=== PATIENT | female | born 1935 | race Caucasian/White ===

== ENCOUNTER 2016-08-05 16:52 | Inpatient (IN) | payer MEDICARE, BC ==
--- NOTE | 2016-08-05 16:54 | EDM.PDOC ---
ED HISTORY OF PRESENT ILLNESS - General Chief Complaint: Cardiovascular Problem Stated Complaint: HTN Time Seen by Provider: 08/05/16 16:54 Source of Information: Reports: Patient, Family (Daughter in law), Old records ( [facility] EMR. No paper hospital chart available.) History Limitations: Reports: No limitations - History of Present Illness INITIAL COMMENTS - FREE TEXT/NARRATIVE: The patient was brought to the emergency room via private automobile by her [id number] for evaluation of refractory hypertension, including a systolic blood pressure of 225 at about 14:00 hours this afternoon with a blood pressure of 211/82 taken by the aid at the [facility] immediately prior to arrival. Blood Pressures were taken with the wrist monitor. She does complain of an 8/10 bilateral headache with possible nonspecific visual changes, however no other change in her neurological status. 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 She has not had any problems with medication noncompliance or recent change in her medications, although her blood pressure has been under poor control during the last 2-3 weeks. She is currently on an antibiotic for a UTI, however denies UTI symptoms, gross hematuria, colic, etc. The patient denies any chest pain/pressure, heart flutter, dizziness, orthostasis, orthopnea , diaphoresis, paresthesias, recent decreased exercise tolerance, or any other anginal-type symptoms, although her overall activity level is low. No recent history of abdominal pain, heartburn, nausea, diarrhea, melena, gross hematochezia, or any food intolerance, including fatty foods, etc. with a normal bowel movement earlier today with stable stools secondary to her iron supplementation. The patient also denies any recent fever, cough, wheezing, dyspnea, etc.. She has not had any medications for her symptoms to this point. Her home Accu-Cheks have been stable with an Accu-Chek of 85 this morning. Timing/Duration: Reports: Week(s): (As above) Severity: moderate Location, General: Reports: head. Denies: face, neck, chest, abdomen, back, upper extremity, left, upper extremity, right, lower extremity, left, lower extremity, right Quality: Reports: Pressure, Same as previous episode, Sharp Improves with: Reports: None Worsens with: Reports: None Context, General: Reports: Other (As above) Associated Symptoms (General): Reports: headaches. 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: Other (see below) (None) - Related Data Allergies/ADRs: Allergies Allergy/AdvReac Type Severity Reaction Status Date / Time diphenhydramine Allergy Unknown Hallucinati Verified 01/12/16 10:53 ons lisinopril Allergy Unknown Cough Verified 01/12/16 10:53 Home Meds: Home Meds Allopurinol [Zyloprim] 150 mg PO BEDTIME 10/08/13 [History] Cyanocobalamin (Vitamin B-12) [Cyanocobalamin Injection] 1,000 mcg IJ Q60D 10/08 [History] Nitroglycerin [Nitrostat] 0.4 mg SL ASDIRECTED PRN 10/08/13 [History] Potassium Chloride 10 meq PO TID 10/08/13 [History] atorvaSTATin Calcium [Atorvastatin Calcium] 40 mg PO BEDTIME 10/08/13 [History] Diclofenac Sodium [Voltaren 1% Gel] 1 applic TOP TID PRN 03/10/14 [History] Acetaminophen [Tylenol Extra Strength] 1 - 2 tab PO Q4H PRN 02/14/15 [History] Insulin Detemir [Levemir Flextouch] 45 unit SQ BEDTIME 02/14/15 [History] Levothyroxine 112 mcg PO ACBREAKFAST 02/14/15 [History] Aspirin [Halfprin] 81 mg PO BRK 09/29/15 [History] Multivitamin with Minerals [Multiple Vitamin] 1 tab PO DAILY 09/29/15 [History] Citalopram [Celexa] 10 mg PO DAILY #40 tablet 01/04/16 [Rx] Metoprolol Succinate [Toprol XL] 25 mg PO DAILY 01/04/16 [History] rOPINIRole [Requip] 2 mg PO BID 01/04/16 [History] Famotidine 20 mg PO BID 01/12/16 [History] Fluticasone Propionate [Flonase Allergy Relief] 15.8 ml NS BID PRN 08/05/16 [ History] Gabapentin [Neurontin] 100 mg PO BID 08/05/16 [History] Iron Polysaccharides Complex [Ferrex 150] 150 mg PO MOWEFR 08/05/16 [History] LORazepam 0.25 mg PO DAILY 08/05/16 [History] Losartan [Cozaar] 50 mg PO BID 08/05/16 [History] hydrALAZINE [Apresoline] 10 mg PO BID 08/05/16 [History] Past Medical History HEENT History: Reports: Cataract, Hard of hearing, Impaired vision, Other (see below). Denies: Allergic rhinitis, Glaucoma, Macular degeneration, Retinal detachment Other HEENT History: Patient does wear glasses, she also has a hearing aide which she usually uses on her left side Cardiovascular History: Reports: Afib, Arrhythmia, Bypass, CAD, Heart Failure, Heart murmur, High cholesterol, Hypertension, AK, PTCA, PVD, Stents, Syncope, Other (see below). 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 Denies: Asthma, COPD, PE , Pneumothorax, TB Other Respiratory History: Sleep apnea with no current therapy including nocturnal O2, CPAP, etc. with additional history of restless leg syndrome Gastrointestinal History: Reports: Bowel obstruction, Cholelithiasis, Chronic constipation, Chronic diarrhea, Colon polyp, Diverticulosis, Gastritis, GERD, GI bleed, Hemorrhoids, PUD, Other (see below). Denies: Celiac disease, Fecal incontinence, Hepatitis, Inflammatory bowel disease, Irritable bowel syndrome, Jaundice, Pancreatitis Other Gastrointestinal History: benign adenomatous polyps, right inguinal hernia Genitourinary History: Reports: Chronic renal insuffiency, Diabetic nephropathy , Renal calculus, UTI, recurrent, Other (see below). Denies: Acute renal failure, Dialysis, Retention, urinary, STD, Urinary incontinence Other Genitourinary History: Right-sided urolithiasis requiring procedure as below, benign renal cysts MECHANICAL SPECIALIST History: Reports: Dysfunctional uterine bleeding, . Denies: Endometriosis, Fibroids, Spontaneous : 4 Para: 4 (Full term without complications during pregnancies or deliveries) LMP (Approximate): other Other OB/BYN History: Surgical menopause secondary to dysfunctional uterine bleeding Musculoskeletal History: Reports: Arthritis, Back pain, chronic, Fibromyalgia, Gout, Neck pain, chronic, Osteoarthritis, RA, Other (see below). Denies: Amputation, Fracture, SLE Other Musculoskeletal History: Lumbar surgeries as below with history of spinal stenosis, scoliosis Neurological History: Reports: CVA, Headaches, chronic, Neuropathy, diabetic, Neuropathy, peripheral, Speech problems, Other (see below). 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 Denies: Abuse, victim of, ADD, ADHD, Addiction, Dementia, Psych Hospitalization(s), PTSD, Suicide attempt , Suicidal ideation Endocrine/Metabolic History: Reports: Diabetes, type II, Hypothyroidism, IDDM Hematologic History: Reports: Anemia, Blood transfusion(s), Iron deficiency, Other (see below) Other Hematologic History: Transfusions at time of CABG Immunologic History: Reports: None. Denies: AIDS, HIV, SLE Oncologic (Cancer) History: Reports: Breast, Squamous cell carcinoma, Other ( see below). 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 Denies: Eczema, Psoriasis, Venous stasis dermatitis Other Dermatologic History: dry skin - Infectious Disease History Infectious Disease History: Reports: Measles, Mumps. Denies: C-difficile, Chicken pox, Meningitis, Mononucleosis, MRSA, Pertussis (whooping cough), Rheumatic Fever, Rubella, Scarlet fever, Shingles, TB, VRE - Past Surgical History Head Surgeries/Procedures: Reports: None HEENT Surgical History: Reports: Adenoidectomy, Cataract surgery, Eye surgery, Laser surgery, LASIK, Oral surgery, Tonsillectomy, Other (see below). Denies: Myringotomy w tube(s), Naso-sinus surgery Other HEENT Surgeries/Procedures: Tonsillectomy and adenoidectomy at age 18, bilateral cataract surgery in 2008, with right sided YAG treatments after her cataracts with patient denying LASIK despite medical records, complete upper teeth extraction with multiple lower teeth extraction Cardiovascular Surgical History: Reports: Coronary artery bypass, Coronary artery stent, Percutaneous transluminal angioplasty, Other (see below). Denies : Aneurysm, Varicose Other Cardiovascular Surgeries/Procedures: CABG x2 in April 2002 including internal mammary bypass to LAD and LEONARD to the diagonal artery, total of 7 PTCA/ stents with last PTCA/stent x1 in 2014 Respiratory Surgical History: Reports: None. Denies: Thoracentesis GI Surgical History: Reports: Appendectomy, Bariatric procedure, Cholecystectomy , Colonoscopy, EGD, Polypectomy, Other (see below). Denies: Hernia, abdominal, Hernia, inguinal, Hernia repair/other Other GI Surgeries/Procedures: Gastric bypass versus Billroth II with concomitant appendectomy and cholecystectomy in about 1979, last colonoscopy on 02/15/15 with a total of 5 previous evaluations, 3 previous EGDs last on 02/22/15 with previous evaluation on 03/14/14, previous hemorrhoidectomy x2 in the and Female Surgical History: Reports: Hysterectomy, Kidney stone extraction, Mastectomy, Salpingo-oophorectomy, Ureteral stent. Denies: D&C, Tubal ligation Other Female Surgeries/Procedures: right partial mastectomy with chemotherapy secondary to breast cancer in 2009, complete hysterectomy including bilateral salpingo-oophorectomy secondary to dysfunctional uterine bleeding, subsequent bladder suspension, excision of right sided nephrolithiasis in about 1999 Endocrine Surgical History: Reports: None. Denies: Thyroid biopsy Neurological Surgical History: Reports: Discectomy, Lumbar spine, Spinal fusion , Thoracic spine, Other (see below). Denies: C-Spine, Laminectomy, Vertebroplasty Other Neurological Surgeries/Procedures: Microdiscectomy his x2 with additional spinal fusion between L3 and L5 on 06/20/09 Musculoskeletal Surgical History: Reports: Carpal tunnel, Other (see below). Denies: Arthroscopic procedure, Ganglion cyst, Joint replacement, ORIF, Shoulder surgery Other Musculoskeletal Surgeries/Procedures:: Right-sided carpal tunnel release in about 1988 Oncologic Surgical History: Reports: Bone marrow aspiration, Other (see below) Other Oncologic Surgeries/Procedures: Breast surgery as above, bone marrow fine needle aspiration and biopsy in about 2011, excision of squamous cell carcinoma from the facial region as above Dermatological Surgical History: Reports: Other (see below) Other Dermatological Surgeries/Procedures: Excision of skin cancer as above - Past Imaging History Past Imaging History: Reports: Angiography (Heart catheterization in May 2016 and October 2001), Cardiac echo (March 2013), CAT scan (CT of the head on 05/17, 11/09/15, and 09/26/14, CTA of the chest on 09/14/14, CT of the renal system on 06/18/13), MRI (MRI of the brain on 02/12/16, thoracic spine on 11/09/15, lumbar spine on 03/16/15 and 07/08/13), Venous doppler (Right leg in October 2014) Social & Family History - Family History Cardiac: Reports: CAD, Heart failure, AK, Other (see below). Denies: Afib, Aneurysm, Arrhythmia, Blood clots/VTE/DVT, High cholesterol, Hypertension, PVD/ COD, Syncope Other Cardiac Family History: Sister with PTCA/stent x2 and an AK with fatal AK at age 83, another sister with fatal CHF at 64, another sister with fatal AK at age 75, mom with coronary artery disease, maternal aunts x2 with fatal AK one in her 80s the other at age 92 Respiratory: Reports: None. Denies: Asthma, COPD, PE, Pneumothorax, Sleep apnea GI: Reports: Inflammatory bowel disease, Other (see below). Denies: Celiac disease, Cholelithiasis, Colon polyps, GERD, GI bleed, PUD Other GI Family History: Mother with Crohn's disease : Reports: Renal calculus, Other (see below). Denies: Dialysis, Renal disease /insufficiency, UTI, recurrent Other Family History: Son and 2 daughters with urolithiasis OBGYN: Reports: None. Denies: Endometriosis, Fibroids Musculoskeletal: Reports: None. Denies: Fibromyalgia, Gout, Osteoarthritis, RA , SLE Neurological: Reports: Alzheimers disease, MS, Other (see below). Denies: Cerebral aneurysms, CVA, Dementia, Migraines, Parkinson's, Seizure, TIA Other Neurological Family History: Daughter with MS Psychiatric: Reports: None. Denies: Abuse, victim of, ADD, ADHD, Anxiety, Depression, Psych hospitalization(s), PTSD, Suicide attempt Endocrine/Metabolic: Reports: None. Denies: Diabetes, type I, Diabetes, type II , Hypothyroidism, IDDM Hematologic: Reports: None. Denies: Anemia Immunologic: Reports: None. Denies: AIDS, HIV, SLE Dermatologic: Reports: None. Denies: Eczema, Psoriasis Oncologic: Reports: Breast, Colon, Other (see below). Denies: Hodgkin's lymphoma, Leukemia, Lymphoma, Non-Hodgkin's lymphoma, Skin Other Oncologic Family History: Sister with fatal breast cancer at age 60, paternal aunt with fatal breast cancer in her 60s, maternal aunt with breast cancer, mother with possible renal cancer, sister with fatal liver cancer versus metastases in her 60s, sister with colon cancer in her 80s - Tobacco Use Smoking Status *Q: Never Smoker Years of Tobacco use: 0 Used Tobacco, but Quit: No Month Tobacco Last Used: 0 Smoking Cessation Information Provided To Patient: No Second Hand Smoke Exposure: No Second Hand Smoke Education Provided: No - Caffeine Use Caffeine Use: Reports: Coffee (One cup per day), Soda (1 soda per day). Denies : Energy drinks, Tea - Alcohol Use Alcohol Use History: No Days Per Week of Alcohol Use: 0 (No previous DWIs, problems with alcohol abuse, etc.) Number of Drinks Per Day: 0 Total Drinks Per Week: 0 Alcohol Use in Last Twelve Months: No - Recreational Drug Use Recreational Drug Use: No Drug Use in Last 12 Months: No Recreational Drug Type: Denies: Amphetamines (Speed), Cocaine, Heroin, Inhalants (Glues, Solvents, Aerosols), LSD (Acid), Marijuana/Hashish, Methamphetamine, Morphine - Living Situation & Occupation Living situation: Reports: (2015, 4 children), alone, assisted living ( [facility] assisted living facility since 06/01/16) 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 Denies: fever, chills, fatigue, night sweats, diaphoresis, decreased appetite, weight loss, weight gain HEENT: Reports: Glasses, Hearing loss (Stable chronic), Vision change ( Occasional nonspecific borderline). Denies: Contact Lenses, Dental pain, Ear discharge, Ear pain, Eye pain, Nosebleed, Sinus problem, Throat pain, Vertigo Respiratory: Reports: no symptoms. Denies: shortness of breath, wheezing, pleuritic chest pain, cough Cardiovascular: Reports: Blood pressure problem. Denies: Chest pain, Claudication, Dyspnea on exertion, Edema, Lightheadedness, Orthopnea, Palpitations, PND, Syncope Endocrine: Reports: no symptoms. Denies: fatigue, high glucose GI/Abdominal: Reports: No symptoms. Denies: Abdominal pain, Anorexia, Black stool, Bloody stool, Constipation, Diarrhea, Decreased appetite, Difficulty swallowing, Distension, Flatus, Hematemesis, Hematochezia, Melena, Nausea, Stool incontinence, Vomiting : Reports: no symptoms. Denies: discharge, dysuria, flank pain, frequency, hematuria, incontinence, pain, urgency, urinary retention Musculoskeletal: Reports: neck pain (Stable chronic), shoulder pain (Chronic left), back pain (Stable chronic). Denies: leg pain Skin: Reports: no symptoms. Denies: diaphoresis, change in hair/nails Neurological: Reports: headache, numbness (Stable), paresthesia (Stable), tingling (Stable), difficulty walking (Walker use required), weakness (Stable right hemiparesis), change in speech (Stable dysarthria). Denies: dizziness, syncope, gait disturbance Psychiatric: Reports: No symptoms. Denies: Agitation, Anxiety, Confusion, Cravings, Hallucinations Hematologic/Lymphatic: Reports: no symptoms Immunologic: Reports: no symptoms ED EXAM, GENERAL - Physical Exam Exam: See Below Exam Limited By: No limitations General Appearance: alert, WD/WN, no apparent distress, anxious (Mild to moderate) Eye Exam: bilateral eye: EOMI, normal inspection (No vertigo or nystagmus), PERRL Ears: normal external exam, normal canal, normal TMs, hearing loss (Mild bilateral) Nose: normal inspection, normal mucosa, no blood Throat/Mouth: Normal inspection, Normal lips, Normal gums, Normal oropharynx, Normal voice, No airway compromise. No: Normal teeth (Complete upper dentures, multiple missing teeth lowers), Dysphagia, Perioral cyanosis Head: atraumatic, normocephalic. No: facial swelling, facial tenderness, sinus tenderness Neck: normal inspection, supple, non-tender, full range of motion, carotid bruit (Moderate bilateral carotid bruits versus transmitted heart sounds). No: lymphadenopathy (L), lymphadenopathy (R), thyromegaly Respiratory/Chest: no respiratory distress, lungs clear, normal breath sounds, no accessory muscle use, chest non-tender. No: pleural rub, retractions Cardiovascular: normal peripheral pulses, regular rate, rhythm, no edema, no gallop, no JVD, no rub, systolic murmur (3/6 LEATHA at the aortic and mitral valves ). No: gallop/S3, gallop/S4, extra beats, friction rub Peripheral Pulses: 2+: radial (L), radial (R), dorsalis pedis (L), dorsalis pedis (R) GI/Abdominal: normal bowel sounds, soft, non tender, no organomegaly, no distention, no abnormal bruit, no mass, other (Obese). No: guarding (Female) Exam: Deferred Rectal (Female) Exam: Deferred Back Exam: normal inspection, full range of motion. No: CVA tenderness (L), CVA tenderness (R), muscle spasm Extremities: normal inspection, normal range of motion, non-tender, no pedal edema, normal capillary refill. No: Rekha's Sign Neurological: alert, oriented, normal cognition, normal reflexes (Negative Babinski's), abnormal gait (Requires walker), sensory/motor deficit (Stable by history right-sided hemiparesis mostly in the leg), other (Stable dysarthria) Psychiatric: anxious (Mild to moderate). No: depressed mood Skin Exam: Warm, Dry, Intact, Normal color, No rash. No: Diaphoretic, Ecchymosis, Petechiae, Wound/incision Lymphatic: no adenopathy EKG INTERPRETATION EKG Date: 08/05/16 Time: 16:56 Rhythm: NSR Rate (beats/min): 69 [place]: LAD-left axis deviation (Extended left cardiac axis) P-wave: present (Mild diffuse biphasic P waves with extreme poor R-wave progression in the anterior leads) QRS: other (QRS interval of 0.13 seconds representing a complete bifascicular bundle-branch block with stable T-wave inversion in lead V1, improved T-wave inversion in lead V2 and mild T wave inversion in lead 3) ST-T: other (As above) QT: normal MS/PQ Interval: MS interval is 0.21 seconds representing a stable first degree AV block Comparison: change from previous EKG (as above since 01/12/16) EKG Interpretation Comments: 1. No acute ischemic changes with questionable chronic anterior wall ischemia 2. Complete bifascicular bundle-branch block 3. First degree AV block Course - Vital Signs Last Recorded V/S: Last Vital Signs Temp 36.9 C 08/05/16 16:55 Pulse 65 08/05/16 17:22 Resp 17 08/05/16 17:22 BP 204/70 H 08/05/16 17:44 Pulse Ox 100 08/05/16 17:22 Vital Signs - 24 hr 08/05/16 08/05/16 08/05/16 16:53 16:55 17:16 Temperature [ 36.9 C 36.9 C Oral] Pulse, 71 Peripheral Pulse, 67 99 Peripheral [ Right Pulse Oximetry] Respiratory 20 20 Rate Blood Pressure 189/74 H Blood Pressure 157/88 H 204/70 H [Left Upper Arm ] O2 Sat by Pulse 97 100 Oximetry 08/05/16 08/05/16 08/05/16 17:22 17:44 17:52 Temperature [ Oral] Pulse, Peripheral Pulse, 65 66 Peripheral [ Right Pulse Oximetry] Respiratory 17 20 Rate Blood Pressure 204/70 H Blood Pressure 199/66 H 152/75 H [Left Upper Arm ] O2 Sat by Pulse 100 100 Oximetry - Orders/Labs/Meds Orders: Active Orders 24 hr Category Date Time Status Cardiac Monitoring [RC] . DIRECTED Care 08/05/16 16:55 Active EKG Documentation Completion [RC] ASDIRECTED Care 08/05/16 16:55 Active Oxygen Therapy, ED [RC] CONTINUOUS Care 08/05/16 16:55 Active Peripheral IV Care [RC] . DIRECTED Care 08/05/16 16:55 Active Pulse Oximetry [RC] CONTINUOUS Care 08/05/16 16:55 Active Up With Assistance [RC] PFP Care 08/05/16 16:55 Active Vital Signs [RC] PFP Care 08/05/16 16:55 Active Nothing per Oral Now Diet [DIET] Diet 08/05/16 Breakfast Active Chest 1V Frontal [CR] Stat Exams 08/05/16 16:55 Taken Chest PE [Ang Chest] [CT] Stat Exams 08/05/16 18:06 Taken Nitroglycerin [Nitrostat] Med 08/05/16 17:41 Stat 0.4 mg SL ONETIME STA Sodium Chloride 0.9% [Saline Flush] Med 08/05/16 16:55 Active 10 ml FLUSH ASDIRECTED PRN Obtain Past Medical Record [OM.PC] Urgent Oth 08/05/16 16:55 Active Peripheral IV Insertion Adult [OM.PC] Stat Oth 08/05/16 16:55 Ordered Resuscitation Status Stat Resus Stat 08/05/16 16:55 Ordered Medication Orders Nitroglycerin (Nitrostat) 0.4 mg SL ONETIME STA Stop: 08/06/16 17:42 Last Admin: 08/05/16 17:44 Dose: 0.4 mg Sodium Chloride (Saline Flush) 10 ml FLUSH ASDIRECTED PRN PRN Reason: Keep Vein Open Labs: Laboratory Tests 08/05/16 08/05/16 08/05/16 Range/Units 17:10 17:10 17:10 WBC 7.0 (4.0-10.2) K/uL RBC 4.61 (3.77-5.09) M/uL Hgb 12.5 (11.7-15.5) g/dL Hct 38.3 (34.0-46.0) % MCV 83.1 L (84.0-98.0) fL MCH 27.1 L (28.2-33.3) pg MCHC 32.6 (31.7-36.0) g/dL RDW 15.0 H (11.2-14.1) % Plt Count 179 (150-350) K/uL Neut % (Auto) 65.9 (45.0-80.0) % Lymph % (Auto) 15.2 (10.0-50.0) % Stewart % (Auto) 13.8 (2.0-14.0) % Eos % (Auto) 3.4 (0.0-5.0) % Baso % (Auto) 1.7 (0.0-2.0) % Neut # 4.64 (1.40-7.00) K/uL Lymph # 1.07 (0.50-3.50) K/uL Stewart # 0.97 (0.00-1.00) K/uL Eos # 0.24 (0.00-0.50) K/uL Baso # 0.12 (0.00-0.20) K/uL PT 9.9 (9.8-11.7) SEC INR 0.9 APTT 24.0 (23.5-30.0) SEC D-Dimer, Quantitative 1370 H (0-400) ng/mL Sodium (136-145) mmol/L Potassium (3.5-5.1) mmol/L Chloride (98-107) mmol/L Carbon Dioxide (21.0-32.0) mmol/L BUN (7-18) mg/dL Creatinine (0.51-1.17) mg/dL Est Cr Clr Drug Dosing mL/min Estimated GFR (MDRD) mL/min Glucose (74-106) mg/dL Lactic Acid (0.4-2.0) mmol/L Uric Acid (2.6-7.2) mg/dL Calcium (8.5-10.1) mg/dL Magnesium (1.8-2.4) mg/dL Total Bilirubin (0.2-1.0) mg/dL AST (15-37) U/L ALT (12-78) U/L Alkaline Phosphatase (46-116) IU/L Creatine Kinase (26-308) U/L Creatine Kinase Index (0.0-2.5) % CK-MB (CK-2) (0.00-3.60) ng/mL Troponin I (0.000-0.056) ng/mL [id number] Pept (0-125) pg/mL Total Protein (6.4-8.2) g/dL Albumin (3.4-5.0) g/dL TSH, Ultra Sensitive (0.358-3.740) mIU/mL H. pylori IgG Antibody (NEGATIVE) 08/05/16 08/05/16 08/05/16 Range/Units 17:10 17:10 17:10 WBC (4.0-10.2) K/uL RBC (3.77-5.09) M/uL Hgb (11.7-15.5) g/dL Hct (34.0-46.0) % MCV (84.0-98.0) fL MCH (28.2-33.3) pg MCHC (31.7-36.0) g/dL RDW (11.2-14.1) % Plt Count (150-350) K/uL Neut % (Auto) (45.0-80.0) % Lymph % (Auto) (10.0-50.0) % Stewart % (Auto) (2.0-14.0) % Eos % (Auto) (0.0-5.0) % Baso % (Auto) (0.0-2.0) % Neut # (1.40-7.00) K/uL Lymph # (0.50-3.50) K/uL Stewart # (0.00-1.00) K/uL Eos # (0.00-0.50) K/uL Baso # (0.00-0.20) K/uL PT (9.8-11.7) SEC INR APTT (23.5-30.0) SEC D-Dimer, Quantitative (0-400) ng/mL Sodium 140 (136-145) mmol/L Potassium 3.4 L (3.5-5.1) mmol/L Chloride 101 (98-107) mmol/L Carbon Dioxide 29.4 (21.0-32.0) mmol/L BUN 17 (7-18) mg/dL Creatinine 0.64 (0.51-1.17) mg/dL Est Cr Clr Drug Dosing 49.52 mL/min Estimated GFR (MDRD) > 60 mL/min Glucose 145 H (74-106) mg/dL Lactic Acid 1.4 (0.4-2.0) mmol/L Uric Acid 4.4 (2.6-7.2) mg/dL Calcium 8.9 (8.5-10.1) mg/dL Magnesium 2.1 (1.8-2.4) mg/dL Total Bilirubin 0.3 (0.2-1.0) mg/dL AST 36 (15-37) U/L ALT 44 (12-78) U/L Alkaline Phosphatase 86 (46-116) IU/L Creatine Kinase 241 (26-308) U/L Creatine Kinase Index 1.5 (0.0-2.5) % CK-MB (CK-2) 3.60 (0.00-3.60) ng/mL Troponin I 0.000 (0.000-0.056) ng/mL Azd-I-Zrxnxirdzua Pept 1704 H (0-125) pg/mL Total Protein 7.7 (6.4-8.2) g/dL Albumin 3.8 (3.4-5.0) g/dL TSH, Ultra Sensitive 3.569 (0.358-3.740) mIU/mL H. pylori IgG Antibody Negative (NEGATIVE) Meds: Medications Generic Name Dose Route Start Last Admin Trade Name Freq PRN Reason Stop Dose Admin Nitroglycerin 0.4 mg 08/05/16 17:41 08/05/16 17:44 Nitrostat SL 08/06/16 17:42 0.4 mg ONETIME STA Administration Sodium Chloride 10 ml 08/05/16 16:55 Saline Flush FLUSH ASDIRECTED PRN Keep Vein Open Discontinued Medications Generic Name Dose Route Start Last Admin Trade Name Freq PRN Reason Stop Dose Admin Famotidine 40 mg 08/05/16 16:55 08/05/16 17:16 Pepcid IVPUSH 08/05/16 16:56 40 mg ONETIME ONE Administration Iopamidol 100 ml 08/05/16 18:07 08/05/16 18:35 Isovue-370 (76%) IVPUSH 08/05/16 18:08 100 ml ONETIME ONE Administration Metoprolol Tartrate 2.5 mg 08/05/16 16:57 08/05/16 17:16 Lopressor IVPUSH 08/05/16 16:58 2.5 mg ONETIME ONE Administration - Radiology Interpretation Free Text/Narrative:: monitoring analyst shows normal sinus rhythm with heart rate in the 70s to 80s with occasional PVCs noted Chest x-ray, portable, shows evidence of moderate aortic valve calcification with mild to moderate COPD changes and probable pulmonary hypertension and/or mild centralized CHF particularly in the right perihilar region. Mild cardiomegaly noted. No pneumothorax, etc. Departure - Departure Time of Disposition: 19:00 Disposition: Admitted As Inpatient 66 Condition: fair Clinical Impression: Peptic reflux disease, IDDM (insulin dependent diabetes mellitus), Hypokalemia , PVCs (premature ventricular contractions) CVA (cerebral vascular accident) Qualifiers: CVA mechanism: occlusion Precerebral and cerebral artery: middle cerebral artery Laterality of affected vessel: right Qualified Code(s): I63.511 - Cerebral infarction due to unspecified occlusion or stenosis of right middle cerebral artery Anemia Qualifiers: Anemia type: iron deficiency Iron deficiency anemia type: other iron deficiency Qualified Code(s): D50.8 - Other iron deficiency anemias Hypertension Qualifiers: Hypertension type: essential hypertension Qualified Code(s): I10 - Essential ( primary) hypertension Coronary artery disease Qualifiers: Coronary Disease-Associated Artery/Lesion type: bypass graft, autologous artery Associated angina: without angina Qualified Code(s): I25.810 - Atherosclerosis of coronary artery bypass graft(s) without angina pectoris CHF (congestive heart failure) Qualifiers: Congestive heart failure type: unspecified congestive heart failure type Congestive heart failure chronicity: acute on chronic Qualified Code(s): I50.9 - Heart failure, unspecified Osteoarthritis Qualifiers: Osteoarthritis location: multiple joints Osteoarthritis type: primary Qualified Code(s): M15.0 - Primary generalized (osteo)arthritis Hyperlipidemia Qualifiers: Hyperlipidemia type: unspecified Qualified Code(s): E78.5 - Hyperlipidemia, unspecified Forms: ED Department Discharge Care Plan Goals: See plan - Problem List & Annotations (1) Hypertension SNOMED Code(s): 24175783 Code(s): I10 - ESSENTIAL (PRIMARY) HYPERTENSION Status: Acute Priority: High Current Visit: Yes Annotation/Comment:: Blood Pressure is under poor control recently as above. Patient given IV Lopressor and additional sublingual nitroglycerin in the emergency room as below with improved blood pressures prior to admission. Initiate Imdur for cardiac protection and also as blood pressure medication. Further medication adjustments depending on her clinical course Qualifiers: Hypertension type: essential hypertension Qualified Code(s): I10 - Essential (primary) hypertension (2) CHF (congestive heart failure) SNOMED Code(s): 98532353 Code(s): I50.9 - HEART FAILURE, UNSPECIFIED Status: Acute Priority: High Current Visit: Yes Annotation/Comment:: Initiate IV Lasix therapy on admission. Echocardiogram had already been scheduled in this facility for tomorrow secondary to her valvular disease with this to be conducted in the a.m. Cardiology consultation as needed. Patient was started on Lasix orally about one week ago with some hypokalemia today despite low dose potassium chloride supplementation Qualifiers: Congestive heart failure type: unspecified congestive heart failure type Congestive heart failure chronicity: acute on chronic Qualified Code(s): I50.9 - Heart failure, unspecified (3) CVA (cerebral vascular accident) SNOMED Code(s): 871390733 Code(s): I63.9 - CEREBRAL INFARCTION, UNSPECIFIED Status: Acute Current Visit: Yes Annotation/Comment:: Stable neurological deficits by history as above. Patient does complain of nonspecific headaches as above. Continue to observe her neurological status closely with consideration of the CT scan of the head depending on her clinical course Qualifiers: CVA mechanism: occlusion Precerebral and cerebral artery: middle cerebral artery Laterality of affected vessel: right Qualified Code(s): I63.511 - Cerebral infarction due to unspecified occlusion or stenosis of right middle cerebral artery (4) Coronary artery disease SNOMED Code(s): 48238490 Code(s): I25.10 - ATHSCL HEART DISEASE OF [place] CORONARY ARTERY W/O ANG PCTRS Status: Chronic Priority: Medium Current Visit: Yes Annotation/ Comment:: No chest pain or true anginal-type symptoms with chest pain protocol not initiated in the emergency room. Sublingual nitroglycerin tablet was given for blood pressure control. Cardiac enzymes and EKG are otherwise normal and/ or stable with moderate d-dimer and BNP elevation. EKG and cardiac enzymes to be repeated in the a.m. Qualifiers: Coronary Disease-Associated Artery/Lesion type: bypass graft, autologous artery Associated angina: without angina Qualified Code(s): I25.810 - Atherosclerosis of coronary artery bypass graft(s) without angina pectoris (5) Hyperlipidemia SNOMED Code(s): 21567084 Code(s): E78.5 - HYPERLIPIDEMIA, UNSPECIFIED Status: Chronic Priority: Medium Current Visit: Yes Annotation/Comment:: Lipid panel in the a.m. Qualifiers: Hyperlipidemia type: unspecified Qualified Code(s): E78.5 - Hyperlipidemia , unspecified (6) Hypokalemia SNOMED Code(s): 76597339 Code(s): E87.6 - HYPOKALEMIA Status: Chronic Priority: Medium Current Visit: Yes Annotation/Comment:: Increase potassium supplementation especially in light of increased Lasix, including IV Lasix during this hospitalization (7) IDDM (insulin dependent diabetes mellitus) SNOMED Code(s): 81258599 Code(s): E11.9 - TYPE 2 DIABETES MELLITUS WITHOUT COMPLICATIONS; Z79.4 - MCFP (CURRENT) USE OF INSULIN Status: Chronic Priority: Medium Current Visit: Yes Annotation/Comment:: Accu-Cheks at home are under good control by patient history. Glycosylated hemoglobin in the a.m. (8) Osteoarthritis SNOMED Code(s): 637320272 Code(s): M19.90 - UNSPECIFIED OSTEOARTHRITIS, UNSPECIFIED SITE Status: Chronic Priority: Medium Current Visit: Yes Annotation/Comment:: Stable by patient history with history of both rheumatoid arthritis and gout Qualifiers: Osteoarthritis location: multiple joints Osteoarthritis type: primary Qualified Code(s): M15.0 - Primary generalized (osteo)arthritis (9) Peptic reflux disease SNOMED Code(s): 19640697 Code(s): K21.9 - GASTRO-ESOPHAGEAL REFLUX DISEASE WITHOUT ESOPHAGITIS Status: Chronic Priority: Medium Current Visit: Yes Annotation/Comment:: Stable by patient history with high-dose IV Pepcid given as GI prophylaxis in the emergency room (10) Anemia SNOMED Code(s): 653236144 Code(s): D64.9 - ANEMIA, UNSPECIFIED Status: Chronic Priority: Medium Current Visit: Yes Annotation/Comment:: Mild microcytosis without anemia with patient already on iron supplementation Qualifiers: Anemia type: iron deficiency Iron deficiency anemia type: other iron deficiency Qualified Code(s): D50.8 - Other iron deficiency anemias (11) PVCs (premature ventricular contractions) SNOMED Code(s): 43572839 Code(s): I49.3 - VENTRICULAR PREMATURE DEPOLARIZATION Status: Acute Priority: Medium Current Visit: Yes Onset Date: 08/05/16 Annotation/ Comment:: Newly diagnosed occasional PVCs with history of other cardiac arrhythmias as above. Secondary to valvular disease and her hypertension she would benefit from low-dose beta timoteo therapy, which will be initiated on admission - Problem List Review Problem List Initiated/Reviewed/Updated: Yes - My Orders Last 24 Hours: My Active Orders 08/05/16 16:55 Cardiac Monitoring [RC] . DIRECTED EKG Documentation Completion [RC] ASDIRECTED Oxygen Therapy, ED [RC] CONTINUOUS Peripheral IV Care [RC] . DIRECTED Pulse Oximetry [RC] CONTINUOUS Up With Assistance [RC] PFP Vital Signs [RC] PFP Chest 1V Frontal [CR] Stat Sodium Chloride 0.9% [Saline Flush] 10 ml FLUSH ASDIRECTED PRN Obtain Past Medical Record [OM.PC] Urgent Peripheral IV Insertion Adult [OM.PC] Stat Resuscitation Status Stat 08/05/16 17:41 Nitroglycerin [Nitrostat] 0.4 mg SL ONETIME STA 08/05/16 18:06 Chest PE [Ang Chest] [CT] Stat 08/05/16 Breakfast Nothing per Oral Now Diet [DIET] - Assessment/Plan Admission H&P: Please use this note as an admission H&P Last 24 Hours: My Active Orders 08/05/16 16:55 Cardiac Monitoring [RC] . DIRECTED EKG Documentation Completion [RC] ASDIRECTED Oxygen Therapy, ED [RC] CONTINUOUS Peripheral IV Care [RC] . DIRECTED Pulse Oximetry [RC] CONTINUOUS Up With Assistance [RC] PFP Vital Signs [RC] PFP Chest 1V Frontal [CR] Stat Sodium Chloride 0.9% [Saline Flush] 10 ml FLUSH ASDIRECTED PRN Obtain Past Medical Record [OM.PC] Urgent Peripheral IV Insertion Adult [OM.PC] Stat Resuscitation Status Stat 08/05/16 17:41 Nitroglycerin [Nitrostat] 0.4 mg SL ONETIME STA 08/05/16 18:06 Chest PE [Ang Chest] [CT] Stat 08/05/16 Breakfast Nothing per Oral Now Diet [DIET] Assessment:: As above Plan: As above. Extensive precautions were given to the patient and her son, who are in agreement with the treatment plan. The patient will require about 3-4 days of inpatient/acute care secondary to multiple health problems as above.
[2016-08-05] MEDS ORDERED: Famotidine 20 MG/2 ML SDV IVPUSH ONE (16:55)
[2016-08-05] MEDS ORDERED: Metoprolol Tartrate 5 MG/5 ML SDV IVPUSH ONE (16:57)
[2016-08-05] MEDS ORDERED: Nitroglycerin 0.4 MG Tab.SL SL STA (17:41)
[2016-08-05 17:48] LABS: CHLORIDE,CL 101 mmol/L (98-107); SODIUM,NA 140 mmol/L (136-145)
[2016-08-05] MEDS ORDERED: Iopamidol 755 Mg/ML 100 ML Bottle IVPUSH ONE (18:07)
[2016-08-05] MEDS ORDERED: Sodium Chloride 0.9% 10 ML Syringe FLUSH PRN (19:24)
[2016-08-05] MEDS ORDERED: Isosorbide Mononitrate 30 MG Tab.ER PO SCH (19:28)
[2016-08-05] MEDS ORDERED: Fluticasone Propionate Nasal Spray 16 GM Bottle NASBOTH PRN (19:30)
[2016-08-05] MEDS: Metoprolol Succinate 25 MG Tab.ER PO SCH (20:15)
[2016-08-05] MEDS: Aspirin 81 MG Tab.EC PO SCH (20:15)
[2016-08-05] MEDS: Allopurinol 100 MG Tab PO SCH (20:16)
[2016-08-05] MEDS: Potassium Chloride 10 MEQ Tab.ER PO SCH (20:17)
[2016-08-05] MEDS: Furosemide 40 MG/4 ML VIAL IVPUSH SCH (20:18)
[2016-08-05] MEDS: Enoxaparin 40 MG/0.4 ML Syringe SUBCUT SCH (20:19)
[2016-08-05] MEDS: atorvaSTATin 40 MG Tab PO SCH (21:34)
[2016-08-05] MEDS: Temazepam 15 MG Cap PO PRN (22:28)
[2016-08-05] MEDS ORDERED: Gabapentin 100 MG Cap PO ONE (22:58)
[2016-08-05] MEDS ORDERED: rOPINIRole 1 MG Tab ONE (23:29)
[2016-08-05] MEDS: rOPINIRole 1 MG Tab PO ONE (23:31)
[2016-08-05] MEDS: Insulin Aspart 100 Units/ML 3 ML Pen SUBCUT SCH (23:36)
[2016-08-06] MEDS: Acetaminophen 325 MG Tab PO PRN (03:17)
[2016-08-06] MEDS: Insulin Aspart 100 Units/ML 3 ML Pen SUBCUT SCH ×5 (04:42→21:07)
[2016-08-06] MEDS: Furosemide 40 MG/4 ML VIAL IVPUSH SCH ×3 (04:57→20:01)
[2016-08-06 07:36] LABS: CHLORIDE,CL 101 mmol/L (98-107); SODIUM,NA 140 mmol/L (136-145)
[2016-08-06] MEDS ORDERED: Losartan 50 MG Tab PO SCH (08:00)
[2016-08-06] MEDS ORDERED: hydrALAZINE 10 MG Tab PO SCH (08:00)
[2016-08-06] MEDS: Levothyroxine 112 MCG Tab PO SCH (08:04)
[2016-08-06] MEDS: LORazepam 0.5 MG Tab PO SCH (08:05)
[2016-08-06] MEDS: Citalopram 20 MG Tab PO SCH (08:06)
[2016-08-06] MEDS: Ciprofloxacin 500 MG Tab PO SCH (08:06)
[2016-08-06] MEDS: Potassium Chloride 10 MEQ Tab.ER PO SCH ×3 (08:07→17:40)
[2016-08-06] MEDS: Aspirin 81 MG Tab.EC PO SCH (08:07)
[2016-08-06] MEDS: rOPINIRole 1 MG Tab PO SCH ×2 (08:08→17:41)
[2016-08-06] MEDS: Gabapentin 100 MG Cap PO SCH ×2 (08:08→17:40)
[2016-08-06] MEDS: Famotidine 20 MG Tab PO SCH ×2 (08:08→17:40)
[2016-08-06] MEDS: Metoprolol Succinate 25 MG Tab.ER PO SCH (08:09)
--- NOTE | 2016-08-06 08:49 | PCM.PN ---
- General Info Date of Service: 08/06/16 Admission Dx/Problem (Free Text): 1. Hypertensive crisis 2. CHF Functional Status: Reports: pain controlled, tolerating diet, ambulating, urinating, incentive spirometry, other (Patient slept extremely well with no problems with restless legs, etc.). Denies: new symptoms Pain Score: 0 - Review of Systems General: Reports: weakness (Stable right hemiparesis). Denies: fatigue, malaise , chills, night sweats, appetite (Appetite good) HEENT: Reports: glasses. Denies: dysphasia, ear pain, eye pain, headaches ( Resolved headaches from yesterday), sinus congestion, sore throat, rhinitis, visual changes Pulmonary: Reports: no symptoms. Denies: shortness of breath, pleuritic chest pain, cough, wheezing Cardiovascular: Reports: no symptoms. Denies: chest pain, palpitations, dyspnea on exertion, orthopnea, PND, edema, lightheadedness Gastrointestinal: Reports: No symptoms, Other (No bowel movement at this point) . Denies: Abdominal pain, Constipation, Decreased appetite, Diarrhea, Flatus, Hematochezia, Melena, Nausea, Vomiting Genitourinary: Reports: no symptoms. Denies: dysuria, frequency, burning, pain , urgency, incontinence, hematuria, retention, flank pain Musculoskeletal: Reports: no symptoms. Denies: neck pain, shoulder pain, arm pain, leg pain Skin: Reports: no symptoms. Denies: diaphoresis, bruising Neurological: Reports: pre-existing deficit (Stable), difficulty walking ( Stable right hemiparesis with walker use required), weakness (As above), change in speech (Stable mild dysarthria), gait disturbance (Walker use). Denies: confusion, dizziness, headache, numbness, paresthesia, seizure, syncope, tingling Psychiatric: Reports: no symptoms. Denies: confusion, depression, agitation, hallucinations - Patient Data Vitals - most recent: Last Vital Signs Temp 36.1 C 08/06/16 08:38 Pulse 59 L 08/06/16 08:38 Resp 18 08/06/16 08:38 BP 138/73 08/06/16 08:38 Pulse Ox 98 08/06/16 08:38 Weight - most recent: 70.715 kg I&O - last 24 hours: Intake & Output 08/05/16 08/06/16 08/06/16 22:59 06:59 14:59 Intake Total 240 Output Total 800 Balance -560 Imaging Impressions - last 24 hrs: display director shows normal sinus rhythm and occasional mild sinus bradycardia with heart rate in the mid 50s to 60s with no extrasystoles or arrhythmia Lab Results last 24 hrs: Laboratory Results - last 24 hr 08/05/16 08/06/16 08/06/16 Range/Units 22:14 03:08 06:45 WBC 6.3 (4.0-10.2) K/uL RBC 4.22 (3.77-5.09) M/uL Hgb 11.4 L (11.7-15.5) g/dL Hct 35.7 (34.0-46.0) % MCV 84.6 (84.0-98.0) fL MCH 27.0 L (28.2-33.3) pg MCHC 31.9 (31.7-36.0) g/dL RDW 14.9 H (11.2-14.1) % Plt Count 179 (150-350) K/uL Neut % (Auto) 62.4 (45.0-80.0) % Lymph % (Auto) 17.6 (10.0-50.0) % [place] % (Auto) 14.2 H (2.0-14.0) % Eos % (Auto) 5.0 (0.0-5.0) % Baso % (Auto) 0.8 (0.0-2.0) % Neut # 3.90 (1.40-7.00) K/uL Lymph # 1.10 (0.50-3.50) K/uL [place] # 0.89 (0.00-1.00) K/uL Eos # 0.31 (0.00-0.50) K/uL Baso # 0.05 (0.00-0.20) K/uL D-Dimer, Quantitative (0-400) ng/mL Sodium (136-145) mmol/L Potassium (3.5-5.1) mmol/L Chloride (98-107) mmol/L Carbon Dioxide (21.0-32.0) mmol/L BUN (7-18) mg/dL Creatinine (0.51-1.17) mg/dL Est Cr Clr Drug Dosing mL/min Estimated GFR (MDRD) mL/min Glucose (74-106) mg/dL POC Glucose 239 H 165 H (65-110) mg/dl Hemoglobin A1c (4.3-5.7) % Calcium (8.5-10.1) mg/dL Total Bilirubin (0.2-1.0) mg/dL AST (15-37) U/L ALT (12-78) U/L Alkaline Phosphatase (46-116) IU/L Creatine Kinase (26-308) U/L Creatine Kinase Index (0.0-2.5) % CK-MB (CK-2) (0.00-3.60) ng/mL Troponin I (0.000-0.056) ng/mL Kja-P-Vksxcevpoji Pept (0-125) pg/mL Total Protein (6.4-8.2) g/dL Albumin (3.4-5.0) g/dL Triglycerides (30-150) mg/dL Cholesterol (100-200) mg/dL LDL Cholesterol, Calc (0-100) mg/dL HDL Cholesterol (40-60) mg/dL 08/06/16 08/06/16 08/06/16 Range/Units 06:45 06:45 06:45 WBC (4.0-10.2) K/uL RBC (3.77-5.09) M/uL Hgb (11.7-15.5) g/dL Hct (34.0-46.0) % MCV (84.0-98.0) fL MCH (28.2-33.3) pg MCHC (31.7-36.0) g/dL RDW (11.2-14.1) % Plt Count (150-350) K/uL Neut % (Auto) (45.0-80.0) % Lymph % (Auto) (10.0-50.0) % [place] % (Auto) (2.0-14.0) % Eos % (Auto) (0.0-5.0) % Baso % (Auto) (0.0-2.0) % Neut # (1.40-7.00) K/uL Lymph # (0.50-3.50) K/uL [place] # (0.00-1.00) K/uL Eos # (0.00-0.50) K/uL Baso # (0.00-0.20) K/uL D-Dimer, Quantitative 925 H (0-400) ng/mL Sodium 140 (136-145) mmol/L Potassium 3.4 L (3.5-5.1) mmol/L Chloride 101 (98-107) mmol/L Carbon Dioxide 32.5 H (21.0-32.0) mmol/L BUN 20 H (7-18) mg/dL Creatinine 0.86 (0.51-1.17) mg/dL Est Cr Clr Drug Dosing 36.85 mL/min Estimated GFR (MDRD) > 60 mL/min Glucose 181 H (74-106) mg/dL POC Glucose (65-110) mg/dl Hemoglobin A1c 7.2 H (4.3-5.7) % Calcium 8.5 (8.5-10.1) mg/dL Total Bilirubin 0.4 (0.2-1.0) mg/dL AST 33 (15-37) U/L ALT 39 (12-78) U/L Alkaline Phosphatase 71 (46-116) IU/L Creatine Kinase 179 (26-308) U/L Creatine Kinase Index 1.5 (0.0-2.5) % CK-MB (CK-2) 2.60 (0.00-3.60) ng/mL Troponin I 0.000 (0.000-0.056) ng/mL Bkr-[id number]-Xeqkjsuafzp Pept 1643 H (0-125) pg/mL Total Protein 6.7 (6.4-8.2) g/dL Albumin 3.3 L (3.4-5.0) g/dL Triglycerides 140 (30-150) mg/dL Cholesterol 189 (100-200) mg/dL LDL Cholesterol, Calc 110 H (0-100) mg/dL HDL Cholesterol 51 (40-60) mg/dL Roberto Results last 24 hrs: None Med Orders - Current: Current Medications Acetaminophen (Tylenol) 650 mg PO Q4H PRN PRN Reason: Pain (Mild 1-3)/fever Last Admin: 08/06/16 03:17 Dose: 650 mg Allopurinol (Zyloprim) 150 mg PO BEDTIME THOMAS Last Admin: 08/05/16 20:16 Dose: 150 mg Aspirin (Halfprin) 81 mg PO BRK [facility] Last Admin: 08/06/16 08:07 Dose: 81 mg Atorvastatin Calcium (Lipitor) 40 mg PO BEDTIME [facility] Last Admin: 08/05/16 21:34 Dose: 40 mg Ciprofloxacin (Ciprofloxacin Hcl) 250 mg PO DAILY [facility] Last Admin: 08/06/16 08:06 Dose: 250 mg Citalopram Hydrobromide (Celexa) 10 mg PO DAILY [facility] Last Admin: 08/06/16 08:06 Dose: 10 mg Enoxaparin Sodium (Lovenox) 40 mg SUBCUT Q24H [facility] Last Admin: 08/05/16 20:19 Dose: 40 mg Famotidine (Pepcid) 20 mg PO BID [facility] Last Admin: 08/06/16 08:08 Dose: 20 mg Fluticasone Propionate (Flonase) 0 gm NASBOTH BID PRN PRN Reason: NASAL CONGESTION Furosemide (Lasix) 40 mg IVPUSH Q8H [facility] Last Admin: 08/06/16 04:57 Dose: 40 mg Gabapentin (Neurontin) 100 mg PO BID [facility] Last Admin: 08/06/16 08:08 Dose: 100 mg Hydralazine HCl (Apresoline) 10 mg PO BID [facility] Insulin Aspart (Novolog) 0 unit SUBCUT Q6H [facility] PRN Reason: Protocol Last Admin: 08/06/16 04:42 Dose: Not Given Isosorbide Mononitrate (Imdur) 30 mg PO QPM [facility] Last Admin: 08/05/16 20:18 Dose: 30 mg Levothyroxine Sodium (Levothyroxine) 112 mcg PO ACBREAKFAST [facility] Last Admin: 08/06/16 08:04 Dose: 112 mcg Lorazepam (Ativan) 0.25 mg PO DAILY [facility] Last Admin: 08/06/16 08:05 Dose: Not Given Losartan Potassium (Cozaar) 50 mg PO BID [facility] Last Admin: 08/06/16 08:07 Dose: 50 mg Metoprolol Succinate (Toprol Xl) 25 mg PO BID [facility] Last Admin: 08/06/16 08:09 Dose: 25 mg Nitroglycerin (Nitrostat) 0.4 mg SL ONETIME STA Stop: 08/06/16 17:42 Last Admin: 08/05/16 17:44 Dose: 0.4 mg Non-Formulary Medication (Iron Polysaccharides Complex [Ferrex 150]) 150 mg PO MOWEFR [facility] Potassium Chloride (Klor-Con 10) 30 meq PO TIDMEALS THOMAS Last Admin: 08/06/16 08:07 Dose: 30 meq Ropinirole HCl (Requip) 2 mg PO BID THOMAS Last Admin: 08/06/16 08:08 Dose: 2 mg Ropinirole HCl (Requip) 2 mg PO BEDTIME ONE Stop: 08/06/16 22:53 Last Admin: 08/05/16 23:31 Dose: 2 mg Sodium Chloride (Saline Flush) 10 ml FLUSH ASDIRECTED PRN PRN Reason: Keep Vein Open Sodium Chloride (Saline Flush) 10 ml FLUSH Q12H PRN PRN Reason: Keep Vein Open Last Admin: 08/06/16 04:57 Dose: 10 ml Temazepam (Restoril) 15 mg PO BEDTIME PRN PRN Reason: Insomnia Last Admin: 08/05/16 22:28 Dose: 15 mg Discontinued Medications Famotidine (Pepcid) 40 mg IVPUSH ONETIME ONE Stop: 08/05/16 16:56 Last Admin: 08/05/16 17:16 Dose: 40 mg Gabapentin (Neurontin) 100 mg PO ONETIME ONE Stop: 08/05/16 22:59 Last Admin: 08/05/16 23:32 Dose: 100 mg Iopamidol (Isovue-370 (76%)) 100 ml IVPUSH ONETIME ONE Stop: 08/05/16 18:08 Last Admin: 08/05/16 18:35 Dose: 100 ml Metoprolol Tartrate (Lopressor) 2.5 mg IVPUSH ONETIME ONE Stop: 08/05/16 16:58 Last Admin: 08/05/16 17:16 Dose: 2.5 mg Ropinirole HCl (Requip) Confirm Administered Dose 2 mg .ROUTE .STK-MED ONE Stop: 08/05/16 23:30 Last Admin: 08/05/16 23:36 Dose: Not Given - Exam Quality Assessment: supplemental oxygen, DVT prophylaxis (Lovenox). No: central line/PICC, urine catheter General: alert, oriented, cooperative, no acute distress HEENT: Pupils equal, Pupils reactive, EOMI, Mucous membr. moist/pink Neck: supple, trachea midline, no JVD, no thyromegaly, carotid bruit (Moderate bilateral carotid bruits versus transmitted heart sounds). No: lymphadenopathy Lungs: Normal respiratory effort, Rales (Significantly improved mild bilateral basilar rales). No: Rhonchi, Rub, Wheezing Cardiovascular: regular rhythm, bradycardia (Occasional borderline), murmurs ( Stable 3/6 LEATHA at the aortic and mitral valves). No: gallops, rubs Abdomen: bowel sounds present, soft, no tenderness, no distension, other (Obese) . No: guarding, CVA tenderness (Female) Exam: Deferred Back Exam: normal inspection, full range of motion. No: CVA tenderness (L), CVA tenderness (R), muscle spasm Extremities: no edema, normal pulses. No: no tenderness/swelling, no calf tenderness Peripheral Pulses: 2+: radial (L), radial (R), dorsalis pedis (L), dorsalis pedis (R) Skin: warm, dry, intact. No: ecchymosis Neurological: no new focal deficit, other (No clinical orthostasis) Psy/Mental Status: alert, normal affect, normal mood. No: anxious, depressed, agitated, hallucinations EKG INTERPRETATION EKG Date: 08/06/16 Time: 07:54 Rhythm: NSR (Mild sinus bradycardia) Rate (beats/min): 58 [place]: LAD-left axis deviation (Extended left cardiac axis) QRS: other (QRS interval of 0.14 seconds with somewhat progressive complete bifascicular bundle-branch block with progressive T-wave inversion in lead V1 through V4 with stable borderline T-wave inversion in lead 3) ST-T: other (As above) QT: normal ID/PQ Interval: 0.22 seconds representing a first degree AV block with extreme poor R-wave progression anteriorly Comparison: change from previous EKG (As above since last EKG on 08/05/16) EKG Interpretation Comments: 1. Mild progressive anterolateral cardiac ischemia 2. Complete bifascicular bundle-branch block 3. First degree AV block - Problem List & Annotations (1) Hypertension SNOMED Code(s): 82367491 Code(s): I10 - ESSENTIAL (PRIMARY) HYPERTENSION Status: Acute Priority: High Current Visit: Yes Qualifiers: Hypertension type: essential hypertension Qualified Code(s): I10 - Essential (primary) hypertension Annotation/Comment:: Mild hypertensive crisis on admission with overall significantly improved blood pressures with medication changes. Mild borderline bradycardia with no further increase of her Toprol XL. Secondary to progressive ischemia by EKG or and/or therapy will be increased this evening with no current chest pain or anginal complaints with the patient already having a cardiology consultation scheduled at [facility] for tomorrow with this to be rescheduled until after hospital discharge. Further cardiology consultation during this hospitalization depending on her clinical course. Secondary to her heart failure her hydralazine will be changed to Spironolactone with caution, although the patient is still hypokalemic this morning. No change in her neurological status with previous history of CVA as per emergency note. Further medication adjustments depending on her clinical course. Renal ultrasound had already been ordered in this facility by her regular provider secondary to her history of refractory hypertension with this to be conducted today. (2) CHF (congestive heart failure) SNOMED Code(s): 71817677 Code(s): I50.9 - HEART FAILURE, UNSPECIFIED Status: Acute Priority: High Current Visit: Yes Qualifiers: Congestive heart failure type: unspecified congestive heart failure type Congestive heart failure chronicity: acute on chronic Qualified Code(s): I50.9 - Heart failure, unspecified Annotation/Comment:: Continue IV Lasix therapy only mild improvement of her BNP. Chest x-ray to be repeated tomorrow. Echocardiogram had already been scheduled in this facility for today secondary to her valvular disease and CHF. Patient was started on Lasix orally about one week ago with this to be increased at time of discharge (3) CVA (cerebral vascular accident) SNOMED Code(s): 795506728 Code(s): I63.9 - CEREBRAL INFARCTION, UNSPECIFIED Status: Acute Priority : Medium Current Visit: Yes Qualifiers: CVA mechanism: occlusion Precerebral and cerebral artery: middle cerebral artery Laterality of affected vessel: right Qualified Code(s): I63.511 - Cerebral infarction due to unspecified occlusion or stenosis of right middle cerebral artery Annotation/Comment:: Stable neurological deficits by history as above. Previous nonspecific headaches has completely resolved as above. Continue to observe her neurological status closely with consideration of the CT scan of the head depending on her clinical course (4) Coronary artery disease SNOMED Code(s): 80587559 Code(s): I25.10 - ATHSCL HEART DISEASE OF [place] CORONARY ARTERY W/O ANG PCTRS Status: Chronic Priority: High Current Visit: Yes Qualifiers: Coronary Disease-Associated Artery/Lesion type: bypass graft, autologous artery Associated angina: without angina Qualified Code(s): I25.810 - Atherosclerosis of coronary artery bypass graft(s) without angina pectoris Annotation/Comment:: Note mild progressive anterolateral ischemia today with increase of her Imdur as above. Repeat EKG and cardiac enzymes in the a.m. Patient would likely benefit from further cardiac workup on an outpatient basis with cardiology consultation recommended about one week after discharge. No chest pain or true anginal-type symptoms. D-dimer is still elevated although somewhat improved with negative CTA of the chest yesterday and venous Doppler study scheduled for later today. (5) Hyperlipidemia SNOMED Code(s): 63081035 Code(s): E78.5 - HYPERLIPIDEMIA, UNSPECIFIED Status: Chronic Priority: Medium Current Visit: Yes Qualifiers: Hyperlipidemia type: pure hypercholesterolemia Qualified Code(s): E78.00 - Pure hypercholesterolemia, unspecified; E78.0 - Pure hypercholesterolemia Annotation/Comment:: Lipid panel this morning shows adequate control with current medical therapy with only mild persistent LDL elevation (6) Hypokalemia SNOMED Code(s): 02160362 Code(s): E87.6 - HYPOKALEMIA Status: Chronic Priority: Medium Current Visit: Yes Annotation/Comment:: Continue increased potassium supplementation for now especially in light of IV Lasix, although observe closely secondary to newly initiated spironolactone with consideration of decreasing her potassium supplementation depending on her clinical course. Close followup of her blood work, etc. by her regular after discharge (7) IDDM (insulin dependent diabetes mellitus) SNOMED Code(s): 81012598 Code(s): E11.9 - TYPE 2 DIABETES MELLITUS WITHOUT COMPLICATIONS; Z79.4 - SUPERVISOR REMELT (CURRENT) USE OF INSULIN Status: Chronic Priority: Medium Current Visit: Yes Annotation/Comment:: Accu-Cheks at home are under good control by patient history. Glycosylated hemoglobin only mildly elevated to 7.2 mg percent this morning. Resume previous insulin therapy with resumption of diet with continuation of sliding scale for now. (8) Osteoarthritis SNOMED Code(s): 133770804 Code(s): M19.90 - UNSPECIFIED OSTEOARTHRITIS, UNSPECIFIED SITE Status: Chronic Priority: Medium Current Visit: Yes Qualifiers: Osteoarthritis location: multiple joints Osteoarthritis type: primary Qualified Code(s): M15.0 - Primary generalized (osteo)arthritis Annotation/Comment:: Stable by patient history with history of both rheumatoid arthritis and gout. Uric acid level to be repeated tomorrow secondary to Lasix therapy (9) Peptic reflux disease SNOMED Code(s): 09005368 Code(s): K21.9 - GASTRO-ESOPHAGEAL REFLUX DISEASE WITHOUT ESOPHAGITIS Status: Chronic Priority: Medium Current Visit: Yes Annotation/Comment:: Stable by patient history with high-dose IV Pepcid given as GI prophylaxis in the emergency room. Continue oral Pepcid therapy for now. Her H. pylori was negative yesterday (10) Anemia SNOMED Code(s): 993152317 Code(s): D64.9 - ANEMIA, UNSPECIFIED Status: Chronic Priority: Medium Current Visit: Yes Qualifiers: Anemia type: iron deficiency Iron deficiency anemia type: other iron deficiency Qualified Code(s): D50.8 - Other iron deficiency anemias Annotation/Comment:: Mild microcytosis with new mild anemia this morning with patient already on iron supplementation. Hemoccult ordered. Continue Lovenox with caution for now secondary to persistent d-dimer elevation, although this may be discontinued shortly, if her venous Doppler studies are normal (11) PVCs (premature ventricular contractions) SNOMED Code(s): 68232282 Code(s): I49.3 - VENTRICULAR PREMATURE DEPOLARIZATION Status: Acute Priority: Medium Current Visit: Yes Onset Date: 08/05/16 Annotation/ Comment:: Newly diagnosed occasional PVCs with history of other cardiac arrhythmias as above. Secondary to valvular disease and her hypertension she would benefit from low-dose beta timoteo therapy, which will be initiated on admission (12) Hypothyroidism SNOMED Code(s): 37727011 Code(s): E03.9 - HYPOTHYROIDISM, UNSPECIFIED Status: Chronic Priority: Medium Current Visit: Yes Qualifiers: Hypothyroidism type: acquired Qualified Code(s): E03.9 - Hypothyroidism, unspecified Annotation/Comment:: TSH normal yesterday - Problem List Review Problem List Initiated/Reviewed/Updated: Yes - My Orders Last 24 Hours: My Active Orders 08/05/16 19:15 Aspirin [Halfprin] 81 mg PO BRK Iron Polysaccharides Complex [Ferrex 150] 150 mg PO MOWEFR Metoprolol Succinate [Toprol XL] 25 mg PO BID 08/05/16 19:19 Anti-Embolism Stockings AK [Antiembolic Hose] [OM.PC] Routine CHF Questionnaire [COMM] Routine 08/05/16 19:21 Communication Order [RC] ROUTINE 08/05/16 19:22 Daily Weight [Height and Weight] [RC] DAILY DVT/VTE Prophylaxis Reflex [OM.PC] Routine GM Immunization Reflex [OM.PC] Click To Edit 08/05/16 19:23 Intake and Output Strict [RC] ASDIRECTED Oxygen Therapy [RC] CONTINUOUS OCCULT BLOOD DIAGNOSTIC [OP] Stat 08/05/16 19:24 Pulse Oximetry [RC] ASDIRECTED Up With Assistance [RC] ASDIRECTED Acetaminophen [Tylenol] 650 mg PO Q4H PRN Sodium Chloride 0.9% [Saline Flush] 10 ml FLUSH Q12H PRN Temazepam [Restoril] 15 mg PO BEDTIME PRN 08/05/16 19:28 Isosorbide Mononitrate [Imdur] 30 mg PO QPM 08/05/16 19:30 Antiembolic Devices [RC] 08,20 Antiembolic Devices [RC] PER UNIT ROUTINE VTE/DVT Education [RC] PER UNIT ROUTINE Vaccines to be Administered [RC] PER UNIT ROUTINE Fluticasone Propionate [Flonase] 0 gm NASBOTH BID PRN 08/05/16 19:33 Echo Comp wo Cont [US] Routine 08/05/16 20:00 Allopurinol [Zyloprim] 150 mg PO BEDTIME Enoxaparin [Lovenox] 40 mg SUBCUT Q24H Furosemide [Lasix] 40 mg IVPUSH Q8H Potassium Chloride [Klor-Con 10] 30 meq PO TIDMEALS atorvaSTATin [Lipitor] 40 mg PO BEDTIME 08/05/16 22:00 Blood Glucose Check, Bedside [RC] 04,10,16,22 Insulin Aspart [NovoLOG] See Protocol SUBCUT Q6H 08/06/16 00:00 Vital Signs [RC] Q4H 08/06/16 03:00 Blood Glucose Check, Bedside [RC] STAT 08/06/16 05:11 EKG Documentation Completion [RC] ASDIRECTED Venous Doppler Lwr Ext Bi [US] Urgent 08/06/16 07:30 Levothyroxine 112 mcg PO ACBREAKFAST 08/06/16 08:00 Ciprofloxacin [Ciprofloxacin HCl] 250 mg PO DAILY Citalopram [Celexa] 10 mg PO DAILY Famotidine [Pepcid] 20 mg PO BID Gabapentin [Neurontin] 100 mg PO BID LORazepam [Ativan] 0.25 mg PO DAILY Losartan [Cozaar] 50 mg PO BID hydrALAZINE [Apresoline] 10 mg PO BID rOPINIRole [Requip] 2 mg PO BID 08/06/16 08:34 Renal Comp [US] Routine 08/06/16 22:52 rOPINIRole [Requip] 2 mg PO BEDTIME ONE - Assessment Assessment:: As above - Plan Plan:: As above. Extensive precautions were given to the patient, who is in agreement with the treatment plan. Almas saxena physician assumes care in the a.m. Anticipate hospital discharge from this facility within the next 2-3 days with further medication adjustments required as above
[2016-08-06] MEDS: Spironolactone 25 MG Tab PO SCH ×2 (09:43→18:05)
[2016-08-06] MEDS: Sodium Chloride 0.9% 10 ML Syringe FLUSH PRN (11:48)
[2016-08-06] MEDS: Isosorbide Mononitrate 30 MG Tab.ER PO SCH (18:05)
[2016-08-06] MEDS: atorvaSTATin 40 MG Tab PO SCH (20:01)
[2016-08-06] MEDS: Allopurinol 100 MG Tab PO SCH (20:01)
[2016-08-06] MEDS: Enoxaparin 40 MG/0.4 ML Syringe SUBCUT SCH (20:02)
[2016-08-06] MEDS: Insulin Detemir 100 Units/ML 3 ML Pen SUBCUT SCH (20:02)
[2016-08-06] MEDS: Temazepam 15 MG Cap PO PRN (21:13)
[2016-08-06] MEDS: rOPINIRole 1 MG Tab PO ONE (22:17)
[2016-08-07] MEDS ORDERED: Menthol/Methyl Salicylate 85 GM Tube TOP PRN (02:43)
[2016-08-07] MEDS: Furosemide 40 MG/4 ML VIAL IVPUSH SCH ×3 (05:35→19:21)
[2016-08-07] MEDS: Famotidine 20 MG Tab PO SCH ×2 (07:34→17:26)
[2016-08-07] MEDS: Aspirin 81 MG Tab.EC PO SCH (07:34)
[2016-08-07] MEDS: Potassium Chloride 10 MEQ Tab.ER PO SCH ×3 (07:34→17:26)
[2016-08-07] MEDS: Levothyroxine 112 MCG Tab PO SCH (07:34)
[2016-08-07] MEDS: rOPINIRole 1 MG Tab PO SCH ×2 (07:35→17:26)
[2016-08-07] MEDS: Ciprofloxacin 500 MG Tab PO SCH (07:35)
[2016-08-07] MEDS: Spironolactone 25 MG Tab PO SCH ×2 (07:35→17:26)
[2016-08-07] MEDS: Insulin Aspart 100 Units/ML 3 ML Pen SUBCUT SCH ×4 (07:35→21:00)
[2016-08-07] MEDS: Gabapentin 100 MG Cap PO SCH ×2 (07:36→17:26)
[2016-08-07] MEDS: Metoprolol Succinate 25 MG Tab.ER PO SCH (07:36)
[2016-08-07] MEDS: LORazepam 0.5 MG Tab PO SCH (07:36)
[2016-08-07] MEDS: Citalopram 20 MG Tab PO SCH (07:36)
[2016-08-07] MEDS: Losartan 50 MG Tab PO SCH (07:37)
[2016-08-07] MEDS: Acetaminophen 325 MG Tab PO PRN ×2 (07:50→19:35)
[2016-08-07] MEDS ORDERED: IRON POLYSACCHARIDES COMPLEX 150 MG PO SCH (08:00)
--- NOTE | 2016-08-07 13:58 | PCM.PN ---
- General Info Date of Service: 08/07/16 Admission Dx/Problem (Free Text): 1. Hypertensive crisis 2. CHF Subjective Update: Patient says she feels much better overall. No headache. Ambulating using walker well. No new complaints. Functional Status: Reports: pain controlled, tolerating diet, ambulating, urinating. Denies: new symptoms - Review of Systems General: Reports: no symptoms HEENT: Reports: other (No acute changes) Pulmonary: Reports: other (No acute changes) Cardiovascular: Reports: other (No acute changes). Denies: chest pain, palpitations, lightheadedness Gastrointestinal: Reports: Other (No acute changes) Genitourinary: Reports: no symptoms Musculoskeletal: Reports: other (No acute changes) Neurological: Reports: other (No acute changes) Psychiatric: Reports: no symptoms - Patient Data Vitals - most recent: Last Vital Signs Temp 36.6 C 08/07/16 12:17 Pulse 69 08/07/16 07:36 Resp 16 08/07/16 12:17 BP 133/46 L 08/07/16 12:17 Pulse Ox 95 08/07/16 12:17 Weight - most recent: 71.532 kg I&O - last 24 hours: Intake & Output 08/06/16 08/07/16 08/07/16 22:59 06:59 14:59 Intake Total 340 100 Output Total 450 200 Balance -110 -100 Lab Results last 24 hrs: Laboratory Results - last 24 hr 08/06/16 08/07/16 08/07/16 Range/Units 21:07 07:00 07:00 WBC 6.0 (4.0-10.2) K/uL RBC 4.33 (3.77-5.09) M/uL Hgb 11.6 L (11.7-15.5) g/dL Hct 36.6 (34.0-46.0) % MCV 84.5 (84.0-98.0) fL MCH 26.8 L (28.2-33.3) pg MCHC 31.7 (31.7-36.0) g/dL RDW 15.0 H (11.2-14.1) % Plt Count 190 (150-350) K/uL Neut % (Auto) 63.9 (45.0-80.0) % Lymph % (Auto) 19.1 (10.0-50.0) % Bowie % (Auto) 11.4 (2.0-14.0) % Eos % (Auto) 4.3 (0.0-5.0) % Baso % (Auto) 1.3 (0.0-2.0) % Neut # 3.85 (1.40-7.00) K/uL Lymph # 1.15 (0.50-3.50) K/uL Bowie # 0.69 (0.00-1.00) K/uL Eos # 0.26 (0.00-0.50) K/uL Baso # 0.08 (0.00-0.20) K/uL D-Dimer, Quantitative 843 H (0-400) ng/mL Sodium (136-145) mmol/L Potassium (3.5-5.1) mmol/L Chloride (98-107) mmol/L Carbon Dioxide (21.0-32.0) mmol/L BUN (7-18) mg/dL Creatinine (0.51-1.17) mg/dL Est Cr Clr Drug Dosing mL/min Estimated GFR (MDRD) mL/min Glucose (74-106) mg/dL POC Glucose 142 H (65-110) mg/dl Uric Acid (2.6-7.2) mg/dL Calcium (8.5-10.1) mg/dL Magnesium (1.8-2.4) mg/dL Creatine Kinase (26-308) U/L Creatine Kinase Index (0.0-2.5) % CK-MB (CK-2) (0.00-3.60) ng/mL Troponin I (0.000-0.056) ng/mL Ncy-D-Glkcuhbkeoo Pept (0-125) pg/mL 08/07/16 08/07/16 08/07/16 Range/Units 07:00 07:09 11:23 WBC (4.0-10.2) K/uL RBC (3.77-5.09) M/uL Hgb (11.7-15.5) g/dL Hct (34.0-46.0) % MCV (84.0-98.0) fL MCH (28.2-33.3) pg MCHC (31.7-36.0) g/dL RDW (11.2-14.1) % Plt Count (150-350) K/uL Neut % (Auto) (45.0-80.0) % Lymph % (Auto) (10.0-50.0) % Bowie % (Auto) (2.0-14.0) % Eos % (Auto) (0.0-5.0) % Baso % (Auto) (0.0-2.0) % Neut # (1.40-7.00) K/uL Lymph # (0.50-3.50) K/uL Bowie # (0.00-1.00) K/uL Eos # (0.00-0.50) K/uL Baso # (0.00-0.20) K/uL D-Dimer, Quantitative (0-400) ng/mL Sodium 139 (136-145) mmol/L Potassium 3.7 (3.5-5.1) mmol/L Chloride 102 (98-107) mmol/L Carbon Dioxide 30.6 (21.0-32.0) mmol/L BUN 30 H (7-18) mg/dL Creatinine 0.93 (0.51-1.17) mg/dL Est Cr Clr Drug Dosing 34.08 mL/min Estimated GFR (MDRD) 58 mL/min Glucose 112 H (74-106) mg/dL POC Glucose 99 129 H (65-110) mg/dl Uric Acid 5.6 (2.6-7.2) mg/dL Calcium 8.4 L (8.5-10.1) mg/dL Magnesium 2.1 (1.8-2.4) mg/dL Creatine Kinase 177 (26-308) U/L Creatine Kinase Index 1.4 (0.0-2.5) % CK-MB (CK-2) 2.50 (0.00-3.60) ng/mL Troponin I 0.000 (0.000-0.056) ng/mL Ejo-R-Wjwixwbitgq Pept 397 H (0-125) pg/mL Roberto Results last 24 hrs: Microbiology 08/06/16 10:00 Stool Occult Blood (ROBERTO) - Final Stool / Feces NEGATIVE OCCULT BLOOD Med Orders - Current: Current Medications Acetaminophen (Tylenol) 650 mg PO Q4H PRN PRN Reason: Pain (Mild 1-3)/fever Last Admin: 08/07/16 07:50 Dose: 650 mg Allopurinol (Zyloprim) 150 mg PO BEDTIME [facility] Last Admin: 08/06/16 20:01 Dose: 150 mg Aspirin (Halfprin) 81 mg PO BRK [facility] Last Admin: 08/07/16 07:34 Dose: 81 mg Atorvastatin Calcium (Lipitor) 40 mg PO BEDTIME [facility] Last Admin: 08/06/16 20:01 Dose: 40 mg Ciprofloxacin (Ciprofloxacin Hcl) 250 mg PO DAILY [facility] Last Admin: 08/07/16 07:35 Dose: 250 mg Citalopram Hydrobromide (Celexa) 10 mg PO DAILY [facility] Last Admin: 08/07/16 07:36 Dose: 10 mg Enoxaparin Sodium (Lovenox) 40 mg SUBCUT Q24H [facility] Last Admin: 08/06/16 20:02 Dose: 40 mg Famotidine (Pepcid) 20 mg PO BID [facility] Last Admin: 08/07/16 07:34 Dose: 20 mg Fluticasone Propionate (Flonase) 0 gm NASBOTH BID PRN PRN Reason: NASAL CONGESTION Furosemide (Lasix) 40 mg IVPUSH Q8H [facility] Last Admin: 08/07/16 11:30 Dose: 40 mg Gabapentin (Neurontin) 100 mg PO BID [facility] Last Admin: 08/07/16 07:36 Dose: 100 mg Insulin Aspart (Novolog) 0 unit SUBCUT QIDACANDBED [facility] PRN Reason: Protocol Last Admin: 08/07/16 11:29 Dose: Not Given Insulin Detemir (Levemir) 45 unit SUBCUT BEDTIME [facility] Last Admin: 08/06/16 20:02 Dose: 45 unit Isosorbide Mononitrate (Imdur) 30 mg PO QPM [facility] Last Admin: 08/06/16 18:05 Dose: 30 mg Levothyroxine Sodium (Levothyroxine) 112 mcg PO ACBREAKFAST [facility] Last Admin: 08/07/16 07:34 Dose: 112 mcg Lorazepam (Ativan) 0.25 mg PO DAILY [facility] Last Admin: 08/07/16 07:36 Dose: 0.25 mg Losartan Potassium (Cozaar) 50 mg PO DAILY [facility] Last Admin: 08/07/16 07:37 Dose: 50 mg Methyl Salicylate (Icy Hot Cream) 0 gm TOP ASDIRECTED PRN PRN Reason: Pain Last Admin: 08/07/16 03:05 Dose: 1 applic Metoprolol Succinate (Toprol Xl) 25 mg PO DAILY [facility] Last Admin: 08/07/16 07:36 Dose: 25 mg Nf Med 1 Each (Iron Polysaccharides Complex [Ferrex 150] 150 Mg) 150 mg PO MoWeFr@0800 [facility] Last Admin: 08/07/16 09:03 Dose: 150 mg Potassium Chloride (Klor-Con 10) 30 meq PO TIDMEALS [facility] Last Admin: 08/07/16 11:30 Dose: 30 meq Ropinirole HCl (Requip) 2 mg PO BID [facility] Last Admin: 08/07/16 07:35 Dose: 2 mg Sodium Chloride (Saline Flush) 10 ml FLUSH ASDIRECTED PRN PRN Reason: Keep Vein Open Last Admin: 08/06/16 11:48 Dose: 10 ml Sodium Chloride (Saline Flush) 10 ml FLUSH Q12H PRN PRN Reason: Keep Vein Open Last Admin: 08/06/16 04:57 Dose: 10 ml Spironolactone (Aldactone) 12.5 mg PO BID [facility] Last Admin: 08/07/16 07:35 Dose: 12.5 mg Temazepam (Restoril) 15 mg PO BEDTIME PRN PRN Reason: Insomnia Last Admin: 08/06/16 21:13 Dose: 15 mg Discontinued Medications Famotidine (Pepcid) 40 mg IVPUSH ONETIME ONE Stop: 08/05/16 16:56 Last Admin: 08/05/16 17:16 Dose: 40 mg Gabapentin (Neurontin) 100 mg PO ONETIME ONE Stop: 08/05/16 22:59 Last Admin: 08/05/16 23:32 Dose: 100 mg Hydralazine HCl (Apresoline) 10 mg PO BID [facility] Last Admin: 08/06/16 09:29 Dose: Not Given Insulin Aspart (Novolog) 0 unit SUBCUT Q6H [facility] PRN Reason: Protocol Last Admin: 08/06/16 09:43 Dose: 4 units Iopamidol (Isovue-370 (76%)) 100 ml IVPUSH ONETIME ONE Stop: 08/05/16 18:08 Last Admin: 08/05/16 18:35 Dose: 100 ml Isosorbide Mononitrate (Imdur) 30 mg PO QPM [facility] Last Admin: 08/05/16 20:18 Dose: 30 mg Isosorbide Mononitrate (Imdur) 60 mg PO QPM [facility] Losartan Potassium (Cozaar) 50 mg PO BID [facility] Last Admin: 08/06/16 08:07 Dose: 50 mg Metoprolol Succinate (Toprol Xl) 25 mg PO BID [facility] Last Admin: 08/06/16 08:09 Dose: 25 mg Metoprolol Tartrate (Lopressor) 2.5 mg IVPUSH ONETIME ONE Stop: 08/05/16 16:58 Last Admin: 08/05/16 17:16 Dose: 2.5 mg Nitroglycerin (Nitrostat) 0.4 mg SL ONETIME STA Stop: 08/06/16 17:42 Last Admin: 08/05/16 17:44 Dose: 0.4 mg Ropinirole HCl (Requip) 2 mg PO BEDTIME ONE Stop: 08/06/16 22:53 Last Admin: 08/06/16 22:17 Dose: 2 mg Ropinirole HCl (Requip) Confirm Administered Dose 2 mg .ROUTE .STK-MED ONE Stop: 08/05/16 23:30 Last Admin: 08/05/16 23:36 Dose: Not Given - Exam General: alert, oriented, cooperative, no acute distress HEENT: Pupils equal, Pupils reactive, EOMI, Mucous membr. moist/pink Neck: supple Lungs: Clear to auscultation, Normal respiratory effort Cardiovascular: regular rate, regular rhythm, murmurs (systolic murmur noted. ) Abdomen: bowel sounds present, soft, no tenderness, no distension (Female) Exam: Deferred Back Exam: No: CVA tenderness (L), CVA tenderness (R), paraspinal tenderness, vertebral tenderness Extremities: no edema, normal pulses, other (Patient says that her "skin" feels uncomfortable with pressure/palpation during exam, bilaterally, lower extremeties below knees. This is not new) Peripheral Pulses: 2+: radial (L), radial (R) Skin: warm, dry Neurological: no new focal deficit Psy/Mental Status: alert, normal affect, normal mood EKG INTERPRETATION EKG Date: 08/07/16 Time: 07:28 Rhythm: other (Sinus bradycardia) Rate (beats/min): 59 [place]: normal P-wave: present QRS: other (bifascicular block) ST-T: normal QT: normal Comparison: change from previous EKG (Improved T-wave morphology today) EKG Interpretation Comments: Sinus bradycardia, 1st Degree AV block - Problem List & Annotations (1) Allergic rhinitis SNOMED Code(s): 62953274 Code(s): J30.9 - ALLERGIC RHINITIS, UNSPECIFIED Status: Chronic Priority : Low Current Visit: No (2) CHF (congestive heart failure) SNOMED Code(s): 92991369 Code(s): I50.9 - HEART FAILURE, UNSPECIFIED Status: Acute Priority: High Current Visit: Yes Qualifiers: Congestive heart failure type: unspecified congestive heart failure type Congestive heart failure chronicity: acute on chronic Qualified Code(s): I50.9 - Heart failure, unspecified Annotation/Comment:: Continue IV Lasix therapy only mild improvement of her BNP. Chest x-ray to be repeated tomorrow. Echocardiogram had already been scheduled in this facility for today secondary to her valvular disease and CHF. Patient was started on Lasix orally about one week ago with this to be increased at time of discharge (3) CVA (cerebral vascular accident) SNOMED Code(s): 060467636 Code(s): I63.9 - CEREBRAL INFARCTION, UNSPECIFIED Status: Acute Priority : Medium Current Visit: Yes Qualifiers: CVA mechanism: occlusion Precerebral and cerebral artery: middle cerebral artery Laterality of affected vessel: right Qualified Code(s): I63.511 - Cerebral infarction due to unspecified occlusion or stenosis of right middle cerebral artery Annotation/Comment:: Stable neurological deficits by history as above. Previous nonspecific headaches has completely resolved as above. Continue to observe her neurological status closely with consideration of the CT scan of the head depending on her clinical course (4) Hypertension SNOMED Code(s): 36511642 Code(s): I10 - ESSENTIAL (PRIMARY) HYPERTENSION Status: Acute Priority: High Current Visit: Yes Qualifiers: Hypertension type: essential hypertension Qualified Code(s): I10 - Essential (primary) hypertension Annotation/Comment:: Mild hypertensive crisis on admission with overall significantly improved blood pressures with medication changes. Mild borderline bradycardia with no further increase of her Toprol XL. Secondary to progressive ischemia by EKG or and/or therapy will be increased this evening with no current chest pain or anginal complaints with the patient already having a cardiology consultation scheduled at [facility] in [place] for tomorrow with this to be rescheduled until after hospital discharge. Further cardiology consultation during this hospitalization depending on her clinical course. Secondary to her heart failure her hydralazine will be changed to Spironolactone with caution, although the patient is still hypokalemic this morning. No change in her neurological status with previous history of CVA as per emergency note. Further medication adjustments depending on her clinical course. Renal ultrasound had already been ordered in this facility by her regular provider secondary to her history of refractory hypertension with this to be conducted today. (5) PVCs (premature ventricular contractions) SNOMED Code(s): 02362985 Code(s): I49.3 - VENTRICULAR PREMATURE DEPOLARIZATION Status: Acute Priority: Medium Current Visit: Yes Onset Date: 08/05/16 Annotation/ Comment:: Newly diagnosed occasional PVCs with history of other cardiac arrhythmias as above. Secondary to valvular disease and her hypertension she would benefit from low-dose beta timoteo therapy, which will be initiated on admission (6) Anemia SNOMED Code(s): 055257328 Code(s): D64.9 - ANEMIA, UNSPECIFIED Status: Chronic Priority: Medium Current Visit: Yes Qualifiers: Anemia type: iron deficiency Iron deficiency anemia type: other iron deficiency Qualified Code(s): D50.8 - Other iron deficiency anemias Annotation/Comment:: Mild microcytosis with new mild anemia this morning with patient already on iron supplementation. Hemoccult ordered. Continue Lovenox with caution for now secondary to persistent d-dimer elevation, although this may be discontinued shortly, if her venous Doppler studies are normal (7) Coronary artery disease SNOMED Code(s): 77505344 Code(s): I25.10 - ATHSCL HEART DISEASE OF [place] CORONARY ARTERY W/O ANG PCTRS Status: Chronic Priority: High Current Visit: Yes Qualifiers: Coronary Disease-Associated Artery/Lesion type: bypass graft, autologous artery Associated angina: without angina Qualified Code(s): I25.810 - Atherosclerosis of coronary artery bypass graft(s) without angina pectoris Annotation/Comment:: Patient would likely benefit from further cardiac workup on an outpatient basis with cardiology consultation recommended about one week after discharge. No chest pain or true anginal-type symptoms. D-dimer is still elevated although somewhat improved with negative CTA of the chest and negative LE US study (8) Hyperlipidemia SNOMED Code(s): 01726876 Code(s): E78.5 - HYPERLIPIDEMIA, UNSPECIFIED Status: Chronic Priority: Medium Current Visit: Yes Qualifiers: Hyperlipidemia type: pure hypercholesterolemia Qualified Code(s): E78.00 - Pure hypercholesterolemia, unspecified; E78.0 - Pure hypercholesterolemia Annotation/Comment:: Lipid panel this morning shows adequate control with current medical therapy with only mild persistent LDL elevation (9) Hypokalemia SNOMED Code(s): 14143160 Code(s): E87.6 - HYPOKALEMIA Status: Chronic Priority: Medium Current Visit: Yes Annotation/Comment:: Continue increased potassium supplementation for now especially in light of IV Lasix, although observe closely secondary to newly initiated spironolactone with consideration of decreasing her potassium supplementation depending on her clinical course. Close followup of her blood work, etc. 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 Glycosylated hemoglobin only mildly elevated to 7.2 mg percent this morning. Resume previous insulin therapy with resumption of diet with continuation of sliding scale for now. (11) Osteoarthritis SNOMED Code(s): 662158580 Code(s): M19.90 - UNSPECIFIED OSTEOARTHRITIS, UNSPECIFIED SITE Status: Chronic Priority: Medium Current Visit: Yes Qualifiers: Osteoarthritis location: multiple joints Osteoarthritis type: primary Qualified Code(s): M15.0 - Primary generalized (osteo)arthritis Annotation/Comment:: Stable by patient history with history of both rheumatoid arthritis and gout. Uric acid level to be repeated tomorrow secondary to Lasix therapy (12) Peptic reflux disease SNOMED Code(s): 84747937 Code(s): K21.9 - GASTRO-ESOPHAGEAL REFLUX DISEASE WITHOUT ESOPHAGITIS Status: Chronic Priority: Medium Current Visit: Yes Annotation/Comment:: Stable by patient history with high-dose IV Pepcid given as GI prophylaxis in the emergency room. Continue oral Pepcid therapy for now. Her H. pylori was negative yesterday - Problem List Review Problem List Initiated/Reviewed/Updated: Yes - My Orders Last 24 Hours: My Active Orders 08/07/16 13:24 UA W/MICROSCOPIC [URIN] Routine - Assessment Assessment:: Patient is feeling better. Up and ambulating using walker. BPs have improved and in fact at times are a bit low. Patient denies any dizziness/weakness. Recommended patient that we continue to monitor readings until Friday morning as further medication adjustment may be needed if BP readings appear to consistently dip too low or if she becomes symptomatic from hypotension. She is in agreement. - Plan Plan:: Continue current plan and watch patient for changes as well as BP trend. At this point in time anticipate discharge on Friday, two days from now. Repeat UA to see if patient's UTI has cleared.
--- NOTE | 2016-08-07 14:13 | PCM.SN ---
- Free Text/Narrative Note: Venous Duplex US of lower extremities negative for DVT. Renal US: Two simple cysts noted left kidney, unchanged from prior study. Thickening of urinary bladder wall may reflect cystitis. Interval decrease in size of left kidney with renal cortical thinning of the left kidney.
[2016-08-07] MEDS ORDERED: Flu Vaccine 2016-17(36Mos+)/PF 60 MCG/0.5 ML Syringe IM ONE (14:18)
[2016-08-07] MEDS: Isosorbide Mononitrate 30 MG Tab.ER PO SCH (17:25)
[2016-08-07] MEDS ORDERED: Isosorbide Mononitrate 60 MG Tab.ER PO SCH (18:00)
[2016-08-07] MEDS: Sodium Chloride 0.9% 10 ML Syringe FLUSH PRN (19:21)
[2016-08-07] MEDS: Allopurinol 100 MG Tab PO SCH (19:22)
[2016-08-07] MEDS: Enoxaparin 40 MG/0.4 ML Syringe SUBCUT SCH (19:22)
[2016-08-07] MEDS: atorvaSTATin 40 MG Tab PO SCH (19:22)
[2016-08-07] MEDS: Insulin Detemir 100 Units/ML 3 ML Pen SUBCUT SCH (19:23)
[2016-08-07] MEDS: Temazepam 15 MG Cap PO PRN (21:37)
[2016-08-08] MEDS: Temazepam 15 MG Cap PO PRN (01:57)
[2016-08-08] MEDS: Furosemide 40 MG/4 ML VIAL IVPUSH SCH ×2 (05:43→11:18)
[2016-08-08] MEDS: Sodium Chloride 0.9% 10 ML Syringe FLUSH PRN (05:47)
[2016-08-08] MEDS: rOPINIRole 1 MG Tab PO SCH (07:20)
[2016-08-08] MEDS: Citalopram 20 MG Tab PO SCH (07:20)
[2016-08-08] MEDS: Ciprofloxacin 500 MG Tab PO SCH (07:21)
[2016-08-08] MEDS: Spironolactone 25 MG Tab PO SCH (07:22)
[2016-08-08] MEDS: Gabapentin 100 MG Cap PO SCH (07:22)
[2016-08-08] MEDS: Metoprolol Succinate 25 MG Tab.ER PO SCH (07:23)
[2016-08-08] MEDS: Levothyroxine 112 MCG Tab PO SCH (07:24)
[2016-08-08] MEDS: LORazepam 0.5 MG Tab PO SCH (07:24)
[2016-08-08] MEDS: Aspirin 81 MG Tab.EC PO SCH (07:25)
[2016-08-08] MEDS: Losartan 50 MG Tab PO SCH (07:26)
[2016-08-08] MEDS: Famotidine 20 MG Tab PO SCH (07:26)
[2016-08-08] MEDS: Potassium Chloride 10 MEQ Tab.ER PO SCH ×2 (07:26→11:17)
[2016-08-08] MEDS: Insulin Aspart 100 Units/ML 3 ML Pen SUBCUT SCH ×2 (07:28→11:17)
[2016-08-08 11:52] VITALS: BP 133/48
--- NOTE | 2016-08-08 15:58 | PCM.DCSUM1 ---
Discharge Summary - Discharge Data Discharge Date: 08/08/16 Discharge Disposition: Home, Self-Care 01 Condition: Good - Discharge Diagnosis/Problem(s) (1) Allergic rhinitis SNOMED Code(s): 04410021 ICD Code: J30.9 - ALLERGIC RHINITIS, UNSPECIFIED Status: Chronic Priority : Low Current Visit: No (2) CHF (congestive heart failure) SNOMED Code(s): 49763541 ICD Code: I50.9 - HEART FAILURE, UNSPECIFIED Status: Acute Priority: High Current Visit: Yes Qualifiers: Congestive heart failure type: unspecified congestive heart failure type Congestive heart failure chronicity: acute on chronic Qualified Code(s): I50.9 - Heart failure, unspecified (3) CVA (cerebral vascular accident) SNOMED Code(s): 622206655 ICD Code: I63.9 - CEREBRAL INFARCTION, UNSPECIFIED Status: Acute Priority : Medium Current Visit: Yes Problem Details: Stable neurological deficits by history as above. Qualifiers: CVA mechanism: occlusion Precerebral and cerebral artery: middle cerebral artery Laterality of affected vessel: right Qualified Code(s): I63.511 - Cerebral infarction due to unspecified occlusion or stenosis of right middle cerebral artery (4) Hypertension SNOMED Code(s): 51817389 ICD Code: I10 - ESSENTIAL (PRIMARY) HYPERTENSION Status: Acute Priority: High Current Visit: Yes Problem Details: Mild hypertensive crisis on admission with overall significantly improved blood pressures with medication changes. Mild borderline bradycardia with no further increase of her Toprol XL. Qualifiers: Hypertension type: essential hypertension Qualified Code(s): I10 - Essential (primary) hypertension (5) PVCs (premature ventricular contractions) SNOMED Code(s): 13255725 ICD Code: I49.3 - VENTRICULAR PREMATURE DEPOLARIZATION Status: Acute Priority: Medium Current Visit: Yes Onset Date: 08/05/16 Problem Details: Newly diagnosed occasional PVCs with history of other cardiac arrhythmias as above. Secondary to valvular disease and her hypertension she would benefit from low-dose beta timoteo therapy, which will be initiated on admission (6) Anemia SNOMED Code(s): 886122568 ICD Code: D64.9 - ANEMIA, UNSPECIFIED Status: Chronic Priority: Medium Current Visit: Yes Qualifiers: Anemia type: iron deficiency Iron deficiency anemia type: other iron deficiency Qualified Code(s): D50.8 - Other iron deficiency anemias (7) Coronary artery disease SNOMED Code(s): 97328429 ICD Code: I25.10 - ATHSCL HEART DISEASE OF [place] CORONARY ARTERY W/O ANG PCTRS Status: Chronic Priority: High Current Visit: Yes Problem Details : Patient would likely benefit from further cardiac workup on an outpatient basis with cardiology consultation recommended about one week after discharge. No chest pain or true anginal-type symptoms. D-dimer is still elevated although somewhat improved with negative CTA of the chest and negative LE US study Qualifiers: Coronary Disease-Associated Artery/Lesion type: bypass graft, autologous artery Associated angina: without angina Qualified Code(s): I25.810 - Atherosclerosis of coronary artery bypass graft(s) without angina pectoris (8) Hyperlipidemia SNOMED Code(s): 54293645 ICD Code: E78.5 - HYPERLIPIDEMIA, UNSPECIFIED Status: Chronic Priority: Medium Current Visit: Yes Qualifiers: Hyperlipidemia type: pure hypercholesterolemia Qualified Code(s): E78.00 - Pure hypercholesterolemia, unspecified; E78.0 - Pure hypercholesterolemia (9) Hypokalemia SNOMED Code(s): 35644642 ICD Code: E87.6 - HYPOKALEMIA Status: Chronic Priority: Medium Current Visit: Yes Problem Details: Close followup of her blood work, etc. by her regular after discharge (10) IDDM (insulin dependent diabetes mellitus) SNOMED Code(s): 86546373 ICD Code: E11.9 - TYPE 2 DIABETES MELLITUS WITHOUT COMPLICATIONS; Z79.4 - NURSING HOME (CURRENT) USE OF INSULIN Status: Chronic Priority: Medium Current Visit: Yes Problem Details: Accu-Cheks at home are under good control by patient history. Glycosylated hemoglobin only mildly elevated to 7.2 mg percent this morning. Resume previous insulin therapy with resumption of diet with continuation of sliding scale for now. (11) Osteoarthritis SNOMED Code(s): 001968082 ICD Code: M19.90 - UNSPECIFIED OSTEOARTHRITIS, UNSPECIFIED SITE Status: Chronic Priority: Medium Current Visit: Yes Problem Details: Stable by patient history with history of both rheumatoid arthritis and gout. Uric acid level to be repeated tomorrow secondary to Lasix therapy Qualifiers: Osteoarthritis location: multiple joints Osteoarthritis type: primary Qualified Code(s): M15.0 - Primary generalized (osteo)arthritis (12) Peptic reflux disease SNOMED Code(s): 61520697 ICD Code: K21.9 - GASTRO-ESOPHAGEAL REFLUX DISEASE WITHOUT ESOPHAGITIS Status: Chronic Priority: Medium Current Visit: Yes Problem Details: H. pylori was negative yesterday - Patient Summary/Data Operative Procedure(s) Performed: Upper GI endoscopy. Complications: none Hospital Course: Patient subjectively reported improvement throughout stay. Headaches much better. Patient freqently noted to go out on walks up and down [place] without issue. She does say that she often gets mild daily headache that she blames on her neck. The more severe headaches that she was having at time of admission have resolved. Patient's BPs were in significantly improve range for part of her stay. Systolic readings noted to then creep upwards at times. Patient remained comfortable. UA showed resolution of UTI. Patient was on Cipro for this at time of admission. Will continue Isosorbide. Scheduled to follow up with her primary on Friday. - Patient Instructions Diet: Usual Diet as Tolerated Activity: As Tolerated Other/Special Instructions: Discuss with your primary provider if Lasix dose needs increased. Also discuss if they wish to consider using Aldactone for excess fluid. Get potassium rechecked at visit. Follow up as needed if any problems are noted. - Discharge Plan Prescriptions/Med Rec: Isosorbide Mononitrate [Imdur] 30 mg PO QPM #30 tab.er Home Medications: Home Meds Allopurinol [Zyloprim] 150 mg PO BEDTIME 10/08/13 [History] Cyanocobalamin (Vitamin B-12) [Cyanocobalamin Injection] 1,000 mcg IJ Q60D 10/08 [History] Nitroglycerin [Nitrostat] 0.4 mg SL ASDIRECTED PRN 10/08/13 [History] Potassium Chloride 10 meq PO TID 10/08/13 [History] atorvaSTATin Calcium [Atorvastatin Calcium] 40 mg PO BEDTIME 10/08/13 [History] Diclofenac Sodium [Voltaren 1% Gel] 1 applic TOP TID PRN 03/10/14 [History] Acetaminophen [Tylenol Extra Strength] 1 - 2 tab PO Q4H PRN 02/14/15 [History] Insulin Detemir [Levemir Flextouch] 45 unit SQ BEDTIME 02/14/15 [History] Levothyroxine 112 mcg PO ACBREAKFAST 09/15/15 [History] Aspirin [Halfprin] 81 mg PO BRK 09/29/15 [History] Multivitamin with Minerals [Multiple Vitamin] 1 tab PO DAILY 09/29/15 [History] Citalopram [Celexa] 10 mg PO DAILY #40 tablet 01/04/16 [Rx] Metoprolol Succinate [Toprol XL] 25 mg PO DAILY 01/04/16 [History] rOPINIRole [Requip] 2 mg PO BID 01/04/16 [History] Famotidine 20 mg PO BID 01/12/16 [History] Fluticasone Propionate [Flonase Allergy Relief] 15.8 ml NS BID PRN 08/05/16 [ History] Furosemide [Lasix] 20 mg PO DAILY 08/05/16 [History] Gabapentin [Neurontin] 100 mg PO BID 08/05/16 [History] Iron Polysaccharides Complex [Ferrex 150] 150 mg PO MOWEFR 08/05/16 [History] LORazepam 0.25 mg PO DAILY 08/05/16 [History] Losartan [Cozaar] 50 mg PO BID 08/05/16 [History] hydrALAZINE [Apresoline] 10 mg PO BID 08/05/16 [History] Insulin Detemir [Levemir] 45 unit SUBCUT BEDTIME pen 08/08/16 [Rx] Isosorbide Mononitrate [Imdur] 30 mg PO QPM #30 tab.er 08/08/16 [Rx] Patient Handouts: Hypertension, [id number] Forms: ED Department Discharge Referrals: PCP,None [Primary Care Provider] - - Discharge Summary/Plan Comment DC Time >30 min.: No - Patient Data Vitals - Most Recent: Last Vital Signs Temp 37.2 C 08/08/16 11:50 Pulse 60 08/08/16 11:50 Resp 18 08/08/16 11:50 BP 133/48 L 08/08/16 11:50 Pulse Ox 99 08/08/16 11:50 Weight - Most Recent: 70.443 kg I&O - Last 24 hours: Intake & Output 08/08/16 08/08/16 08/08/16 06:59 14:59 22:59 Intake Total 300 120 Output Total 600 Balance -300 120 Lab Results - Last 24 hrs: Laboratory Results - last 24 hr 08/07/16 08/07/16 08/07/16 Range/Units 17:06 20:58 22:06 POC Glucose 232 H 222 H (65-110) mg/dl Specimen Type Urinvoid Urine Color Light yellow Urine Appearance Clear Urine pH 5.0 (5.0-9.0) Ur Specific [place] 1.010 (1.005-1.030) Urine Protein Negative (NEGATIVE) mg/dL Urine Glucose (UA) Negative (NEGATIVE) mg/dL Urine Ketones Negative (NEGATIVE) mg/dL Urine Occult Blood Trace-intact H (NEGATIVE) Urine Nitrite Negative (NEGATIVE) Urine Bilirubin Negative (NEGATIVE) Urine Urobilinogen 0.2 (0.2-1.0) E.U./dL Ur Leukocyte Esterase Negative (NEGATIVE) Urine RBC 0-5 /HPF Urine WBC 0-5 /HPF Ur Epithelial Cells Few /LPF Urine Bacteria Few (NONE TO FEW) /HPF Urine Mucus Not seen (NEGATIVE) /LPF 08/08/16 08/08/16 Range/Units 07:18 11:10 POC Glucose 83 165 H (65-110) mg/dl Specimen Type Urine Color Urine Appearance Urine pH (5.0-9.0) Ur Specific [place] (1.005-1.030) Urine Protein (NEGATIVE) mg/dL Urine Glucose (UA) (NEGATIVE) mg/dL Urine Ketones (NEGATIVE) mg/dL Urine Occult Blood (NEGATIVE) Urine Nitrite (NEGATIVE) Urine Bilirubin (NEGATIVE) Urine Urobilinogen (0.2-1.0) E.U./dL Ur Leukocyte Esterase (NEGATIVE) Urine RBC /HPF Urine WBC /HPF Ur Epithelial Cells /LPF Urine Bacteria (NONE TO FEW) /HPF Urine Mucus (NEGATIVE) /LPF Med Orders - Current: Current Medications Acetaminophen (Tylenol) 650 mg PO Q4H PRN PRN Reason: Pain (Mild 1-3)/fever Last Admin: 08/07/16 19:35 Dose: 650 mg Allopurinol (Zyloprim) 150 mg PO BEDTIME [facility] Last Admin: 08/07/16 19:22 Dose: 150 mg Aspirin (Halfprin) 81 mg PO BRK [facility] Last Admin: 08/08/16 07:25 Dose: 81 mg Atorvastatin Calcium (Lipitor) 40 mg PO BEDTIME [facility] Last Admin: 08/07/16 19:22 Dose: 40 mg Ciprofloxacin (Ciprofloxacin Hcl) 250 mg PO DAILY [facility] Last Admin: 08/08/16 07:21 Dose: 250 mg Citalopram Hydrobromide (Celexa) 10 mg PO DAILY [facility] Last Admin: 08/08/16 07:20 Dose: 10 mg Enoxaparin Sodium (Lovenox) 40 mg SUBCUT Q24H [facility] Last Admin: 08/07/16 19:22 Dose: 40 mg Famotidine (Pepcid) 20 mg PO BID [facility] Last Admin: 08/08/16 07:26 Dose: 20 mg Fluticasone Propionate (Flonase) 0 gm NASBOTH BID PRN PRN Reason: NASAL CONGESTION Furosemide (Lasix) 40 mg IVPUSH Q8H [facility] Last Admin: 08/08/16 11:18 Dose: 40 mg Gabapentin (Neurontin) 100 mg PO BID [facility] Last Admin: 08/08/16 07:22 Dose: 100 mg Insulin Aspart (Novolog) 0 unit SUBCUT QIDACANDBED [facility] PRN Reason: Protocol Last Admin: 08/08/16 11:17 Dose: 4 unit Insulin Detemir (Levemir) 45 unit SUBCUT BEDTIME [facility] Last Admin: 08/07/16 19:23 Dose: 45 unit Isosorbide Mononitrate (Imdur) 30 mg PO QPM [facility] Last Admin: 08/07/16 17:25 Dose: 30 mg Levothyroxine Sodium (Levothyroxine) 112 mcg PO ACBREAKFAST [facility] Last Admin: 08/08/16 07:24 Dose: 112 mcg Lorazepam (Ativan) 0.25 mg PO DAILY [facility] Last Admin: 08/08/16 07:24 Dose: 0.25 mg Losartan Potassium (Cozaar) 50 mg PO DAILY [facility] Last Admin: 08/08/16 07:26 Dose: 50 mg Methyl Salicylate (Icy Hot Cream) 0 gm TOP ASDIRECTED PRN PRN Reason: Pain Last Admin: 08/07/16 03:05 Dose: 1 applic Metoprolol Succinate (Toprol Xl) 25 mg PO DAILY [facility] Last Admin: 08/08/16 07:23 Dose: 25 mg Nf Med 1 Each (Iron Polysaccharides Complex [Ferrex 150] 150 Mg) 150 mg PO MoWeFr@0800 [facility] Last Admin: 08/07/16 09:03 Dose: 150 mg Potassium Chloride (Klor-Con 10) 30 meq PO TIDMEALS [facility] Last Admin: 08/08/16 11:17 Dose: 30 meq Ropinirole HCl (Requip) 2 mg PO BID [facility] Last Admin: 08/08/16 07:20 Dose: 2 mg Sodium Chloride (Saline Flush) 10 ml FLUSH ASDIRECTED PRN PRN Reason: Keep Vein Open Last Admin: 08/08/16 05:47 Dose: 10 ml Sodium Chloride (Saline Flush) 10 ml FLUSH Q12H PRN PRN Reason: Keep Vein Open Last Admin: 08/06/16 04:57 Dose: 10 ml Spironolactone (Aldactone) 12.5 mg PO BID [facility] Last Admin: 08/08/16 07:22 Dose: 12.5 mg Temazepam (Restoril) 15 mg PO BEDTIME PRN PRN Reason: Insomnia Last Admin: 08/08/16 01:57 Dose: 15 mg Discontinued Medications Famotidine (Pepcid) 40 mg IVPUSH ONETIME ONE Stop: 08/05/16 16:56 Last Admin: 08/05/16 17:16 Dose: 40 mg Gabapentin (Neurontin) 100 mg PO ONETIME ONE Stop: 08/05/16 22:59 Last Admin: 08/05/16 23:32 Dose: 100 mg Hydralazine HCl (Apresoline) 10 mg PO BID [facility] Last Admin: 08/06/16 09:29 Dose: Not Given Insulin Aspart (Novolog) 0 unit SUBCUT Q6H [facility] PRN Reason: Protocol Last Admin: 08/06/16 09:43 Dose: 4 units Iopamidol (Isovue-370 (76%)) 100 ml IVPUSH ONETIME ONE Stop: 08/05/16 18:08 Last Admin: 08/05/16 18:35 Dose: 100 ml Isosorbide Mononitrate (Imdur) 30 mg PO QPM [facility] Last Admin: 08/05/16 20:18 Dose: 30 mg Isosorbide Mononitrate (Imdur) 60 mg PO QPM [facility] Losartan Potassium (Cozaar) 50 mg PO BID [facility] Last Admin: 08/06/16 08:07 Dose: 50 mg Metoprolol Succinate (Toprol Xl) 25 mg PO BID [facility] Last Admin: 08/06/16 08:09 Dose: 25 mg Metoprolol Tartrate (Lopressor) 2.5 mg IVPUSH ONETIME ONE Stop: 08/05/16 16:58 Last Admin: 08/05/16 17:16 Dose: 2.5 mg Nitroglycerin (Nitrostat) 0.4 mg SL ONETIME STA Stop: 08/06/16 17:42 Last Admin: 08/05/16 17:44 Dose: 0.4 mg Ropinirole HCl (Requip) 2 mg PO BEDTIME ONE Stop: 08/06/16 22:53 Last Admin: 08/06/16 22:17 Dose: 2 mg Ropinirole HCl (Requip) Confirm Administered Dose 2 mg .ROUTE .STK-MED ONE Stop: 08/05/16 23:30 Last Admin: 08/05/16 23:36 Dose: Not Given *Q Meaningful Use (DIS) - VTE *Q VTE Criteria *Q: - Stroke *Q Stroke Criteria *Q: - AMI *Q AMI Criteria *Q:
== END 2016-08-08 16:42 | disposition home or self-care (01) | DRG 305 ==
LOC: LL.ED 16:52 → LL.MS 19:05
PROVIDERS: ADMIT Family Medicine; ATTEND Family Medicine
DX: I10 Essential (primary) hypertension (principal); I25.810 Atherosclerosis of coronary artery bypass graft(s) without angina pectoris; I69.351 Hemiplegia and hemiparesis following cerebral infarction affecting right dominant side; I63.511 Cerebral infarction due to unspecified occlusion or stenosis of right middle cerebral artery; I13.0 Hypertensive heart and chronic kidney disease with heart failure and stage 1 through stage 4 chronic kidney disease, or unspecified chronic kidney disease; N18.9 Chronic kidney disease, unspecified; I50.9 Heart failure, unspecified; E87.6 Hypokalemia; E78.5 Hyperlipidemia, unspecified; E78.00 Pure hypercholesterolemia, unspecified; I48.91 Unspecified atrial fibrillation; J30.9 Allergic rhinitis, unspecified; I69.322 Dysarthria following cerebral infarction; I73.9 Peripheral vascular disease, unspecified; I49.3 Ventricular premature depolarization; I44.0 Atrioventricular block, first degree; E11.40 Type 2 diabetes mellitus with diabetic neuropathy, unspecified; Z79.4 Long term (current) use of insulin; K21.9 Gastro-esophageal reflux disease without esophagitis; K59.00 Constipation, unspecified; M19.90 Unspecified osteoarthritis, unspecified site; F32.9 Major depressive disorder, single episode, unspecified; F41.9 Anxiety disorder, unspecified; D50.8 Other iron deficiency anemias; H91.92 Unspecified hearing loss, left ear; H35.30 Unspecified macular degeneration; H40.9 Unspecified glaucoma; G25.81 Restless legs syndrome; G47.30 Sleep apnea, unspecified; Z86.14 Personal history of Methicillin resistant Staphylococcus aureus infection; Z79.82 Long term (current) use of aspirin; Z79.899 Other long term (current) drug therapy; Z88.8 Allergy status to other drugs, medicaments and biological substances; E03.9 Hypothyroidism, unspecified
CPT/HCPCS: 36415; 71010; 71275; 80053; 82550; 82553; 83605; 83735; 83880; 84443; 84484; 84550; 85025; 85379; 85610; 85730; 86318; 93005; 96374; 96375; 99285; A9270; Q9967 ×2; 71020; 76770; 80048; 80061; 81001; 82272; 82962; 83036; 93306; 93970; J1650; J1815-GY; J1940; J3490; J7050; S0028

== ENCOUNTER 2016-12-15 16:19 | Emergency (ER) | payer MEDICARE, BC ==
--- NOTE | 2016-12-15 17:19 | EDM.PDOC ---
ED HPI GENERAL MEDICAL PROBLEM - General Chief Complaint: General Stated Complaint: Bug Bite - History of Present Illness Onset: Gradual Treatments BODY MAN: Reports: Cold Therapy Left Eye Pain Score (Numeric/FACES): 9 - Related Data Allergies Allergy/AdvReac Type Severity Reaction Status Date / Time diphenhydramine Allergy Unknown Hallucinati Verified 01/12/16 10:53 ons lisinopril Allergy Unknown Cough Verified 01/12/16 10:53 Home Meds: Home Meds Allopurinol [Zyloprim] 150 mg PO BEDTIME 10/08/13 [History] Cyanocobalamin (Vitamin B-12) [Cyanocobalamin Injection] 1,000 mcg IJ Q60D 10/08 [History] Nitroglycerin [Nitrostat] 0.4 mg SL ASDIRECTED PRN 10/08/13 [History] Potassium Chloride 10 meq PO TID 10/08/13 [History] atorvaSTATin Calcium [Atorvastatin Calcium] 40 mg PO BEDTIME 10/08/13 [History] Diclofenac Sodium [Voltaren 1% Gel] 1 applic TOP TID PRN 03/10/14 [History] Acetaminophen [Tylenol Extra Strength] 1 - 2 tab PO Q4H PRN 02/14/15 [History] Levothyroxine 112 mcg PO ACBREAKFAST 02/14/15 [History] Aspirin [Halfprin] 81 mg PO BRK 09/29/15 [History] Multivitamin with Minerals [Multiple Vitamin] 1 tab PO DAILY 09/29/15 [History] Citalopram [Celexa] 10 mg PO DAILY #40 tablet 01/04/16 [Rx] Metoprolol Succinate [Toprol XL] 25 mg PO DAILY 01/04/16 [History] rOPINIRole [Requip] 2 mg PO BID 01/04/16 [History] Famotidine 20 mg PO BID 01/12/16 [History] Fluticasone Propionate [Flonase Allergy Relief] 15.8 ml NS BID PRN 08/05/16 [ History] Furosemide [Lasix] 20 mg PO DAILY 08/05/16 [History] Gabapentin [Neurontin] 100 mg PO BID 08/05/16 [History] Iron Polysaccharides Complex [Ferrex 150] 150 mg PO MOWEFR 08/05/16 [History] LORazepam 0.25 mg PO DAILY 08/05/16 [History] Losartan [Cozaar] 50 mg PO BID 08/05/16 [History] hydrALAZINE [Apresoline] 10 mg PO BID 08/05/16 [History] Insulin Detemir [Levemir] 45 unit SUBCUT BEDTIME pen 08/08/16 [Rx] Isosorbide Mononitrate [Imdur] 30 mg PO QPM #30 tab.er 08/08/16 [Rx] Insulin Detemir [Levemir] 15 units SUBCUT DAILY 12/15/16 [History] Past Medical History HEENT History: Reports: Cataract, Hard of Hearing, Impaired Vision, Other (See Below) Other HEENT History: Patient does wear glasses, she also has a hearing aide which she usually uses on her left side Cardiovascular History: Reports: Afib, Arrhythmia, Bypass, CAD, Heart Failure, Heart Murmur, High Cholesterol, Hypertension, TX, PTCA, PVD, Stents, Syncope, Other (See Below) Other Cardiovascular History: PSVT, complete bifascicular bundle-branch block, PACs, first degree AV block nonspecific vasovagal syncope versus reaction to medication in about 2014, TX in March 2016 with 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 with additional history of restless leg syndrome Gastrointestinal History: Reports: Bowel Obstruction, Cholelithiasis, Chronic Constipation, Chronic Diarrhea, Colon Polyp, Diverticulosis, Gastritis, GERD, GI Bleed, Hemorrhoids, PUD, Other (See Below) Other Gastrointestinal History: benign adenomatous polyps, right inguinal hernia Genitourinary History: Reports: Chronic Renal Insuffiency, Diabetic Nephropathy , Renal Calculus, UTI, Recurrent, Other (See Below) Other Genitourinary History: Right-sided urolithiasis requiring procedure as below, benign renal cysts [employer]NAGER History: Reports: Dysfunctional Uterine Bleeding, Other OB/BYN History: Surgical menopause secondary to dysfunctional uterine bleeding Musculoskeletal History: Reports: Arthritis, Back Pain, Chronic, Fibromyalgia, Gout, Neck Pain, Chronic, Osteoarthritis, RA, Other (See Below) Other Musculoskeletal History: Lumbar surgeries as below with history of spinal stenosis, scoliosis Neurological History: Reports: CVA, Headaches, Chronic, Neuropathy, Diabetic, Neuropathy, Peripheral, Speech Problems, Other (See Below) Other Neuro History: 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 and dysarthria with patient requiring a walker for ambulation Psychiatric History: Reports: Anxiety, Depression Endocrine/Metabolic History: Reports: Diabetes, Type II, Hypothyroidism, IDDM Hematologic History: Reports: Anemia, Blood Transfusion(s), Iron Deficiency, Other (See Below) Other Hematologic History: Transfusions at time of CABG Immunologic History: Reports: None Oncologic (Cancer) History: Reports: Breast, Squamous Cell Carcinoma, Other ( See Below) Other Oncologic History: 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, right sided breast cancer with mastectomy in 2009 Dermatologic History: Reports: Other (See Below) Other Dermatologic History: dry skin - Infectious Disease History Infectious Disease History: Reports: Measles, Mumps - Past Surgical History Head Surgeries/Procedures: Reports: None HEENT Surgical History: Reports: Adenoidectomy, Cataract Surgery, Eye Surgery, Laser Surgery, LASIK, Oral Surgery, Tonsillectomy, Other (See Below) Other HEENT Surgeries/Procedures: Tonsillectomy and adenoidectomy at age 18, bilateral cataract surgery in 2008, with right sided YAG treatments after her cataracts with patient denying LASIK despite medical records, complete upper teeth extraction with multiple lower teeth extraction Cardiovascular Surgical History: Reports: Coronary Artery Bypass, Coronary Artery Stent, Percutaneous Transluminal Angioplasty, Other (See Below) Other Cardiovascular Surgeries/Procedures: CABG x2 in April 2002 including internal mammary bypass to LAD and LEONARD to the diagonal artery, total of 7 PTCA/ stents with last PTCA/stent x1 in 2014 Respiratory Surgical History: Reports: None GI Surgical History: Reports: Appendectomy, Bariatric Procedure, Cholecystectomy , Colonoscopy, EGD, Polypectomy, Other (See Below) Other GI Surgeries/Procedures: Gastric bypass versus Billroth II with concomitant appendectomy and cholecystectomy in about 1979, last colonoscopy on 02/15/15 with a total of 5 previous evaluations, 3 previous EGDs last on 02/22/15 with previous evaluation on 03/14/14, previous hemorrhoidectomy x2 in the 1980s and 1990s Female Surgical History: Reports: Hysterectomy, Kidney stone extraction, Mastectomy, Salpingo-Oophorectomy, Ureteral Stent Other Female Surgeries/Procedures: right partial mastectomy with chemotherapy secondary to breast cancer in 2009, complete hysterectomy including bilateral salpingo-oophorectomy secondary to dysfunctional uterine bleeding, subsequent bladder suspension, excision of right sided nephrolithiasis in about 1999 Endocrine Surgical History: Reports: None Neurological Surgical History: Reports: Discectomy, Lumbar Spine, Spinal Fusion , Thoracic Spine, Other (See Below) Other Neurological Surgeries/Procedures: Microdiscectomy his x2 with additional spinal fusion between L3 and L5 on 06/20/09 Musculoskeletal Surgical History: Reports: Carpal Tunnel, Other (See Below) Other Musculoskeletal Surgeries/Procedures:: Right-sided carpal tunnel release in about 1988 Oncologic Surgical History: Reports: Bone Marrow Aspiration, Other (See Below) Other Oncologic Surgeries/Procedures: Breast surgery as above, bone marrow fine needle aspiration and biopsy in about 2011, excision of squamous cell carcinoma from the facial region as above Dermatological Surgical History: Reports: Other (See Below) - Past Imaging History Past Imaging History: Reports: Angiography, Cardiac Echo, CAT Scan, MRI, Venous Doppler Social & Family History - Family History Cardiac: Reports: CAD, Heart Failure, [place], Other (See Below) Other Cardiac Family History: Sister with PTCA/stent x2 and an TX with fatal TX at age 83, another sister with fatal CHF at 64, another sister with fatal TX at age 75, mom with coronary artery disease, maternal aunts x2 with fatal TX one in her 80s the other at age 92 Respiratory: Reports: None GI: Reports: Inflammatory Bowel Disease, Other (See Below) Other GI Family History: Mother with Crohn's disease : Reports: Renal Calculus, Other (See Below) Other Family History: Son and 2 daughters with urolithiasis OBGYN: Reports: None Musculoskeletal: Reports: None Neurological: Reports: Alzheimers Disease, MS, Other (See Below) Other Neurological Family History: Daughter with MS Psychiatric: Reports: None Endocrine/Metabolic: Reports: None Hematologic: Reports: None Immunologic: Reports: None Dermatologic: Reports: None Oncologic: Reports: Breast, Colon, Other (See Below) Other Oncologic Family History: Sister with fatal breast cancer at age 60, paternal aunt with fatal breast cancer in her 60s, maternal aunt with breast cancer, mother with possible renal cancer, sister with fatal liver cancer versus metastases in her 60s, sister with colon cancer in her 80s - Tobacco Use Smoking Status *Q: Never Smoker Years of Tobacco use: 0 Used Tobacco, but Quit: No Month Tobacco Last Used: 0 Second Hand Smoke Exposure: No - Caffeine Use Caffeine Use: Reports: Coffee, Soda - Alcohol Use Days Per Week of Alcohol Use: 0 (No previous DWIs, problems with alcohol abuse, etc.) Number of Drinks Per Day: 0 Total Drinks Per Week: 0 - Recreational Drug Use Recreational Drug Use: No Drug Use in Last 12 Months: No - Living Situation & Occupation Living situation: Reports: , Alone, Assisted Living Occupation: Retired Course - Vital Signs Last Recorded V/S: Last Vital Signs Temp 98.4 F 12/15/16 16:20 Pulse 70 12/15/16 16:20 Resp 16 12/15/16 16:20 BP 180/58 H 12/15/16 16:20 Pulse Ox 98 12/15/16 16:20 Departure - Discharge Information Forms: ED Department Discharge
== END 2016-12-15 17:50 | disposition home or self-care (01) ==
LOC: LL.ED 16:19
CPT/HCPCS: 99283

== ENCOUNTER 2017-01-28 14:10 | Observation (INO) | payer MEDICARE, BC ==
[2017-01-28] MEDS ORDERED: Famotidine 20 MG/2 ML SDV IVPUSH ONE (14:13)
[2017-01-28] MEDS: Sodium Chloride 0.9% 10 ML Syringe FLUSH PRN ×2 (14:33→19:34)
--- NOTE | 2017-01-28 14:48 | EDM.PDOC ---
ED HPI GENERAL MEDICAL PROBLEM - General Chief Complaint: Chest Pain Stated Complaint: Chest Pain/Fall Time Seen by Provider: 01/28/17 14:10 Source of Information: Reports: Patient, Family (Son), Old Records ([facility] EMR. No paper hospital chart available.), Other (Limited records from France Cagle PA-C, at [facility] in [place]) History Limitations: Reports: No Limitations, Other - History of Present Illness INITIAL COMMENTS - FREE TEXT/NARRATIVE: The patient was referred to our emergency room for further evaluation by her regular provider, France Cagle PA-C, at [facility] for evaluation of nonspecific confusion, sedation, and nonspecific generalized headache which she rates as a dull ache at 7/10. . Patient was walking outside at [facility] with her walker when she tripped and fell on the left side of her head and chest region with additional sharp pleuritic type 6/10 mid parasternal left lower rib pain. She denies any loss of consciousness, other change in mental status, visual changes, neurological deficits, or other complaints or injuries. Her son did drive her to the emergency room after brief evaluation at the [facility] with no treatment provided. The patient denies any chest pain/pressure, heart flutter, dizziness, orthostasis, orthopnea, diaphoresis, paresthesias, recent decreased exercise tolerance, or any other anginal-type symptoms, although her overall activity level is low.No recent history of abdominal pain, heartburn, nausea, diarrhea, melena, gross hematochezia, or any food intolerance, including fatty foods, etc.. The patient also denies any recent fever, cough, wheezing, dyspnea, etc.. Onset: Today, Sudden Onset Date: 01/28/17 Onset Time: 11:30 Duration: Constant Location: Reports: Head, Chest, Generalized (Generalized headache). Denies: Face, Neck, Abdomen, Back, Pelvis, Upper Extremity, Left, Upper Extremity, Right , Lower Extremity, Left, Lower Extremity, Right, Radiates to Quality: Reports: Ache Severity: Moderate Improves with: Reports: Rest Worsens with: Reports: Breathing Context: Reports: Trauma (As above) Associated Symptoms: Reports: Confusion (Brief as above), Chest Pain (Pleuritic type symptoms), Headaches. Denies: Cough, Diaphoresis, Fever/Chills, Loss of Appetite, Malaise, Nausea/Vomiting, Rash, Seizure, Shortness of Breath, Syncope , Weakness Treatments INVESTIGATOR FRAUD: Reports: Other (see below) (None) Left Chest Pain Score (Numeric/FACES): 6 Headache Pain Score (Numeric/FACES): 7 - Related Data Allergies Allergy/AdvReac Type Severity Reaction Status Date / Time diphenhydramine Allergy Unknown Hallucinati Verified 01/12/16 10:53 ons lisinopril Allergy Unknown Cough Verified 01/12/16 10:53 Home Meds: Home Meds Allopurinol [Zyloprim] 150 mg PO BEDTIME 10/08/13 [History] Cyanocobalamin (Vitamin B-12) [Cyanocobalamin Injection] 1,000 mcg IJ Q60D 10/08 [History] Nitroglycerin [Nitrostat] 0.4 mg SL ASDIRECTED PRN 10/08/13 [History] Potassium Chloride 10 meq PO TID 10/08/13 [History] atorvaSTATin Calcium [Atorvastatin Calcium] 40 mg PO BEDTIME 10/08/13 [History] Diclofenac Sodium [Voltaren 1% Gel] 1 applic TOP TID PRN 03/10/14 [History] Acetaminophen [Tylenol Extra Strength] 1 - 2 tab PO Q4H PRN 02/14/15 [History] Levothyroxine 112 mcg PO ACBREAKFAST 02/14/15 [History] Aspirin [Halfprin] 81 mg PO BRK 09/29/15 [History] Multivitamin with Minerals [Multiple Vitamin] 1 tab PO DAILY 09/29/15 [History] Citalopram [Celexa] 10 mg PO DAILY #40 tablet 01/04/16 [Rx] Metoprolol Succinate [Toprol XL] 25 mg PO DAILY 01/04/16 [History] rOPINIRole [Requip] 2 mg PO BID 01/04/16 [History] Famotidine 20 mg PO BID 01/12/16 [History] Fluticasone Propionate [Flonase Allergy Relief] 15.8 ml NS BID PRN 08/05/16 [ History] Furosemide [Lasix] 20 mg PO DAILY 08/05/16 [History] Gabapentin [Neurontin] 100 mg PO BID 08/05/16 [History] Iron Polysaccharides Complex [Ferrex 150] 150 mg PO MOWEFR 08/05/16 [History] LORazepam 0.25 mg PO DAILY 08/05/16 [History] Losartan [Cozaar] 50 mg PO BID 08/05/16 [History] hydrALAZINE [Apresoline] 10 mg PO BID 08/05/16 [History] Insulin Detemir [Levemir] 45 unit SUBCUT BEDTIME pen 08/08/16 [Rx] Isosorbide Mononitrate [Imdur] 30 mg PO QPM #30 tab.er 08/08/16 [Rx] Famciclovir [Famvir] 500 mg PO Q8HR #5 tablet 12/15/16 [Rx] Insulin Detemir [Levemir] 15 units SUBCUT DAILY 12/15/16 [History] Past Medical History HEENT History: Reports: Cataract, Hard of Hearing, Impaired Vision, Other (See Below). Denies: Allergic Rhinitis, Glaucoma, Macular Degeneration, Retinal Detachment Other HEENT History: Patient does wear glasses, she also has a hearing aide which she usually uses on her left side Cardiovascular History: Reports: Afib, Arrhythmia, Bypass, CAD, Cardiomyopathy, Heart Failure, Heart Murmur, High Cholesterol, Hypertension, ME, PTCA, PVD, Stents, Syncope, Other (See Below). 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 Denies: Asthma, COPD, Intubation, Difficult, PE, Pneumothorax, SOB Other Respiratory History: Sleep apnea with no current therapy including nocturnal O2, CPAP, etc. with additional history of restless leg syndrome Gastrointestinal History: Reports: Bowel Obstruction, Cholelithiasis, Chronic Constipation, Chronic Diarrhea, Colon Polyp, Diverticulosis, Gastritis, GERD, GI Bleed, Hemorrhoids, PUD, Other (See Below). Denies: Celiac Disease, Fecal Incontinence, Hepatitis, Hiatal Hernia, Inflammatory Bowel Disease, Irritable Bowel Syndrome, Jaundice, Pancreatitis Other Gastrointestinal History: benign adenomatous polyps, right inguinal hernia Genitourinary History: Reports: Chronic Renal Insuffiency, Diabetic Nephropathy , Renal Calculus, UTI, Recurrent, Other (See Below). Denies: Acute Renal Failure, Dialysis, Retention, Urinary, STD, Urinary Incontinence Other Genitourinary History: Right-sided urolithiasis requiring procedure as below, benign renal cysts DRAFTER REFRIGERATION History: Reports: Dysfunctional Uterine Bleeding, . Denies: Endometriosis, Fibroids, Spontaneous : 4 Para: 4 (Full term without complications during pregnancies or deliveries) LMP (Approximate): Other (See Below) Other OB/BYN History: Surgical menopause secondary to dysfunctional uterine bleeding Musculoskeletal History: Reports: Arthritis, Back Pain, Chronic, Fibromyalgia, Gout, Neck Pain, Chronic, Osteoarthritis, Osteoporosis, RA, Other (See Below). Denies: Amputation, Fracture, SLE Other Musculoskeletal History: Lumbar surgeries as below with history of spinal stenosis, severe degenerative disc disease, multiple lumbar lateral canal stenosis with additional scoliosis Neurological History: Reports: CVA, Headaches, Chronic, Neuropathy, Diabetic, Neuropathy, Peripheral, Speech Problems, Other (See Below). 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 Denies: Abuse, Victim of, ADD, ADHD, Addiction, Alzheimers Disease, Dementia, Psych Hospitalization(s), Psychosis, PTSD, Suicide Attempt, Suicidal Ideation Endocrine/Metabolic History: Reports: Diabetes, Type II, Hypothyroidism, IDDM, Osteoporosis. Denies: Diabetes, Gestational, Diabetes, Type I Hematologic History: Reports: Anemia, Blood Transfusion(s), Iron Deficiency, Other (See Below) Other Hematologic History: Transfusions at time of CABG Immunologic History: Reports: None. Denies: AIDS, HIV, SLE Oncologic (Cancer) History: Reports: Breast, Squamous Cell Carcinoma, Other ( See Below). 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 Denies: Eczema, Psoriasis Other Dermatologic History: dry skin - Infectious Disease History Infectious Disease History: Reports: Measles, Mumps. Denies: C-Difficile, Chicken Pox, Meningitis, Mononucleosis, MRSA, Pertussis (Whooping Cough), Rheumatic Fever, Rubella, Scarlet Fever, Shingles, TB, VRE - Past Surgical History Head Surgeries/Procedures: Reports: None HEENT Surgical History: Reports: Adenoidectomy, Cataract Surgery, Eye Surgery, Laser Surgery, LASIK, Oral Surgery, Tonsillectomy, Other (See Below). Denies: Myringotomy w Tube(s), Naso-Sinus Surgery Other HEENT Surgeries/Procedures: Tonsillectomy and adenoidectomy at age 18, bilateral cataract surgery in 2008, with right sided YAG treatments after her cataracts with patient denying LASIK despite medical records, complete upper teeth extraction with multiple lower teeth extraction Cardiovascular Surgical History: Reports: Coronary Artery Bypass, Coronary Artery Stent, Percutaneous Transluminal Angioplasty, Other (See Below). Denies : Aneurysm, Cardiac Ablation, Carotid Endarterectomy, Carotid Stents, Varicose Other Cardiovascular Surgeries/Procedures: CABG x2 in April 2002 including internal mammary bypass to LAD and LEONARD to the diagonal artery, total of 7 PTCA/ stents with last PTCA/stent x1 in 2014 Respiratory Surgical History: Reports: None. Denies: Thoracentesis GI Surgical History: Reports: Appendectomy, Bariatric Procedure, Cholecystectomy , Colonoscopy, EGD, Polypectomy, Other (See Below). Denies: Hernia, Abdominal, Hernia, Inguinal, Hernia Repair/Other Other GI Surgeries/Procedures: Gastric bypass versus Billroth II with concomitant appendectomy and cholecystectomy in about 1979, last colonoscopy on 02/15/15 with a total of 5 previous evaluations, 3 previous EGDs last on 02/22/15 with previous evaluation on 03/14/14, previous hemorrhoidectomy x2 in the and Female Surgical History: Reports: Hysterectomy, Kidney stone extraction, Mastectomy, Salpingo-Oophorectomy, Ureteral Stent. Denies: Tubal Ligation Other Female Surgeries/Procedures: right partial mastectomy with chemotherapy secondary to breast cancer in 2009, complete hysterectomy including bilateral salpingo-oophorectomy secondary to dysfunctional uterine bleeding, subsequent bladder suspension, excision of right sided nephrolithiasis in about 1999 Endocrine Surgical History: Reports: None. Denies: Thyroid Biopsy Neurological Surgical History: Reports: Discectomy, Lumbar Spine, Spinal Fusion , Thoracic Spine, Other (See Below). Denies: C-Spine, Laminectomy, Scoliosis, Vertebroplasty Other Neurological Surgeries/Procedures: Microdiscectomy his x2 with additional spinal fusion between L3 and L5 on 06/20/09 Musculoskeletal Surgical History: Reports: Carpal Tunnel, Other (See Below). Denies: Arthroscopic Knee, Arthroscopic Procedure, Ganglion Cyst, Joint Replacement, ORIF, Shoulder Surgery Other Musculoskeletal Surgeries/Procedures:: Right-sided carpal tunnel release in about 1988 Oncologic Surgical History: Reports: Bone Marrow Aspiration, Other (See Below) Other Oncologic Surgeries/Procedures: Breast surgery as above, bone marrow fine needle aspiration and biopsy in about 2011, excision of squamous cell carcinoma from the facial region as above Dermatological Surgical History: Reports: Other (See Below) Other Dermatological Surgeries/Procedures: As above - Past Imaging History Past Imaging History: Reports: Angiography (Heart catheterization in May 2016 and October 2001), Cardiac Echo (Last cardiac echocardiogram on 08/05/16 with results as above previous evaluation in March 2013), CAT Scan (CTA of the chest with PE protocol on 08/05/16 with previous CTA of the chest on 09/14/14, CT of the maxillofacial region on 12/18/[address] of the head on 01/12/16, 11/09/15 , and 09/26/14, CTA of the renal system on 06/18/13), MRI (MRI of the brain on 05/17, MRI of the lumbar spine on 12/30/16 and the thoracic spine on 11/09/15, lumbar spine on 03/16/15 and 07/08/13), Swallow Study (10/17/16), Venous Doppler ( Lower extremities bilaterally on 08/06/16 with previous evaluation of the right leg in October 2014) Social & Family History - Family History HEENT: Reports: None. Denies: Glaucoma, Macular Degeneration, Retinal Detachment Cardiac: Reports: CAD, Heart Failure, ME, Other (See Below). Denies: Afib, Aneurysm, Arrhythmia, Blood Clots/VTE/DVT, High Cholesterol, Hypertension, PVD/ COD, Syncope Other Cardiac Family History: Sister with PTCA/stent x2 and an ME with fatal ME at age 83, another sister with fatal CHF at 64, another sister with fatal ME at age 75, mom with coronary artery disease, maternal aunts x2 with fatal ME one in her 80s the other at age 92 Respiratory: Reports: None. Denies: Asthma, COPD, PE, Pneumothorax, Sleep Apnea GI: Reports: Inflammatory Bowel Disease, Other (See Below). Denies: Celiac Disease, Cholelithiasis, Colon Polyps, GERD, Irritable Bowel Syndrome, PUD Other GI Family History: Mother with Crohn's disease : Reports: Renal Calculus, Other (See Below). Denies: Dialysis, Renal Disease /Insufficiency Other Family History: Son and 2 daughters with urolithiasis OBGYN: Reports: None. Denies: Endometriosis, Recurrent Spontaneous Musculoskeletal: Reports: None. Denies: Gout, RA, SLE Neurological: Reports: MS, Other (See Below). Denies: Alzheimers Disease, CVA, Dementia, Migraines, Parkinson's, Seizure, TIA Other Neurological Family History: Daughter with MS Psychiatric: Reports: None. Denies: Abuse, Victim of, ADD, ADHD, Anxiety, Depression, Hallucinations, Psych Hospitalization(s), PTSD, Suicide Attempt Endocrine/Metabolic: Reports: None. Denies: Diabetes, Type I, Diabetes, type II , Hypothyroidism, IDDM Hematologic: Reports: None. Denies: Anemia Immunologic: Reports: None. Denies: AIDS, HIV, SLE Dermatologic: Reports: None. Denies: Eczema, Psoriasis Oncologic: Reports: Breast, Colon, Metastatic, Renal, Other (See Below). Denies : Hodgkin's Lymphoma, Leukemia, Lymphoma Other Oncologic Family History: Sister with fatal breast cancer at age 60, paternal aunt with fatal breast cancer in her 60s, maternal aunt with breast cancer, mother with possible renal cancer, sister with fatal liver cancer versus metastases in her 60s, sister with colon cancer in her 80s - Tobacco Use Smoking Status *Q: Never Smoker Years of Tobacco use: 0 Used Tobacco, but Quit: No Month Tobacco Last Used: 0 Second Hand Smoke Exposure: No Second Hand Smoke Education Provided: No - Caffeine Use Caffeine Use: Reports: Coffee (One cup per day), Soda (1 soda per day). Denies : Energy Drinks, Tea - Alcohol Use Alcohol Use History: No Days Per Week of Alcohol Use: 0 (No previous DWIs, problems with alcohol abuse, etc.) Number of Drinks Per Day: 0 Total Drinks Per Week: 0 - Recreational Drug Use Recreational Drug Use: No Drug Use in Last 12 Months: No Recreational Drug Type: Denies: Amphetamines (Speed), Cocaine, Heroin, Inhalants (Glues, Solvents, Aerosols), LSD (Acid), Marijuana/Hashish, Methamphetamine, Morphine - Living Situation & Occupation Living situation: Reports: (2015, 4 children), Alone, Assisted Living ( [facility] assisted living facility) 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 Denies: Fever, Chills, Fatigue, Night Sweats, Diaphoresis, Decreased Appetite, Weight Loss, Weight Gain HEENT: Reports: Glasses, Hearing Loss (Stable chronic). Denies: Contact Lenses , Dental Pain, Ear Discharge, Ear Pain, Eye Discharge, Nose Pain, Rhinitis, Sinus Problem, Throat Pain, Throat Swelling, Vertigo, Vision Change Respiratory: Reports: No Symptoms, Pleuritic Chest Pain. Denies: Shortness of Breath, Wheezing, Cough, Sputum, Hemoptysis Cardiovascular: Reports: Chest Pain (Pleurisy as above), Blood Pressure Problem (Somewhat elevated in the emergency room), Edema (Stable dependent). Denies: Dyspnea on Exertion, Lightheadedness, Orthopnea, Palpitations, PND, Syncope Endocrine: Reports: No Symptoms. Denies: Fatigue GI/Abdominal: Denies: Abdominal Pain, Anorexia, Black Stool, Bloody Stool, Constipation, Diarrhea, Decreased Appetite, Difficulty Swallowing, Distension, Flatus, Hematemesis, Hematochezia, Melena, Nausea, Stool Incontinence, Vomiting : Reports: No Symptoms. Denies: Discharge, Dysuria, Flank Pain, Frequency, Hematuria, Pain, Urgency, Urinary Retention Musculoskeletal: Reports: No Symptoms. Denies: Neck Pain, Shoulder Pain, Arm Pain, Back Pain, Leg Pain Skin: Reports: No Symptoms. Denies: Diaphoresis, Bruising, Wound Neurological: Reports: Confusion, Headache, Pre-Existing Deficit (As above), Difficulty Walking (Stable with walker use), Weakness (As above). Denies: Dizziness, Numbness, Paresthesia, Seizure, Syncope, Tingling, Change in Speech, Gait Disturbance Hematologic/Lymphatic: Reports: No Symptoms Immunologic: Reports: No Symptoms ED EXAM, NEURO - Physical Exam Exam: See Below Exam Limited By: No Limitations General Appearance: Alert, WD/WN, No Apparent Distress Eye Exam: Bilateral Eye: EOMI, Normal Fundi, Normal Inspection (No nystagmus), PERRL Ears: Normal External Exam, Normal Canal, Normal TMs, Hearing Loss (Mild bilateral presbycusis) Nose: Normal Inspection, Normal Mucosa, No Blood, Other (Mild nasal septum deviation). No: Nasal Tenderness, Nasal Deformity, Nasal Swelling Throat/Mouth: Normal Inspection, Normal Lips, Normal Gums, Normal Oropharynx, Normal Voice, No Airway Compromise. No: Normal Teeth (Multiple missing teeth), Dysphagia, Perioral Cyanosis Head Exam: Atraumatic, Normocephalic. No: Facial Swelling, Facial Tenderness, Sinus Tenderness Neck: Supple, Non-Tender, Full Range of Motion, Carotid Bruit (Moderate bilateral carotid bruits versus transmitted heart sounds). No: Lymphadenopathy (L), Lymphadenopathy (R), Thyromegaly Respiratory/Chest: No Respiratory Distress, No Accessory Muscle Use, Rales ( Bilateral basilar rales). No: Chest Non-Tender (Mild left inferior parasternal palpation pain with no crepitation, deformity, ecchymosis, etc.), Pleural Rub, Retractions Cardiovascular: Normal Peripheral Pulses, Regular Rate, Rhythm, No Edema, No Gallop, No JVD, No Rub, Systolic Murmur (3/6 LEATHA at the aortic and mitral valves ). No: Gallop/S3, Gallop/S4 GI/Abdominal: Normal Bowel Sounds, Soft, Non-Tender, No Organomegaly, No Distention, No Abnormal Bruit, No Mass, Pelvis Stable, Other (Obese). No: Guarding (Female) Exam: Deferred Rectal (Female) Exam: Deferred Neurological: Alert, Normal Mood/Affect, Normal Dorsiflexion, CN II-XII Intact, Normal Plantar Flexion, Normal Gait, Normal Reflexes, Oriented x 3, Difficulty Walking (Walker required), Other (Moderate but stable by history right foot drop with Right leg hemiparesis). No: Babinski (Negative Babinski's, finger to nose, and pronator rotation tests. No evidence of facial paresis, tongue deviation, orthostasis, etc.. Excellent reverse thought processes.) Back Exam: Normal Inspection, Full Range of Motion. No: CVA Tenderness (L), CVA Tenderness (R), Muscle Spasm Extremities: Normal Inspection, Normal Range of Motion (With exception of foot drop as above), Non-Tender, Normal Capillary Refill, Pedal Edema (Trace bilateral pedal/pretibial edema with mild venostasis dermatitis over the anterior tibial regions bilaterally) Psychiatric: Normal Affect, Normal Mood Skin Exam: Other (Venostasis dermatitis as above). No: Diaphoretic, Wound/ Incision EKG INTERPRETATION EKG Date: 01/28/17 Time: 14:44 Rhythm: NSR (Mild sinus bradycardia) Rate (Beats/Min): 56 [place]: LAD-Left [place] Deviation (Extended left cardiac axis) P-Wave: Enlarged (Moderate diffuse biphasic P waves with poor R-wave progression in the anterior leads) QRS: RBBB (QRS interval of 0.13 seconds representing a complete right bundle branch block with T-wave inversion in leads V1 through V3 with improved bifascicular block since last EKG) ST-T: Other (As above) QT: Normal [place]/PQ Interval: [place] interval of 0.22 seconds representing a first degree AV block Comparison: Change From Previous EKG (As above since last EKG on 08/07/16) EKG Interpretation Comments: 1. Possible anterior wall cardiac ischemia with no acute ischemic changes 2. Complete right bundle branch block with history of bifascicular bundle- branch block 3. First-degree AV block Course - Vital Signs Last Recorded V/S: Last Vital Signs Temp 36.7 C 01/28/17 17:23 Pulse 58 L 01/28/17 17:23 Resp 20 01/28/17 17:23 BP 176/55 H 01/28/17 17:23 Pulse Ox 95 01/28/17 17:23 Vital Signs - 24 hr 01/28/17 01/28/17 01/28/17 14:13 14:37 15:17 Temperature [ Oral] Pulse, 58 L 54 L Peripheral [ Right Pulse Oximetry] Respiratory 20 20 Rate Blood Pressure 162/54 H 168/67 H [Right Upper Arm] O2 Sat by Pulse 98 97 Oximetry O2 Sat by Pulse 98 Oximetry [Room Air] 01/28/17 01/28/17 01/28/17 15:23 16:23 16:38 Temperature [ Oral] Pulse, 55 L 59 L 63 Peripheral [ Right Pulse Oximetry] Respiratory 20 20 22 H Rate Blood Pressure 174/141 H 178/63 H 185/54 H [Right Upper Arm] O2 Sat by Pulse 95 92 L 93 L Oximetry O2 Sat by Pulse Oximetry [Room Air] 01/28/17 01/28/17 17:09 17:23 Temperature [ 36.7 C Oral] Pulse, 55 L 58 L Peripheral [ Right Pulse Oximetry] Respiratory 20 20 Rate Blood Pressure 182/56 H 176/55 H [Right Upper Arm] O2 Sat by Pulse 95 95 Oximetry O2 Sat by Pulse Oximetry [Room Air] - Orders/Labs/Meds Orders: Active Orders 24 hr Category Date Time Status Blood Glucose Check, Bedside [RC] STAT Care 01/28/17 14:13 Active Cardiac Monitoring [RC] STAT Care 01/28/17 14:13 Active EKG Documentation Completion [RC] ASDIRECTED Care 01/28/17 14:13 Active NIH Stroke Scale [RC] ASDIRECTED Care 01/28/17 14:13 Active Oxygen Therapy, ED [RC] CONTINUOUS Care 01/28/17 14:13 Active Peripheral IV Care [RC] . DIRECTED Care 01/28/17 14:13 Active Pulse Oximetry [RC] CONTINUOUS Care 01/28/17 14:13 Active Up With Assistance [RC] ASDIRECTED Care 01/28/17 14:13 Active Vital Signs [RC] PFP Care 01/28/17 14:13 Active Nothing per Oral Now Diet [DIET] Diet 01/28/17 Breakfast Active Chest PE [Ang Chest] [CT] Stat Exams 01/28/17 15:22 Taken Head wo Cont [CT] Stat Exams 01/28/17 14:13 Taken Ribs 2V w Chest Lt [CR] Stat Exams 01/28/17 14:16 Taken PROLACTIN [REF] Stat Lab 01/28/17 14:20 Received Sodium Chloride 0.9% [Saline Flush] Med 01/28/17 14:13 Active 10 ml FLUSH ASDIRECTED PRN Obtain Past Medical Record [OM.PC] Stat Oth 01/28/17 14:13 Active Peripheral IV Insertion Adult [OM.PC] Stat Oth 01/28/17 14:13 Ordered Resuscitation Status Stat Resus Stat 01/28/17 14:13 Ordered Medication Orders Sodium Chloride (Saline Flush) 10 ml FLUSH ASDIRECTED PRN PRN Reason: Keep Vein Open Last Admin: 01/28/17 14:33 Dose: 10 ml Labs: Laboratory Tests 01/28/17 01/28/17 01/28/17 Range/Units 14:20 14:20 14:20 WBC 6.9 (4.0-10.2) K/uL RBC 3.82 (3.77-5.09) M/uL Hgb 9.8 L (11.7-15.5) g/dL Hct 31.2 L (34.0-46.0) % MCV 81.7 L (84.0-98.0) fL MCH 25.7 L (28.2-33.3) pg MCHC 31.4 L (31.7-36.0) g/dL RDW 16.8 H (11.2-14.1) % Plt Count 169 (150-350) K/uL Neut % (Auto) 70.1 (45.0-80.0) % Lymph % (Auto) 12.6 (10.0-50.0) % [place] % (Auto) 13.5 (2.0-14.0) % Eos % (Auto) 3.2 (0.0-5.0) % Baso % (Auto) 0.6 (0.0-2.0) % Neut # (Auto) 4.85 (1.40-7.00) K/uL Lymph # (Auto) 0.87 (0.50-3.50) K/uL [place] # (Auto) 0.93 (0.00-1.00) K/uL Eos # (Auto) 0.22 (0.00-0.50) K/uL Baso # (Auto) 0.04 (0.00-0.20) K/uL PT 10.3 (9.8-11.7) SEC INR 1.0 APTT 25.0 (23.5-30.0) SEC D-Dimer, Quantitative 1440 H (0-400) ng/mL Sodium (136-145) mmol/L Potassium (3.5-5.1) mmol/L Chloride (98-107) mmol/L Carbon Dioxide (21.0-32.0) mmol/L BUN (7-18) mg/dL Creatinine (0.51-1.17) mg/dL Est Cr Clr Drug Dosing Estimated GFR (MDRD) mL/min Glucose (74-106) mg/dL Lactic Acid (0.4-2.0) mmol/L Uric Acid (2.6-7.2) mg/dL Calcium (8.5-10.1) mg/dL Magnesium (1.8-2.4) mg/dL Total Bilirubin (0.2-1.0) mg/dL AST (15-37) U/L ALT (12-78) U/L Alkaline Phosphatase (46-116) IU/L Creatine Kinase (26-308) U/L Creatine Kinase Index (0.0-2.5) % CK-MB (CK-2) (0.00-3.60) ng/mL Troponin I (0.000-0.056) ng/mL NT-Pro-B Natriuret Pep (0-125) pg/mL Total Protein (6.4-8.2) g/dL Albumin (3.4-5.0) g/dL TSH, Ultra Sensitive (0.358-3.740) mIU/mL 01/28/17 01/28/17 Range/Units 14:20 14:20 WBC (4.0-10.2) K/uL RBC (3.77-5.09) M/uL Hgb (11.7-15.5) g/dL Hct (34.0-46.0) % MCV (84.0-98.0) fL MCH (28.2-33.3) pg MCHC (31.7-36.0) g/dL RDW (11.2-14.1) % Plt Count (150-350) K/uL Neut % (Auto) (45.0-80.0) % Lymph % (Auto) (10.0-50.0) % [place] % (Auto) (2.0-14.0) % Eos % (Auto) (0.0-5.0) % Baso % (Auto) (0.0-2.0) % Neut # (Auto) (1.40-7.00) K/uL Lymph # (Auto) (0.50-3.50) K/uL [place] # (Auto) (0.00-1.00) K/uL Eos # (Auto) (0.00-0.50) K/uL Baso # (Auto) (0.00-0.20) K/uL PT (9.8-11.7) SEC INR APTT (23.5-30.0) SEC D-Dimer, Quantitative (0-400) ng/mL Sodium 141 (136-145) mmol/L Potassium 4.0 (3.5-5.1) mmol/L Chloride 104 (98-107) mmol/L Carbon Dioxide 28.0 (21.0-32.0) mmol/L BUN 19 H (7-18) mg/dL Creatinine 0.89 (0.51-1.17) mg/dL Est Cr Clr Drug Dosing TNP Estimated GFR (MDRD) > 60 mL/min Glucose 126 H (74-106) mg/dL Lactic Acid 0.6 (0.4-2.0) mmol/L Uric Acid 4.8 (2.6-7.2) mg/dL Calcium 9.0 (8.5-10.1) mg/dL Magnesium 2.1 (1.8-2.4) mg/dL Total Bilirubin 0.4 (0.2-1.0) mg/dL AST 30 (15-37) U/L ALT 28 (12-78) U/L Alkaline Phosphatase 62 (46-116) IU/L Creatine Kinase 210 (26-308) U/L Creatine Kinase Index 1.2 (0.0-2.5) % CK-MB (CK-2) 2.60 (0.00-3.60) ng/mL Troponin I 0.000 (0.000-0.056) ng/mL NT-Pro-B Natriuret Pep 542 H (0-125) pg/mL Total Protein 7.2 (6.4-8.2) g/dL Albumin 3.6 (3.4-5.0) g/dL TSH, Ultra Sensitive 0.486 (0.358-3.740) mIU/mL Meds: Medications Generic Name Dose Route Start Last Admin Trade Name Freq PRN Reason Stop Dose Admin Sodium Chloride 10 ml 01/28/17 14:13 01/28/17 14:33 Saline Flush FLUSH 10 ml ASDIRECTED PRN Administration Keep Vein Open Discontinued Medications Generic Name Dose Route Start Last Admin Trade Name Freq PRN Reason Stop Dose Admin Famotidine 40 mg 01/28/17 14:13 01/28/17 14:33 Pepcid IVPUSH 01/28/17 14:14 40 mg ONETIME ONE Administration Iopamidol 100 ml 01/28/17 15:30 01/28/17 16:02 Isovue-370 (76%) IVPUSH 01/28/17 15:31 100 ml ONETIME ONE Administration - Radiology Interpretation Free Text/Narrative:: classroom monitor shows normal sinus rhythm with heart rate in the mid 50s but no significant ectopy or arrhythmia Chest x-ray, portable, shows status post medial sternotomy and right meniscectomy with severe cardiomegaly and mild centralized CHF. Mild to moderate COPD changes with no significant pulmonary infiltrates. Moderately elevated right hemidiaphragm. Moderate aortic valve calcification. No evidence of rib fracture, sternal fracture or pneumothorax. Left lateral rib films 2 shows no evidence of acute fracture with status post lumbar fusion noted with additional moderate osteoarthritic and osteoporotic changes present Telephone consultation with the radiology department at [facility] in [place] with negative verbal report for acute changes, hemorrhages, fractures, CVA , etc. of noncontrast CT scan of the head. Previous CVA changes were noted. Telephone consultation at 17:[address] Sierra, radiologist at [facility], with verbal report of CTA of the chest using PE protocol showing no evidence of PE with possibility of borderline CHF and/or pneumonia Departure - Departure Time of Disposition: 17:35 Disposition: Refer to Observation Condition: Good Clinical Impression: IDDM (insulin dependent diabetes mellitus), Peptic reflux disease, D-dimer, elevated, Pleurisy Hypertension Qualifiers: Hypertension type: essential hypertension Qualified Code(s): I10 - Essential ( primary) hypertension Hyperlipidemia Qualifiers: Hyperlipidemia type: pure hypercholesterolemia Qualified Code(s): E78.00 - Pure hypercholesterolemia, unspecified Hypothyroidism Qualifiers: Hypothyroidism type: acquired Qualified Code(s): E03.9 - Hypothyroidism, unspecified Osteoarthritis Qualifiers: Osteoarthritis location: multiple joints Osteoarthritis type: primary Qualified Code(s): M15.0 - Primary generalized (osteo)arthritis Coronary artery disease Qualifiers: Coronary Disease-Associated Artery/Lesion type: bypass graft, autologous artery Associated angina: without angina Qualified Code(s): I25.810 - Atherosclerosis of coronary artery bypass graft(s) without angina pectoris Head concussion Qualifiers: Encounter type: initial encounter Loss of consciousness presence/duration: without LOC Qualified Code(s): S06.0X0A - Concussion without loss of consciousness, initial encounter Anemia Qualifiers: Anemia type: iron deficiency Iron deficiency anemia type: other iron deficiency Qualified Code(s): D50.8 - Other iron deficiency anemias CHF (congestive heart failure) Qualifiers: Congestive heart failure type: unspecified congestive heart failure type Congestive heart failure chronicity: acute on chronic Qualified Code(s): I50.9 - Heart failure, unspecified CVA (cerebral vascular accident) Qualifiers: CVA mechanism: occlusion Precerebral and cerebral artery: middle cerebral artery Laterality of affected vessel: right Qualified Code(s): I63.511 - Cerebral infarction due to unspecified occlusion or stenosis of right middle cerebral artery - Discharge Information - Problem List & Annotations (1) CHF (congestive heart failure) SNOMED Code(s): 39640175 Code(s): I50.9 - HEART FAILURE, UNSPECIFIED Status: Acute Priority: High Current Visit: Yes Annotation/Comment:: Chest pain or anginal type symptoms with only mild chest wall versus pleurisy/rib pain from minor contusion as above. Chest pain protocol not initiated in the emergency room secondary to absence of anginal-type symptoms. Note recent echocardiogram on 08/05 Qualifiers: Congestive heart failure type: unspecified congestive heart failure type Congestive heart failure chronicity: acute on chronic Qualified Code(s): I50.9 - Heart failure, unspecified (2) CVA (cerebral vascular accident) SNOMED Code(s): 745362817 Code(s): I63.9 - CEREBRAL INFARCTION, UNSPECIFIED Status: Acute Priority : Medium Current Visit: Yes Annotation/Comment:: Stable neurological deficits by clinical exam with brief confusion secondary to concussion as above. Note stable CT scan results as above. Qualifiers: CVA mechanism: occlusion Precerebral and cerebral artery: middle cerebral artery Laterality of affected vessel: right Qualified Code(s): I63.511 - Cerebral infarction due to unspecified occlusion or stenosis of right middle cerebral artery (3) D-dimer, elevated SNOMED Code(s): 085009978 Code(s): R79.89 - OTHER SPECIFIED ABNORMAL FINDINGS OF BLOOD CHEMISTRY Status: Chronic Priority: High Current Visit: Yes Annotation/Comment:: Chronic D-dimer elevation with previous negative venous Doppler studies of the lower extremities and CTAs of the chest as below. Ultrasound not available today. CTA of the chest repeated today as a precaution with no clinical evidence of PE or DVT at this time negative CT report as above (4) Head concussion SNOMED Code(s): 237875255 Code(s): S06.0X9A - CONCUSSION W LOSS OF CONSCIOUSNESS OF UNSP DURATION, INIT Status: Acute Priority: High Current Visit: Yes Onset Date: Annotation/Comment:: Head concussion as above with no significant loss of consciousness, however note some confusion noticed by primary care provider. Patient will be admitted to observation status with neurological checks with vitals. Qualifiers: Encounter type: initial encounter Loss of consciousness presence/duration: without LOC Qualified Code(s): S06.0X0A - Concussion without loss of consciousness, initial encounter (5) Hypertension SNOMED Code(s): 82798782 Code(s): I10 - ESSENTIAL (PRIMARY) HYPERTENSION Status: Chronic Priority : High Current Visit: Yes Annotation/Comment:: Somewhat elevated in the emergency room with previous history of somewhat uncontrolled blood pressure including mild hypertensive crisis on 08/05/16. Continue to observe closely for now with medication adjustment depending on her clinical course Qualifiers: Hypertension type: essential hypertension Qualified Code(s): I10 - Essential (primary) hypertension (6) PVCs (premature ventricular contractions) SNOMED Code(s): 98833150 Code(s): I49.3 - VENTRICULAR PREMATURE DEPOLARIZATION Status: Acute Priority: Medium Current Visit: No Onset Date: 08/05/16 Annotation/Comment :: Previously known occasional PVCs first-degree AV block, and bifascicular bundle-branch block with history of other cardiac arrhythmias as above. Additional significant valvular disease with recent echocardiogram as above. Continue cardiac monitoring during this hospitalization (7) Pleurisy SNOMED Code(s): 477451271 Code(s): R09.1 - PLEURISY Status: Acute Priority: High Current Visit: Yes Onset Date: 01/28/17 Annotation/Comment:: Likely mild rib/sternal pain secondary to chest wall contusion as above. Observe for now (8) Coronary artery disease SNOMED Code(s): 96338462 Code(s): I25.10 - ATHSCL HEART DISEASE OF [place] CORONARY ARTERY W/O ANG PCTRS Status: Chronic Priority: High Current Visit: Yes Annotation/ Comment:: As above Qualifiers: Coronary Disease-Associated Artery/Lesion type: bypass graft, autologous artery Associated angina: without angina Qualified Code(s): I25.810 - Atherosclerosis of coronary artery bypass graft(s) without angina pectoris (9) Hyperlipidemia SNOMED Code(s): 27109530 Code(s): E78.5 - HYPERLIPIDEMIA, UNSPECIFIED Status: Chronic Priority: Medium Current Visit: Yes Annotation/Comment:: Currently under therapy Qualifiers: Hyperlipidemia type: pure hypercholesterolemia Qualified Code(s): E78.00 - Pure hypercholesterolemia, unspecified; E78.0 - Pure hypercholesterolemia (10) Hypothyroidism SNOMED Code(s): 95230023 Code(s): E03.9 - HYPOTHYROIDISM, UNSPECIFIED Status: Chronic Priority: Medium Current Visit: Yes Annotation/Comment:: TSH normal today Qualifiers: Hypothyroidism type: acquired Qualified Code(s): E03.9 - Hypothyroidism, unspecified (11) IDDM (insulin dependent diabetes mellitus) SNOMED Code(s): 87827802 Code(s): E11.9 - TYPE 2 DIABETES MELLITUS WITHOUT COMPLICATIONS; Z79.4 - DETENTION (CURRENT) USE OF INSULIN Status: Chronic Priority: Medium Current Visit: Yes Annotation/Comment:: Accu-Cheks at home are under good control by patient history. Glycosylated hemoglobin in the a.m. (12) Osteoarthritis SNOMED Code(s): 736688560 Code(s): M19.90 - UNSPECIFIED OSTEOARTHRITIS, UNSPECIFIED SITE Status: Chronic Priority: Medium Current Visit: Yes Annotation/Comment:: Stable by patient history with history of both rheumatoid arthritis and gout. Uric acid level in the a.m. Qualifiers: Osteoarthritis location: multiple joints Osteoarthritis type: primary Qualified Code(s): M15.0 - Primary generalized (osteo)arthritis (13) Peptic reflux disease SNOMED Code(s): 42455297 Code(s): K21.9 - GASTRO-ESOPHAGEAL REFLUX DISEASE WITHOUT ESOPHAGITIS Status: Chronic Priority: Medium Current Visit: Yes Annotation/Comment:: H. pylori was negative during recent hospitalization in July 2016. High-dose IV Pepcid given as GI prophylaxis in the emergency room. Note some chronic anemia (14) Anemia SNOMED Code(s): 358269423 Code(s): D64.9 - ANEMIA, UNSPECIFIED Status: Chronic Priority: Medium Current Visit: Yes Annotation/Comment:: Stable chronic anemia. Hemoccult- positive stools during hospitalization Qualifiers: Anemia type: iron deficiency Iron deficiency anemia type: other iron deficiency Qualified Code(s): D50.8 - Other iron deficiency anemias - Problem List Review Problem List Initiated/Reviewed/Updated: Yes - My Orders Last 24 Hours: My Active Orders 01/28/17 14:13 Blood Glucose Check, Bedside [RC] STAT Cardiac Monitoring [RC] STAT EKG Documentation Completion [RC] ASDIRECTED NIH Stroke Scale [RC] ASDIRECTED Oxygen Therapy, ED [RC] CONTINUOUS Peripheral IV Care [RC] . DIRECTED Pulse Oximetry [RC] CONTINUOUS Up With Assistance [RC] ASDIRECTED Vital Signs [RC] PFP Head wo Cont [CT] Stat Sodium Chloride 0.9% [Saline Flush] 10 ml FLUSH ASDIRECTED PRN Obtain Past Medical Record [OM.PC] Stat Peripheral IV Insertion Adult [OM.PC] Stat Resuscitation Status Stat 01/28/17 14:16 Ribs 2V w Chest Lt [CR] Stat 01/28/17 14:20 PROLACTIN [REF] Stat 01/28/17 15:22 Chest PE [Ang Chest] [CT] Stat 01/28/17 Breakfast Nothing per Oral Now Diet [DIET] - Assessment/Plan Admission H&P: Please use this note as an admission H&P Last 24 Hours: My Active Orders 01/28/17 14:13 Blood Glucose Check, Bedside [RC] STAT Cardiac Monitoring [RC] STAT EKG Documentation Completion [RC] ASDIRECTED NIH Stroke Scale [RC] ASDIRECTED Oxygen Therapy, ED [RC] CONTINUOUS Peripheral IV Care [RC] . DIRECTED Pulse Oximetry [RC] CONTINUOUS Up With Assistance [RC] ASDIRECTED Vital Signs [RC] PFP Head wo Cont [CT] Stat Sodium Chloride 0.9% [Saline Flush] 10 ml FLUSH ASDIRECTED PRN Obtain Past Medical Record [OM.PC] Stat Peripheral IV Insertion Adult [OM.PC] Stat Resuscitation Status Stat 01/28/17 14:16 Ribs 2V w Chest Lt [CR] Stat 01/28/17 14:20 PROLACTIN [REF] Stat 01/28/17 15:22 Chest PE [Ang Chest] [CT] Stat 01/28/17 Breakfast Nothing per Oral Now Diet [DIET] Assessment:: As above Plan: As above. Extensive precautions were given to the patient and her son, who are in agreement with the treatment plan. The patient's condition is stable enough for observation status and general supervision. [employer] physician assumes care in the a.m.
[2017-01-28 14:55] LABS: CHLORIDE,CL 104 mmol/L (98-107); SODIUM,NA 141 mmol/L (136-145)
[2017-01-28] MEDS ORDERED: Iopamidol 755 Mg/ML 100 ML Bottle IVPUSH ONE (15:30)
[2017-01-28] MEDS ORDERED: Fluticasone Propionate Nasal Spray 16 GM Bottle NASBOTH PRN (17:52)
[2017-01-28] MEDS ORDERED: Acetaminophen 325 MG Tab PO PRN (17:57)
[2017-01-28] MEDS ORDERED: Sodium Chloride 0.9% 10 ML Syringe FLUSH PRN (17:57)
[2017-01-28] MEDS ORDERED: Isosorbide Mononitrate 30 MG Tab.ER PO SCH (18:00)
[2017-01-28] MEDS: Potassium Chloride 20 MEQ Tab.ER PO SCH (19:27)
[2017-01-28] MEDS: Losartan 50 MG Tab PO SCH (19:28)
[2017-01-28] MEDS: rOPINIRole 1 MG Tab PO SCH (19:28)
[2017-01-28] MEDS: hydrALAZINE 50 MG Tab PO SCH (19:29)
[2017-01-28] MEDS: Gabapentin 100 MG Cap PO SCH (19:30)
[2017-01-28] MEDS: Famotidine 20 MG Tab PO SCH (19:31)
[2017-01-28] MEDS: Furosemide 40 MG/4 ML VIAL IVPUSH SCH (19:33)
[2017-01-28] MEDS ORDERED: Allopurinol 100 MG Tab PO SCH (20:00)
[2017-01-28] MEDS ORDERED: atorvaSTATin 40 MG Tab PO SCH (20:00)
[2017-01-28] MEDS ORDERED: Insulin Detemir 100 Units/ML 3 ML Pen SUBCUT SCH (20:00)
[2017-01-28] MEDS ORDERED: Temazepam 15 MG Cap PO PRN (20:49)
[2017-01-28] MEDS: Insulin Aspart 100 Units/ML 3 ML Pen SUBCUT SCH (21:38)
[2017-01-28] MEDS ORDERED: Menthol/Methyl Salicylate 85 GM Tube TOP PRN (21:40)
[2017-01-29] MEDS: Furosemide 40 MG/4 ML VIAL IVPUSH SCH ×2 (01:44→10:02)
[2017-01-29] MEDS: hydrALAZINE 50 MG Tab PO SCH ×2 (03:52→10:03)
[2017-01-29] MEDS ORDERED: Levothyroxine 112 MCG Tab PO SCH (07:30)
[2017-01-29] MEDS: Losartan 50 MG Tab PO SCH (07:31)
[2017-01-29] MEDS: Famotidine 20 MG Tab PO SCH (07:31)
[2017-01-29] MEDS: Potassium Chloride 20 MEQ Tab.ER PO SCH ×2 (07:32→12:08)
[2017-01-29] MEDS: Gabapentin 100 MG Cap PO SCH (07:32)
[2017-01-29] MEDS: rOPINIRole 1 MG Tab PO SCH (07:32)
[2017-01-29] MEDS: Insulin Aspart 100 Units/ML 3 ML Pen SUBCUT SCH ×2 (07:35→12:02)
[2017-01-29] MEDS ORDERED: Aspirin 81 MG Tab.EC PO SCH (08:00)
[2017-01-29] MEDS ORDERED: Insulin Detemir 100 Units/ML 3 ML Pen SUBCUT SCH (08:00)
[2017-01-29] MEDS ORDERED: Metoprolol Succinate 25 MG Tab.ER PO SCH (08:00)
[2017-01-29] MEDS ORDERED: Citalopram 20 MG Tab PO SCH ×2 (08:00)
[2017-01-29] MEDS: Sodium Chloride 0.9% 10 ML Syringe FLUSH PRN (10:03)
[2017-01-29 12:31] VITALS: BP 112/51
--- NOTE | 2017-01-29 13:27 | PCM.DCSUM1 ---
Discharge Summary - Hospital Course Free Text/Narrative:: Admitted for observation on 01/28/2017 after a fall with CHF exacerbation, concussion, and pleurisy. Noted to have some confusion in ER. CT with PE protocol in ER negative. CT of the head in ER negative. Noted to have significantly elevated and poorly controlled blood pressure in ER. Hydrochlorothiazide regimen changed from 10 mg PO BID to 25 mg PO TID with improved blood pressure. Serial cardiac enzymes negative and patient continues to have pleuritic pain of sternum and ribs with movement mostly and no pain or SOB at rest. BNP stable and D-dimer dropped and still no symptoms concerning for PE or DVT. Patient notes she is sore in general today of her muscles of her back, chest, and abdomen. Denies headache and confusion cleared. Eating and drinking well. Patient states she is ready for and desires discharge back to her Assisted[facility]Living Facility. - Discharge Data Discharge Date: 01/29/17 Discharge Disposition: Home, Self-Care 01 Condition: Good - Discharge Diagnosis/Problem(s) (1) CHF (congestive heart failure) SNOMED Code(s): 81316323 ICD Code: I50.9 - HEART FAILURE, UNSPECIFIED Status: Acute Priority: High Current Visit: Yes Problem Details: No chest pain or anginal type symptoms with only mild chest wall versus pleurisy/rib pain from minor contusion as above. BNP stable. Serial cardiac enzymes negative. Note recent echocardiogram on 08/06/15 Qualifiers: Congestive heart failure type: unspecified congestive heart failure type Congestive heart failure chronicity: acute on chronic Qualified Code(s): I50.9 - Heart failure, unspecified (2) Head concussion SNOMED Code(s): 892918471 ICD Code: S06.0X9A - CONCUSSION W LOSS OF CONSCIOUSNESS OF UNSP DURATION, INIT Status: Acute Priority: High Current Visit: Yes Onset Date: Problem Details: Head concussion as above with no significant loss of consciousness. Confusion noted by admitting provider. Patient was admitted to observation status with neurological checks with vitals, mentation has improved and no further confusion and no neurological deficits at the time of discharge. Qualifiers: Encounter type: initial encounter Loss of consciousness presence/duration: without LOC Qualified Code(s): S06.0X0A - Concussion without loss of consciousness, initial encounter (3) Pleurisy SNOMED Code(s): 275669894 ICD Code: R09.1 - PLEURISY Status: Acute Priority: High Current Visit: Yes Onset Date: 01/28/17 Problem Details: Agree with admitting provider that mild rib/sternal pain secondary to chest wall contusion and pain only with movement and deep inspiration. (4) Anemia SNOMED Code(s): 959700418 ICD Code: D64.9 - ANEMIA, UNSPECIFIED Status: Chronic Priority: Medium Current Visit: Yes Problem Details: Stable chronic anemia. Hemoccult-positive stools during hospitalization. Qualifiers: Anemia type: iron deficiency Iron deficiency anemia type: other iron deficiency Qualified Code(s): D50.8 - Other iron deficiency anemias (5) Coronary artery disease SNOMED Code(s): 11014494 ICD Code: I25.10 - ATHSCL HEART DISEASE OF [place] CORONARY ARTERY W/O ANG PCTRS Status: Chronic Priority: High Current Visit: Yes Problem Details : As above Qualifiers: Coronary Disease-Associated Artery/Lesion type: bypass graft, autologous artery Associated angina: without angina Qualified Code(s): I25.810 - Atherosclerosis of coronary artery bypass graft(s) without angina pectoris (6) D-dimer, elevated SNOMED Code(s): 983807053 ICD Code: R79.89 - OTHER SPECIFIED ABNORMAL FINDINGS OF BLOOD CHEMISTRY Status: Chronic Priority: High Current Visit: Yes Problem Details: Chronic D-dimer elevation with previous negative venous Doppler studies of the lower extremities and CTAs of the chest as below. CTA of the chest repeated today as a precaution with no clinical evidence of PE or DVT at this time negative CT report as above. D-dimer dropped significantly today from maximum yesterday and patient with no signs/symptoms concerning for PE or DVT. (7) Hyperlipidemia SNOMED Code(s): 38511899 ICD Code: E78.5 - HYPERLIPIDEMIA, UNSPECIFIED Status: Chronic Priority: Low Current Visit: Yes Problem Details: Currently under therapy Qualifiers: Hyperlipidemia type: pure hypercholesterolemia Qualified Code(s): E78.00 - Pure hypercholesterolemia, unspecified; E78.0 - Pure hypercholesterolemia (8) Hypertension SNOMED Code(s): 47779867 ICD Code: I10 - ESSENTIAL (PRIMARY) HYPERTENSION Status: Chronic Priority : High Current Visit: Yes Problem Details: Elevated on arrival in ER yesterday. Hydrochlorothiazide dose changed from 10 mg PO BID to 25 mg PO TID with improved blood pressure control. Will discharge on same regimen. Qualifiers: Hypertension type: essential hypertension Qualified Code(s): I10 - Essential (primary) hypertension (9) Hypothyroidism SNOMED Code(s): 61843126 ICD Code: E03.9 - HYPOTHYROIDISM, UNSPECIFIED Status: Chronic Priority: Medium Current Visit: Yes Problem Details: TSH normal 01/28/17. Qualifiers: Hypothyroidism type: acquired Qualified Code(s): E03.9 - Hypothyroidism, unspecified (10) IDDM (insulin dependent diabetes mellitus) SNOMED Code(s): 33448123 ICD Code: E11.9 - TYPE 2 DIABETES MELLITUS WITHOUT COMPLICATIONS; Z79.4 - MCFP (CURRENT) USE OF INSULIN Status: Chronic Priority: Medium Current Visit: Yes Problem Details: Accu-Cheks at home are under good control by patient history. Glycosylated hemoglobin mildly elevated at 7.8. (11) Osteoarthritis SNOMED Code(s): 830079546 ICD Code: M19.90 - UNSPECIFIED OSTEOARTHRITIS, UNSPECIFIED SITE Status: Chronic Priority: Low Current Visit: Yes Problem Details: Stable by patient history with history of both rheumatoid arthritis and gout. Uric acid level in the a.m. Qualifiers: Osteoarthritis location: multiple joints Osteoarthritis type: primary Qualified Code(s): M15.0 - Primary generalized (osteo)arthritis (12) Peptic reflux disease SNOMED Code(s): 34197485 ICD Code: K21.9 - GASTRO-ESOPHAGEAL REFLUX DISEASE WITHOUT ESOPHAGITIS Status: Chronic Priority: Medium Current Visit: Yes Problem Details: H. pylori was negative during recent hospitalization in July 2016. High-dose IV Pepcid given as GI prophylaxis in the emergency room. Note some chronic anemia (13) CVA (cerebral vascular accident) SNOMED Code(s): 953616812 ICD Code: I63.9 - CEREBRAL INFARCTION, UNSPECIFIED Status: Acute Priority : Low Current Visit: Yes Problem Details: Stable neurological deficits by clinical exam with brief confusion secondary to concussion as above. Note stable CT scan results as above. Qualifiers: CVA mechanism: occlusion Precerebral and cerebral artery: middle cerebral artery Laterality of affected vessel: right Qualified Code(s): I63.511 - Cerebral infarction due to unspecified occlusion or stenosis of right middle cerebral artery - Patient Instructions Diet: Heart Healthy Diet, Diabetic Diet Activity: As Tolerated Driving: Do Not Drive - Discharge Plan Prescriptions/Med Rec: Hydrochlorothiazide 25 mg PO TID #90 tablet Home Medications: Home Meds Allopurinol [Zyloprim] 150 mg PO BEDTIME 10/08/13 [History] Cyanocobalamin (Vitamin B-12) [Cyanocobalamin Injection] 1,000 mcg IJ Q60D 10/08 [History] Nitroglycerin [Nitrostat] 0.4 mg SL ASDIRECTED PRN 10/08/13 [History] Potassium Chloride 20 meq PO TID 10/08/13 [History] atorvaSTATin Calcium [Atorvastatin Calcium] 40 mg PO BEDTIME 10/08/13 [History] Diclofenac Sodium [Voltaren 1% Gel] 1 applic TOP TID PRN 03/10/14 [History] Acetaminophen [Tylenol Extra Strength] 1 - 2 tab PO Q4H PRN 02/14/15 [History] Levothyroxine 112 mcg PO ACBREAKFAST 02/14/15 [History] Aspirin [Halfprin] 81 mg PO BRK 09/29/15 [History] Multivitamin with Minerals [Multiple Vitamin] 1 tab PO DAILY 09/29/15 [History] Metoprolol Succinate [Toprol XL] 25 mg PO DAILY 01/04/16 [History] rOPINIRole [Requip] 2 mg PO BID 01/04/16 [History] Famotidine 20 mg PO BID 01/12/16 [History] Fluticasone Propionate [Flonase Allergy Relief] 15.8 ml NS BID 08/05/16 [History ] Furosemide [Lasix] 20 mg PO DAILY 08/05/16 [History] Gabapentin [Neurontin] 1 - 2 cap PO TID 08/05/16 [History] Iron Polysaccharides Complex [Ferrex 150] 150 mg PO MOWEFR 08/05/16 [History] LORazepam 0.5 mg PO BID 08/05/16 [History] Losartan [Cozaar] 50 mg PO BID 08/05/16 [History] Insulin Detemir [Levemir] 45 unit SUBCUT BEDTIME pen 08/08/16 [Rx] Isosorbide Mononitrate [Imdur] 30 mg PO QPM #30 tab.er 08/08/16 [Rx] Insulin Detemir [Levemir] 15 units SUBCUT DAILY 12/15/16 [History] Citalopram [Celexa] 20 mg PO DAILY 01/28/17 [History] Hydrocodone/Acetaminophen [Hydrocodon-Acetaminophen 5-325] 1 - 2 tab PO Q6HR PRN 01/28/17 [History] Ketoprofen, Micronized [Frotek] 1 applic TOP TID PRN 01/28/17 [History] Hydrochlorothiazide 25 mg PO TID #90 tablet 01/29/17 [Rx] Patient Handouts: Heart Failure, [id number] Forms: ED Department Discharge Referrals: France Slaughter PA-C [Primary Care Provider] - - Discharge Summary/Plan Comment DC Time >30 min.: No - General Info Date of Service: 01/29/17 Admission Dx/Problem (Free Text: CHF Fall Concussion Pleurisy Functional Status: Reports: Pain Controlled - Review of Systems General: Reports: No Symptoms HEENT: Reports: No Symptoms Pulmonary: Reports: No Symptoms Cardiovascular: Reports: No Symptoms, Chest Pain (Mild pleuritic/ musculoskeletal pain of sternum and ribs.) Gastrointestinal: Reports: No Symptoms Genitourinary: Reports: No Symptoms Musculoskeletal: Reports: No Symptoms Skin: Reports: No Symptoms Neurological: Reports: No Symptoms Psychiatric: Reports: No Symptoms - Patient Data Vitals - Most Recent: Last Vital Signs Temp 36.6 C 01/29/17 12:00 Pulse 58 L 01/29/17 12:00 Resp 20 01/29/17 10:05 BP 112/51 L 01/29/17 12:00 Pulse Ox 99 01/29/17 12:00 Weight - Most Recent: 72.121 kg I&O - Last 24 hours: Intake & Output 01/28/17 01/29/17 01/29/17 22:59 06:59 14:59 Intake Total 640 400 720 Output Total 1250 1000 Balance -610 -600 720 Lab Results - Last 24 hrs: Laboratory Results - last 24 hr 01/28/17 01/29/17 01/29/17 Range/Units 21:21 01:43 07:00 WBC 6.2 (4.0-10.2) K/uL RBC 3.91 (3.77-5.09) M/uL Hgb 10.0 L (11.7-15.5) g/dL Hct 31.7 L (34.0-46.0) % MCV 81.1 L (84.0-98.0) fL MCH 25.6 L (28.2-33.3) pg MCHC 31.5 L (31.7-36.0) g/dL RDW 16.6 H (11.2-14.1) % Plt Count 168 (150-350) K/uL Neut % (Auto) 67.7 (45.0-80.0) % Lymph % (Auto) 13.8 (10.0-50.0) % [place] % (Auto) 13.5 (2.0-14.0) % Eos % (Auto) 4.2 (0.0-5.0) % Baso % (Auto) 0.8 (0.0-2.0) % Neut # (Auto) 4.21 (1.40-7.00) K/uL Lymph # (Auto) 0.86 (0.50-3.50) K/uL [place] # (Auto) 0.84 (0.00-1.00) K/uL Eos # (Auto) 0.26 (0.00-0.50) K/uL Baso # (Auto) 0.05 (0.00-0.20) K/uL D-Dimer, Quantitative (0-400) ng/mL Sodium (136-145) mmol/L Potassium (3.5-5.1) mmol/L Chloride (98-107) mmol/L Carbon Dioxide (21.0-32.0) mmol/L BUN (7-18) mg/dL Creatinine (0.51-1.17) mg/dL Est Cr Clr Drug Dosing mL/min Estimated GFR (MDRD) mL/min Glucose (74-106) mg/dL POC Glucose 180 H 105 (65-110) mg/dl Hemoglobin A1c (4.3-5.7) % Calcium (8.5-10.1) mg/dL Total Bilirubin (0.2-1.0) mg/dL AST (15-37) U/L ALT (12-78) U/L Alkaline Phosphatase (46-116) IU/L Creatine Kinase (26-308) U/L Creatine Kinase Index (0.0-2.5) % CK-MB (CK-2) (0.00-3.60) ng/mL Troponin I (0.000-0.056) ng/mL NT-Pro-B Natriuret Pep (0-125) pg/mL Total Protein (6.4-8.2) g/dL Albumin (3.4-5.0) g/dL Triglycerides (30-150) mg/dL Cholesterol (100-200) mg/dL LDL Cholesterol, Calc (0-100) mg/dL HDL Cholesterol (40-60) mg/dL 01/29/17 01/29/17 01/29/17 Range/Units 07:00 07:00 07:00 WBC (4.0-10.2) K/uL RBC (3.77-5.09) M/uL Hgb (11.7-15.5) g/dL Hct (34.0-46.0) % MCV (84.0-98.0) fL MCH (28.2-33.3) pg MCHC (31.7-36.0) g/dL RDW (11.2-14.1) % Plt Count (150-350) K/uL Neut % (Auto) (45.0-80.0) % Lymph % (Auto) (10.0-50.0) % [place] % (Auto) (2.0-14.0) % Eos % (Auto) (0.0-5.0) % Baso % (Auto) (0.0-2.0) % Neut # (Auto) (1.40-7.00) K/uL Lymph # (Auto) (0.50-3.50) K/uL [place] # (Auto) (0.00-1.00) K/uL Eos # (Auto) (0.00-0.50) K/uL Baso # (Auto) (0.00-0.20) K/uL D-Dimer, Quantitative 814 H (0-400) ng/mL Sodium 138 (136-145) mmol/L Potassium 3.6 (3.5-5.1) mmol/L Chloride 101 (98-107) mmol/L Carbon Dioxide 31.2 (21.0-32.0) mmol/L BUN 23 H (7-18) mg/dL Creatinine 0.95 (0.51-1.17) mg/dL Est Cr Clr Drug Dosing 33.36 mL/min Estimated GFR (MDRD) 56 mL/min Glucose 145 H (74-106) mg/dL POC Glucose (65-110) mg/dl Hemoglobin A1c 7.8 H (4.3-5.7) % Calcium 8.8 (8.5-10.1) mg/dL Total Bilirubin 0.3 (0.2-1.0) mg/dL AST 29 (15-37) U/L ALT 28 (12-78) U/L Alkaline Phosphatase 57 (46-116) IU/L Creatine Kinase 182 (26-308) U/L Creatine Kinase Index 1.2 (0.0-2.5) % CK-MB (CK-2) 2.20 (0.00-3.60) ng/mL Troponin I 0.000 (0.000-0.056) ng/mL NT-Pro-B Natriuret Pep 563 H (0-125) pg/mL Total Protein 6.8 (6.4-8.2) g/dL Albumin 3.3 L (3.4-5.0) g/dL Triglycerides 106 (30-150) mg/dL Cholesterol 106 (100-200) mg/dL LDL Cholesterol, Calc 41 (0-100) mg/dL HDL Cholesterol 44 (40-60) mg/dL 01/29/17 Range/Units 07:15 WBC (4.0-10.2) K/uL RBC (3.77-5.09) M/uL Hgb (11.7-15.5) g/dL Hct (34.0-46.0) % MCV (84.0-98.0) fL MCH (28.2-33.3) pg MCHC (31.7-36.0) g/dL RDW (11.2-14.1) % Plt Count (150-350) K/uL Neut % (Auto) (45.0-80.0) % Lymph % (Auto) (10.0-50.0) % [place] % (Auto) (2.0-14.0) % Eos % (Auto) (0.0-5.0) % Baso % (Auto) (0.0-2.0) % Neut # (Auto) (1.40-7.00) K/uL Lymph # (Auto) (0.50-3.50) K/uL [place] # (Auto) (0.00-1.00) K/uL Eos # (Auto) (0.00-0.50) K/uL Baso # (Auto) (0.00-0.20) K/uL D-Dimer, Quantitative (0-400) ng/mL Sodium (136-145) mmol/L Potassium (3.5-5.1) mmol/L Chloride (98-107) mmol/L Carbon Dioxide (21.0-32.0) mmol/L BUN (7-18) mg/dL Creatinine (0.51-1.17) mg/dL Est Cr Clr Drug Dosing mL/min Estimated GFR (MDRD) mL/min Glucose (74-106) mg/dL POC Glucose 137 H (65-110) mg/dl Hemoglobin A1c (4.3-5.7) % Calcium (8.5-10.1) mg/dL Total Bilirubin (0.2-1.0) mg/dL AST (15-37) U/L ALT (12-78) U/L Alkaline Phosphatase (46-116) IU/L Creatine Kinase (26-308) U/L Creatine Kinase Index (0.0-2.5) % CK-MB (CK-2) (0.00-3.60) ng/mL Troponin I (0.000-0.056) ng/mL NT-Pro-B Natriuret Pep (0-125) pg/mL Total Protein (6.4-8.2) g/dL Albumin (3.4-5.0) g/dL Triglycerides (30-150) mg/dL Cholesterol (100-200) mg/dL LDL Cholesterol, Calc (0-100) mg/dL HDL Cholesterol (40-60) mg/dL Med Orders - Current: Current Medications Acetaminophen (Tylenol) 650 mg PO Q4H PRN PRN Reason: Pain Last Admin: 01/28/17 21:42 Dose: 650 mg Allopurinol (Zyloprim) 150 mg PO BEDTIME [facility]OMAS Last Admin: 01/28/17 19:30 Dose: 150 mg Aspirin (Halfprin) 81 mg PO BRK [facility]AS Last Admin: 01/29/17 07:32 Dose: 81 mg Atorvastatin Calcium (Lipitor) 40 mg PO BEDTIME [facility] Last Admin: 01/28/17 19:28 Dose: 40 mg Citalopram Hydrobromide (Celexa) 20 mg PO DAILY [facility] Last Admin: 01/29/17 07:32 Dose: 20 mg Famotidine (Pepcid) 20 mg PO BID [facility] Last Admin: 01/29/17 07:31 Dose: 20 mg Fluticasone Propionate (Flonase) 0 gm NASBOTH BID PRN PRN Reason: as needed Furosemide (Lasix) 40 mg IVPUSH Q8H [facility] Last Admin: 01/29/17 10:02 Dose: 40 mg Gabapentin (Neurontin) 100 mg PO BID [facility] Last Admin: 01/29/17 07:32 Dose: 100 mg Hydralazine HCl (Apresoline) 25 mg PO Q8H [facility] Last Admin: 01/29/17 10:03 Dose: Not Given Insulin Aspart (Novolog) 0 unit SUBCUT ACBED [facility] PRN Reason: Protocol Last Admin: 01/29/17 12:02 Dose: Not Given Insulin Detemir (Levemir) 15 unit SUBCUT DAILY [facility] Last Admin: 01/29/17 07:30 Dose: 15 unit Insulin Detemir (Levemir) 45 unit SUBCUT BEDTIME [facility] Last Admin: 01/28/17 19:39 Dose: 45 units Isosorbide Mononitrate (Imdur) 30 mg PO QPM [facility] Last Admin: 01/28/17 19:31 Dose: 30 mg Levothyroxine Sodium (Levothyroxine) 112 mcg PO ACBREAKFAST [facility] Last Admin: 01/29/17 07:31 Dose: 112 mcg Losartan Potassium (Cozaar) 50 mg PO BID [facility] Last Admin: 01/29/17 07:31 Dose: 50 mg Methyl Salicylate (Icy Hot Cream) 0 gm TOP ASDIRECTED PRN PRN Reason: Pain Metoprolol Succinate (Toprol Xl) 25 mg PO DAILY [facility] Last Admin: 01/29/17 07:31 Dose: 25 mg Potassium Chloride (Klor-Con M20) 20 meq PO TID [facility] Last Admin: 01/29/17 12:08 Dose: 20 meq Ropinirole HCl (Requip) 2 mg PO BID [facility] Last Admin: 01/29/17 07:32 Dose: 2 mg Sodium Chloride (Saline Flush) 10 ml FLUSH ASDIRECTED PRN PRN Reason: Keep Vein Open Last Admin: 01/29/17 10:03 Dose: 10 ml Sodium Chloride (Saline Flush) 10 ml FLUSH Q12HR PRN PRN Reason: Keep Vein Open Temazepam (Restoril) 15 mg PO BEDTIME PRN PRN Reason: Insomnia Last Admin: 01/28/17 21:42 Dose: 15 mg Discontinued Medications Citalopram Hydrobromide (Celexa) 10 mg PO DAILY [facility] Famotidine (Pepcid) 40 mg IVPUSH ONETIME ONE Stop: 01/28/17 14:14 Last Admin: 01/28/17 14:33 Dose: 40 mg Iopamidol (Isovue-370 (76%)) 100 ml IVPUSH ONETIME ONE Stop: 01/28/17 15:31 Last Admin: 01/28/17 16:02 Dose: 100 ml - Exam General: Reports: Alert, Oriented HEENT: Reports: Pupils Equal, Pupils Reactive, EOMI, Mucous Membr. Moist/[place] Neck: Reports: Supple. Denies: Lymphadenopathy Lungs: Reports: Clear to Auscultation, Normal Respiratory Effort. Denies: Crackles, Rales, Rhonchi, Wheezing Cardiovascular: Reports: Regular Rate, Regular Rhythm, Murmurs (Stable Grade 3/ 6 LEATHA heard best at LL sternal border and RU sternal border.) GI/Abdominal Exam: Normal Bowel Sounds, Soft, Non-Tender, No Organomegaly, No Distention (Female) Exam: Deferred Rectal (Female) Exam: Deferred Back Exam: Reports: Normal Inspection, Full Range of Motion. Denies: CVA Tenderness (L), CVA Tenderness (R), Paraspinal Tenderness, Vertebral Tenderness Extremities: Normal Inspection, Normal Range of Motion, Non-Tender, No Pedal Edema, Normal Capillary Refill. No: Rekha's Sign, Leg Pain, Increased Warmth, Redness Skin: Reports: Warm, Dry, Intact Neurological: Reports: No New Focal Deficit *Q Meaningful Use (DIS) - VTE *Q VTE Criteria *Q: - Stroke *Q Stroke Criteria *Q: - AMI *Q AMI Criteria *Q:
== END 2017-01-29 14:00 | disposition home or self-care (01) ==
LOC: LL.ED 14:10 → LL.MS 17:35
PROVIDERS: ADMIT Family Medicine; ATTEND Family Medicine
DX: I50.9 Heart failure, unspecified (principal); S06.0X0A Concussion without loss of consciousness, initial encounter; R09.1 Pleurisy; D50.8 Other iron deficiency anemias; I25.810 Atherosclerosis of coronary artery bypass graft(s) without angina pectoris; R79.89 Other specified abnormal findings of blood chemistry; E78.00 Pure hypercholesterolemia, unspecified; I10 Essential (primary) hypertension; E03.9 Hypothyroidism, unspecified; E11.9 Type 2 diabetes mellitus without complications; M15.0 Primary generalized (osteo)arthritis; K21.9 Gastro-esophageal reflux disease without esophagitis; I63.511 Cerebral infarction due to unspecified occlusion or stenosis of right middle cerebral artery; G47.30 Sleep apnea, unspecified; Z79.82 Long term (current) use of aspirin; Z79.899 Other long term (current) drug therapy; Z79.4 Long term (current) use of insulin; Z88.8 Allergy status to other drugs, medicaments and biological substances; Z95.5 Presence of coronary angioplasty implant and graft; Z90.49 Acquired absence of other specified parts of digestive tract; Z90.710 Acquired absence of both cervix and uterus; Z98.84 Bariatric surgery status
CPT/HCPCS: 36415; 70450; 71101; 71275; 80053; 80061; 82550; 82553; 82962; 83036; 83605; 83735; 83880; 84146; 84443; 84484; 84550; 85025; 85379; 85610; 85730; 93005; 96374; 96375; 96376; 99217; 99220; 99285; A9270; G0378; J1815; J1940; J7050; Q9967; S0028

== ENCOUNTER 2017-03-12 11:59 | Inpatient (IN) | payer MEDICARE, BC ==
[2017-03-12] MEDS ORDERED: Sodium Chloride 0.9% 10 ML Syringe FLUSH PRN (12:23)
--- NOTE | 2017-03-12 12:57 | EDM.PDOC ---
ED HPI GENERAL MEDICAL PROBLEM - General Chief Complaint: Cardiovascular Problem Stated Complaint: hypotension from clinic Time Seen by Provider: 03/12/17 12:23 Source of Information: Reports: Patient, Other (clinic) History Limitations: Reports: No Limitations - History of Present Illness INITIAL COMMENTS - FREE TEXT/NARRATIVE: Patient presented to clinic with complaint of feeling light-headed intermittently since waking this morning. She took her blood sugar and it was 120. She did note that her pulse was 48. She says that her pulse is usually in the 60s. Denies any medication changes. No other recent health changes. No other complaints. Describes feeling as being light-headed. Not vertigo. Does have history of fluctuating blood pressure in past, along with CAD/mitral and aortic valve disease. This feels like it has in the past when her BP starts to run low. Clinic reported that BP varied a bit during her visit there, systolic pressure below 80 with all readings. EKG at clinic did not show any acute ST changes. She was referred here as provider felt that patient would benefit from IV fluids and inpatient monitoring. They felt she had significant fall risk given her baseline mobility issues in addition to the current complaint. Patient feels much better when laying down. - Related Data Allergies Allergy/AdvReac Type Severity Reaction Status Date / Time diphenhydramine Allergy Unknown Hallucinati Verified 03/12/17 12:26 ons lisinopril Allergy Unknown Cough Verified 03/12/17 12:26 Home Meds: Home Meds Allopurinol [Zyloprim] 150 mg PO BEDTIME 10/08/13 [History] Cyanocobalamin (Vitamin B-12) [Cyanocobalamin Injection] 1,000 mcg IJ Q60D 10/08 [History] Nitroglycerin [Nitrostat] 0.4 mg SL ASDIRECTED PRN 10/08/13 [History] Potassium Chloride 10 meq PO TID 10/08/13 [History] atorvaSTATin Calcium [Atorvastatin Calcium] 40 mg PO BEDTIME 10/08/13 [History] Acetaminophen [Tylenol Extra Strength] 1 - 2 tab PO Q4H PRN 02/14/15 [History] Levothyroxine 112 mcg PO ACBREAKFAST 02/14/15 [History] Aspirin [Halfprin] 81 mg PO BRK 09/29/15 [History] Multivitamin with Minerals [Multiple Vitamin] 1 tab PO DAILY 09/29/15 [History] Metoprolol Succinate [Toprol XL] 25 mg PO DAILY 01/04/16 [History] rOPINIRole [Requip] 3 mg PO 12,20 01/04/16 [History] Famotidine 20 mg PO BID 01/12/16 [History] Fluticasone Propionate [Flonase Allergy Relief] 1 spray NS BID PRN 08/05/16 [ History] Furosemide [Lasix] 20 mg PO DAILY 08/05/16 [History] Gabapentin [Neurontin] 1 cap PO TID 08/05/16 [History] Iron Polysaccharides Complex [Ferrex 150] 150 mg PO MOWEFR 08/05/16 [History] LORazepam 0.5 mg PO BID 08/05/16 [History] Losartan [Cozaar] 50 mg PO BID 08/05/16 [History] Insulin Detemir [Levemir] 45 unit SUBCUT BEDTIME pen 08/08/16 [Rx] Isosorbide Mononitrate [Imdur] 30 mg PO QPM #30 tab.er 08/08/16 [Rx] Insulin Detemir [Levemir] 15 units SUBCUT DAILY 12/15/16 [History] Citalopram [Celexa] 10 mg PO DAILY 01/28/17 [History] Hydrochlorothiazide 25 mg PO TID #90 tablet 01/29/17 [Rx] hydrALAZINE [Apresoline] 10 mg PO Q12HR 03/12/17 [History] Past Medical History HEENT History: Reports: Cataract, Hard of Hearing, Impaired Vision, Other (See Below) Other HEENT History: Patient does wear glasses, she also has a hearing aide which she usually uses on her left side Cardiovascular History: Reports: Afib, Arrhythmia, Bypass, CAD, Cardiomyopathy, Heart Failure, Heart Murmur, High Cholesterol, Hypertension, TN, PTCA, PVD, Stents, Syncope, Other (See Below) Other Cardiovascular History: Moderate aortic valve insufficiency and calcification with additional mild aortic valve stenosis, severe mitral valve insufficiency, and grade 1 diastolic dysfunction with additional severe left atrial enlargement by echocardiogram on 08/05/16 with ejection fraction of within 70%, PSVT, complete bifascicular bundle-branch block, PACs, first degree AV block nonspecific vasovagal syncope versus reaction to medication in about 2014 , TN in March 2016 with 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 with additional history of restless leg syndrome Gastrointestinal History: Reports: Bowel Obstruction, Cholelithiasis, Chronic Constipation, Chronic Diarrhea, Colon Polyp, Diverticulosis, Gastritis, GERD, GI Bleed, Hemorrhoids, PUD, Other (See Below) Other Gastrointestinal History: benign adenomatous polyps, right inguinal hernia Genitourinary History: Reports: Chronic Renal Insuffiency, Diabetic Nephropathy , Renal Calculus, UTI, Recurrent, Other (See Below) Other Genitourinary History: Right-sided urolithiasis requiring procedure as below, benign renal cysts [employer] History: Reports: Dysfunctional Uterine Bleeding, Other OB/BYN History: Surgical menopause secondary to dysfunctional uterine bleeding Musculoskeletal History: Reports: Arthritis, Back Pain, Chronic, Fibromyalgia, Gout, Neck Pain, Chronic, Osteoarthritis, Osteoporosis, RA, Other (See Below) Other Musculoskeletal History: Lumbar surgeries as below with history of spinal stenosis, severe degenerative disc disease, multiple lumbar lateral canal stenosis with additional scoliosis Neurological History: Reports: CVA, Headaches, Chronic, Neuropathy, Diabetic, Neuropathy, Peripheral, Speech Problems, Other (See Below) Other Neuro History: 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 and dysarthria with patient requiring a walker for ambulation Psychiatric History: Reports: Anxiety, Depression Endocrine/Metabolic History: Reports: Diabetes, Type II, Hypothyroidism, IDDM, Osteoporosis Hematologic History: Reports: Anemia, Blood Transfusion(s), Iron Deficiency, Other (See Below) Other Hematologic History: Transfusions at time of CABG Immunologic History: Reports: None Oncologic (Cancer) History: Reports: Breast, Squamous Cell Carcinoma, Other ( See Below) Other Oncologic History: 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, right sided breast cancer with mastectomy in 2009 Dermatologic History: Reports: Venous Stasis Dermatitis, Other (See Below) Other Dermatologic History: dry skin - Infectious Disease History Infectious Disease History: Reports: Measles, Mumps - Past Surgical History Head Surgeries/Procedures: Reports: None HEENT Surgical History: Reports: Adenoidectomy, Cataract Surgery, Eye Surgery, Laser Surgery, LASIK, Oral Surgery, Tonsillectomy, Other (See Below) Other HEENT Surgeries/Procedures: Tonsillectomy and adenoidectomy at age 18, bilateral cataract surgery in 2008, with right sided YAG treatments after her cataracts with patient denying LASIK despite medical records, complete upper teeth extraction with multiple lower teeth extraction Cardiovascular Surgical History: Reports: Coronary Artery Bypass, Coronary Artery Stent, Percutaneous Transluminal Angioplasty, Other (See Below) Other Cardiovascular Surgeries/Procedures: CABG x2 in April 2002 including internal mammary bypass to LAD and LEONARD to the diagonal artery, total of 7 PTCA/ stents with last PTCA/stent x1 in 2014 Respiratory Surgical History: Reports: None GI Surgical History: Reports: Appendectomy, Bariatric Procedure, Cholecystectomy , Colonoscopy, EGD, Polypectomy, Other (See Below) Other GI Surgeries/Procedures: Gastric bypass versus Billroth II with concomitant appendectomy and cholecystectomy in about 1979, last colonoscopy on 02/15/15 with a total of 5 previous evaluations, 3 previous EGDs last on 02/22/15 with previous evaluation on 03/14/14, previous hemorrhoidectomy x2 in the and Female Surgical History: Reports: Hysterectomy, Kidney stone extraction, Mastectomy, Salpingo-Oophorectomy, Ureteral Stent Other Female Surgeries/Procedures: right partial mastectomy with chemotherapy secondary to breast cancer in 2009, complete hysterectomy including bilateral salpingo-oophorectomy secondary to dysfunctional uterine bleeding, subsequent bladder suspension, excision of right sided nephrolithiasis in about 1999 Endocrine Surgical History: Reports: None Neurological Surgical History: Reports: Discectomy, Lumbar Spine, Spinal Fusion , Thoracic Spine, Other (See Below) Other Neurological Surgeries/Procedures: Microdiscectomy his x2 with additional spinal fusion between L3 and L5 on 06/20/09 Musculoskeletal Surgical History: Reports: Carpal Tunnel, Other (See Below) Other Musculoskeletal Surgeries/Procedures:: Right-sided carpal tunnel release in about 1988 Oncologic Surgical History: Reports: Bone Marrow Aspiration, Other (See Below) Other Oncologic Surgeries/Procedures: Breast surgery as above, bone marrow fine needle aspiration and biopsy in about 2011, excision of squamous cell carcinoma from the facial region as above Dermatological Surgical History: Reports: Other (See Below) - Past Imaging History Past Imaging History: Reports: Angiography (Heart catheterization in May 2016 and October 2001), Cardiac Echo (Last cardiac echocardiogram on 08/05/16 with results as above previous evaluation in March 2013), CAT Scan (CTA of the chest with PE protocol on 08/05/16 with previous CTA of the chest on 09/14/14, CT of the maxillofacial region on 12/18/[address] of the head on 01/12/16, 11/09/15 , and 09/26/14, CTA of the renal system on 06/18/13), MRI (MRI of the brain on 05/17, MRI of the lumbar spine on 12/30/16 and the thoracic spine on 11/09/15, lumbar spine on 03/16/15 and 07/08/13), Swallow Study (10/17/16), Venous Doppler ( Lower extremities bilaterally on 08/06/16 with previous evaluation of the right leg in October 2014) Social & Family History - Family History HEENT: Reports: None Cardiac: Reports: CAD, Heart Failure, TN, Other (See Below) Other Cardiac Family History: Sister with PTCA/stent x2 and an TN with fatal TN at age 83, another sister with fatal CHF at 64, another sister with fatal TN at age 75, mom with coronary artery disease, maternal aunts x2 with fatal TN one in her 80s the other at age 92 Respiratory: Reports: None GI: Reports: Inflammatory Bowel Disease, Other (See Below) Other GI Family History: Mother with Crohn's disease : Reports: Renal Calculus, Other (See Below) Other Family History: Son and 2 daughters with urolithiasis OBGYN: Reports: None Musculoskeletal: Reports: None Neurological: Reports: MS, Other (See Below) Other Neurological Family History: Daughter with MS Psychiatric: Reports: None Endocrine/Metabolic: Reports: None Hematologic: Reports: None Immunologic: Reports: None Dermatologic: Reports: None Oncologic: Reports: Breast, Colon, Metastatic, Renal, Other (See Below) Other Oncologic Family History: Sister with fatal breast cancer at age 60, paternal aunt with fatal breast cancer in her 60s, maternal aunt with breast cancer, mother with possible renal cancer, sister with fatal liver cancer versus metastases in her 60s, sister with colon cancer in her 80s - Tobacco Use Smoking Status *Q: Never Smoker Years of Tobacco use: 0 Used Tobacco, but Quit: No Month Tobacco Last Used: 0 Second Hand Smoke Exposure: No - Caffeine Use Caffeine Use: Reports: Coffee (One cup per day), Soda (1 soda per day). 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 Denies: Dental Pain, Ear Pain, Eye Discharge, Eye Pain , Rhinitis, Sinus Problem, Throat Pain, Vertigo, Vision Change Respiratory: Reports: No Symptoms, Other (Has chronic baseline SOB with activity /not new. Has intermittent daytime cough/not new) Cardiovascular: Reports: Blood Pressure Problem, Dyspnea on Exertion (chronic/ unchanging), Lightheadedness. Denies: Chest Pain, Edema, Palpitations, PND, Syncope Endocrine: Reports: No Symptoms GI/Abdominal: Reports: No Symptoms. Denies: Abdominal Pain, Black Stool, Constipation, Diarrhea, Decreased Appetite, Nausea, Vomiting : Reports: No Symptoms Musculoskeletal: Reports: No Symptoms (No acute changes in baseline) Skin: Reports: No Symptoms Neurological: Reports: Dizziness, Pre-Existing Deficit (right sided weakness s/ p prior strokes, uses walker). Denies: Confusion, Headache, Numbness, Paresthesia, Change in Speech Psychiatric: Reports: No Symptoms Hematologic/Lymphatic: Reports: No Symptoms ED EXAM, GENERAL - Physical Exam Exam: See Below Exam Limited By: No Limitations General Appearance: Alert, WD/WN, No Apparent Distress Eye Exam: Bilateral Eye: EOMI, PERRL Ears: Normal External Exam, Normal Canal, Hearing Grossly Normal, Normal TMs Nose: Normal Inspection Throat/Mouth: Normal Inspection, Normal Lips, Normal Oropharynx, Normal Voice, No Airway Compromise, Other (has dentures) Head: Atraumatic, Normocephalic Neck: Normal Inspection, Supple, Non-Tender, Full Range of Motion Respiratory/Chest: No Respiratory Distress, Lungs Clear, Normal Breath Sounds, No Accessory Muscle Use Cardiovascular: Normal Peripheral Pulses, Regular Rate, Rhythm, Bradycardia, Systolic Murmur GI/Abdominal: Normal Bowel Sounds, Soft, Non-Tender, No Distention (Female) Exam: Deferred Rectal (Female) Exam: Deferred Back Exam: No: CVA Tenderness (L), CVA Tenderness (R), Paraspinal Tenderness, Vertebral Tenderness Extremities: Normal Inspection, Non-Tender, Normal Capillary Refill Neurological: Alert, Oriented, Normal Cognition, Other (mild right sided weakness noted when examined, again this is normal for patient. ) Psychiatric: Normal Affect, Normal Mood Skin Exam: Warm, Dry, Intact, Normal Color Course - Vital Signs Last Recorded V/S: Last Vital Signs Temp 36.8 C 03/12/17 12:11 Pulse 52 L 03/12/17 12:45 Resp 15 03/12/17 12:45 BP 140/48 L 03/12/17 12:45 Pulse Ox 96 03/12/17 12:45 Orthostatic Blood Pressure [ 92/48 Standing] Orthostatic Blood Pressure [ 100/58 Sitting] Orthostatic Blood Pressure [ 122/60 Supine] - Orders/Labs/Meds Orders: Active Orders 24 hr Category Date Time Status Orthostatic Vital Signs [RC] ASDIRECTED Care 03/12/17 12:23 Active Chest 2V [CR] Routine Exams 03/12/17 12:58 Taken Sodium Chloride 0.9% [Saline Flush] Med 03/12/17 12:23 Active 10 ml FLUSH ASDIRECTED PRN Zinc Gluconate [Zinc] Med 03/13/17 13:02 Once 50 mg PO DAILY ONE Saline Lock Insert [OM.PC] Stat Oth 03/12/17 12:24 Ordered Medication Orders Sodium Chloride (Saline Flush) 10 ml FLUSH ASDIRECTED PRN PRN Reason: Keep Vein Open Zinc Gluconate (Zinc) 50 mg PO DAILY ONE Stop: 03/13/17 13:03 Labs: Laboratory Tests 03/12/17 03/12/17 03/12/17 Range/Units 12:30 12:30 12:30 WBC 8.0 (4.0-10.2) K/uL RBC 3.65 L (3.77-5.09) M/uL Hgb 9.5 L (11.7-15.5) g/dL Hct 30.0 L (34.0-46.0) % MCV 82.2 L (84.0-98.0) fL MCH 26.0 L (28.2-33.3) pg MCHC 31.7 (31.7-36.0) g/dL RDW 17.3 H (11.2-14.1) % Plt Count 155 (150-350) K/uL Neut % (Auto) 76.9 (45.0-80.0) % Lymph % (Auto) 8.9 L (10.0-50.0) % [place] % (Auto) 12.8 (2.0-14.0) % Eos % (Auto) 0.9 (0.0-5.0) % Baso % (Auto) 0.5 (0.0-2.0) % Neut # (Auto) 6.15 (1.40-7.00) K/uL Lymph # (Auto) 0.71 (0.50-3.50) K/uL [place] # (Auto) 1.02 H (0.00-1.00) K/uL Eos # (Auto) 0.07 (0.00-0.50) K/uL Baso # (Auto) 0.04 (0.00-0.20) K/uL Sodium 141 (136-145) mmol/L Potassium 4.0 (3.5-5.1) mmol/L Chloride 105 (98-107) mmol/L Carbon Dioxide 27.7 (21.0-32.0) mmol/L BUN 37 H (7-18) mg/dL Creatinine 1.15 (0.51-1.17) mg/dL Est Cr Clr Drug Dosing 27.56 mL/min Estimated GFR (MDRD) 45 mL/min Glucose 111 H (74-106) mg/dL Calcium 8.9 (8.5-10.1) mg/dL Magnesium 2.2 (1.8-2.4) mg/dL Total Bilirubin 0.3 (0.2-1.0) mg/dL AST 26 (15-37) U/L ALT 25 (12-78) U/L Alkaline Phosphatase 63 (46-116) IU/L NT-Pro-B Natriuret Pep 280 H (0-125) pg/mL Total Protein 6.8 (6.4-8.2) g/dL Albumin 3.3 L (3.4-5.0) g/dL TSH, Ultra Sensitive 0.364 (0.358-3.740) mIU/mL Meds: Medications Generic Name Dose Route Start Last Admin Trade Name Freq PRN Reason Stop Dose Admin Sodium Chloride 10 ml 03/12/17 12:23 Saline Flush FLUSH ASDIRECTED PRN Keep Vein Open Zinc Gluconate 50 mg 03/13/17 13:02 Zinc PO 03/13/17 13:03 DAILY ONE Discontinued Medications Generic Name Dose Route Start Last Admin Trade Name Freq PRN Reason Stop Dose Admin Magnesium Oxide 400 mg 03/12/17 12:59 Magnesium Oxide PO 03/12/17 13:00 ONETIME ONE - Radiology Interpretation Free Text/Narrative:: Chest film showed no acute changes when compared to recent film from several months ago. No acute infiltrates/pulmonary edema noted. - Re-Assessments/Exams Free Text/Narrative Re-Assessment/Exam: EKG from clinic showed first degree AV block, bradycardia, bifascicular block. WBC normal. BNP mildly increased at 280 HGB 9.5 (patient has history of anemia) with elevated RDW. She told staff that she is supposed to be receiving B12 shots every 2 months but has not been given one since May. Patient noted to have positive orthostatic readings. Admitted to floor for fluids and continued monitoring. Was able to provide a UA specimen just prior to admission and this was found to be positive for UTI. Culture ordered. Suspect today's complaint of lightheadedness/not feeling well is related to the discovered UTI. Will treat with Rocephin pending culture results and continue to monitor for additional changes. Departure - Departure Time of Disposition: 13:30 Disposition: Admitted As Inpatient 66 Condition: Good Clinical Impression: Dizziness Urinary tract infection Qualifiers: Urinary tract infection type: site unspecified Hematuria presence: without hematuria Qualified Code(s): N39.0 - Urinary tract infection, site not specified - Problem List & Annotations (1) Dizziness SNOMED Code(s): 196230076 Code(s): R42 - DIZZINESS AND GIDDINESS Status: Acute Priority: Medium Current Visit: Yes (2) Urinary tract infection SNOMED Code(s): 72774224 Code(s): N39.0 - URINARY TRACT INFECTION, SITE NOT SPECIFIED Status: Acute Priority: High Current Visit: Yes Qualifiers: Urinary tract infection type: site unspecified Hematuria presence: without hematuria Qualified Code(s): N39.0 - Urinary tract infection, site not specified - Problem List Review Problem List Initiated/Reviewed/Updated: Yes - My Orders Last 24 Hours: My Active Orders 03/12/17 12:23 Orthostatic Vital Signs [RC] ASDIRECTED Sodium Chloride 0.9% [Saline Flush] 10 ml FLUSH ASDIRECTED PRN 03/12/17 12:24 Saline Lock Insert [OM.PC] Stat 03/12/17 12:58 Chest 2V [CR] Routine 03/13/17 13:02 Zinc Gluconate [Zinc] 50 mg PO DAILY ONE - Assessment/Plan Admission H&P: Please use this note as an admission H&P Last 24 Hours: My Active Orders 03/12/17 12:23 Orthostatic Vital Signs [RC] ASDIRECTED Sodium Chloride 0.9% [Saline Flush] 10 ml FLUSH ASDIRECTED PRN 03/12/17 12:24 Saline Lock Insert [OM.PC] Stat 03/12/17 12:58 Chest 2V [CR] Routine 03/13/17 13:02 Zinc Gluconate [Zinc] 50 mg PO DAILY ONE Assessment:: as above Plan: as above
[2017-03-12] MEDS ORDERED: Magnesium Oxide 400 MG Tab PO ONE (12:59)
[2017-03-12] MEDS ORDERED: Acetaminophen 500 MG Tab PO PRN ×2 (14:43→15:25)
[2017-03-12] MEDS ORDERED: Nitroglycerin 0.4 MG Tab.SL SL PRN (14:43)
[2017-03-12] MEDS ORDERED: IRON POLYSACCHARIDES COMPLEX 150 MG PO SCH (14:45)
[2017-03-12] MEDS ORDERED: Sodium Chloride 0.9% 1,000 ML IV ONE (15:06)
[2017-03-12] MEDS ORDERED: Fluticasone Propionate Nasal Spray 16 GM Bottle NAS PRN (15:15)
[2017-03-12] MEDS: Oxybutynin 5 MG Tab.ER PO SCH ×2 (15:36→19:49)
[2017-03-12] MEDS ORDERED: Magnesium Oxide 400 MG Tab ONE (15:43)
[2017-03-12] MEDS: rOPINIRole 1 MG Tab PO SCH ×2 (15:51→20:14)
[2017-03-12] MEDS: cefTRIAXone 1 GM in Sodium Chloride 0.9% 100 ML IV SCH (15:52)
[2017-03-12] MEDS ORDERED: Isosorbide Mononitrate 30 MG Tab.ER PO SCH (18:00)
[2017-03-12] MEDS ORDERED: Enoxaparin 40 MG/0.4 ML Syringe SUBCUT SCH (18:00)
[2017-03-12] MEDS: Hydrochlorothiazide 25 MG Tab PO SCH (18:14)
[2017-03-12] MEDS: Gabapentin 100 MG Cap PO SCH (18:14)
[2017-03-12] MEDS: LORazepam 0.5 MG Tab PO SCH (18:14)
[2017-03-12] MEDS: Famotidine 20 MG Tab PO SCH (18:14)
[2017-03-12] MEDS: Losartan 50 MG Tab PO SCH (18:14)
[2017-03-12] MEDS: Potassium Chloride 10 MEQ Tab.ER PO SCH (18:14)
[2017-03-12] MEDS: Enoxaparin 30 MG/0.3 ML Syringe SUBCUT SCH (19:47)
[2017-03-12] MEDS ORDERED: Allopurinol 100 MG Tab PO SCH (20:00)
[2017-03-12] MEDS ORDERED: rOPINIRole 1 MG Tab PO SCH (20:00)
[2017-03-12] MEDS ORDERED: Insulin Detemir 100 Units/ML 3 ML Pen SUBCUT SCH (20:00)
[2017-03-12] MEDS ORDERED: atorvaSTATin 40 MG Tab PO SCH (20:00)
[2017-03-13] MEDS: Enoxaparin 30 MG/0.3 ML Syringe SUBCUT SCH (05:44)
[2017-03-13] MEDS ORDERED: Levothyroxine 112 MCG Tab PO SCH (07:30)
[2017-03-13] MEDS: Famotidine 20 MG Tab PO SCH (07:35)
[2017-03-13] MEDS: Hydrochlorothiazide 25 MG Tab PO SCH ×2 (07:36→11:36)
[2017-03-13] MEDS: LORazepam 0.5 MG Tab PO SCH (07:36)
[2017-03-13] MEDS: Gabapentin 100 MG Cap PO SCH ×2 (07:36→11:36)
[2017-03-13] MEDS: Potassium Chloride 10 MEQ Tab.ER PO SCH ×2 (07:38→11:36)
[2017-03-13] MEDS: Losartan 50 MG Tab PO SCH (07:38)
[2017-03-13] MEDS ORDERED: Furosemide 20 MG Tab PO SCH (08:00)
[2017-03-13] MEDS ORDERED: Citalopram 20 MG Tab PO SCH (08:00)
[2017-03-13] MEDS ORDERED: Aspirin 81 MG Tab.EC PO SCH (08:00)
[2017-03-13] MEDS ORDERED: Magnesium Oxide 400 MG Tab PO SCH ×2 (08:00→12:00)
[2017-03-13] MEDS ORDERED: Multivitamin Tab PO SCH (08:00)
[2017-03-13] MEDS ORDERED: Metoprolol Succinate 25 MG Tab.ER PO SCH (08:00)
[2017-03-13] MEDS ORDERED: Insulin Detemir 100 Units/ML 3 ML Pen SUBCUT SCH (08:00)
[2017-03-13 12:00] VITALS: BP 179/68
[2017-03-13] MEDS ORDERED: Cyanocobalamin (Vitamin B12) 1,000 MCG/ML SDV IM SCH (12:00)
[2017-03-13] MEDS: Non-Formulary Medication 1 Each (Hydralazine [Apresoline] 10 MG) PO SCH ×2 (12:18→12:22)
[2017-03-13] MEDS: rOPINIRole 1 MG Tab PO SCH (12:28)
--- NOTE | 2017-03-13 12:57 | PCM.DCSUM1 ---
Discharge Summary - Hospital Course Brief History: Patient admitted for complaint of light-headedness, + orthostatic changes, not feeling well. Found to have UTI. - Discharge Data Discharge Date: 03/13/17 Discharge Disposition: Home, Self-Care 01 Condition: Good - Discharge Diagnosis/Problem(s) (1) Dizziness SNOMED Code(s): 829842071 ICD Code: R42 - DIZZINESS AND GIDDINESS Status: Acute Priority: Medium Current Visit: Yes Problem Details: Resolved. (2) Urinary tract infection SNOMED Code(s): 32995760 ICD Code: N39.0 - URINARY TRACT INFECTION, SITE NOT SPECIFIED Status: Acute Priority: High Current Visit: Yes Problem Details: UC pending. Has received IV Rocephin during stay. Qualifiers: Urinary tract infection type: site unspecified Hematuria presence: without hematuria Qualified Code(s): N39.0 - Urinary tract infection, site not specified - Patient Summary/Data Complications: None Hospital Course: Quick improvement of symptoms within 24 hours. Patient feeling much better. Ambulating using walker very well. No new complaints. Vital signs stable. Treated with single liter of IV fluids in addition to Rocephin. - Patient Instructions Diet: Usual Diet as Tolerated Activity: As Tolerated Other/Special Instructions: Follow up as needed if you have any problems or worsening symptoms. Start Macrobid tomorrow morning. Decrease Famotidine to ONE a day, not two. See if bedtime dose of Oxybutynin helps with your frequent urination at night. It can iteract with potassium. Make sure you have two hours between your potassium dose at Supper and when you take the Oxybutynin. - Discharge Plan Prescriptions/Med Rec: Famotidine [Pepcid] 20 mg PO DAILY #30 tablet Nitrofurantoin [place]/Macrocryst [Macrobid] 100 mg PO BID #10 cap Oxybutynin [Oxybutynin ER] 5 mg PO BEDTIME #30 tab.er Home Medications: Home Meds Allopurinol [Zyloprim] 150 mg PO BEDTIME 10/08/13 [History] Cyanocobalamin (Vitamin B-12) [Cyanocobalamin Injection] 1,000 mcg IJ Q60D 10/08 [History] Nitroglycerin [Nitrostat] 0.4 mg SL ASDIRECTED PRN 10/08/13 [History] Potassium Chloride 10 meq PO TID 10/08/13 [History] atorvaSTATin Calcium [Atorvastatin Calcium] 40 mg PO BEDTIME 10/08/13 [History] Acetaminophen [Tylenol Extra Strength] 1 - 2 tab PO Q4H PRN 02/14/15 [History] Levothyroxine 112 mcg PO ACBREAKFAST 02/14/15 [History] Aspirin [Halfprin] 81 mg PO BRK 09/29/15 [History] Multivitamin with Minerals [Multiple Vitamin] 1 tab PO DAILY 09/29/15 [History] Metoprolol Succinate [Toprol XL] 25 mg PO DAILY 01/04/16 [History] rOPINIRole [Requip] 3 mg PO 12,20 01/04/16 [History] Fluticasone Propionate [Flonase Allergy Relief] 1 spray NS BID PRN 08/05/16 [ History] Furosemide [Lasix] 20 mg PO DAILY 08/05/16 [History] Gabapentin [Neurontin] 1 cap PO TID 08/05/16 [History] Iron Polysaccharides Complex [Ferrex 150] 150 mg PO MOWEFR 08/05/16 [History] LORazepam 0.5 mg PO BID 08/05/16 [History] Losartan [Cozaar] 50 mg PO BID 08/05/16 [History] Insulin Detemir [Levemir] 45 unit SUBCUT BEDTIME pen 08/08/16 [Rx] Isosorbide Mononitrate [Imdur] 30 mg PO QPM #30 tab.er 08/08/16 [Rx] Insulin Detemir [Levemir] 15 units SUBCUT DAILY 12/15/16 [History] Citalopram [Celexa] 10 mg PO DAILY 01/28/17 [History] Hydrochlorothiazide 25 mg PO TID #90 tablet 01/29/17 [Rx] hydrALAZINE [Apresoline] 10 mg PO Q12HR 03/12/17 [History] Famotidine [Pepcid] 20 mg PO DAILY #30 tablet 03/13/17 [Rx] Nitrofurantoin [place]/Macrocryst [Macrobid] 100 mg PO BID #10 cap 03/13/17 [Rx] Oxybutynin [Oxybutynin ER] 5 mg PO BEDTIME #30 tab.er 03/13/17 [Rx] Forms: ED Department Discharge Referrals: France Slaughter PA-C [Primary Care Provider] - - Discharge Summary/Plan Comment DC Time >30 min.: Yes (needs next dose of Rocephin scheduled at 1500 prior to discharge. ) - General Info Functional Status: Reports: Pain Controlled, Tolerating Diet, Ambulating, Urinating. Denies: New Symptoms - Review of Systems General: Reports: No Symptoms HEENT: Reports: Glasses Pulmonary: Reports: No Symptoms Cardiovascular: Reports: No Symptoms Gastrointestinal: Reports: No Symptoms Genitourinary: Reports: No Symptoms Musculoskeletal: Reports: No Symptoms Skin: Reports: No Symptoms Neurological: Reports: No Symptoms Psychiatric: Reports: No Symptoms - Patient Data Vitals - Most Recent: Last Vital Signs Temp 36.4 C 03/13/17 11:59 Pulse 54 L 03/13/17 11:59 Resp 16 03/13/17 08:00 BP 179/68 H 03/13/17 11:59 Pulse Ox 98 03/13/17 11:59 Weight - Most Recent: 73.527 kg I&O - Last 24 hours: Intake & Output 03/12/17 03/13/17 03/13/17 22:59 06:59 14:59 Intake Total 500 500 Output Total 200 500 Balance -200 0 500 Lab Results - Last 24 hrs: Laboratory Results - last 24 hr 03/12/17 03/12/17 03/12/17 Range/Units 13:22 15:17 19:52 INR 1.0 POC Glucose 126 H (65-110) mg/dl Specimen Type Urinblad Urine Color Yellow Urine Appearance Slightly cloudy Urine pH 5.0 (5.0-9.0) Ur Specific [place] 1.010 (1.005-1.030) Urine Protein Negative (NEGATIVE) mg/dL Urine Glucose (UA) Negative (NEGATIVE) mg/dL Urine Ketones Negative (NEGATIVE) mg/dL Urine Occult Blood Trace-lysed H (NEGATIVE) Urine Nitrite Positive H (NEGATIVE) Urine Bilirubin Negative (NEGATIVE) Urine Urobilinogen 0.2 (0.2-1.0) E.U./dL Ur Leukocyte Esterase Moderate H (NEGATIVE) Urine RBC 0-5 /HPF Urine WBC 50-75 H /HPF Ur Epithelial Cells Moderate H /LPF Urine Bacteria Moderate H (NONE TO FEW) /HPF 03/13/17 03/13/17 03/13/17 Range/Units 03:36 04:18 07:35 INR POC Glucose 86 162 H 107 (65-110) mg/dl Specimen Type Urine Color Urine Appearance Urine pH (5.0-9.0) Ur Specific [place] (1.005-1.030) Urine Protein (NEGATIVE) mg/dL Urine Glucose (UA) (NEGATIVE) mg/dL Urine Ketones (NEGATIVE) mg/dL Urine Occult Blood (NEGATIVE) Urine Nitrite (NEGATIVE) Urine Bilirubin (NEGATIVE) Urine Urobilinogen (0.2-1.0) E.U./dL Ur Leukocyte Esterase (NEGATIVE) Urine RBC /HPF Urine WBC /HPF Ur Epithelial Cells /LPF Urine Bacteria (NONE TO FEW) /HPF 03/13/17 Range/Units 11:15 INR POC Glucose 92 (65-110) mg/dl Specimen Type Urine Color Urine Appearance Urine pH (5.0-9.0) Ur Specific [place] (1.005-1.030) Urine Protein (NEGATIVE) mg/dL Urine Glucose (UA) (NEGATIVE) mg/dL Urine Ketones (NEGATIVE) mg/dL Urine Occult Blood (NEGATIVE) Urine Nitrite (NEGATIVE) Urine Bilirubin (NEGATIVE) Urine Urobilinogen (0.2-1.0) E.U./dL Ur Leukocyte Esterase (NEGATIVE) Urine RBC /HPF Urine WBC /HPF Ur Epithelial Cells /LPF Urine Bacteria (NONE TO FEW) /HPF Med Orders - Current: Current Medications Acetaminophen (Tylenol Extra Strength) 1,000 mg PO Q4H PRN PRN Reason: Pain Last Admin: 03/12/17 15:51 Dose: 1,000 mg Allopurinol (Zyloprim) 150 mg PO BEDTIME [facility] Last Admin: 03/12/17 19:48 Dose: 150 mg Aspirin (Halfprin) 81 mg PO BRK [facility] Last Admin: 03/13/17 07:35 Dose: 81 mg Atorvastatin Calcium (Lipitor) 40 mg PO BEDTIME [facility] Last Admin: 03/12/17 19:50 Dose: 40 mg Citalopram Hydrobromide (Celexa) 10 mg PO DAILY [facility] Last Admin: 03/13/17 07:37 Dose: 10 mg Cyanocobalamin (Vitamin B12) 1,000 mcg IM Q60D [facility] Last Admin: 03/13/17 12:28 Dose: 1,000 mcg Enoxaparin Sodium (Lovenox) 30 mg SUBCUT Q12H [facility] Last Admin: 03/13/17 05:44 Dose: 30 mg Famotidine (Pepcid) 20 mg PO DAILY [facility] Fluticasone Propionate (Flonase) 0 gm MARNI BID PRN PRN Reason: CONGESTION Furosemide (Lasix) 20 mg PO DAILY [facility] Last Admin: 03/13/17 07:36 Dose: 20 mg Gabapentin (Neurontin) 100 mg PO TID [facility] Last Admin: 03/13/17 11:36 Dose: 100 mg Hydrochlorothiazide (Hydrochlorothiazide) 25 mg PO TID [facility] Last Admin: 03/13/17 11:36 Dose: 25 mg Ceftriaxone Sodium 1 gm/ (Sodium Chloride) 100 mls @ 200 mls/hr IV Q24H [facility] Last Admin: 03/12/17 15:52 Dose: 200 mls/hr Insulin Detemir (Levemir) 15 unit SUBCUT DAILY [facility] Last Admin: 03/13/17 08:12 Dose: 15 units Insulin Detemir (Levemir) 45 unit SUBCUT BEDTIME [facility] Last Admin: 03/12/17 19:53 Dose: 45 units Isosorbide Mononitrate (Imdur) 30 mg PO QPM [facility] Last Admin: 03/12/17 18:14 Dose: 30 mg Levothyroxine Sodium (Levothyroxine) 112 mcg PO ACBREAKFAST [facility] Last Admin: 03/13/17 07:37 Dose: 112 mcg Lorazepam (Ativan) 0.5 mg PO BID [facility] Last Admin: 03/13/17 07:36 Dose: 0.5 mg Losartan Potassium (Cozaar) 50 mg PO BID [facility] Last Admin: 03/13/17 07:38 Dose: 50 mg Magnesium Oxide (Magnesium Oxide) 400 mg PO DAILY [facility] Last Admin: 03/13/17 11:37 Dose: 400 mg Metoprolol Succinate (Toprol Xl) 25 mg PO DAILY [facility] Last Admin: 03/13/17 07:36 Dose: 25 mg Multivitamins/Minerals/Vitamin C (Tab-A-Taina) 1 tab PO DAILY [facility] Last Admin: 03/13/17 07:37 Dose: 1 tab Nitroglycerin (Nitrostat) 0.4 mg SL ASDIRECTED PRN PRN Reason: Chest Pain Non-Formulary Medication (Hydralazine [Apresoline]) 10 mg PO Q12HR [facility] Last Admin: 03/13/17 12:22 Dose: Not Given Non-Formulary Medication (Iron Polysaccharides Complex [Ferrex 150]) 150 mg PO MOWEFR [facility] Last Admin: 03/13/17 12:17 Dose: Not Given Oxybutynin Chloride (Oxybutynin Er) 5 mg PO BEDTIME [facility] Last Admin: 03/12/17 19:49 Dose: 5 mg Potassium Chloride (Klor-Con 10) 10 meq PO TID [facility] Last Admin: 03/13/17 11:36 Dose: 10 meq Ropinirole HCl (Requip) 3 mg PO 12,20 [facility] Last Admin: 03/13/17 12:28 Dose: 3 mg Sodium Chloride (Saline Flush) 10 ml FLUSH ASDIRECTED PRN PRN Reason: Keep Vein Open Zinc Gluconate (Zinc) 50 mg PO DAILY ONE Stop: 03/13/17 13:03 Last Admin: 03/13/17 12:28 Dose: 50 mg Discontinued Medications Acetaminophen (Tylenol Extra Strength) 500 - 1,000 mg PO Q4H PRN PRN Reason: Pain Enoxaparin Sodium (Lovenox) 40 mg SUBCUT Q12HR [facility] Famotidine (Pepcid) 20 mg PO BID [facility] Last Admin: 03/13/17 07:35 Dose: 20 mg Sodium Chloride (Normal Saline) 1,000 mls @ 200 mls/hr IV .BOLUS ONE Stop: 03/12/17 20:05 Last Admin: 03/12/17 15:52 Dose: 200 mls/hr Magnesium Oxide (Magnesium Oxide) 400 mg PO ONETIME ONE Stop: 03/12/17 13:00 Last Admin: 03/12/17 15:50 Dose: 400 mg Magnesium Oxide (Magnesium Oxide) Confirm Administered Dose 400 mg .ROUTE .STK- MED ONE Stop: 03/12/17 15:44 Last Admin: 03/12/17 15:51 Dose: Not Given Magnesium Oxide (Magnesium Oxide) 400 mg PO DAILY [facility] Ropinirole HCl (Requip) 3 mg PO 12,20 [facility] - Exam General: Reports: Alert, Oriented, Cooperative, No Acute Distress HEENT: Reports: Pupils Equal, Pupils Reactive, EOMI, Mucous Membr. Moist/Musella Neck: Reports: Supple Lungs: Reports: Clear to Auscultation, Normal Respiratory Effort Cardiovascular: Reports: Regular Rate, Regular Rhythm, Murmurs (systolic) GI/Abdominal Exam: Normal Bowel Sounds, Soft, Non-Tender, No Distention (Female) Exam: Deferred Rectal (Female) Exam: Deferred Back Exam: Denies: CVA Tenderness (L), CVA Tenderness (R) Extremities: Non-Tender, Normal Capillary Refill Skin: Reports: Warm, Dry, Intact Neurological: Reports: No New Focal Deficit Psy/Mental Status: Reports: Alert, Normal Affect, Normal Mood *Q Meaningful Use (DIS) - VTE *Q VTE Criteria *Q: - Stroke *Q Stroke Criteria *Q: - AMI *Q AMI Criteria *Q:
[2017-03-13] MEDS ORDERED: Zinc (Zinc Gluconate) 50 MG Tab PO ONE (13:02)
[2017-03-13] MEDS: cefTRIAXone 1 GM in Sodium Chloride 0.9% 100 ML IV SCH (14:18)
[2017-03-14] MEDS ORDERED: Famotidine 20 MG Tab PO SCH (08:00)
== END 2017-03-13 13:15 | disposition home or self-care (01) | DRG 149 ==
LOC: LL.ED 11:59 → LL.MS 13:11 → UNDOADMIN 13:11 → LL.MS 14:43 → UNDODISIN 03-13 13:15
PROVIDERS: ADMIT Emergency Medicine; ATTEND Emergency Medicine
DX: R42 Dizziness and giddiness (principal); N39.0 Urinary tract infection, site not specified; I25.810 Atherosclerosis of coronary artery bypass graft(s) without angina pectoris; I13.0 Hypertensive heart and chronic kidney disease with heart failure and stage 1 through stage 4 chronic kidney disease, or unspecified chronic kidney disease; I50.30 Unspecified diastolic (congestive) heart failure; I69.351 Hemiplegia and hemiparesis following cerebral infarction affecting right dominant side; I48.91 Unspecified atrial fibrillation; N18.9 Chronic kidney disease, unspecified; E78.00 Pure hypercholesterolemia, unspecified; I25.2 Old myocardial infarction; G47.30 Sleep apnea, unspecified; G25.81 Restless legs syndrome; I69.322 Dysarthria following cerebral infarction; E11.21 Type 2 diabetes mellitus with diabetic nephropathy; E11.40 Type 2 diabetes mellitus with diabetic neuropathy, unspecified; F32.9 Major depressive disorder, single episode, unspecified; F41.9 Anxiety disorder, unspecified; E03.9 Hypothyroidism, unspecified; D64.9 Anemia, unspecified; Z79.82 Long term (current) use of aspirin; Z79.4 Long term (current) use of insulin; Z79.899 Other long term (current) drug therapy; Z88.8 Allergy status to other drugs, medicaments and biological substances
CPT/HCPCS: 36000; 36415; 71020; 80053; 81001; 82962; 83735; 83880; 84443; 85025; 85610; 87086; 87088; 87186; 99285; A9270-GY; J0696; J1650; J1815-GY; J3420; J7030; J7050

== ENCOUNTER 2017-07-06 18:17 | Emergency (ER) | payer MEDICARE, BC ==
[2017-07-06] MEDS ORDERED: Albuterol/Ipratropium 3.0-0.5 MG/3 ML Neb Soln NEB ONE (18:47)
[2017-07-06 19:13] LABS: CHLORIDE,CL 95 mmol/L (98-107); SODIUM,NA 135 mmol/L (136-145)
--- NOTE | 2017-07-06 19:18 | EDM.PDOC ---
ED HPI GENERAL MEDICAL PROBLEM - General Chief Complaint: Respiratory Problem Stated Complaint: SOB Time Seen by Provider: 07/06/17 18:40 Source of Information: Reports: Patient History Limitations: Reports: No Limitations - History of Present Illness INITIAL COMMENTS - FREE TEXT/NARRATIVE: Patient is a 82-year-old who was brought in secondary to shortness of breath with low saturations paramedics called placed on oxygen patient did better now being worked up. Duration: Day(s): (Cough for 3 days), Getting Worse Location: Reports: Chest Quality: Reports: Ache Severity: Moderate Improves with: Reports: None Worsens with: Reports: None Context: Reports: Activity Associated Symptoms: Reports: Cough, Weakness - Related Data Allergies Allergy/AdvReac Type Severity Reaction Status Date / Time diphenhydramine Allergy Unknown Hallucinati Verified 03/12/17 12:26 ons lisinopril Allergy Unknown Cough Verified 03/12/17 12:26 Home Meds: Home Meds Allopurinol [Zyloprim] 150 mg PO BEDTIME 10/08/13 [History] Cyanocobalamin (Vitamin B-12) [Cyanocobalamin Injection] 1,000 mcg IJ Q60D 10/08 [History] Nitroglycerin [Nitrostat] 0.4 mg SL ASDIRECTED PRN 10/08/13 [History] Potassium Chloride 10 meq PO TID 10/08/13 [History] atorvaSTATin Calcium [Atorvastatin Calcium] 40 mg PO BEDTIME 10/08/13 [History] Acetaminophen [Tylenol Extra Strength] 1 - 2 tab PO Q4H PRN 02/14/15 [History] Levothyroxine 112 mcg PO ACBREAKFAST 02/14/15 [History] Aspirin [Halfprin] 81 mg PO BRK 09/29/15 [History] Multivitamin with Minerals [Multiple Vitamin] 1 tab PO DAILY 09/29/15 [History] Metoprolol Succinate [Toprol XL] 25 mg PO DAILY 01/04/16 [History] rOPINIRole [Requip] 3 mg PO 12,20 01/04/16 [History] Fluticasone Propionate [Flonase Allergy Relief] 1 spray NS BID PRN 08/05/16 [ History] Furosemide [Lasix] 20 mg PO DAILY 08/05/16 [History] Gabapentin [Neurontin] 100 mg PO BEDTIME 08/05/16 [History] Iron Polysaccharides Complex [Ferrex 150] 150 mg PO DAILY 08/05/16 [History] LORazepam 0.5 mg PO BID PRN 08/05/16 [History] Losartan [Cozaar] 25 mg PO BID 08/05/16 [History] Insulin Detemir [Levemir] 45 unit SUBCUT BEDTIME pen 08/08/16 [Rx] Isosorbide Mononitrate [Imdur] 30 mg PO QPM #30 tab.er 08/08/16 [Rx] Insulin Detemir [Levemir] 15 units SUBCUT DAILY 12/15/16 [History] Citalopram [Celexa] 10 mg PO DAILY 01/28/17 [History] Famotidine [Pepcid] 20 mg PO DAILY #30 tablet 03/13/17 [Rx] Oxybutynin [Oxybutynin ER] 5 mg PO BEDTIME #30 tab.er 03/13/17 [Rx] Albuterol [IJD: Albuterol HFA] 1 puff INH Q4HR PRN 07/06/17 [History] Bacillus Coagulans [Probiotic] 1 each PO DAILY 07/06/17 [History] Benzonatate [Tessalon Perle] 100 mg PO BID 15 Days #30 capsule 07/06/17 [Rx] Furosemide [Lasix] 40 mg PO DAILY 30 Days #30 tablet 07/06/17 [Rx] Hydrochlorothiazide 12.5 mg PO TID 07/06/17 [History] Levofloxacin 500 mg PO DAILY 07/06/17 [History] Montelukast [Singulair] 10 mg PO DAILY 07/06/17 [History] predniSONE [Prednisone] 4 mg PO DAILY 07/06/17 [History] Past Medical History HEENT History: Reports: Cataract, Hard of Hearing, Impaired Vision, Other (See Below) Other HEENT History: Patient does wear glasses, she also has a hearing aide which she usually uses on her left side Cardiovascular History: Reports: Afib, Arrhythmia, Bypass, CAD, Cardiomyopathy, Heart Failure, Heart Murmur, High Cholesterol, Hypertension, IN, PTCA, PVD, Stents, Syncope, Other (See Below) Other Cardiovascular History: Moderate aortic valve insufficiency and calcification with additional mild aortic valve stenosis, severe mitral valve insufficiency, and grade 1 diastolic dysfunction with additional severe left atrial enlargement by echocardiogram on 08/05/16 with ejection fraction of within 70%, PSVT, complete bifascicular bundle-branch block, PACs, first degree AV block nonspecific vasovagal syncope versus reaction to medication in about 2014 , IN in March 2016 with 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 with additional history of restless leg syndrome Gastrointestinal History: Reports: Bowel Obstruction, Cholelithiasis, Chronic Constipation, Chronic Diarrhea, Colon Polyp, Diverticulosis, Gastritis, GERD, GI Bleed, Hemorrhoids, PUD, Other (See Below) Other Gastrointestinal History: benign adenomatous polyps, right inguinal hernia Genitourinary History: Reports: Chronic Renal Insuffiency, Diabetic Nephropathy , Renal Calculus, UTI, Recurrent, Other (See Below) Other Genitourinary History: Right-sided urolithiasis requiring procedure as below, benign renal cysts LOGGING SPECIALIST History: Reports: Dysfunctional Uterine Bleeding, Other OB/BYN History: Surgical menopause secondary to dysfunctional uterine bleeding Musculoskeletal History: Reports: Arthritis, Back Pain, Chronic, Fibromyalgia, Gout, Neck Pain, Chronic, Osteoarthritis, Osteoporosis, RA, Other (See Below) Other Musculoskeletal History: Lumbar surgeries as below with history of spinal stenosis, severe degenerative disc disease, multiple lumbar lateral canal stenosis with additional scoliosis Neurological History: Reports: CVA, Headaches, Chronic, Neuropathy, Diabetic, Neuropathy, Peripheral, Speech Problems, Other (See Below) Other Neuro History: 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 and dysarthria with patient requiring a walker for ambulation Psychiatric History: Reports: Anxiety, Depression Endocrine/Metabolic History: Reports: Diabetes, Type II, Hypothyroidism, IDDM, Osteoporosis Hematologic History: Reports: Anemia, Blood Transfusion(s), Iron Deficiency, Other (See Below) Other Hematologic History: Transfusions at time of CABG Immunologic History: Reports: None Oncologic (Cancer) History: Reports: Breast, Squamous Cell Carcinoma, Other ( See Below) Other Oncologic History: 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, right sided breast cancer with mastectomy in 2009 Dermatologic History: Reports: Venous Stasis Dermatitis, Other (See Below) Other Dermatologic History: dry skin - Infectious Disease History Infectious Disease History: Reports: Measles, Mumps - Past Surgical History Head Surgeries/Procedures: Reports: None HEENT Surgical History: Reports: Adenoidectomy, Cataract Surgery, Eye Surgery, Laser Surgery, LASIK, Oral Surgery, Tonsillectomy, Other (See Below) Other HEENT Surgeries/Procedures: Tonsillectomy and adenoidectomy at age 18, bilateral cataract surgery in 2008, with right sided YAG treatments after her cataracts with patient denying LASIK despite medical records, complete upper teeth extraction with multiple lower teeth extraction Cardiovascular Surgical History: Reports: Coronary Artery Bypass, Coronary Artery Stent, Percutaneous Transluminal Angioplasty, Other (See Below) Other Cardiovascular Surgeries/Procedures: CABG x2 in April 2002 including internal mammary bypass to LAD and LEONARD to the diagonal artery, total of 7 PTCA/ stents with last PTCA/stent x1 in 2014 Respiratory Surgical History: Reports: None GI Surgical History: Reports: Appendectomy, Bariatric Procedure, Cholecystectomy , Colonoscopy, EGD, Polypectomy, Other (See Below) Other GI Surgeries/Procedures: Gastric bypass versus Billroth II with concomitant appendectomy and cholecystectomy in about 1979, last colonoscopy on 02/15/15 with a total of 5 previous evaluations, 3 previous EGDs last on 02/22/15 with previous evaluation on 03/14/14, previous hemorrhoidectomy x2 in the and Female Surgical History: Reports: Hysterectomy, Kidney stone extraction, Mastectomy, Salpingo-Oophorectomy, Ureteral Stent Other Female Surgeries/Procedures: right partial mastectomy with chemotherapy secondary to breast cancer in 2009, complete hysterectomy including bilateral salpingo-oophorectomy secondary to dysfunctional uterine bleeding, subsequent bladder suspension, excision of right sided nephrolithiasis in about 1999 Endocrine Surgical History: Reports: None Neurological Surgical History: Reports: Discectomy, Lumbar Spine, Spinal Fusion , Thoracic Spine, Other (See Below) Other Neurological Surgeries/Procedures: Microdiscectomy his x2 with additional spinal fusion between L3 and L5 on 06/20/09 Musculoskeletal Surgical History: Reports: Carpal Tunnel, Other (See Below) Other Musculoskeletal Surgeries/Procedures:: Right-sided carpal tunnel release in about 1988 Oncologic Surgical History: Reports: Bone Marrow Aspiration, Other (See Below) Other Oncologic Surgeries/Procedures: Breast surgery as above, bone marrow fine needle aspiration and biopsy in about 2011, excision of squamous cell carcinoma from the facial region as above Dermatological Surgical History: Reports: Other (See Below) - Past Imaging History Past Imaging History: Reports: Angiography (Heart catheterization in May 2016 and October 2001), Cardiac Echo (Last cardiac echocardiogram on 08/05/16 with results as above previous evaluation in March 2013), CAT Scan (CTA of the chest with PE protocol on 08/05/16 with previous CTA of the chest on 09/14/14, CT of the maxillofacial region on 12/18/[address] of the head on 01/12/16, 11/09/15 , and 09/26/14, CTA of the renal system on 06/18/13), MRI (MRI of the brain on 05/17, MRI of the lumbar spine on 12/30/16 and the thoracic spine on 11/09/15, lumbar spine on 03/16/15 and 07/08/13), Swallow Study (10/17/16), Venous Doppler ( Lower extremities bilaterally on 08/06/16 with previous evaluation of the right leg in October 2014) Social & Family History - Family History HEENT: Reports: None Cardiac: Reports: CAD, Heart Failure, IN, Other (See Below) Other Cardiac Family History: Sister with PTCA/stent x2 and an IN with fatal IN at age 83, another sister with fatal CHF at 64, another sister with fatal IN at age 75, mom with coronary artery disease, maternal aunts x2 with fatal IN one in her 80s the other at age 92 Respiratory: Reports: None GI: Reports: Inflammatory Bowel Disease, Other (See Below) Other GI Family History: Mother with Crohn's disease : Reports: Renal Calculus, Other (See Below) Other Family History: Son and 2 daughters with urolithiasis OBGYN: Reports: None Musculoskeletal: Reports: None Neurological: Reports: MS, Other (See Below) Other Neurological Family History: Daughter with MS Psychiatric: Reports: None Endocrine/Metabolic: Reports: None Hematologic: Reports: None Immunologic: Reports: None Dermatologic: Reports: None Oncologic: Reports: Breast, Colon, Metastatic, Renal, Other (See Below) Other Oncologic Family History: Sister with fatal breast cancer at age 60, paternal aunt with fatal breast cancer in her 60s, maternal aunt with breast cancer, mother with possible renal cancer, sister with fatal liver cancer versus metastases in her 60s, sister with colon cancer in her 80s - Tobacco Use Smoking Status *Q: Never Smoker Years of Tobacco use: 0 Used Tobacco, but Quit: No Month Tobacco Last Used: 0 Second Hand Smoke Exposure: No - Caffeine Use Caffeine Use: Reports: Coffee, Soda - Alcohol Use Days Per Week of Alcohol Use: 0 (No previous DWIs, problems with alcohol abuse, etc.) Number of Drinks Per Day: 0 Total Drinks Per Week: 0 - Recreational Drug Use Recreational Drug Use: No Drug Use in Last 12 Months: No - Living Situation & Occupation Living situation: Reports: (2014, 4 children), Alone, Assisted Living ( [facility] assisted living facility) 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[employer] , 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[place] [employer] [facility] [place]) ED ROS GENERAL - Review of Systems Review Of Systems: See Below Constitutional: Reports: Weakness HEENT: Reports: No Symptoms Respiratory: Reports: Shortness of Breath, Cough Endocrine: Reports: High Glucose GI/Abdominal: Reports: No Symptoms : Reports: No Symptoms Musculoskeletal: Reports: No Symptoms Skin: Reports: No Symptoms Neurological: Reports: No Symptoms Psychiatric: Reports: No Symptoms ED EXAM, GENERAL - Physical Exam Exam: See Below Exam Limited By: No Limitations General Appearance: Alert, WD/WN, No Apparent Distress Eye Exam: Bilateral Eye: EOMI, PERRL Ears: Normal External Exam, Normal Canal, Hearing Grossly Normal, Normal TMs Ear Exam: Bilateral Ear: Auricle Normal, Canal Normal, TM normal Nose: Normal Inspection, Normal Mucosa, No Blood Throat/Mouth: Normal Inspection, Normal Lips, Normal Teeth, Normal Gums, Normal Oropharynx, Normal Voice, No Airway Compromise Head: Atraumatic, Normocephalic Neck: Normal Inspection, Supple, Non-Tender, Full Range of Motion Respiratory/Chest: Normal Breath Sounds, Decreased Breath Sounds, Rales (In the base) Cardiovascular: Normal Peripheral Pulses, Regular Rate, Rhythm, No Edema, No Gallop, No JVD, No Murmur, No Rub GI/Abdominal: Normal Bowel Sounds, Soft, Non-Tender, No Organomegaly, No Distention, No Abnormal Bruit, No Mass (Female) Exam: Deferred Rectal (Female) Exam: Deferred Back Exam: Decreased Range of Motion Extremities: Normal Inspection, Other (Right-sided weakness secondary to previous stroke) Neurological: Alert, Oriented, CN II-XII Intact, Normal Cognition Psychiatric: Normal Affect, Normal Mood Skin Exam: Warm, Dry, Intact, Normal Color, No Rash Lymphatic: No Adenopathy Course - Vital Signs Last Recorded V/S: Last Vital Signs Temp 97.9 F 07/06/17 20:35 Pulse 89 07/06/17 21:15 Resp 20 07/06/17 21:15 BP 124/63 07/06/17 21:15 Pulse Ox 98 07/06/17 21:15 - Orders/Labs/Meds Orders: Active Orders 24 hr Category Date Time Status Accu Check [Blood Glucose Check, Bedside] [RC] ONETIME Care 07/06/17 21:30 Active RT Aerosol Therapy [RC] ASDIRECTED Care 07/06/17 18:48 Active CXR [Chest 2V] [CR] Stat Exams 07/06/17 18:27 Taken Labs: Laboratory Tests 07/06/17 07/06/17 07/06/17 Range/Units 18:37 18:37 18:37 WBC 8.7 (4.0-10.2) K/uL RBC 3.82 (3.77-5.09) M/uL Hgb 10.0 L (11.7-15.5) g/dL Hct 30.9 L (34.0-46.0) % MCV 80.9 L (84.0-98.0) fL MCH 26.2 L (28.2-33.3) pg MCHC 32.4 (31.7-36.0) g/dL RDW 17.5 H (11.2-14.1) % Plt Count 195 (150-350) K/uL Neut % (Auto) 86.3 H (45.0-80.0) % Lymph % (Auto) 6.8 L (10.0-50.0) % [place] % (Auto) 6.1 (2.0-14.0) % Eos % (Auto) 0.3 (0.0-5.0) % Baso % (Auto) 0.5 (0.0-2.0) % Neut # (Auto) 7.53 H (1.40-7.00) K/uL Lymph # (Auto) 0.59 (0.50-3.50) K/uL [place] # (Auto) 0.53 (0.00-1.00) K/uL Eos # (Auto) 0.03 (0.00-0.50) K/uL Baso # (Auto) 0.04 (0.00-0.20) K/uL Sodium 135 L (136-145) mmol/L Potassium 3.7 (3.5-5.1) mmol/L Chloride 95 L (98-107) mmol/L Carbon Dioxide 26.0 (21.0-32.0) mmol/L BUN 33 H (7-18) mg/dL Creatinine 1.00 (0.51-1.17) mg/dL Est Cr Clr Drug Dosing TNP Estimated GFR (MDRD) 53 mL/min Glucose 372 H* (74-106) mg/dL POC Glucose (65-110) mg/dl Lactic Acid (0.4-2.0) mmol/L Calcium 9.0 (8.5-10.1) mg/dL NT-Pro-B Natriuret Pep 679 H (0-125) pg/mL 07/06/17 07/06/17 Range/Units 18:37 21:31 WBC (4.0-10.2) K/uL RBC (3.77-5.09) M/uL Hgb (11.7-15.5) g/dL Hct (34.0-46.0) % MCV (84.0-98.0) fL MCH (28.2-33.3) pg MCHC (31.7-36.0) g/dL RDW (11.2-14.1) % Plt Count (150-350) K/uL Neut % (Auto) (45.0-80.0) % Lymph % (Auto) (10.0-50.0) % [place] % (Auto) (2.0-14.0) % Eos % (Auto) (0.0-5.0) % Baso % (Auto) (0.0-2.0) % Neut # (Auto) (1.40-7.00) K/uL Lymph # (Auto) (0.50-3.50) K/uL [place] # (Auto) (0.00-1.00) K/uL Eos # (Auto) (0.00-0.50) K/uL Baso # (Auto) (0.00-0.20) K/uL Sodium (136-145) mmol/L Potassium (3.5-5.1) mmol/L Chloride (98-107) mmol/L Carbon Dioxide (21.0-32.0) mmol/L BUN (7-18) mg/dL Creatinine (0.51-1.17) mg/dL Est Cr Clr Drug Dosing Estimated GFR (MDRD) mL/min Glucose (74-106) mg/dL POC Glucose 194 H (65-110) mg/dl Lactic Acid 4.5 H (0.4-2.0) mmol/L Calcium (8.5-10.1) mg/dL NT-Pro-B Natriuret Pep (0-125) pg/mL Meds: Medications Discontinued Medications Generic Name Dose Route Start Last Admin Trade Name Freq PRN Reason Stop Dose Admin Albuterol/Ipratropium 3 ml 07/06/17 18:47 07/06/17 19:11 Duoneb 3.0-0.5 Mg/3 Ml NEB 07/06/17 18:48 3 ml ONETIME ONE Administration Benzonatate 100 mg 07/06/17 20:05 07/06/17 20:29 Tessalon Perles PO 07/06/17 20:06 100 mg ONETIME ONE Administration Furosemide 40 mg 07/06/17 19:25 07/06/17 19:37 Lasix IVPUSH 07/06/17 19:26 40 mg NOW ONE Administration Insulin Aspart 10 unit 07/06/17 19:32 07/06/17 19:48 Novolog SUBCUT 07/06/17 19:33 10 units ONETIME ONE Administration Departure - Departure Time of Disposition: 20:41 Disposition: Home, Self-Care 01 Condition: Fair Clinical Impression: Pneumonia, CHF (congestive heart failure) - Discharge Information Prescriptions: Benzonatate [Tessalon Perle] 100 mg PO BID 15 Days #30 capsule Furosemide [Lasix] 40 mg PO DAILY 30 Days #30 tablet Referrals: PCP,Unknown [Ordering Only Provider] - Forms: ED Department Discharge Care Plan Goals: At this time we will go ahead and double her Lasix surgery to take 2 pills in the morning to reduce her cardiac condition and continue her on her Levaquin as ordered by her primary she may go home and return to primary as needed or to the ER will also order some Tessalon for her to have at home or cough - My Orders Last 24 Hours: My Active Orders 07/06/17 18:27 CXR [Chest 2V] [CR] Stat 07/06/17 18:48 RT Aerosol Therapy [RC] ASDIRECTED 07/06/17 21:30 Accu Check [Blood Glucose Check, Bedside] [RC] ONETIME - Assessment/Plan Last 24 Hours: My Active Orders 07/06/17 18:27 CXR [Chest 2V] [CR] Stat 07/06/17 18:48 RT Aerosol Therapy [RC] ASDIRECTED 07/06/17 21:30 Accu Check [Blood Glucose Check, Bedside] [RC] ONETIME
[2017-07-06] MEDS ORDERED: Furosemide 40 MG/4 ML VIAL IVPUSH ONE (19:25)
[2017-07-06] MEDS ORDERED: Insulin Aspart 100 Units/ML 3 ML Pen SUBCUT ONE (19:32)
[2017-07-06] MEDS ORDERED: Benzonatate 100 MG Cap PO ONE (20:05)
[2017-07-06 22:42] VITALS: BP 124/63
== END 2017-07-06 21:35 | disposition home or self-care (01) ==
LOC: LL.ED 18:17
DX: I13.0 Hypertensive heart and chronic kidney disease with heart failure and stage 1 through stage 4 chronic kidney disease, or unspecified chronic kidney disease (principal); I50.9 Heart failure, unspecified; E11.22 Type 2 diabetes mellitus with diabetic chronic kidney disease; N18.9 Chronic kidney disease, unspecified; J18.9 Pneumonia, unspecified organism; Z88.8 Allergy status to other drugs, medicaments and biological substances; Z79.899 Other long term (current) drug therapy; Z79.4 Long term (current) use of insulin; Z79.82 Long term (current) use of aspirin
CPT/HCPCS: 36415; 71046; 80048; 82962; 83605; 83880; 85025; 87804; 96372; 96374; 99284; 99285; A9270; J1815; J1940; 94640

== ENCOUNTER 2017-08-12 10:49 | Emergency (ER) | payer MEDICARE, BC ==
[2017-08-12] MEDS ORDERED: Potassium Chloride 20 MEQ Tab.ER PO ONE (11:59)
[2017-08-12] MEDS ORDERED: Sodium Chloride 0.9% 10 ML Syringe FLUSH PRN (11:59)
[2017-08-12] MEDS ORDERED: Potassium Chloride 10 MEQ in Premix Bag 1 BAG IV ONE ×2 (12:00→13:02)
--- NOTE | 2017-08-12 12:42 | EDM.PDOC ---
ED HPI GENERAL MEDICAL PROBLEM - General Chief Complaint: Cardiovascular Problem Stated Complaint: HTN Time Seen by Provider: 08/12/17 11:32 Source of Information: Reports: Patient, Other ([facility] staff) History Limitations: Reports: No Limitations - History of Present Illness INITIAL COMMENTS - FREE TEXT/NARRATIVE: Patient sent here for evaluation due to complaint of not feeling well and observed BP of 180s/106 this morning. Patient has long history of poorly controlled HTN, with frequent swings in trends and several hospitalizations due to hypertension. Has had Cozaar dropped recently due to hypotension issues. Today felt light-headed and the above elevated BP was noted. Patient referred to ER. No other acute change/complaints per patient during history review. Headache Pain Score (Numeric/FACES): 7 - Related Data Allergies Allergy/AdvReac Type Severity Reaction Status Date / Time diphenhydramine Allergy Unknown Hallucinati Verified 08/12/17 10:53 ons lisinopril Allergy Unknown Cough Verified 08/12/17 10:53 Home Meds: Home Meds Allopurinol [Zyloprim] 150 mg PO BEDTIME 10/08/13 [History] Cyanocobalamin (Vitamin B-12) [Cyanocobalamin Injection] 1,000 mcg IJ Q60D 10/08 [History] Nitroglycerin [Nitrostat] 0.4 mg SL ASDIRECTED PRN 10/08/13 [History] Potassium Chloride 10 meq PO TID 10/08/13 [History] atorvaSTATin Calcium [Atorvastatin Calcium] 40 mg PO BEDTIME 10/08/13 [History] Acetaminophen [Tylenol Extra Strength] 1 - 2 tab PO Q4H PRN 02/14/15 [History] Levothyroxine 112 mcg PO ACBREAKFAST 02/14/15 [History] Aspirin [Halfprin] 81 mg PO BRK 09/29/15 [History] Multivitamin with Minerals [Multiple Vitamin] 1 tab PO DAILY 09/29/15 [History] Metoprolol Succinate [Toprol XL] 25 mg PO DAILY 01/04/16 [History] rOPINIRole [Requip] 2 mg PO TID 01/04/16 [History] Fluticasone Propionate [Flonase Allergy Relief] 1 spray NS BID PRN 08/05/16 [ History] Gabapentin [Neurontin] 200 mg PO BID 08/05/16 [History] LORazepam 0.5 mg PO BID PRN 08/05/16 [History] Insulin Detemir [Levemir] 45 unit SUBCUT BEDTIME pen 08/08/16 [Rx] Isosorbide Mononitrate [Imdur] 30 mg PO QPM #30 tab.er 08/08/16 [Rx] Insulin Detemir [Levemir] 15 units SUBCUT DAILY 12/15/16 [History] Citalopram [Celexa] 10 mg PO DAILY 01/28/17 [History] Famotidine [Pepcid] 20 mg PO DAILY #30 tablet 03/13/17 [Rx] Albuterol [IJD: Albuterol HFA] 1 puff INH Q4HR PRN 07/06/17 [History] Furosemide [Lasix] 40 mg PO DAILY 30 Days #30 tablet 07/06/17 [Rx] Hydrochlorothiazide 12.5 mg PO TID 07/06/17 [History] Iron Polysaccharides Complex [Ferrex 150] 150 mg PO DAILY 08/12/17 [History] Oxybutynin 5 mg PO BEDTIME 08/12/17 [History] Past Medical History HEENT History: Reports: Cataract, Hard of Hearing, Impaired Vision, Other (See Below) Other HEENT History: Patient does wear glasses, she also has a hearing aide which she usually uses on her left side Cardiovascular History: Reports: Afib, Arrhythmia, Bypass, CAD, Cardiomyopathy, Heart Failure, Heart Murmur, High Cholesterol, Hypertension, AL, PTCA, PVD, Stents, Syncope, Other (See Below) Other Cardiovascular History: Moderate aortic valve insufficiency and calcification with additional mild aortic valve stenosis, severe mitral valve insufficiency, and grade 1 diastolic dysfunction with additional severe left atrial enlargement by echocardiogram on 08/05/16 with ejection fraction of within 70%, PSVT, complete bifascicular bundle-branch block, PACs, first degree AV block nonspecific vasovagal syncope versus reaction to medication in about 2014 , AL in March 2016 with 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 FRAMES History: Reports: Dysfunctional Uterine Bleeding, Other OB/BYN History: Surgical menopause secondary to dysfunctional uterine bleeding Musculoskeletal History: Reports: Arthritis, Back Pain, Chronic, Fibromyalgia, Gout, Neck Pain, Chronic, Osteoarthritis, Osteoporosis, RA, Other (See Below) Other Musculoskeletal History: Lumbar surgeries as below with history of spinal stenosis, severe degenerative disc disease, multiple lumbar lateral canal stenosis with additional scoliosis Neurological History: Reports: CVA, Headaches, Chronic, Neuropathy, Diabetic, Neuropathy, Peripheral, Speech Problems, Other (See Below) Other Neuro History: 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 and dysarthria with patient requiring a walker for ambulation Psychiatric History: Reports: Anxiety, Depression Endocrine/Metabolic History: Reports: Diabetes, Type II, Hypothyroidism, IDDM, Osteoporosis Hematologic History: Reports: Anemia, Blood Transfusion(s), Iron Deficiency, Other (See Below) Other Hematologic History: Transfusions at time of CABG Immunologic History: Reports: None Oncologic (Cancer) History: Reports: Breast, Squamous Cell Carcinoma, Other ( See Below) Other Oncologic History: 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, right sided breast cancer with mastectomy in 2009 Dermatologic History: Reports: Venous Stasis Dermatitis, Other (See Below) Other Dermatologic History: dry skin - Infectious Disease History Infectious Disease History: Reports: Measles, Mumps - Past Surgical History Head Surgeries/Procedures: Reports: None HEENT Surgical History: Reports: Adenoidectomy, Cataract Surgery, Eye Surgery, Laser Surgery, LASIK, Oral Surgery, Tonsillectomy, Other (See Below) Other HEENT Surgeries/Procedures: Tonsillectomy and adenoidectomy at age 18, bilateral cataract surgery in 2008, with right sided YAG treatments after her cataracts with patient denying LASIK despite medical records, complete upper teeth extraction with multiple lower teeth extraction Cardiovascular Surgical History: Reports: Coronary Artery Bypass, Coronary Artery Stent, Percutaneous Transluminal Angioplasty, Other (See Below) Other Cardiovascular Surgeries/Procedures: CABG x2 in April 2002 including internal mammary bypass to LAD and LEONARD to the diagonal artery, total of 7 PTCA/ stents with last PTCA/stent x1 in 2014 Respiratory Surgical History: Reports: None GI Surgical History: Reports: Appendectomy, Bariatric Procedure, Cholecystectomy , Colonoscopy, EGD, Polypectomy, Other (See Below) Other GI Surgeries/Procedures: Gastric bypass versus Billroth II with concomitant appendectomy and cholecystectomy in about 1979, last colonoscopy on 02/15/15 with a total of 5 previous evaluations, 3 previous EGDs last on 02/22/15 with previous evaluation on 03/14/14, previous hemorrhoidectomy x2 in the and Female Surgical History: Reports: Hysterectomy, Kidney stone extraction, Mastectomy, Salpingo-Oophorectomy, Ureteral Stent Other Female Surgeries/Procedures: right partial mastectomy with chemotherapy secondary to breast cancer in 2009, complete hysterectomy including bilateral salpingo-oophorectomy secondary to dysfunctional uterine bleeding, subsequent bladder suspension, excision of right sided nephrolithiasis in about 1999 Endocrine Surgical History: Reports: None Neurological Surgical History: Reports: Discectomy, Lumbar Spine, Spinal Fusion , Thoracic Spine, Other (See Below) Other Neurological Surgeries/Procedures: Microdiscectomy his x2 with additional spinal fusion between L3 and L5 on 06/20/09 Musculoskeletal Surgical History: Reports: Carpal Tunnel, Other (See Below) Other Musculoskeletal Surgeries/Procedures:: Right-sided carpal tunnel release in about 1988 Oncologic Surgical History: Reports: Bone Marrow Aspiration, Other (See Below) Other Oncologic Surgeries/Procedures: Breast surgery as above, bone marrow fine needle aspiration and biopsy in about 2011, excision of squamous cell carcinoma from the facial region as above Dermatological Surgical History: Reports: Other (See Below) - Past Imaging History Past Imaging History: Reports: Angiography (Heart catheterization in May 2016 and October 2001), Cardiac Echo (Last cardiac echocardiogram on 08/05/16 with results as above previous evaluation in March 2013), CAT Scan (CTA of the chest with PE protocol on 08/05/16 with previous CTA of the chest on 09/14/14, CT of the maxillofacial region on 12/18/[address] of the head on 01/12/16, 11/09/15 , and 09/26/14, CTA of the renal system on 06/18/13), MRI (MRI of the brain on 05/17, MRI of the lumbar spine on 12/30/16 and the thoracic spine on 11/09/15, lumbar spine on 03/16/15 and 07/08/13), Swallow Study (10/17/16), Venous Doppler ( Lower extremities bilaterally on 08/06/16 with previous evaluation of the right leg in October 2014) Social & Family History - Family History HEENT: Reports: None Cardiac: Reports: CAD, Heart Failure, AL, Other (See Below) Other Cardiac Family History: Sister with PTCA/stent x2 and an AL with fatal AL at age 83, another sister with fatal CHF at 64, another sister with fatal AL at age 75, mom with coronary artery disease, maternal aunts x2 with fatal AL one in her 80s the other at age 92 Respiratory: Reports: None GI: Reports: Inflammatory Bowel Disease, Other (See Below) Other GI Family History: Mother with Crohn's disease : Reports: Renal Calculus, Other (See Below) Other Family History: Son and 2 daughters with urolithiasis OBGYN: Reports: None Musculoskeletal: Reports: None Neurological: Reports: MS, Other (See Below) Other Neurological Family History: Daughter with MS Psychiatric: Reports: None Endocrine/Metabolic: Reports: None Hematologic: Reports: None Immunologic: Reports: None Dermatologic: Reports: None Oncologic: Reports: Breast, Colon, Metastatic, Renal, Other (See Below) Other Oncologic Family History: Sister with fatal breast cancer at age 60, paternal aunt with fatal breast cancer in her 60s, maternal aunt with breast cancer, mother with possible renal cancer, sister with fatal liver cancer versus metastases in her 60s, sister with colon cancer in her 80s - Tobacco Use Smoking Status *Q: Never Smoker Years of Tobacco use: 0 Used Tobacco, but Quit: No Month/Year Tobacco Last Used: 0 Second Hand Smoke Exposure: No - Caffeine Use Caffeine Use: Reports: Coffee, Soda - Alcohol Use Days Per Week of Alcohol Use: 0 (No previous DWIs, problems with alcohol abuse, etc.) Number of Drinks Per Day: 0 Total Drinks Per Week: 0 - Recreational Drug Use Recreational Drug Use: No Drug Use in Last 12 Months: No - Living Situation & Occupation Living situation: Reports: (2014, 4 children), Alone, Assisted Living ( [facility]) 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 Denies: Chest Pain, Dyspnea on Exertion, Palpitations, Syncope GI/Abdominal: Reports: Other (thinks her food is sitting in her stomach longer these days before it starts to digest). Denies: Abdominal Pain, Constipation, Diarrhea, Hematochezia : Reports: No Symptoms Musculoskeletal: Reports: No Symptoms (no acute changes) Skin: Reports: No Symptoms Neurological: Reports: Dizziness (no vertigo, but feels lightheaded), Headache ( mild). Denies: Confusion, Numbness, Syncope, Difficulty Walking, Weakness, Change in Speech ED EXAM, GENERAL - Physical Exam Exam: See Below Exam Limited By: No Limitations General Appearance: Alert, WD/WN, No Apparent Distress, Other (observed to ambulate using walker, does well. Transfers/sits on ER cot without issue. ) Eye Exam: Bilateral Eye: EOMI, PERRL Ears: Normal External Exam Nose: No: Nasal Deformity, Nasal Drainage Throat/Mouth: Normal Inspection, Normal Lips, Normal Voice, No Airway Compromise Head: Atraumatic, Normocephalic Neck: Normal Inspection, Supple, Non-Tender, Full Range of Motion Respiratory/Chest: No Respiratory Distress, Lungs Clear, Normal Breath Sounds, No Accessory Muscle Use Cardiovascular: Normal Peripheral Pulses, Regular Rate, Rhythm, No JVD Peripheral Pulses: 2+: Radial (L), Radial (R) GI/Abdominal: Normal Bowel Sounds, Soft, Non-Tender (Female) Exam: Deferred Rectal (Female) Exam: Deferred Back Exam: No: CVA Tenderness (L), CVA Tenderness (R) Extremities: Normal Range of Motion (for patient), Non-Tender, Normal Capillary Refill Neurological: Alert, Oriented, Normal Gait (for patient), No Motor/Sensory Deficits Psychiatric: Normal Affect, Normal Mood Skin Exam: Warm, Dry, Intact, Normal Color EKG INTERPRETATION EKG Date: 08/12/17 Time: 12:02 Rhythm: Other (Sinus Rhythm) Rate (Beats/Min): 90 [place]: Normal P-Wave: Present QRS: Other (Bifascicular Block) ST-T: Other (No acute ST elevation/depression noted) QT: Normal Comparison: No Change Course - Vital Signs Last Recorded V/S: Last Vital Signs Temp 37.1 C 08/12/17 10:50 Pulse 73 08/12/17 13:06 Resp 20 08/12/17 12:59 BP 163/84 H 08/12/17 13:06 Pulse Ox 100 08/12/17 12:59 - Orders/Labs/Meds Labs: Laboratory Tests 08/12/17 08/12/17 08/12/17 Range/Units 11:40 11:40 11:50 WBC 9.8 (4.0-10.2) K/uL RBC 3.96 (3.77-5.09) M/uL Hgb 10.3 L (11.7-15.5) g/dL Hct 31.7 L (34.0-46.0) % MCV 80.1 L (84.0-98.0) fL MCH 26.0 L (28.2-33.3) pg MCHC 32.5 (31.7-36.0) g/dL RDW 16.3 H (11.2-14.1) % Plt Count 206 (150-350) K/uL Neut % (Auto) 75.7 (45.0-80.0) % Lymph % (Auto) 7.8 L (10.0-50.0) % [place] % (Auto) 14.9 H (2.0-14.0) % Eos % (Auto) 0.9 (0.0-5.0) % Baso % (Auto) 0.7 (0.0-2.0) % Neut # (Auto) 7.44 H (1.40-7.00) K/uL Lymph # (Auto) 0.77 (0.50-3.50) K/uL [place] # (Auto) 1.46 H (0.00-1.00) K/uL Eos # (Auto) 0.09 (0.00-0.50) K/uL Baso # (Auto) 0.07 (0.00-0.20) K/uL Sodium 136 (136-145) mmol/L Potassium 2.0 L* D (3.5-5.1) mmol/L Chloride 91 L (98-107) mmol/L Carbon Dioxide 36.5 H D (21.0-32.0) mmol/L BUN 28 H (7-18) mg/dL Creatinine 0.91 (0.51-1.17) mg/dL Est Cr Clr Drug Dosing 34.24 mL/min Estimated GFR (MDRD) 59 mL/min Glucose 170 H (74-106) mg/dL Calcium 9.2 (8.5-10.1) mg/dL Total Bilirubin 0.6 (0.2-1.0) mg/dL AST 34 (15-37) U/L ALT 28 (12-78) U/L Alkaline Phosphatase 75 (46-116) IU/L Total Protein 7.7 (6.4-8.2) g/dL Albumin 3.6 (3.4-5.0) g/dL Specimen Type Urinblad Urine Color Light yellow Urine Appearance Clear Urine pH 6.5 (5.0-9.0) Ur Specific [place] 1.015 (1.005-1.030) Urine Protein Negative (NEGATIVE) mg/dL Urine Glucose (UA) Negative (NEGATIVE) mg/dL Urine Ketones Negative (NEGATIVE) mg/dL Urine Occult Blood Negative (NEGATIVE) Urine Nitrite Negative (NEGATIVE) Urine Bilirubin Negative (NEGATIVE) Urine Urobilinogen 0.2 (0.2-1.0) E.U./dL Ur Leukocyte Esterase Negative (NEGATIVE) Urine RBC 0-5 /HPF Urine WBC 0-5 /HPF Ur Epithelial Cells Few /LPF Urine Bacteria Rare (NONE TO FEW) /HPF Meds: Medications Discontinued Medications Generic Name Dose Route Start Last Admin Trade Name Freq PRN Reason Stop Dose Admin Potassium Chloride 10 meq/ 50 mls @ 50 mls/hr 08/12/17 12:00 08/12/17 12:21 Premix IV 08/12/17 12:59 50 mls/hr ONETIME ONE Administration Potassium Chloride 10 meq/ 50 mls @ 50 mls/hr 08/12/17 13:02 08/12/17 13:31 Premix IV 08/12/17 14:01 50 mls/hr ONETIME ONE Administration Metoprolol Tartrate 25 mg 08/12/17 13:02 08/12/17 13:06 Lopressor PO 08/12/17 13:03 25 mg ONETIME ONE Administration Potassium Chloride 20 meq 08/12/17 11:59 08/12/17 12:21 Klor-Con M20 PO 08/12/17 12:00 20 meq ONETIME ONE Administration Sodium Chloride 10 ml 08/12/17 11:59 Saline Flush FLUSH ASDIRECTED PRN Keep Vein Open - Re-Assessments/Exams Free Text/Narrative Re-Assessment/Exam: 08/12/17 12:53 K noted to be 2 Hgb 10.3 (has chronic anemia) BS 170 IV access obtained. EKG performed. PO potassium as well as IV potassium ordered. Given the significantly low K level as well as history of volatile BP variation , patient discussed with (Hospitalist) from [facility]. Arrangements made for patient transfer for further evaluation and care at their facility. Departure - Departure Time of Disposition: 13:45 Disposition: DC/Tfer to Acute Hospital 02 Reason for Transfer *Q: Other (Severe hypokalemia) Condition: Good Clinical Impression: Hypokalemia Hypertension Qualifiers: Hypertension type: essential hypertension Qualified Code(s): I10 - Essential ( primary) hypertension Anemia Qualifiers: Anemia type: iron deficiency Iron deficiency anemia type: other iron deficiency Qualified Code(s): D50.8 - Other iron deficiency anemias Referrals: PCP,None [Primary Care Provider] - Forms: ED Department Discharge
[2017-08-12 13:00] VITALS: BP 163/84
[2017-08-12] MEDS ORDERED: Metoprolol Tartrate 25 MG Tab PO ONE (13:02)
== END 2017-08-12 13:41 ==
LOC: LL.ED 10:49
DX: I13.0 Hypertensive heart and chronic kidney disease with heart failure and stage 1 through stage 4 chronic kidney disease, or unspecified chronic kidney disease (principal); I50.9 Heart failure, unspecified; E87.6 Hypokalemia; D50.8 Other iron deficiency anemias; N18.9 Chronic kidney disease, unspecified; E11.22 Type 2 diabetes mellitus with diabetic chronic kidney disease; E11.21 Type 2 diabetes mellitus with diabetic nephropathy; E03.9 Hypothyroidism, unspecified; E11.40 Type 2 diabetes mellitus with diabetic neuropathy, unspecified; E78.00 Pure hypercholesterolemia, unspecified; I25.2 Old myocardial infarction; Z88.8 Allergy status to other drugs, medicaments and biological substances; Z79.4 Long term (current) use of insulin; Z79.899 Other long term (current) drug therapy
CPT/HCPCS: 36415; 80053; 81001; 85025; 93005; 96365; 99285; A9270 ×2; J3480 ×2; 93010

== ENCOUNTER 2017-10-23 13:39 | Inpatient (IN) | payer MEDICARE, BC ==
[2017-10-23] MEDS ORDERED: Ticagrelor 90 MG Tab PO ONE (13:42)
[2017-10-23] MEDS ORDERED: Famotidine 20 MG/2 ML SDV IVPUSH ONE (13:42)
[2017-10-23] MEDS ORDERED: Aspirin 81 MG Tab.Chew CHEW ONE (13:42)
--- NOTE | 2017-10-23 13:42 | EDM.PDOC ---
ED HPI GENERAL MEDICAL PROBLEM - General Chief Complaint: General Stated Complaint: Shortness of Breath Time Seen by Provider: 10/23/17 13:42 Source of Information: Reports: Patient, Old Records ([facility] chart/EMR) History Limitations: Reports: No Limitations - History of Present Illness INITIAL COMMENTS - FREE TEXT/NARRATIVE: The patient was brought to the emergency room via private automobile by the nurse at [facility] in [place] for evaluation for possible admission for exacerbation of her CHF. Patient was initially evaluated by France Slaughter PA-C, at [facility], with no apparent treatment or significant evaluation conducted in that facility. The patient has been experiencing progressive dependent edema, dyspnea, decreased exercise tolerance , and orthopnea for the last week, including a 5 pound weight gain during that period. She denies any recent medication changes, medication noncompliance, etc.. The patient denies any chest pain/pressure, heart flutter, dizziness, orthostasis, paresthesias, or any other anginal-type symptoms. No recent history of abdominal pain, heartburn, nausea, diarrhea, melena, gross hematochezia, or any food intolerance, including fatty foods, etc., although her stools are normally somewhat dark secondary to her iron supplement with apparent normal bowel movement yesterday. She denies any gross hematuria, UTI symptoms, etc.. The patient also denies any recent fever, cough, wheezing, dyspnea, etc.. No history of recent headaches, visual changes, diplopia, change in mental status, or other change in neurological status. Onset: Gradual Onset Date: 10/16/17 Duration: Getting Worse Location: Reports: Other (No pain). Denies: Head, Face, Neck, Chest, Abdomen, Back, Pelvis, Upper Extremity, Left, Upper Extremity, Right, Lower Extremity, Left, Radiates to Quality: Reports: Same as Previous Episode Severity: Moderate (Progressive dyspnea) Improves with: Reports: Rest Worsens with: Reports: Movement (Ambulation) Context: Reports: Other (As above) Associated Symptoms: Reports: Shortness of Breath. 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: Reports: Other (see below) (None) - Related Data Allergies Allergy/AdvReac Type Severity Reaction Status Date / Time diphenhydramine Allergy Unknown Hallucinati Verified 10/23/17 15:18 ons lisinopril Allergy Unknown Cough Verified 10/23/17 15:18 Home Meds: Home Meds Allopurinol [Zyloprim] 150 mg PO BEDTIME 10/08/13 [History] Cyanocobalamin (Vitamin B-12) [Cyanocobalamin Injection] 1,000 mcg IJ Q60D 10/08 [History] Nitroglycerin [Nitrostat] 0.4 mg SL ASDIRECTED PRN 10/08/13 [History] atorvaSTATin Calcium [Atorvastatin Calcium] 40 mg PO BEDTIME 10/08/13 [History] Acetaminophen [Tylenol Extra Strength] 1 - 2 tab PO Q4H PRN 02/14/15 [History] Levothyroxine 112 mcg PO ACBREAKFAST 02/14/15 [History] Aspirin [Halfprin] 81 mg PO BRK 09/29/15 [History] Multivitamin with Minerals [Multiple Vitamin] 1 tab PO DAILY 09/29/15 [History] rOPINIRole [Requip] 2 mg PO TID 01/04/16 [History] Gabapentin [Neurontin] 200 mg PO BID 08/05/16 [History] LORazepam 0.5 mg PO BID PRN 08/05/16 [History] Isosorbide Mononitrate [Imdur] 30 mg PO QPM #30 tab.er 08/08/16 [Rx] Insulin Detemir [Levemir] 45 units SUBCUT DAILY 12/15/16 [History] Citalopram [Celexa] 10 mg PO DAILY 01/28/17 [History] Famotidine [Pepcid] 20 mg PO DAILY #30 tablet 03/13/17 [Rx] Iron Polysaccharides Complex [Ferrex 150] 150 mg PO BID 08/12/17 [History] Oxybutynin 5 mg PO BEDTIME 08/12/17 [History] Carvedilol [Coreg] 12.5 mg PO BID 08/22/17 [History] Spironolactone [Aldactone] 25 mg PO DAILY 08/22/17 [History] Albuterol [Ventolin HFA] 1 puff INH Q6HR PRN 10/23/17 [History] L.acidoph,Paracasei, B.lactis [Probiotic] 1 cap PO DAILY 10/23/17 [History] amLODIPine Besylate [Norvasc] 10 mg PO DAILY 10/23/17 [History] Past Medical History HEENT History: Reports: Allergic Rhinitis, Cataract, Hard of Hearing, Impaired Vision, Other (See Below). Denies: Glaucoma, Macular Degeneration, Retinal Detachment Other HEENT History: Patient does wear glasses, she also has a hearing aide which she usually uses on her left side Cardiovascular History: Reports: Afib, Arrhythmia, Bypass, CAD, Cardiomyopathy, Heart Failure, Heart Murmur, High Cholesterol, Hypertension, [place], PTCA, PVD, Stents, Syncope, Other (See Below). Denies: Aneurysm, Blood Clots/VTE/DVT, Pacemaker Other Cardiovascular History: Moderate aortic valve insufficiency and calcification with additional mild aortic valve stenosis, severe mitral valve insufficiency, and grade 1 diastolic dysfunction with additional severe left atrial enlargement by echocardiogram on 08/05/16 with ejection fraction of 70%, PSVT, complete bifascicular bundle-branch block, PACs, PVCs, first degree AV block. 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 Chronic d-dimer elevation with negative workup as below. Dyslipidemia. Respiratory History: Reports: Bronchitis, Recurrent, COPD, Intubation, Previous , Pneumonia, Recurrent, Sleep Apnea, Other (See Below). Denies: Asthma, Intubation, Difficult, Pneumothorax, TB Other Respiratory History: Sleep apnea with no current therapy including nocturnal O2, CPAP, etc. with additional history of restless leg syndrome Gastrointestinal History: Reports: Bowel Obstruction, Cholelithiasis, Chronic Constipation, Chronic Diarrhea, Colon Polyp, Diverticulosis, Gastritis, GERD, GI Bleed, Hemorrhoids, PUD, Other (See Below). Denies: Celiac Disease, Fecal Incontinence, Hepatitis, Hiatal Hernia, Inflammatory Bowel Disease, Irritable Bowel Syndrome, Jaundice, Pancreatitis Other Gastrointestinal History: benign adenomatous polyps, right inguinal hernia. Previous history of questionable dysphagia with negative swallowing studies as below Genitourinary History: Reports: Chronic Renal Insuffiency, Diabetic Nephropathy , Renal Calculus, Urinary Incontinence, UTI, Recurrent, Other (See Below). 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 Denies: Endometriosis, Fibroids, Spontaneous , Therapeutic : 4 Para: 4 LMP (Approximate): Other (See Below) Other OB/BYN History: Surgical menopause secondary to dysfunctional uterine bleeding. Full term without complications during pregnancies or deliveries Musculoskeletal History: Reports: Arthritis, Back Pain, Chronic, Fibromyalgia, Gout, Neck Pain, Chronic, Osteoarthritis, Osteoporosis, RA, Other (See Below). Denies: Amputation, Fracture, SLE Other Musculoskeletal History: Lumbar surgeries as below with history of spinal stenosis, severe degenerative disc disease, multiple lumbar lateral canal stenosis with additional scoliosis. Right John's cyst. Neurological History: Reports: Concussion, CVA, Headaches, Chronic, Head Trauma , Neuropathy, Diabetic, Neuropathy, Peripheral, Speech Problems, Other (See Below). Denies: Cerebral Aneurysms, Migraines, MS, Parkinson's, Seizure, TIA Other Neuro History: Head concussion on 01/28/17. 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 Cerebral atrophy by CT scan. Restless leg syndrome. Psychiatric History: Reports: Anxiety, Depression. Denies: Abuse, Victim of, ADD, Addiction, Alzheimers Disease, Dementia, Psych Hospitalization(s), PTSD, Suicide Attempt, Suicidal Ideation Endocrine/Metabolic History: Reports: Diabetes, Type II, Hypothyroidism, IDDM, Osteoporosis, Other (See Below). Denies: Diabetes, Gestational, Diabetes, Type I, Diabetes Mellitus, Type 3c Other Endocrine/Metabolic History: Hypokalemia Hematologic History: Reports: Anemia, B12 Deficiency, Blood Transfusion(s), Iron Deficiency, Other (See Below) Other Hematologic History: Transfusions at time of CABG Immunologic History: Reports: None. Denies: AIDS, HIV, SLE Oncologic (Cancer) History: Reports: Breast, Squamous Cell Carcinoma, Other ( See Below). 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 Denies: Eczema, Psoriasis Other Dermatologic History: dry skin - Infectious Disease History Infectious Disease History: Reports: Measles, Mumps. Denies: C-Difficile, Chicken Pox, Meningitis, Mononucleosis, MRSA, Pertussis (Whooping Cough), Rheumatic Fever, Rubella, Scarlet Fever, Shingles, TB, VRE - Past Surgical History Head Surgeries/Procedures: Reports: None HEENT Surgical History: Reports: Adenoidectomy, Cataract Surgery, Eye Surgery, Laser Surgery, LASIK, Oral Surgery, Tonsillectomy, Other (See Below). Denies: Myringotomy w Tube(s), Naso-Sinus Surgery Other HEENT Surgeries/Procedures: Tonsillectomy and adenoidectomy at age 18, bilateral cataract surgery in 2008, with right sided YAG treatments after her cataracts with patient denying LASIK in 2008 despite medical records, complete upper teeth extraction with multiple lower teeth extraction Cardiovascular Surgical History: Reports: Coronary Artery Bypass, Coronary Artery Stent, Percutaneous Transluminal Angioplasty, Other (See Below). Denies : Aneurysm, Cardiac Ablation, Carotid Endarterectomy, Carotid Stents, Varicose Other Cardiovascular Surgeries/Procedures: CABG x2 in April 2002 including internal mammary bypass to LAD and LEONARD to the diagonal artery, total of 7 PTCA/ stents with last PTCA/stent x1 in 2014 Respiratory Surgical History: Reports: None. Denies: Thoracentesis GI Surgical History: Reports: Appendectomy, Bariatric Procedure, Cholecystectomy , Colonoscopy, EGD, Polypectomy, Other (See Below). Denies: Hernia, Abdominal, Hernia, Inguinal, Hernia Repair/Other Other GI Surgeries/Procedures: Gastric bypass versus Billroth II with concomitant appendectomy and cholecystectomy in about 1980, last colonoscopy on 02/15/15 with a total of 5 previous evaluations, 3 previous EGDs last on 02/22/15 with previous evaluation on 03/14/14, previous hemorrhoidectomy x2 in the and Female Surgical History: Reports: Breast Biopsy, Hysterectomy, Kidney stone extraction, Mastectomy, Salpingo-Oophorectomy, Ureteral Stent. Denies: D&C, Tubal Ligation Other Female Surgeries/Procedures: right partial mastectomy with chemotherapy secondary to breast cancer in 2009, complete hysterectomy including bilateral salpingo-oophorectomy secondary to dysfunctional uterine bleeding, subsequent bladder suspension, excision of right sided nephrolithiasis in about 1999 Endocrine Surgical History: Reports: None Neurological Surgical History: Reports: Discectomy, Lumbar Spine, Spinal Fusion , Thoracic Spine, Other (See Below). Denies: C-Spine, Laminectomy, Sacral Spine , Scoliosis, Vertebroplasty Other Neurological Surgeries/Procedures: Microdiscectomy his x2 with additional spinal fusion between L3 and L5 on 06/20/09 Musculoskeletal Surgical History: Reports: Carpal Tunnel, Other (See Below). Denies: Arthroscopic Procedure, Ganglion Cyst, Joint Replacement, ORIF, Shoulder Surgery Other Musculoskeletal Surgeries/Procedures:: Right-sided carpal tunnel release in about 1988 Oncologic Surgical History: Reports: Bone Marrow Aspiration, Other (See Below) Other Oncologic Surgeries/Procedures: Breast surgery as above, bone marrow fine needle aspiration and biopsy in about 2011, excision of squamous cell carcinoma from the facial region as above Dermatological Surgical History: Reports: Other (See Below) Other Dermatological Surgeries/Procedures: Excision of squamous cell carcinoma above. - Past Imaging History Past Imaging History: Reports: Angiography (Heart catheterization in May 2016 and October 2001), Cardiac Echo (Last cardiac echocardiogram on 08/05/16 with results as above previous evaluation in March 2013), CAT Scan (CT of the head on 01/28/17. CTA of the chest with PE protocol last on 01/28/17 with previous evaluations on 08/05/16 and on 09/14/14, CT of the maxillofacial region on 12/18/[address] of the head on 01/12/16, 11/09/15, and 09/26/14, CTA of the renal system on 06/18/13), MRI (MRI of the brain on 02/12/16, MRI of the lumbar spine on and the thoracic spine on 11/09/15, lumbar spine on 03/16/15 and 07/08/13), Swallow Study (09/25/17 with previous evaluation on 10/17/16), Venous Doppler ( Right-sided venous Doppler study of the right leg on 07/30/17 with previous evaluation of the lower extremities bilaterally on 08/06/16 with previous evaluation of the right leg in October 2014) Social & Family History - Family History HEENT: Reports: None. Denies: Glaucoma, Macular Degeneration, Retinal Detachment Cardiac: Reports: CAD, Heart Failure, [place], Stent, Other (See Below). Denies: Aneurysm, Arrhythmia, Blood Clots/VTE/DVT, Bypass, High Cholesterol, Hypertension, PVD/COD, Syncope Other Cardiac Family History: Sister with PTCA/stent x2 and an KY with fatal KY at age 83, another sister with fatal CHF at 64, another sister with fatal KY at age 75, mom with coronary artery disease, maternal aunts x2 with fatal KY one in her 80s the other at age 92 Respiratory: Reports: None. Denies: Asthma, COPD, PE, Pneumothorax, Sleep Apnea GI: Reports: Inflammatory Bowel Disease, Other (See Below). Denies: Celiac Disease, Cholelithiasis, Colon Polyps, GERD, GI bleed, Irritable Bowel Syndrome , PUD Other GI Family History: Mother with Crohn's disease : Reports: Renal Calculus, Other (See Below). Denies: Dialysis, Renal Disease /Insufficiency Other Family History: Son and 2 daughters with urolithiasis OBGYN: Reports: None. Denies: Endometriosis, Recurrent Spontaneous Musculoskeletal: Reports: None. Denies: Arthritis, Gout, Osteoarthritis, RA, SLE Neurological: Reports: MS, Other (See Below). Denies: Alzheimers Disease, CVA, Dementia, Migraines, Neuropathy, Peripheral, Parkinson's, Seizure, TIA Other Neurological Family History: Daughter with MS Psychiatric: Reports: None. Denies: Abuse, Victim of, ADD, ADHD, Anxiety, Depression, Psych Hospitalization(s), Psychosis, PTSD, Suicide Attempt Endocrine/Metabolic: Reports: None. Denies: Diabetes, Type I, Diabetes, type II , Diabetes Mellitus, Type 3c, Hypothyroidism, IDDM Hematologic: Reports: None. Denies: Anemia, SLE Immunologic: Reports: None. Denies: AIDS, HIV, SLE Dermatologic: Reports: None. Denies: Eczema, Psoriasis Oncologic: Reports: Breast, Colon, Metastatic, Renal, Other (See Below). Denies : Cervix, Hodgkin's Lymphoma, Leukemia, Lymphoma, Non-Hodgkin's Lymphoma, Ovarian, Skin, Uterine Other Oncologic Family History: Sister with fatal breast cancer at age 60, paternal aunt with fatal breast cancer in her 60s, maternal aunt with breast cancer, mother with possible renal cancer, sister with fatal liver cancer versus metastases in her 60s, sister with colon cancer in her 80s - Tobacco Use Smoking Status *Q: Never Smoker Tobacco Use Within Last Twelve Months: No Used Tobacco, but Quit: No Smoking Cessation Information Provided To Patient: No Second Hand Smoke Exposure: No Second Hand Smoke Education Provided: No - Caffeine Use Caffeine Use: Reports: Coffee (1 Cup per day), Soda (1 soda per day). Denies: Energy Drinks, Tea - Alcohol Use Alcohol Use History: No Days Per Week of Alcohol Use: 0 (No previous DWIs, problems with alcohol abuse, etc.) Number of Drinks Per Day: 0 Total Drinks Per Week: 0 Alcohol Use in Last Twelve Months: No - Recreational Drug Use Recreational Drug Use: No Drug Use in Last 12 Months: No Recreational Drug Type: Denies: Cocaine, Heroin, Inhalants (Glues, Solvents, Aerosols), LSD (Acid), Marijuana/Hashish, Methamphetamine, Morphine, Oxycodone - Living Situation & Occupation Living situation: Reports: (2014, 4 children), Alone, Assisted Living ( 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 ED EXAM, GENERAL - Physical Exam Exam: See Below Exam Limited By: No Limitations General Appearance: Alert, WD/WN, No Apparent Distress, Anxious (Mild) Eye Exam: Bilateral Eye: EOMI, Normal Inspection (Glasses, no nystagmus), PERRL Ears: Normal External Exam, Normal Canal, Hearing Loss (Mild bilateral presbycusis with the patient not having her hearing aides) Nose: Normal Inspection, Normal Mucosa, No Blood Throat/Mouth: Normal Lips, Normal Gums, Normal Oropharynx, Normal Voice, No Airway Compromise. No: Normal Teeth (Complete upper dentures with multiple missing tooth lowers and no previous partials), Dysphagia, Perioral Cyanosis Head: Atraumatic, Normocephalic. No: Facial Swelling, Facial Tenderness, Sinus Tenderness Neck: Supple, Non-Tender, Full Range of Motion, Carotid Bruit (Mild bilateral carotid bruits versus transmitted heart sounds). No: Lymphadenopathy (L), Lymphadenopathy (R), Thyromegaly Respiratory/Chest: No Respiratory Distress, No Accessory Muscle Use, Chest Non- Tender, Rales (Mild to moderate diffuse bilateral rales particularly in the bases bilaterally). No: Rhonchi, Wheezing, Pleural Rub, Retractions Cardiovascular: Normal Peripheral Pulses, Regular Rate, Rhythm, No Gallop, No JVD, No Murmur, No Rub, Systolic Murmur (Moderate 3/6 LEATHA of the mitral and aortic valves). No: No Edema (Dependent edema as below), Diastolic Murmur, Gallop/S3, Gallop/S4, Friction Rub Peripheral Pulses: 2+: Radial (L), Radial (R) GI/Abdominal: Normal Bowel Sounds, Soft, Non-Tender, No Organomegaly, No Distention, No Abnormal Bruit, No Mass, Other (Obese). No: Pelvis Stable, Guarding (Female) Exam: Deferred Rectal (Female) Exam: Deferred Back Exam: Normal Inspection, Full Range of Motion, Other (Mild scoliosis). No : CVA Tenderness (L), CVA Tenderness (R), Muscle Spasm Extremities: Normal Range of Motion, Non-Tender, Normal Capillary Refill, Pedal Edema (+2 bilateral pedal/pretibial edema). No: Rekha's Sign Neurological: Alert, Oriented, CN II-XII Intact, Normal Cognition, Normal Gait, Normal Reflexes (Negative Babinski's), No Motor/Sensory Deficits Psychiatric: Anxious (Mild). No: Depressed Mood Skin Exam: Warm, Dry, Intact, Pallor (Mild). No: Diaphoretic, Ecchymosis, Lymphangitis, Petechiae, Wound/Incision Lymphatic: No Adenopathy EKG INTERPRETATION EKG Date: 10/23/17 Time: 13:55 Rhythm: NSR Rate (Beats/Min): 67 [place]: LAD-Left [place] Deviation (Distended left cardiac axis) P-Wave: Present (Mild diffuse biphasic P waves) QRS: RBBB (QRS interval 0.12 seconds representing a right bundle branch block/ bifascicular bundle-branch block with extreme poor R-wave progression in the anterior leads and stable T-wave inversions in leads 3, V1V3) ST-T: Other (As above) QT: Normal WI/PQ Interval: 0.23 seconds representing a stable first-degree AV block Comparison: No Change (No change since 08/12/17) EKG Interpretation Comments: 1. Stable probable anterior wall cardiac ischemia 2. Complete right bundle branch block/bifascicular bundle-branch block 3. First-degree AV block Course - Vital Signs Last Recorded V/S: Last Vital Signs Temp 36.8 C 10/23/17 13:40 Pulse 70 10/23/17 15:19 Resp 22 H 10/23/17 15:19 BP 177/56 H 10/23/17 15:19 Pulse Ox 98 10/23/17 15:19 Vital Signs - 24 hr 10/23/17 10/23/17 10/23/17 13:40 13:55 14:15 Temperature [ 36.8 C Temporal] Pulse, 62 65 Peripheral [ Pulse Oximetry] Respiratory 22 H 22 H 26 H Rate Blood Pressure 153/52 H 165/51 H 152/84 H [Left Upper Arm ] O2 Sat by Pulse 92 L 96 98 Oximetry 10/23/17 10/23/17 10/23/17 14:35 15:00 15:19 Temperature [ Temporal] Pulse, 70 69 70 Peripheral [ Pulse Oximetry] Respiratory 26 H 28 H 22 H Rate Blood Pressure 175/61 H 180/55 H 177/56 H [Left Upper Arm ] O2 Sat by Pulse 99 99 98 Oximetry - Orders/Labs/Meds Orders: Active Orders 24 hr Category Date Time Status Cardiac Monitoring [RC] . DIRECTED Care 10/23/17 13:42 Active EKG Documentation Completion [RC] ASDIRECTED Care 10/23/17 13:42 Active Oxygen Therapy, ED [RC] CONTINUOUS Care 10/23/17 13:42 Active Peripheral IV Care [RC] . DIRECTED Care 10/23/17 13:42 Active Pulse Oximetry [RC] CONTINUOUS Care 10/23/17 13:42 Active Up With Assistance [RC] PFP Care 10/23/17 13:42 Active Vital Signs [RC] PFP Care 10/23/17 13:42 Active Nothing per Oral Now Diet [DIET] Diet 10/23/17 Breakfast Active Chest 1V Frontal [CR] Stat Exams 10/23/17 13:42 Taken UA W/MICROSCOPIC [URIN] Stat Lab 10/23/17 14:45 Ordered Sodium Chloride 0.9% [Saline Flush] Med 10/23/17 13:42 Active 10 ml FLUSH ASDIRECTED PRN Obtain Past Medical Record [OM.PC] Urgent Oth 10/23/17 13:42 Active Peripheral IV Insertion Adult [OM.PC] Stat Oth 10/23/17 13:42 Ordered Resuscitation Status Stat Resus Stat 10/23/17 13:42 Ordered EKG 12 Lead [EK] Stat Ther 10/23/17 13:42 Ordered Medication Orders Sodium Chloride (Saline Flush) 10 ml FLUSH ASDIRECTED PRN PRN Reason: Keep Vein Open Last Admin: 10/23/17 14:58 Dose: 10 ml Admin: 10/23/17 14:05 Dose: 10 ml Labs: Laboratory Tests 10/23/17 10/23/17 10/23/17 Range/Units 13:50 13:50 13:50 WBC 8.8 (4.0-10.2) K/uL RBC 4.00 (3.77-5.09) M/uL Hgb 9.1 L (11.7-15.5) g/dL Hct 30.1 L (34.0-46.0) % MCV 75.3 L D (84.0-98.0) fL MCH 22.8 L (28.2-33.3) pg MCHC 30.2 L (31.7-36.0) g/dL RDW 17.5 H (11.2-14.1) % Plt Count 235 (150-350) K/uL Neut % (Auto) 78.0 (45.0-80.0) % Lymph % (Auto) 7.7 L (10.0-50.0) % [place] % (Auto) 10.7 (2.0-14.0) % Eos % (Auto) 2.9 (0.0-5.0) % Baso % (Auto) 0.7 (0.0-2.0) % Neut # (Auto) 6.83 (1.40-7.00) K/uL Lymph # (Auto) 0.67 (0.50-3.50) K/uL [place] # (Auto) 0.94 (0.00-1.00) K/uL Eos # (Auto) 0.25 (0.00-0.50) K/uL Baso # (Auto) 0.06 (0.00-0.20) K/uL PT 10.8 (9.8-11.7) SEC INR 1.0 APTT 24.7 (22.1-29.8) SEC D-Dimer, Quantitative 1250 H (0-400) ng/mL Sodium (136-145) mmol/L Potassium (3.5-5.1) mmol/L Chloride (98-107) mmol/L Carbon Dioxide (21.0-32.0) mmol/L BUN (7-18) mg/dL Creatinine (0.51-1.17) mg/dL Est Cr Clr Drug Dosing mL/min Estimated GFR (MDRD) mL/min Glucose (74-106) mg/dL Lactic Acid (0.4-2.0) mmol/L Uric Acid (2.6-7.2) mg/dL Calcium (8.5-10.1) mg/dL Magnesium (1.8-2.4) mg/dL Total Bilirubin (0.2-1.0) mg/dL AST (15-37) U/L ALT (12-78) U/L Alkaline Phosphatase (46-116) IU/L Creatine Kinase (26-308) U/L Creatine Kinase Index (0.0-2.5) % CK-MB (CK-2) (0.00-3.60) ng/mL Troponin I (0.000-0.056) ng/mL NT-Pro-B Natriuret Pep (0-125) pg/mL Total Protein (6.4-8.2) g/dL Albumin (3.4-5.0) g/dL TSH, Ultra Sensitive (0.358-3.740) mIU/mL Specimen Type Urine Color Urine Appearance Urine pH (5.0-9.0) Ur Specific [place] (1.005-1.030) Urine Protein (NEGATIVE) mg/dL Urine Glucose (UA) (NEGATIVE) mg/dL Urine Ketones (NEGATIVE) mg/dL Urine Occult Blood (NEGATIVE) Urine Nitrite (NEGATIVE) Urine Bilirubin (NEGATIVE) Urine Urobilinogen (0.2-1.0) E.U./dL Ur Leukocyte Esterase (NEGATIVE) Urine RBC /HPF Urine WBC /HPF Ur Epithelial Cells /LPF Urine Bacteria (NONE TO FEW) /HPF 10/23/17 10/23/17 10/23/17 Range/Units 13:50 13:50 14:45 WBC (4.0-10.2) K/uL RBC (3.77-5.09) M/uL Hgb (11.7-15.5) g/dL Hct (34.0-46.0) % MCV (84.0-98.0) fL MCH (28.2-33.3) pg MCHC (31.7-36.0) g/dL RDW (11.2-14.1) % Plt Count (150-350) K/uL Neut % (Auto) (45.0-80.0) % Lymph % (Auto) (10.0-50.0) % [place] % (Auto) (2.0-14.0) % Eos % (Auto) (0.0-5.0) % Baso % (Auto) (0.0-2.0) % Neut # (Auto) (1.40-7.00) K/uL Lymph # (Auto) (0.50-3.50) K/uL [place] # (Auto) (0.00-1.00) K/uL Eos # (Auto) (0.00-0.50) K/uL Baso # (Auto) (0.00-0.20) K/uL PT (9.8-11.7) SEC INR APTT (22.1-29.8) SEC D-Dimer, Quantitative (0-400) ng/mL Sodium 142 (136-145) mmol/L Potassium 3.5 D (3.5-5.1) mmol/L Chloride 106 D (98-107) mmol/L Carbon Dioxide 30.9 (21.0-32.0) mmol/L BUN 12 (7-18) mg/dL Creatinine 0.70 (0.51-1.17) mg/dL Est Cr Clr Drug Dosing 44.51 mL/min Estimated GFR (MDRD) > 60 mL/min Glucose 99 (74-106) mg/dL Lactic Acid 0.9 (0.4-2.0) mmol/L Uric Acid 3.3 (2.6-7.2) mg/dL Calcium 8.5 (8.5-10.1) mg/dL Magnesium 2.1 (1.8-2.4) mg/dL Total Bilirubin 0.6 (0.2-1.0) mg/dL AST 40 H (15-37) U/L ALT 35 (12-78) U/L Alkaline Phosphatase 75 (46-116) IU/L Creatine Kinase 216 (26-308) U/L Creatine Kinase Index 2.0 (0.0-2.5) % CK-MB (CK-2) 4.30 H (0.00-3.60) ng/mL Troponin I 0.000 (0.000-0.056) ng/mL NT-Pro-B Natriuret Pep 3330 H (0-125) pg/mL Total Protein 7.7 (6.4-8.2) g/dL Albumin 3.5 (3.4-5.0) g/dL TSH, Ultra Sensitive 2.661 (0.358-3.740) mIU/mL Specimen Type Urinvoid Urine Color Yellow Urine Appearance Clear Urine pH 7.5 (5.0-9.0) Ur Specific [place] 1.015 (1.005-1.030) Urine Protein 30 H (NEGATIVE) mg/dL Urine Glucose (UA) Negative (NEGATIVE) mg/dL Urine Ketones Negative (NEGATIVE) mg/dL Urine Occult Blood Negative (NEGATIVE) Urine Nitrite Negative (NEGATIVE) Urine Bilirubin Negative (NEGATIVE) Urine Urobilinogen 0.2 (0.2-1.0) E.U./dL Ur Leukocyte Esterase Negative (NEGATIVE) Urine RBC 0-5 /HPF Urine WBC 0-5 /HPF Ur Epithelial Cells Few /LPF Urine Bacteria Rare (NONE TO FEW) /HPF Urine specimen set up for culture and sensitivity Meds: Medications Generic Name Dose Route Start Last Admin Trade Name Latasha PRN Reason Stop Dose Admin Sodium Chloride 10 ml 10/23/17 13:42 10/23/17 14:58 Saline Flush FLUSH 10 ml ASDIRECTED PRN Administration Keep Vein Open Discontinued Medications Generic Name Dose Route Start Last Admin Trade Name Latasha PRN Reason Stop Dose Admin Aspirin 324 mg 10/23/17 13:42 10/23/17 13:56 Aspirin CHEW 10/23/17 13:43 324 mg ONETIME ONE Administration Famotidine 40 mg 10/23/17 13:42 10/23/17 13:56 Pepcid IVPUSH 10/23/17 13:43 40 mg ONETIME ONE Administration Furosemide 60 mg 10/23/17 14:48 10/23/17 14:56 Lasix IVPUSH 10/23/17 14:49 60 mg NOW ONE Administration Ticagrelor 180 mg 10/23/17 13:42 10/23/17 13:56 Brilinta PO 10/23/17 13:43 180 mg ONETIME ONE Administration - Radiology Interpretation Free Text/Narrative:: 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 Note status post medial sternotomy. Additional moderate COPD changes with no pneumothorax, pulmonary infiltrates, etc. Departure - Departure Time of Disposition: 15:40 Disposition: Admitted As Inpatient 66 Condition: Fair Clinical Impression: D-dimer, elevated, IDDM (insulin dependent diabetes mellitus), Peptic reflux disease CHF (congestive heart failure) Qualifiers: Heart failure type: combined systolic and diastolic Heart failure chronicity: acute on chronic Qualified Code(s): I50.43 - Acute on chronic combined systolic (congestive) and diastolic (congestive) heart failure Anemia Qualifiers: Anemia type: iron deficiency Iron deficiency anemia type: other iron deficiency Qualified Code(s): D50.8 - Other iron deficiency anemias Coronary artery disease Qualifiers: Coronary Disease-Associated Artery/Lesion type: bypass graft, autologous artery Associated angina: without angina Qualified Code(s): I25.810 - Atherosclerosis of coronary artery bypass graft(s) without angina pectoris Hypertension Qualifiers: Hypertension type: essential hypertension Qualified Code(s): I10 - Essential ( primary) hypertension Osteoarthritis Qualifiers: Osteoarthritis location: multiple joints Osteoarthritis type: primary Qualified Code(s): M15.0 - Primary generalized (osteo)arthritis Hyperlipidemia Qualifiers: Hyperlipidemia type: pure hypercholesterolemia Qualified Code(s): E78.00 - Pure hypercholesterolemia, unspecified - Discharge Information - Problem List & Annotations (1) CHF (congestive heart failure) SNOMED Code(s): 11958367 Code(s): I50.9 - HEART FAILURE, UNSPECIFIED Status: Acute Priority: High Current Visit: No Annotation/Comment:: No chest pain or anginal type symptoms as below. Note elevated CK-MB with normal cardiac index. Significant BNP and d-dimer elevation with long history of chronic d-dimer elevation in the past with negative workup as above. Secondary to no code status echocardiogram will not be repeated at this time. High-dose IV Lasix therapy was initiated in the emergency room. Qualifiers: Qualified Code(s): I50.9 - Heart failure, unspecified (2) Coronary artery disease SNOMED Code(s): 11737718 Code(s): I25.10 - ATHSCL HEART DISEASE OF [place] CORONARY ARTERY W/O ANG PCTRS Status: Chronic Priority: High Current Visit: Yes Annotation/ Comment:: No true chest pain or anginal type symptoms, although chest pain protocol was initiated in the emergency room secondary to patient's significant cardiac history as above and exacerbation of her chronic CHF. She is requesting a no code for now, although she does agree to possible transfer to [facility] for further cardiac evaluation, surgery, etc.. Initiate standard rule out [place] orders. Qualifiers: Coronary Disease-Associated Artery/Lesion type: bypass graft, autologous artery Associated angina: without angina Qualified Code(s): I25.810 - Atherosclerosis of coronary artery bypass graft(s) without angina pectoris (3) Hypertension SNOMED Code(s): 88566555 Code(s): I10 - ESSENTIAL (PRIMARY) HYPERTENSION Status: Chronic Priority : High Current Visit: Yes Annotation/Comment:: Blood pressures are stable in the emergency room. Continue to observe closely secondary to IV Lasix therapy. Despite history of previous distant CVA no neurological deficits, etc. Qualifiers: Hypertension type: essential hypertension Qualified Code(s): I10 - Essential (primary) hypertension (4) Peptic reflux disease SNOMED Code(s): 578078888 Code(s): K21.9 - GASTRO-ESOPHAGEAL REFLUX DISEASE WITHOUT ESOPHAGITIS Status: Chronic Priority: Medium Current Visit: Yes Annotation/Comment:: Stable by history. Note progressive microcytic anemia as above, however. H. pylori was negative during hospitalization in July 2016. High-dose IV Pepcid given as GI prophylaxis in the emergency room with no evidence of acute GI bleed. H. pylori during this hospitalization Note chronic anemia with history of iron and B-12 deficiency. Iron studies to be conducted in the a.m. Patient denies medication noncompliance. (5) Osteoarthritis SNOMED Code(s): 674107724 Code(s): M19.90 - UNSPECIFIED OSTEOARTHRITIS, UNSPECIFIED SITE Status: Chronic Priority: Low Current Visit: Yes Annotation/Comment:: Stable by patient history with history of both rheumatoid arthritis and gout. Uric acid normal today. 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 Glycosylated hemoglobin in the a.m. (7) Hyperlipidemia SNOMED Code(s): 65912593 Code(s): E78.5 - HYPERLIPIDEMIA, UNSPECIFIED Status: Chronic Priority: Low Current Visit: Yes Annotation/Comment:: Currently under therapy. Lipid panel in the a.m. Qualifiers: Hyperlipidemia type: pure hypercholesterolemia Qualified Code(s): E78.00 - Pure hypercholesterolemia, unspecified; E78.0 - Pure hypercholesterolemia (8) Hypothyroidism SNOMED Code(s): 88262345 Code(s): E03.9 - HYPOTHYROIDISM, UNSPECIFIED Status: Chronic Priority: Medium Current Visit: No Annotation/Comment:: TSH normal today. Qualifiers: Hypothyroidism type: acquired Qualified Code(s): E03.9 - Hypothyroidism, unspecified (9) D-dimer, elevated SNOMED Code(s): 593860880 Code(s): R79.89 - OTHER SPECIFIED ABNORMAL FINDINGS OF BLOOD CHEMISTRY Status: Chronic Priority: High Current Visit: Yes Annotation/Comment:: Chronic D-dimer elevation with previous negative extensive workup as below. Consider repeat venous Doppler studies of the lower extremities and CTAs of the chest depending on her clinical course as below. No clinical evidence of DVT or PE with low-dose subcutaneous Lovenox to be started secondary to her progressive anemia as above. (10) Anemia SNOMED Code(s): 465686762 Code(s): D64.9 - ANEMIA, UNSPECIFIED Status: Chronic Priority: Medium Current Visit: Yes Annotation/Comment:: As above Qualifiers: Anemia type: iron deficiency Iron deficiency anemia type: other iron deficiency Qualified Code(s): D50.8 - Other iron deficiency anemias - Problem List Review Problem List Initiated/Reviewed/Updated: Yes - My Orders Last 24 Hours: My Active Orders 10/23/17 13:42 Cardiac Monitoring [RC] . DIRECTED EKG Documentation Completion [RC] ASDIRECTED Oxygen Therapy, ED [RC] CONTINUOUS Peripheral IV Care [RC] . DIRECTED Pulse Oximetry [RC] CONTINUOUS Up With Assistance [RC] PFP Vital Signs [RC] PFP Chest 1V Frontal [CR] Stat Sodium Chloride 0.9% [Saline Flush] 10 ml FLUSH ASDIRECTED PRN Obtain Past Medical Record [OM.PC] Urgent Peripheral IV Insertion Adult [OM.PC] Stat Resuscitation Status Stat EKG 12 Lead [EK] Stat 10/23/17 14:45 UA W/MICROSCOPIC [URIN] Stat 10/23/17 Breakfast Nothing per Oral Now Diet [DIET] - Assessment/Plan Last 24 Hours: My Active Orders 10/23/17 13:42 Cardiac Monitoring [RC] . DIRECTED EKG Documentation Completion [RC] ASDIRECTED Oxygen Therapy, ED [RC] CONTINUOUS Peripheral IV Care [RC] . DIRECTED Pulse Oximetry [RC] CONTINUOUS Up With Assistance [RC] PFP Vital Signs [RC] PFP Chest 1V Frontal [CR] Stat Sodium Chloride 0.9% [Saline Flush] 10 ml FLUSH ASDIRECTED PRN Obtain Past Medical Record [OM.PC] Urgent Peripheral IV Insertion Adult [OM.PC] Stat Resuscitation Status Stat EKG 12 Lead [EK] Stat 10/23/17 14:45 UA W/MICROSCOPIC [URIN] Stat 10/23/17 Breakfast Nothing per Oral Now Diet [DIET] Assessment:: As above Plan: As above. Extensive precautions were given to the patient, who is in agreement with the treatment plan. The patient will require about 3-4 days of inpatient/ acute care secondary to multiple health problems as above. [facility] saxena physician assumes care in the a.m..
[2017-10-23] MEDS: Sodium Chloride 0.9% 10 ML Syringe FLUSH PRN ×2 (14:05→14:58)
[2017-10-23 14:40] LABS: CHLORIDE,CL 106 mmol/L (98-107); SODIUM,NA 142 mmol/L (136-145)
[2017-10-23] MEDS ORDERED: Furosemide 40 MG/4 ML VIAL IVPUSH ONE (14:48)
[2017-10-23] MEDS ORDERED: Albuterol/Ipratropium 3.0-0.5 MG/3 ML Neb Soln NEB PRN (16:50)
[2017-10-23] MEDS ORDERED: Albuterol 0.083% 2.5 MG/3 ML Neb Soln INH PRN (16:50)
[2017-10-23] MEDS ORDERED: Acetaminophen 325 MG Tab PO PRN (16:51)
[2017-10-23] MEDS ORDERED: Temazepam 15 MG Cap PO PRN (16:51)
[2017-10-23] MEDS ORDERED: Sodium Chloride 0.9% 10 ML Syringe FLUSH PRN (16:51)
[2017-10-23] MEDS: Potassium Chloride 20 MEQ Tab.ER PO SCH (17:40)
[2017-10-23] MEDS: rOPINIRole 1 MG Tab PO SCH (17:41)
[2017-10-23] MEDS: Gabapentin 100 MG Cap PO SCH (17:41)
[2017-10-23] MEDS: Isosorbide Mononitrate 30 MG Tab.ER PO SCH (17:42)
[2017-10-23] MEDS: Carvedilol 12.5 MG Tab PO SCH (17:42)
[2017-10-23] MEDS ORDERED: Enoxaparin 40 MG/0.4 ML Syringe SUBCUT SCH ×2 (18:00→20:00)
[2017-10-23] MEDS ORDERED: Oxybutynin 5 MG Tab PO SCH (20:00)
[2017-10-23] MEDS: Allopurinol 100 MG Tab PO SCH (20:15)
[2017-10-23] MEDS: atorvaSTATin 40 MG Tab PO SCH (20:15)
[2017-10-23] MEDS: Oxybutynin 5 MG Tab.ER PO SCH (20:26)
[2017-10-23] MEDS: Furosemide 40 MG/4 ML VIAL IVPUSH SCH (21:57)
[2017-10-24] MEDS: Sodium Chloride 0.9% 10 ML Syringe FLUSH PRN (05:50)
[2017-10-24] MEDS: Furosemide 40 MG/4 ML VIAL IVPUSH SCH ×2 (05:50→14:31)
[2017-10-24] MEDS: Levothyroxine 112 MCG Tab PO SCH (07:36)
[2017-10-24] MEDS: Potassium Chloride 20 MEQ Tab.ER PO SCH ×3 (07:42→17:02)
[2017-10-24] MEDS: Carvedilol 12.5 MG Tab PO SCH ×2 (07:43→17:02)
[2017-10-24] MEDS: Gabapentin 100 MG Cap PO SCH ×2 (07:43→17:02)
[2017-10-24] MEDS: Lactobacillus Rhamnosus GG (Probiotic) Cap PO SCH (07:43)
[2017-10-24] MEDS: Citalopram 20 MG Tab PO SCH (07:43)
[2017-10-24] MEDS: amLODIPine 5 MG Tab PO SCH (07:43)
[2017-10-24] MEDS: Famotidine 20 MG Tab PO SCH (07:43)
[2017-10-24] MEDS: rOPINIRole 1 MG Tab PO SCH ×3 (07:43→17:02)
[2017-10-24] MEDS: Spironolactone 25 MG Tab PO SCH (07:45)
[2017-10-24] MEDS ORDERED: Aspirin 81 MG Tab.EC PO SCH (08:00)
[2017-10-24] MEDS ORDERED: Insulin Detemir 100 Units/ML 3 ML Pen SUBCUT SCH ×2 (08:00→20:00)
[2017-10-24 08:04] LABS: CHLORIDE,CL 102 mmol/L (98-107); SODIUM,NA 140 mmol/L (136-145)
[2017-10-24] MEDS ORDERED: Potassium Chloride 20 MEQ Tab.ER PO ONE ×2 (08:31→16:18)
[2017-10-24] MEDS: Iron Polysaccharides Complex 150 MG Cap PO SCH ×2 (12:17→17:02)
--- NOTE | 2017-10-24 15:28 | PCM.PN ---
- General Info Date of Service: 10/24/17 Admission Dx/Problem (Free Text): Patient presented to ER with increasing SOB. Admitted for CHF exacerbation. Subjective Update: Patient feels well, "back to normal". No acute complaints. Functional Status: Reports: Pain Controlled, Tolerating Diet, Ambulating, Urinating. Denies: New Symptoms - Review of Systems General: Reports: No Symptoms. Denies: Fever, Weakness, Fatigue, Malaise, Night Sweats, Appetite HEENT: Reports: No Symptoms Pulmonary: Reports: No Symptoms. Denies: Shortness of Breath, Pleuritic Chest Pain, Cough, Sputum, Hemoptysis, Wheezing Cardiovascular: Reports: No Symptoms. Denies: Chest Pain, Palpitations, Lightheadedness Gastrointestinal: Reports: No Symptoms Genitourinary: Reports: No Symptoms Musculoskeletal: Reports: No Symptoms (no acute changes from baseline) Skin: Reports: No Symptoms Neurological: Reports: No Symptoms Psychiatric: Reports: No Symptoms - Patient Data Vitals - Most Recent: Last Vital Signs Temp 36.7 C 10/24/17 12:00 Pulse 59 L 10/24/17 12:00 Resp 20 10/24/17 12:00 BP 115/54 L 10/24/17 12:00 Pulse Ox 97 10/24/17 12:00 Weight - Most Recent: 69.967 kg I&O - Last 24 Hours: Intake & Output 10/24/17 10/24/17 10/24/17 06:59 14:59 22:59 Intake Total 100 Output Total 1300 650 Balance -1200 -650 Lab Results Last 24 Hours: Laboratory Results - last 24 hr 10/23/17 10/23/17 10/23/17 Range/Units 13:50 17:03 20:50 WBC (4.0-10.2) K/uL RBC (3.77-5.09) M/uL Hgb (11.7-15.5) g/dL Hct (34.0-46.0) % MCV (84.0-98.0) fL MCH (28.2-33.3) pg MCHC (31.7-36.0) g/dL RDW (11.2-14.1) % Plt Count (150-350) K/uL Neut % (Auto) (45.0-80.0) % Lymph % (Auto) (10.0-50.0) % [place] % (Auto) (2.0-14.0) % Eos % (Auto) (0.0-5.0) % Baso % (Auto) (0.0-2.0) % Neut # (Auto) (1.40-7.00) K/uL Lymph # (Auto) (0.50-3.50) K/uL [place] # (Auto) (0.00-1.00) K/uL Eos # (Auto) (0.00-0.50) K/uL Baso # (Auto) (0.00-0.20) K/uL D-Dimer, Quantitative (0-400) ng/mL Sodium (136-145) mmol/L Potassium (3.5-5.1) mmol/L Chloride (98-107) mmol/L Carbon Dioxide (21.0-32.0) mmol/L BUN (7-18) mg/dL Creatinine (0.51-1.17) mg/dL Est Cr Clr Drug Dosing mL/min Estimated GFR (MDRD) mL/min Glucose (74-106) mg/dL POC Glucose 86 (65-110) mg/dl Hemoglobin A1c (4.3-5.7) % Calcium (8.5-10.1) mg/dL Iron 38 L (50-175) ug/dL TIBC 474 H (250-450) ug/dL % Saturation [id number] Ferritin 20 (8-388) ng/mL Total Bilirubin (0.2-1.0) mg/dL AST (15-37) U/L ALT (12-78) U/L Alkaline Phosphatase (46-116) IU/L Creatine Kinase 184 (26-308) U/L Creatine Kinase Index 1.8 (0.0-2.5) % CK-MB (CK-2) 3.30 (0.00-3.60) ng/mL Troponin I 0.000 (0.000-0.056) ng/mL NT-Pro-B Natriuret Pep (0-125) pg/mL Total Protein (6.4-8.2) g/dL Albumin (3.4-5.0) g/dL Triglycerides (30-150) mg/dL Cholesterol (100-200) mg/dL LDL Cholesterol, Calc (0-100) mg/dL HDL Cholesterol (40-60) mg/dL 10/24/17 10/24/17 10/24/17 Range/Units 06:50 06:50 06:50 WBC 7.3 (4.0-10.2) K/uL RBC 3.84 (3.77-5.09) M/uL Hgb 8.9 L (11.7-15.5) g/dL Hct 28.9 L (34.0-46.0) % MCV 75.3 L (84.0-98.0) fL MCH 23.2 L (28.2-33.3) pg MCHC 30.8 L (31.7-36.0) g/dL RDW 17.3 H (11.2-14.1) % Plt Count 220 (150-350) K/uL Neut % (Auto) 74.1 (45.0-80.0) % Lymph % (Auto) 8.5 L (10.0-50.0) % [place] % (Auto) 12.4 (2.0-14.0) % Eos % (Auto) 4.2 (0.0-5.0) % Baso % (Auto) 0.8 (0.0-2.0) % Neut # (Auto) 5.41 (1.40-7.00) K/uL Lymph # (Auto) 0.62 (0.50-3.50) K/uL [place] # (Auto) 0.91 (0.00-1.00) K/uL Eos # (Auto) 0.31 (0.00-0.50) K/uL Baso # (Auto) 0.06 (0.00-0.20) K/uL D-Dimer, Quantitative 1320 H (0-400) ng/mL Sodium 140 (136-145) mmol/L Potassium 3.0 L (3.5-5.1) mmol/L Chloride 102 (98-107) mmol/L Carbon Dioxide 31.2 (21.0-32.0) mmol/L BUN 11 (7-18) mg/dL Creatinine 0.73 (0.51-1.17) mg/dL Est Cr Clr Drug Dosing 42.68 mL/min Estimated GFR (MDRD) > 60 mL/min Glucose 190 H (74-106) mg/dL POC Glucose (65-110) mg/dl Hemoglobin A1c (4.3-5.7) % Calcium 8.7 (8.5-10.1) mg/dL Iron (50-175) ug/dL TIBC (250-450) ug/dL % Saturation Ferritin (8-388) ng/mL Total Bilirubin 0.8 (0.2-1.0) mg/dL AST 34 (15-37) U/L ALT 32 (12-78) U/L Alkaline Phosphatase 70 (46-116) IU/L Creatine Kinase 137 (26-308) U/L Creatine Kinase Index 1.7 (0.0-2.5) % CK-MB (CK-2) 2.30 (0.00-3.60) ng/mL Troponin I 0.000 (0.000-0.056) ng/mL NT-Pro-B Natriuret Pep 2292 H (0-125) pg/mL Total Protein 7.1 (6.4-8.2) g/dL Albumin 3.3 L (3.4-5.0) g/dL Triglycerides 89 (30-150) mg/dL Cholesterol 93 L (100-200) mg/dL LDL Cholesterol, Calc 30 (0-100) mg/dL HDL Cholesterol 45 (40-60) mg/dL 05/25/18 Range/Units 06:50 WBC (4.0-10.2) K/uL RBC (3.77-5.09) M/uL Hgb (11.7-15.5) g/dL Hct (34.0-46.0) % MCV (84.0-98.0) fL MCH (28.2-33.3) pg MCHC (31.7-36.0) g/dL RDW (11.2-14.1) % Plt Count (150-350) K/uL Neut % (Auto) (45.0-80.0) % Lymph % (Auto) (10.0-50.0) % [place] % (Auto) (2.0-14.0) % Eos % (Auto) (0.0-5.0) % Baso % (Auto) (0.0-2.0) % Neut # (Auto) (1.40-7.00) K/uL Lymph # (Auto) (0.50-3.50) K/uL [place] # (Auto) (0.00-1.00) K/uL Eos # (Auto) (0.00-0.50) K/uL Baso # (Auto) (0.00-0.20) K/uL D-Dimer, Quantitative (0-400) ng/mL Sodium (136-145) mmol/L Potassium (3.5-5.1) mmol/L Chloride (98-107) mmol/L Carbon Dioxide (21.0-32.0) mmol/L BUN (7-18) mg/dL Creatinine (0.51-1.17) mg/dL Est Cr Clr Drug Dosing mL/min Estimated GFR (MDRD) mL/min Glucose (74-106) mg/dL POC Glucose (65-110) mg/dl Hemoglobin A1c 6.7 H (4.3-5.7) % Calcium (8.5-10.1) mg/dL Iron (50-175) ug/dL TIBC (250-450) ug/dL % Saturation Ferritin (8-388) ng/mL Total Bilirubin (0.2-1.0) mg/dL AST (15-37) U/L ALT (12-78) U/L Alkaline Phosphatase (46-116) IU/L Creatine Kinase (26-308) U/L Creatine Kinase Index (0.0-2.5) % CK-MB (CK-2) (0.00-3.60) ng/mL Troponin I (0.000-0.056) ng/mL NT-Pro-B Natriuret Pep (0-125) pg/mL Total Protein (6.4-8.2) g/dL Albumin (3.4-5.0) g/dL Triglycerides (30-150) mg/dL Cholesterol (100-200) mg/dL LDL Cholesterol, Calc (0-100) mg/dL HDL Cholesterol (40-60) mg/dL [place] Results Last 24 Hours: Microbiology 10/24/17 08:32 Stool Occult Blood (ROBERTO) - Final Stool / Feces 10/23/17 13:50 Stool Occult Blood (ROBERTO) - Final Stool / Feces Med Orders - Current: Current Medications Acetaminophen (Tylenol) 650 mg PO Q4H PRN PRN Reason: Pain Albuterol (Proventil Neb Soln) 2.5 mg INH Q2H PRN PRN Reason: SHORTNESS OF BREATH Albuterol/Ipratropium (Duoneb 3.0-0.5 Mg/3 Ml) 3 ml NEB Q4HRRT PRN PRN Reason: Dyspnea Allopurinol (Zyloprim) 150 mg PO BEDTIME [facility] Last Admin: 10/23/17 20:15 Dose: 150 mg Amlodipine Besylate (Norvasc) 10 mg PO DAILY [facility] Last Admin: 10/24/17 07:43 Dose: 10 mg Aspirin (Halfprin) 81 mg PO BRK [facility] Last Admin: 10/24/17 07:45 Dose: 81 mg Atorvastatin Calcium (Lipitor) 40 mg PO BEDTIME [facility] Last Admin: 10/23/17 20:15 Dose: 40 mg Carvedilol (Coreg) 12.5 mg PO BID [facility] Last Admin: 10/24/17 07:43 Dose: 12.5 mg Citalopram Hydrobromide (Celexa) 10 mg PO DAILY [facility] Last Admin: 10/24/17 07:43 Dose: 10 mg Enoxaparin Sodium (Lovenox) 40 mg SUBCUT Q24H [facility] Last Admin: 10/23/17 20:27 Dose: 40 mg Famotidine (Pepcid) 20 mg PO DAILY [facility] Last Admin: 10/24/17 07:43 Dose: 20 mg Furosemide (Lasix) 40 mg IVPUSH Q8H [facility] Last Admin: 10/24/17 14:31 Dose: Not Given Gabapentin (Neurontin) 200 mg PO BID [facility] Last Admin: 10/24/17 07:43 Dose: 200 mg Insulin Detemir (Levemir) 45 unit SUBCUT DAILY [facility] Last Admin: 10/24/17 08:38 Dose: Not Given Isosorbide Mononitrate (Imdur) 30 mg PO QPM [facility] Last Admin: 10/23/17 17:42 Dose: 30 mg Lactobacillus Rhamnosus (Culturelle) 1 cap PO DAILY [facility] Last Admin: 10/24/17 07:43 Dose: 1 cap Levothyroxine Sodium (Levothyroxine) 112 mcg PO ACBREAKFAST [facility] Last Admin: 10/24/17 07:36 Dose: 112 mcg Oxybutynin Chloride (Oxybutynin Er) 5 mg PO BEDTIME [facility] Last Admin: 10/23/17 20:26 Dose: 5 mg Polysaccharide Iron Complex (Ferrex 150) 150 mg PO BID [facility] Last Admin: 10/24/17 12:17 Dose: 150 mg Potassium Chloride (Klor-Con M20) 20 meq PO TID [facility] Last Admin: 10/24/17 11:38 Dose: 20 meq Ropinirole HCl (Requip) 2 mg PO TID [facility] Last Admin: 10/24/17 11:38 Dose: 2 mg Sodium Chloride (Saline Flush) 10 ml FLUSH ASDIRECTED PRN PRN Reason: Keep Vein Open Last Admin: 10/24/17 05:50 Dose: 10 ml Sodium Chloride (Saline Flush) 10 ml FLUSH Q12HR PRN PRN Reason: Keep Vein Open Last Admin: 10/23/17 21:58 Dose: 10 ml Spironolactone (Aldactone) 25 mg PO DAILY [facility] Last Admin: 10/24/17 07:45 Dose: 25 mg Temazepam (Restoril) 15 mg PO BEDTIME PRN PRN Reason: Insomnia Last Admin: 10/24/17 01:31 Dose: 15 mg Discontinued Medications Aspirin (Aspirin) 324 mg CHEW ONETIME ONE Stop: 10/23/17 13:43 Last Admin: 10/23/17 13:56 Dose: 324 mg Enoxaparin Sodium (Lovenox) 40 mg SUBCUT Q24H [facility] Last Admin: 10/23/17 20:27 Dose: Not Given Famotidine (Pepcid) 40 mg IVPUSH ONETIME ONE Stop: 10/23/17 13:43 Last Admin: 10/23/17 13:56 Dose: 40 mg Furosemide (Lasix) 60 mg IVPUSH NOW ONE Stop: 10/23/17 14:49 Last Admin: 10/23/17 14:56 Dose: 60 mg Oxybutynin Chloride (Oxybutynin) 5 mg PO BEDTIME [facility] Potassium Chloride (Klor-Con M20) 20 meq PO ONETIME ONE Stop: 10/24/17 08:32 Last Admin: 10/24/17 08:43 Dose: 20 meq Ticagrelor (Brilinta) 180 mg PO ONETIME ONE Stop: 10/23/17 13:43 Last Admin: 10/23/17 13:56 Dose: 180 mg - Exam Quality Assessment: Supplemental Oxygen General: Alert, Oriented, Cooperative, No Acute Distress HEENT: Pupils Equal, Pupils Reactive, EOMI, Mucous Membr. Moist/[place] Neck: Supple Lungs: Clear to Auscultation, Decreased Breath Sounds (throughout) Cardiovascular: Regular Rate, Regular Rhythm GI/Abdominal Exam: Normal Bowel Sounds, Soft, Non-Tender, No Distention (Female) Exam: Deferred Back Exam: No: CVA Tenderness (L), CVA Tenderness (R) Extremities: Non-Tender, Normal Capillary Refill, Pedal Edema (mild, bilateral) Peripheral Pulses: 2+: Radial (L), Radial (R) Skin: Warm, Dry Neurological: No New Focal Deficit Psy/Mental Status: Alert, Normal Affect, Normal Mood EKG INTERPRETATION EKG Date: 10/24/17 Time: 07:16 Rhythm: Other (1st degree AV block) Rate (Beats/Min): 67 [place]: LAD-Left [place] Deviation P-Wave: Present QRS: Wide (duration 136ms, nonspecific intraventricular block) ST-T: Normal QT: Normal Comparison: Change From Previous EKG (overall minimal change from yesterday. QRS duration 136ms today vs 120ms yesterday) - Problem List & Annotations (1) CHF (congestive heart failure) SNOMED Code(s): 82477020 Code(s): I50.9 - HEART FAILURE, UNSPECIFIED Status: Acute Priority: High Current Visit: Yes Annotation/Comment:: No chest pain or anginal type symptoms as below. Troponin as well as CKMB normal today. No acute changes on EKG suggesting acute ischemia. Significant BNP and d-dimer elevation with long history of chronic d-dimer elevation in the past with negative workups. Secondary to no code status echocardiogram will not be repeated at this time. (2) Hypokalemia SNOMED Code(s): 89862875 Code(s): E87.6 - HYPOKALEMIA Status: Acute Priority: High Current Visit : No Annotation/Comment:: Suspect acute drop noted today due to diuresis with Lasix. Will hold rest of IV lasix doses today (patient is feeling much better, diuresed approximately 8 pounds since admission) and recheck K in morning. Oral K given. (3) Positive occult stool blood test SNOMED Code(s): 56021823, 181938794 Code(s): R19.5 - OTHER FECAL ABNORMALITIES Status: Acute Priority: Medium Current Visit: Yes Annotation/Comment:: Noted to have two + screens for occult blood. No observed frankly bloody stools. Does have dark stools chronically which is attributed to supplemental Iron. Has had history of peptic ulcer in past. No GI complaints at this time. (4) Hypertension SNOMED Code(s): 69019505 Code(s): I10 - ESSENTIAL (PRIMARY) HYPERTENSION Status: Chronic Priority : High Current Visit: Yes Qualifiers: Hypertension type: essential hypertension Qualified Code(s): I10 - Essential (primary) hypertension Annotation/Comment:: Blood pressures have been stable. (5) Coronary artery disease SNOMED Code(s): 47717098 Code(s): I25.10 - ATHSCL HEART DISEASE OF [place] CORONARY ARTERY W/O ANG PCTRS Status: Chronic Priority: High Current Visit: Yes Qualifiers: Coronary Disease-Associated Artery/Lesion type: bypass graft, autologous artery Associated angina: without angina Qualified Code(s): I25.810 - Atherosclerosis of coronary artery bypass graft(s) without angina pectoris Annotation/Comment:: No true chest pain or anginal type symptoms, although chest pain protocol was initiated in the emergency room secondary to patient's significant cardiac history as above and exacerbation of her chronic CHF. She is requesting a no code for now, although she does agree to possible transfer to [place] for further cardiac evaluation, surgery, etc.. Initiate standard rule out [place] orders. (6) Peptic reflux disease SNOMED Code(s): 301298409 Code(s): K21.9 - GASTRO-ESOPHAGEAL REFLUX DISEASE WITHOUT ESOPHAGITIS Status: Chronic Priority: Medium Current Visit: Yes Annotation/Comment:: Stable by history. Noted to have two + occult blood stool screens since admission. Note progressive microcytic anemia as above, however. H. pylori was negative during hospitalization in July 2016. High-dose IV Pepcid given as GI prophylaxis in the emergency room with no evidence of acute GI bleed. H. pylori during this hospitalization Note chronic anemia with history of iron and B-12 deficiency. Iron studies show iron of 38, TIBC of 474. Patient denies medication noncompliance. (7) Osteoarthritis SNOMED Code(s): 213661119 Code(s): M19.90 - UNSPECIFIED OSTEOARTHRITIS, UNSPECIFIED SITE Status: Chronic Priority: Low Current Visit: Yes Qualifiers: Osteoarthritis location: multiple joints Osteoarthritis type: primary Qualified Code(s): M15.0 - Primary generalized (osteo)arthritis Annotation/Comment:: Stable by patient history with history of both rheumatoid arthritis and gout. Uric acid normal today. (8) IDDM (insulin dependent diabetes mellitus) SNOMED Code(s): 96922780 Code(s): E11.9 - TYPE 2 DIABETES MELLITUS WITHOUT COMPLICATIONS; Z79.4 - MUSIC [employer]NSHIP (CURRENT) USE OF INSULIN Status: Chronic Priority: Medium Current Visit: Yes Annotation/Comment:: Accu-Cheks at home are under good control by patient history. Glycosylated hemoglobin 6.7 (9) Hyperlipidemia SNOMED Code(s): 29452444 Code(s): E78.5 - HYPERLIPIDEMIA, UNSPECIFIED Status: Chronic Priority: Low Current Visit: Yes Qualifiers: Hyperlipidemia type: pure hypercholesterolemia Qualified Code(s): E78.00 - Pure hypercholesterolemia, unspecified; E78.0 - Pure hypercholesterolemia Annotation/Comment:: Currently under therapy. (10) Hypothyroidism SNOMED Code(s): 99505942 Code(s): E03.9 - HYPOTHYROIDISM, UNSPECIFIED Status: Chronic Priority: Medium Current Visit: No Qualifiers: Hypothyroidism type: acquired Qualified Code(s): E03.9 - Hypothyroidism, unspecified Annotation/Comment:: TSH normal (11) D-dimer, elevated SNOMED Code(s): 096083649 Code(s): R79.89 - OTHER SPECIFIED ABNORMAL FINDINGS OF BLOOD CHEMISTRY Status: Chronic Priority: High Current Visit: Yes Annotation/Comment:: Chronic D-dimer elevation with previous negative extensive workup as below. Consider repeat venous Doppler studies of the lower extremities and CTAs of the chest depending on her clinical course. No clinical evidence of DVT or PE. Patient currently feels well. SOB has resolved. Lovenox started yesterday was discontinued today secondary to + screenings for occult blood. (12) Anemia SNOMED Code(s): 619725419 Code(s): D64.9 - ANEMIA, UNSPECIFIED Status: Chronic Priority: Medium Current Visit: Yes Qualifiers: Anemia type: iron deficiency Iron deficiency anemia type: other iron deficiency Qualified Code(s): D50.8 - Other iron deficiency anemias Annotation/Comment:: As above - Problem List Review Problem List Initiated/Reviewed/Updated: Yes - My Orders Last 24 Hours: My Active Orders 10/24/17 08:32 Hemoccult [OCCULT BLOOD DIAGNOSTIC] [OP] Routine 10/25/17 05:11 Chest 2V [CR] AM - Assessment Assessment:: Patient feels much improved. DDimer still elevated however patient denies SOB/chest pain/leg pain and has long history of chronically elevated DDimers with history of unremarkable workups for such in the past. Can consider PE scan/leg US if clinical course warrants further investigation. Hypokalemia, likely secondary to diuresis to treat patients acute SOB complaint. Will hold further doses of IV lasix today and recheck K in morning. CHF exacerbation improving. + occult blood stool screens x2 Patient has avoiding some testing procedures in past, saying that her "heart couldn't take the anesthesia". Unknown at this time if she would be willing to undergo colonoscopy. Will d/c Lovenox and add Protonix to treatment regimen. HPylorie testing pending. Patient's Hgb was 9.1 yesterday, and is 8.9 today. Will continue to monitor. Anticipate possible discharge on Friday, two days from now, if potassium stabilizes and patient's respiratory complaints remain improved. Tentative followup appointment at [facility] scheduled for 1340pm on Friday next week. Patient would like to go home and is in agreement with the above plan. - Plan Plan:: as above
[2017-10-24] MEDS ORDERED: Pantoprazole 40 MG in Sodium Chloride 0.9% 100 ML IV SCH (16:30)
[2017-10-24] MEDS: Isosorbide Mononitrate 30 MG Tab.ER PO SCH (17:01)
[2017-10-24] MEDS: Allopurinol 100 MG Tab PO SCH (20:44)
[2017-10-24] MEDS: atorvaSTATin 40 MG Tab PO SCH (20:44)
[2017-10-24] MEDS: Oxybutynin 5 MG Tab.ER PO SCH (20:45)
[2017-10-24] MEDS: Pantoprazole 40 MG Vial IVPUSH SCH (20:47)
[2017-10-25] MEDS: Citalopram 20 MG Tab PO SCH (07:38)
[2017-10-25] MEDS: Lactobacillus Rhamnosus GG (Probiotic) Cap PO SCH (07:39)
[2017-10-25] MEDS: Levothyroxine 112 MCG Tab PO SCH (07:40)
[2017-10-25] MEDS: Famotidine 20 MG Tab PO SCH (07:41)
[2017-10-25] MEDS: Gabapentin 100 MG Cap PO SCH (07:41)
[2017-10-25] MEDS: Iron Polysaccharides Complex 150 MG Cap PO SCH (07:41)
[2017-10-25] MEDS: Spironolactone 25 MG Tab PO SCH (07:42)
[2017-10-25] MEDS: Potassium Chloride 20 MEQ Tab.ER PO SCH ×2 (07:42→11:02)
[2017-10-25] MEDS: rOPINIRole 1 MG Tab PO SCH ×2 (07:42→11:02)
[2017-10-25] MEDS: Furosemide 20 MG/2 ML VIAL IVPUSH SCH ×2 (07:43→09:42)
[2017-10-25] MEDS: Pantoprazole 40 MG Vial IVPUSH SCH ×2 (07:43→09:42)
[2017-10-25] MEDS: Sodium Chloride 0.9% 10 ML Syringe FLUSH PRN ×2 (07:45→07:48)
[2017-10-25 08:28] LABS: CHLORIDE,CL 103 mmol/L (98-107); SODIUM,NA 139 mmol/L (136-145)
[2017-10-25] MEDS: Carvedilol 12.5 MG Tab PO SCH (08:50)
[2017-10-25] MEDS: amLODIPine 5 MG Tab PO SCH (08:50)
[2017-10-25] MEDS ORDERED: Furosemide 20 MG Tab PO SCH ×2 (09:45→10:00)
[2017-10-25] MEDS ORDERED: Pantoprazole 40 MG Tab.CR PO SCH (09:47)
[2017-10-25 16:31] VITALS: BP 164/67
--- NOTE | 2017-10-25 16:35 | PCM.DCSUM1 ---
Discharge Summary - Hospital Course Brief History: Patient admitted for CHF exacerbation/SOB. Noted to have stools + for occult blood as well as slowly dropping HGB. - Discharge Data Discharge Date: 10/25/17 Discharge Disposition: DC/Tfer to Acute Hospital 02 Condition: Good - Discharge Diagnosis/Problem(s) (1) CHF (congestive heart failure) SNOMED Code(s): 35192008 ICD Code: I50.9 - HEART FAILURE, UNSPECIFIED Status: Acute Priority: High Current Visit: Yes Problem Details: No chest pain or anginal type symptoms as below. No acute changes on EKG suggesting acute ischemia. Significant BNP and d-dimer elevation with long history of chronic d-dimer elevation in the past with negative workups. Secondary to no code status echocardiogram will not be repeated at this time. (2) Hypokalemia SNOMED Code(s): 07256784 ICD Code: E87.6 - HYPOKALEMIA Status: Acute Priority: High Current Visit: No Problem Details: Improved today (3) Positive occult stool blood test SNOMED Code(s): 18112330, 539063609 ICD Code: R19.5 - OTHER FECAL ABNORMALITIES Status: Acute Priority: Medium Current Visit: Yes Problem Details: Noted to have three + screens for occult blood. No observed frankly bloody stools. Does have dark stools chronically which is attributed to supplemental Iron. Has had history of peptic ulcer in past. No GI complaints at this time. (4) Hypertension SNOMED Code(s): 68781645 ICD Code: I10 - ESSENTIAL (PRIMARY) HYPERTENSION Status: Chronic Priority : High Current Visit: Yes Problem Details: Blood pressures have been stable. Qualifiers: Hypertension type: essential hypertension Qualified Code(s): I10 - Essential (primary) hypertension (5) Coronary artery disease SNOMED Code(s): 93635767 ICD Code: I25.10 - ATHSCL HEART DISEASE OF [place] CORONARY ARTERY W/O ANG PCTRS Status: Chronic Priority: High Current Visit: Yes Problem Details : No true chest pain or anginal type symptoms, although chest pain protocol was initiated in the emergency room secondary to patient's significant cardiac history as above and exacerbation of her chronic CHF. She is requesting a no code for now, although she does agree to possible transfer to [place] for further cardiac evaluation, surgery, etc.. Initiate standard rule out SD orders. Qualifiers: Coronary Disease-Associated Artery/Lesion type: bypass graft, autologous artery Associated angina: without angina Qualified Code(s): I25.810 - Atherosclerosis of coronary artery bypass graft(s) without angina pectoris (6) Peptic reflux disease SNOMED Code(s): 747890107 ICD Code: K21.9 - GASTRO-ESOPHAGEAL REFLUX DISEASE WITHOUT ESOPHAGITIS Status: Chronic Priority: Medium Current Visit: Yes Problem Details: Stable by history. Noted to have three + occult blood stool screens since admission. Note progressive microcytic anemia as above, however. H. pylori was negative during hospitalization in July 2016. High-dose IV Pepcid given as GI prophylaxis in the emergency room with no evidence of acute GI bleed. H. pylori during this hospitalization Note chronic anemia with history of iron and B-12 deficiency. Iron studies show iron of 38, TIBC of 474. Patient denies medication noncompliance. (7) Osteoarthritis SNOMED Code(s): 930544707 ICD Code: M19.90 - UNSPECIFIED OSTEOARTHRITIS, UNSPECIFIED SITE Status: Chronic Priority: Low Current Visit: Yes Problem Details: Stable by patient history with history of both rheumatoid arthritis and gout. Uric acid normal today. Qualifiers: Osteoarthritis location: multiple joints Osteoarthritis type: primary Qualified Code(s): M15.0 - Primary generalized (osteo)arthritis (8) IDDM (insulin dependent diabetes mellitus) SNOMED Code(s): 73699283 ICD Code: E11.9 - TYPE 2 DIABETES MELLITUS WITHOUT COMPLICATIONS; Z79.4 - JAIL (CURRENT) USE OF INSULIN Status: Chronic Priority: Medium Current Visit: Yes Problem Details: Accu-Cheks at home are under good control by patient history. Glycosylated hemoglobin 6.7 (9) Hyperlipidemia SNOMED Code(s): 95256377 ICD Code: E78.5 - HYPERLIPIDEMIA, UNSPECIFIED Status: Chronic Priority: Low Current Visit: Yes Problem Details: Currently under therapy. Qualifiers: Hyperlipidemia type: pure hypercholesterolemia Qualified Code(s): E78.00 - Pure hypercholesterolemia, unspecified; E78.0 - Pure hypercholesterolemia (10) Hypothyroidism SNOMED Code(s): 59487792 ICD Code: E03.9 - HYPOTHYROIDISM, UNSPECIFIED Status: Chronic Priority: Medium Current Visit: No Problem Details: TSH normal Qualifiers: Hypothyroidism type: acquired Qualified Code(s): E03.9 - Hypothyroidism, unspecified (11) D-dimer, elevated SNOMED Code(s): 997959897 ICD Code: R79.89 - OTHER SPECIFIED ABNORMAL FINDINGS OF BLOOD CHEMISTRY Status: Chronic Priority: High Current Visit: Yes Problem Details: Chronic D-dimer elevation with previous negative extensive workup as below. Consider repeat venous Doppler studies of the lower extremities and CTAs of the chest depending on her clinical course. No clinical evidence of DVT or PE. Patient currently feels well. SOB has resolved. Lovenox started yesterday was discontinued today secondary to + screenings for occult blood. (12) Anemia SNOMED Code(s): 903109746 ICD Code: D64.9 - ANEMIA, UNSPECIFIED Status: Chronic Priority: Medium Current Visit: Yes Problem Details: Continues to experience decreasing Hgb levels. Today 8.2 IV site lost. Unable to obtain new IV site. Given that she may need possible blood transfusion if levels continue to drop, and that GI consult may be needed , plans for patient transfer to [place] arranged for continued care. Qualifiers: Anemia type: iron deficiency Iron deficiency anemia type: other iron deficiency Qualified Code(s): D50.8 - Other iron deficiency anemias - Discharge Plan Home Medications: Home Meds Allopurinol [Zyloprim] 150 mg PO BEDTIME 10/08/13 [History] Cyanocobalamin (Vitamin B-12) [Cyanocobalamin Injection] 1,000 mcg IJ Q60D 10/08 [History] Nitroglycerin [Nitrostat] 0.4 mg SL ASDIRECTED PRN 10/08/13 [History] atorvaSTATin Calcium [Atorvastatin Calcium] 40 mg PO BEDTIME 10/08/13 [History] Acetaminophen [Tylenol Extra Strength] 1 - 2 tab PO Q4H PRN 02/14/15 [History] Levothyroxine 112 mcg PO ACBREAKFAST 02/14/15 [History] Aspirin [Halfprin] 81 mg PO BRK 09/29/15 [History] Multivitamin with Minerals [Multiple Vitamin] 1 tab PO DAILY 09/29/15 [History] rOPINIRole [Requip] 2 mg PO TID 01/04/16 [History] Gabapentin [Neurontin] 200 mg PO BID 08/05/16 [History] LORazepam 0.5 mg PO BID PRN 08/05/16 [History] Isosorbide Mononitrate [Imdur] 30 mg PO QPM #30 tab.er 08/08/16 [Rx] Insulin Detemir [Levemir] 45 units SUBCUT DAILY 12/15/16 [History] Citalopram [Celexa] 10 mg PO DAILY 01/28/17 [History] Famotidine [Pepcid] 20 mg PO DAILY #30 tablet 03/13/17 [Rx] Iron Polysaccharides Complex [Ferrex 150] 150 mg PO BID 08/12/17 [History] Carvedilol [Coreg] 12.5 mg PO BID 08/22/17 [History] Spironolactone [Aldactone] 25 mg PO DAILY 08/22/17 [History] Albuterol [Ventolin HFA] 1 puff INH Q6HR PRN 10/23/17 [History] L.acidoph,Paracasei, B.lactis [Probiotic] 1 cap PO DAILY 10/23/17 [History] Oxybutynin [Oxybutynin ER] 5 mg PO BEDTIME 10/23/17 [History] amLODIPine Besylate [Norvasc] 10 mg PO DAILY 10/23/17 [History] Forms: ED Department Discharge Referrals: Kendra So MD [Primary Care Provider] - - Discharge Summary/Plan Comment DC Time >30 min.: No Discharge Summary/Plan Comment: Transfer to [facility] for further evaluation and care. Unable to re-establish IV access after failure of previous IV. Patient continues to have dropping Hgb. May require transfusion. May benefit from more extensive evaluation by GI for GI bleed. - General Info Date of Service: 10/25/17 Admission Dx/Problem (Free Text: Patient presented to ER with increasing SOB. Admitted for CHF exacerbation. Subjective Update: Patient feels well, "back to normal" except for feeling more fatigued than usual when ambulating. No acute complaints. Functional Status: Reports: Pain Controlled, Tolerating Diet, Ambulating, Urinating. Denies: New Symptoms - Review of Systems General: Reports: Weakness, Fatigue. Denies: Fever, Malaise, Chills, Night Sweats HEENT: Reports: Glasses Pulmonary: Reports: No Symptoms, Other (previous cough resolved after diuresis with Lasix after admission) Cardiovascular: Reports: No Symptoms. Denies: Chest Pain Gastrointestinal: Reports: Other (has chronically dark stools since taking iron supplements). Denies: Abdominal Pain, Diarrhea, Nausea Genitourinary: Reports: No Symptoms Musculoskeletal: Reports: No Symptoms (no acute changes) Skin: Reports: Bruising (from IV/IV attempts) Neurological: Reports: No Symptoms Psychiatric: Reports: No Symptoms - Patient Data Vitals - Most Recent: Last Vital Signs Temp 36.4 C 10/25/17 07:08 Pulse 60 10/25/17 08:50 Resp 18 10/25/17 07:08 BP 136/48 L 10/25/17 08:50 Pulse Ox 97 10/25/17 07:08 Weight - Most Recent: 69.445 kg I&O - Last 24 hours: Intake & Output 10/25/17 10/25/17 10/25/17 06:59 14:59 22:59 Intake Total 450 360 Output Total 350 1600 Balance 100 -1240 Lab Results - Last 24 hrs: Laboratory Results - last 24 hr 10/23/17 10/24/17 10/24/17 Range/Units 20:13 17:00 20:42 WBC (4.0-10.2) K/uL RBC (3.77-5.09) M/uL Hgb (11.7-15.5) g/dL Hct (34.0-46.0) % MCV (84.0-98.0) fL MCH (28.2-33.3) pg MCHC (31.7-36.0) g/dL RDW (11.2-14.1) % Plt Count (150-350) K/uL Neut % (Auto) (45.0-80.0) % Lymph % (Auto) (10.0-50.0) % [place] % (Auto) (2.0-14.0) % Eos % (Auto) (0.0-5.0) % Baso % (Auto) (0.0-2.0) % Neut # (Auto) (1.40-7.00) K/uL Lymph # (Auto) (0.50-3.50) K/uL [place] # (Auto) (0.00-1.00) K/uL Eos # (Auto) (0.00-0.50) K/uL Baso # (Auto) (0.00-0.20) K/uL Sodium (136-145) mmol/L Potassium (3.5-5.1) mmol/L Chloride (98-107) mmol/L Carbon Dioxide (21.0-32.0) mmol/L BUN (7-18) mg/dL Creatinine (0.51-1.17) mg/dL Est Cr Clr Drug Dosing mL/min Estimated GFR (MDRD) mL/min Glucose (74-106) mg/dL POC Glucose 116 H 118 H 165 H (65-110) mg/dl Calcium (8.5-10.1) mg/dL 10/25/17 10/25/17 10/25/17 Range/Units 07:07 07:25 07:25 WBC 7.3 (4.0-10.2) K/uL RBC 3.59 L (3.77-5.09) M/uL Hgb 8.2 L (11.7-15.5) g/dL Hct 27.1 L (34.0-46.0) % MCV 75.5 L (84.0-98.0) fL MCH 22.8 L (28.2-33.3) pg MCHC 30.3 L (31.7-36.0) g/dL RDW 17.1 H (11.2-14.1) % Plt Count 207 (150-350) K/uL Neut % (Auto) 69.8 (45.0-80.0) % Lymph % (Auto) 12.3 (10.0-50.0) % [place] % (Auto) 13.1 (2.0-14.0) % Eos % (Auto) 3.7 (0.0-5.0) % Baso % (Auto) 1.1 (0.0-2.0) % Neut # (Auto) 5.10 (1.40-7.00) K/uL Lymph # (Auto) 0.90 (0.50-3.50) K/uL [place] # (Auto) 0.96 (0.00-1.00) K/uL Eos # (Auto) 0.27 (0.00-0.50) K/uL Baso # (Auto) 0.08 (0.00-0.20) K/uL Sodium 139 (136-145) mmol/L Potassium 3.7 (3.5-5.1) mmol/L Chloride 103 (98-107) mmol/L Carbon Dioxide 30.7 (21.0-32.0) mmol/L BUN 10 (7-18) mg/dL Creatinine 0.70 (0.51-1.17) mg/dL Est Cr Clr Drug Dosing 44.51 mL/min Estimated GFR (MDRD) > 60 mL/min Glucose 101 (74-106) mg/dL POC Glucose 51 L (65-110) mg/dl Calcium 8.5 (8.5-10.1) mg/dL 10/25/17 Range/Units 11:05 WBC (4.0-10.2) K/uL RBC (3.77-5.09) M/uL Hgb (11.7-15.5) g/dL Hct (34.0-46.0) % MCV (84.0-98.0) fL MCH (28.2-33.3) pg MCHC (31.7-36.0) g/dL RDW (11.2-14.1) % Plt Count (150-350) K/uL Neut % (Auto) (45.0-80.0) % Lymph % (Auto) (10.0-50.0) % [place] % (Auto) (2.0-14.0) % Eos % (Auto) (0.0-5.0) % Baso % (Auto) (0.0-2.0) % Neut # (Auto) (1.40-7.00) K/uL Lymph # (Auto) (0.50-3.50) K/uL [place] # (Auto) (0.00-1.00) K/uL Eos # (Auto) (0.00-0.50) K/uL Baso # (Auto) (0.00-0.20) K/uL Sodium (136-145) mmol/L Potassium (3.5-5.1) mmol/L Chloride (98-107) mmol/L Carbon Dioxide (21.0-32.0) mmol/L BUN (7-18) mg/dL Creatinine (0.51-1.17) mg/dL Est Cr Clr Drug Dosing mL/min Estimated GFR (MDRD) mL/min Glucose (74-106) mg/dL POC Glucose 96 (65-110) mg/dl Calcium (8.5-10.1) mg/dL BRIANNA Results - Last 24 hrs: Microbiology 10/25/17 07:40 Stool Occult Blood (BRIANNA) - Final Stool / Feces Med Orders - Current: Current Medications Acetaminophen (Tylenol) 650 mg PO Q4H PRN PRN Reason: Pain Last Admin: 10/25/17 02:22 Dose: 650 mg Albuterol (Proventil Neb Soln) 2.5 mg INH Q2H PRN PRN Reason: SHORTNESS OF BREATH Albuterol/Ipratropium (Duoneb 3.0-0.5 Mg/3 Ml) 3 ml NEB Q4HRRT PRN PRN Reason: Dyspnea Allopurinol (Zyloprim) 150 mg PO BEDTIME [facility] Last Admin: 10/24/17 20:44 Dose: 150 mg Amlodipine Besylate (Norvasc) 10 mg PO DAILY [facility] Last Admin: 10/25/17 08:50 Dose: Not Given Atorvastatin Calcium (Lipitor) 40 mg PO BEDTIME [facility] Last Admin: 10/24/17 20:44 Dose: 40 mg Carvedilol (Coreg) 12.5 mg PO BID [facility] Last Admin: 10/25/17 08:50 Dose: Not Given Citalopram Hydrobromide (Celexa) 10 mg PO DAILY [facility] Last Admin: 10/25/17 07:38 Dose: 10 mg Famotidine (Pepcid) 20 mg PO DAILY [facility] Last Admin: 10/25/17 07:41 Dose: 20 mg Furosemide (Lasix) 20 mg PO DAILY [facility] Last Admin: 10/25/17 11:02 Dose: 20 mg Gabapentin (Neurontin) 200 mg PO BID [facility] Last Admin: 10/25/17 07:41 Dose: 200 mg Insulin Detemir (Levemir) 45 unit SUBCUT BEDTIME [facility] Last Admin: 10/24/17 20:45 Dose: 45 units Isosorbide Mononitrate (Imdur) 30 mg PO QPM [facility] Last Admin: 10/24/17 17:01 Dose: 30 mg Lactobacillus Rhamnosus (Culturelle) 1 cap PO DAILY [facility] Last Admin: 10/25/17 07:39 Dose: 1 cap Levothyroxine Sodium (Levothyroxine) 112 mcg PO ACBREAKFAST [facility] Last Admin: 10/25/17 07:40 Dose: 112 mcg Oxybutynin Chloride (Oxybutynin Er) 5 mg PO BEDTIME [facility] Last Admin: 10/24/17 20:45 Dose: 5 mg Pantoprazole Sodium (Protonix) 40 mg PO ACBREAKFAST [facility] Last Admin: 10/25/17 11:02 Dose: 40 mg Polysaccharide Iron Complex (Ferrex 150) 150 mg PO BID [facility] Last Admin: 10/25/17 07:41 Dose: 150 mg Potassium Chloride (Klor-Con M20) 20 meq PO TID [facility] Last Admin: 10/25/17 11:02 Dose: 20 meq Ropinirole HCl (Requip) 2 mg PO TID [facility] Last Admin: 10/25/17 11:02 Dose: 2 mg Sodium Chloride (Saline Flush) 10 ml FLUSH ASDIRECTED PRN PRN Reason: Keep Vein Open Last Admin: 10/25/17 07:48 Dose: 10 ml Sodium Chloride (Saline Flush) 10 ml FLUSH Q12HR PRN PRN Reason: Keep Vein Open Last Admin: 10/23/17 21:58 Dose: 10 ml Spironolactone (Aldactone) 25 mg PO DAILY [facility] Last Admin: 10/25/17 07:42 Dose: 25 mg Temazepam (Restoril) 15 mg PO BEDTIME PRN PRN Reason: Insomnia Last Admin: 10/24/17 01:31 Dose: 15 mg Discontinued Medications Aspirin (Aspirin) 324 mg CHEW ONETIME ONE Stop: 10/23/17 13:43 Last Admin: 10/23/17 13:56 Dose: 324 mg Aspirin (Halfprin) 81 mg PO BRK [facility] Last Admin: 10/24/17 07:45 Dose: 81 mg Enoxaparin Sodium (Lovenox) 40 mg SUBCUT Q24H [facility] Last Admin: 10/23/17 20:27 Dose: Not Given Enoxaparin Sodium (Lovenox) 40 mg SUBCUT Q24H [facility] Last Admin: 10/23/17 20:27 Dose: 40 mg Famotidine (Pepcid) 40 mg IVPUSH ONETIME ONE Stop: 10/23/17 13:43 Last Admin: 10/23/17 13:56 Dose: 40 mg Furosemide (Lasix) 60 mg IVPUSH NOW ONE Stop: 10/23/17 14:49 Last Admin: 10/23/17 14:56 Dose: 60 mg Furosemide (Lasix) 40 mg IVPUSH Q8H [facility] Last Admin: 10/24/17 14:31 Dose: Not Given Furosemide (Lasix) 20 mg IVPUSH DAILY [facility] Last Admin: 10/25/17 09:42 Dose: Not Given Furosemide (Lasix) 20 mg PO DAILY [facility] Insulin Detemir (Levemir) 45 unit SUBCUT DAILY [facility] Last Admin: 10/24/17 08:38 Dose: Not Given Oxybutynin Chloride (Oxybutynin) 5 mg PO BEDTIME [facility] Pantoprazole Sodium (Protonix Iv) 40 mg IVPUSH Q12HR [facility] Last Admin: 10/25/17 09:42 Dose: Not Given Potassium Chloride (Klor-Con M20) 20 meq PO ONETIME ONE Stop: 10/24/17 08:32 Last Admin: 10/24/17 08:43 Dose: 20 meq Potassium Chloride (Klor-Con M20) 40 meq PO ONETIME ONE Stop: 10/24/17 16:19 Last Admin: 10/24/17 16:35 Dose: Not Given Ticagrelor (Brilinta) 180 mg PO ONETIME ONE Stop: 10/23/17 13:43 Last Admin: 10/23/17 13:56 Dose: 180 mg - Exam Quality Assessment: Denies: Supplemental Oxygen General: Reports: Alert, Oriented, Cooperative, No Acute Distress HEENT: Reports: Pupils Equal, Pupils Reactive, EOMI, Mucous Membr. Moist/[place] Neck: Reports: Supple Lungs: Reports: Clear to Auscultation, Normal Respiratory Effort Cardiovascular: Reports: Regular Rate, Regular Rhythm, Murmurs (systolic ejection murmur) GI/Abdominal Exam: Normal Bowel Sounds, Soft, Non-Tender, No Distention (Female) Exam: Deferred Rectal (Female) Exam: Deferred Back Exam: Denies: CVA Tenderness (L), CVA Tenderness (R) Extremities: Non-Tender Skin: Reports: Warm, Dry, Intact Neurological: Reports: No New Focal Deficit Psy/Mental Status: Reports: Alert, Normal Affect, Normal Mood
== END 2017-10-25 16:50 | DRG 291 ==
LOC: LL.ED 13:39 → LL.MS 15:24 → UNDOADMIN 15:24 → LL.MS 15:30 → UNDODISIN 10-25 16:50
PROVIDERS: ADMIT Family Medicine; ATTEND Emergency Medicine
DX: I13.0 Hypertensive heart and chronic kidney disease with heart failure and stage 1 through stage 4 chronic kidney disease, or unspecified chronic kidney disease (principal); I50.43 Acute on chronic combined systolic (congestive) and diastolic (congestive) heart failure; I45.2 Bifascicular block; I69.351 Hemiplegia and hemiparesis following cerebral infarction affecting right dominant side; K92.1 Melena; R79.1 Abnormal coagulation profile; I25.10 Atherosclerotic heart disease of native coronary artery without angina pectoris; I42.9 Cardiomyopathy, unspecified; E78.00 Pure hypercholesterolemia, unspecified; I73.9 Peripheral vascular disease, unspecified; I08.0 Rheumatic disorders of both mitral and aortic valves; I44.0 Atrioventricular block, first degree; E78.5 Hyperlipidemia, unspecified; I48.91 Unspecified atrial fibrillation; J44.9 Chronic obstructive pulmonary disease, unspecified; G47.30 Sleep apnea, unspecified; E11.22 Type 2 diabetes mellitus with diabetic chronic kidney disease; N18.9 Chronic kidney disease, unspecified; E11.21 Type 2 diabetes mellitus with diabetic nephropathy; M06.9 Rheumatoid arthritis, unspecified; E11.42 Type 2 diabetes mellitus with diabetic polyneuropathy; I69.322 Dysarthria following cerebral infarction; K40.90 Unilateral inguinal hernia, without obstruction or gangrene, not specified as recurrent; R32 Unspecified urinary incontinence; G89.29 Other chronic pain; M54.9 Dorsalgia, unspecified; G25.81 Restless legs syndrome; K59.09 Other constipation; K52.9 Noninfective gastroenteritis and colitis, unspecified; K57.90 Diverticulosis of intestine, part unspecified, without perforation or abscess without bleeding; E87.6 Hypokalemia; T50.2X5A Adverse effect of carbonic-anhydrase inhibitors, benzothiadiazides and other diuretics, initial encounter; K29.70 Gastritis, unspecified, without bleeding; K21.9 Gastro-esophageal reflux disease without esophagitis; D50.8 Other iron deficiency anemias; M79.7 Fibromyalgia; M10.9 Gout, unspecified; M54.2 Cervicalgia; M81.0 Age-related osteoporosis without current pathological fracture; F41.9 Anxiety disorder, unspecified; F32.9 Major depressive disorder, single episode, unspecified; R51 Headache; L30.9 Dermatitis, unspecified; I87.8 Other specified disorders of veins; J30.9 Allergic rhinitis, unspecified; E03.9 Hypothyroidism, unspecified; D51.3 Other dietary vitamin B12 deficiency anemia; H54.7 Unspecified visual loss; H91.90 Unspecified hearing loss, unspecified ear; M15.9 Polyosteoarthritis, unspecified; Z87.01 Personal history of pneumonia (recurrent); I25.2 Old myocardial infarction; Z95.5 Presence of coronary angioplasty implant and graft; Z95.1 Presence of aortocoronary bypass graft; Z98.84 Bariatric surgery status; Z90.49 Acquired absence of other specified parts of digestive tract; Z90.710 Acquired absence of both cervix and uterus; Z66 Do not resuscitate; Z51.5 Encounter for palliative care; Z88.8 Allergy status to other drugs, medicaments and biological substances; Z85.3 Personal history of malignant neoplasm of breast; Z85.828 Personal history of other malignant neoplasm of skin; Z90.13 Acquired absence of bilateral breasts and nipples; Z87.11 Personal history of peptic ulcer disease; Z86.010 Personal history of colon polyps; Z87.442 Personal history of urinary calculi; Z87.440 Personal history of urinary (tract) infections; Z79.82 Long term (current) use of aspirin; Z79.4 Long term (current) use of insulin; R60.9 Edema, unspecified; R06.02 Shortness of breath; R06.00 Dyspnea, unspecified; R06.01 Orthopnea; Z79.899 Other long term (current) drug therapy; Z92.21 Personal history of antineoplastic chemotherapy; Z98.1 Arthrodesis status
CPT/HCPCS: 36415; 71045; 80053; 81001; 82272; 82550; 82553; 82728; 83540; 83605; 83735; 83880; 84443; 84466; 84484; 84550; 85025; 85379; 85610; 85730; 87086; 99285; A9270 ×2; J1940; J7050 ×2; 71046; 80048; 80061; 82962; 83036; 83550; 87338; 93005; 96374; 96375; C9113; J1650; J1815-GY; S0028

== ENCOUNTER 2020-07-09 08:32 | Inpatient (IN) | payer MEDICARE, BC ==
[2020-07-09] MEDS ORDERED: Albuterol/Ipratropium 3.0-0.5 MG/3 ML Neb Soln NEB ONE (08:35)
[2020-07-09] MEDS ORDERED: cefTRIAXone 1 GM in Sodium Chloride 0.9% 100 ML IV ONE (09:19)
[2020-07-09] MEDS ORDERED: Azithromycin 250 MG Tab PO ONE (09:20)
--- NOTE | 2020-07-09 09:50 | EDM.PDOC ---
ED HPI GENERAL MEDICAL PROBLEM - General Chief Complaint: Respiratory Problem Stated Complaint: Shortness of Breath Time Seen by Provider: 07/09/20 08:45 Source of Information: Reports: Patient History Limitations: Reports: No Limitations - History of Present Illness INITIAL COMMENTS - FREE TEXT/NARRATIVE: Pt with increased SOB this AM Woke up at about 0200 with SOB No fever Was tested 2 days ago for Covid and was negative Has had both Covid vaccine shots and had Covid previously Did note some increased swelling in feet States she was treated for pneumonia about a month ago No cough Was given a HHN at the [facility] with some improvement RA sats 85% Sats on 2 L oxygen 87% Jason on 4 l oxygen 95% Onset: Today, Gradual Duration: Getting Worse Location: Reports: Chest - Related Data Allergies Allergy/AdvReac Type Severity Reaction Status Date / Time diphenhydramine Allergy Unknown Hallucinati Verified 07/09/20 09:32 ons lisinopril Allergy Unknown Cough Verified 07/09/20 09:32 Home Meds: Home Meds Nitroglycerin [Nitrostat] 0.4 mg SL ASDIRECTED PRN 10/08/13 [History] allopurinoL [Zyloprim] 150 mg PO BEDTIME 10/08/13 [History] Acetaminophen [Tylenol Extra Strength] 1 - 2 tab PO Q4H PRN 02/14/15 [History] Aspirin [Halfprin] 81 mg PO DAILY 09/29/15 [History] Multivitamin with Minerals [Multiple Vitamin] 1 tab PO DAILY@1200 09/29/15 [History] rOPINIRole [Requip] 2 mg PO BID@0800,1200 01/04/16 [History] Gabapentin [Neurontin] 200 mg PO QAM 08/05/16 [History] LORazepam 1 mg PO BEDTIME 08/05/16 [History] Insulin Detemir [Levemir] 36 units SUBCUT BID 12/15/16 [History] Iron Polysaccharides Complex [Ferrex 150] 150 mg PO BID@1200,1800 08/12/17 [History] carvediloL [Coreg] 12.5 mg PO BIDMEALS 08/22/17 [History] Albuterol [Ventolin HFA] 2 puff INH Q6H PRN 10/23/17 [History] L.acidoph,Paracasei, B.lactis [Probiotic] 1 cap PO DAILY@1200 10/23/17 [History] Oxybutynin [Oxybutynin ER] 5 mg PO BEDTIME 10/23/17 [History] amLODIPine Besylate [Norvasc] 5 mg PO BID 10/23/17 [History] Dextran 70/Hypromellose [Artificial Tears] 1 drop EYEBOTH BID 11/21/17 [History] Fluticasone Propionate [Flonase] 1 inhalation NASBOTH BID PRN 11/21/17 [History] Furosemide [Lasix] 40 mg PO BID@0800,1200 11/21/17 [History] Omeprazole 20 mg PO BIDAC 11/21/17 [History] Gabapentin [Neurontin] 300 mg PO BEDTIME 09/09/18 [History] Isosorbide Mononitrate [Imdur] 30 mg PO BEDTIME 09/09/18 [History] Levothyroxine [Synthroid] 100 mcg PO BEDTIME 09/09/18 [History] Spironolactone [Aldactone] 25 mg PO BID 09/09/18 [History] rOPINIRole [Requip] 3 mg PO BEDTIME 09/09/18 [History] Albuterol/Ipratropium [DuoNeb 3.0-0.5 MG/3 ML] 1 ampule INH Q6HR PRN 07/09/20 [History] Cholecalciferol (Vitamin D3) [Vitamin D3] 3,000 unit PO DAILY@1200 07/09/20 [History] Cyanocobalamin (Vitamin B12) [Vitamin B12] 1,000 mcg PO MO@1200 07/09/20 [His tory] DULoxetine HCl [Cymbalta] 30 mg PO DAILY 07/09/20 [History] Diclofenac Sodium [Voltaren 1% Gel] 1 applic TOP Q12HR PRN 07/09/20 [History] Gentamicin [Gentamicin 0.1%] 1 applic TOP Q12HR 07/09/20 [History] LORazepam [Ativan] 0.5 mg PO Q6HR PRN 07/09/20 [History] Loperamide HCl [Imodium A-D] 1 tab PO ASDIRECTED PRN 07/09/20 [History] Ubidecarenone [Co Q-10] 50 mg PO Q2D@1200 07/09/20 [History] atorvaSTATin Calcium [Atorvastatin Calcium] 40 mg PO BEDTIME 07/09/20 [History] Past Medical History HEENT History: Reports: Allergic Rhinitis, Cataract, Hard of Hearing, Impaired Vision, Other (See Below) Other HEENT History: Patient does wear glasses, she also has a hearing aide which she usually uses on her left side Cardiovascular History: Reports: Afib, Arrhythmia, Bypass, CAD, Cardiomyopathy, Heart Failure, Heart Murmur, High Cholesterol, Hypertension, MT, PTCA, PVD, Stents, Syncope, Other (See Below) Other Cardiovascular History: Moderate aortic valve insufficiency and calcification with additional mild aortic valve stenosis, severe mitral valve insufficiency, and grade 1 diastolic dysfunction with additional severe left atrial enlargement by echocardiogram on 08/05/16 with ejection fraction of 70%, PSVT, complete bifascicular bundle-branch block, PACs, PVCs, first degree AV block. 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 Chronic d-dimer elevation with negative workup as below. Dyslipidemia. Respiratory History: Reports: Bronchitis, Recurrent, COPD, Intubation, Previous, Pneumonia, Recurrent, Sleep Apnea, Other (See Below) Other Respiratory History: Sleep apnea with no current therapy including nocturnal O2, CPAP, etc. with additional history of restless leg syndrome Gastrointestinal History: Reports: Bowel Obstruction, Cholelithiasis, Chronic Constipation, Chronic Diarrhea, Colon Polyp, Diverticulosis, Gastritis, GERD, GI Bleed, Hemorrhoids, PUD, Other (See Below) Other Gastrointestinal History: benign adenomatous polyps, right inguinal hernia. Previous history of questionable dysphagia with negative swallowing studies as below Genitourinary History: Reports: Chronic Renal Insuffiency, Diabetic Nephropathy, Renal Calculus, Urinary Incontinence, UTI, Recurrent, Other (See Below) Other Genitourinary History: Right-sided urolithiasis requiring procedure as below, benign renal cysts MONOTYPE SETTER History: Reports: Dysfunctional Uterine Bleeding, Other MONOTYPE SETTER History: Surgical menopause secondary to dysfunctional uterine bleeding. Full term without complications during pregnancies or deliveries Musculoskeletal History: Reports: Arthritis, Back Pain, Chronic, Fibromyalgia, Gout, Neck Pain, Chronic, Osteoarthritis, Osteoporosis, RA, Other (See Below) Other Musculoskeletal History: Lumbar surgeries as below with history of spinal stenosis, severe degenerative disc disease, multiple lumbar lateral canal stenosis with additional scoliosis. Right John's cyst. Neurological History: Reports: Concussion, CVA, Headaches, Chronic, Head Trauma, Neuropathy, Diabetic, Neuropathy, Peripheral, Speech Problems, Other (See Below) Other Neuro History: Head concussion on 01/28/17. 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 Cerebral atrophy by CT scan. Restless leg syndrome. 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, right sided breast cancer with mastectomy in 2009 Dermatologic History: Reports: Venous Stasis Dermatitis, Other (See Below) Other Dermatologic History: dry skin - Infectious Disease History Infectious Disease History: Reports: Measles, Mumps - Past Surgical History Head Surgeries/Procedures: Reports: None HEENT Surgical History: Reports: Adenoidectomy, Cataract Surgery, Eye Surgery, Laser Surgery, LASIK, Oral Surgery, Tonsillectomy, Other (See Below) Other HEENT Surgeries/Procedures: Tonsillectomy and adenoidectomy at age 18, bilateral cataract surgery in 2008, with right sided YAG treatments after her cataracts with patient denying LASIK in 2008 despite medical records, complete upper teeth extraction with multiple lower teeth extraction Cardiovascular Surgical History: Reports: Coronary Artery Bypass, Coronary Artery Stent, Percutaneous Transluminal Angioplasty, Other (See Below) Other Cardiovascular Surgeries/Procedures: CABG x2 in April 2002 including internal mammary bypass to LAD and LEONARD to the diagonal artery, total of 7 PTCA/stents with last PTCA/stent x1 in 2014 GI Surgical History: Reports: Appendectomy, Bariatric Procedure, Cholecystectomy, Colonoscopy, EGD, Hernia, Abdominal, Polypectomy, Other (See Below) Other GI Surgeries/Procedures: Gastric bypass versus Billroth II with concomitant appendectomy and cholecystectomy in about 1980, last colonoscopy on 02/15/15 with a total of 5 previous evaluations, 3 previous EGDs last on 02/22/15 with previous evaluation on 03/14/14, previous hemorrhoidectomy x2 in the and Female Surgical History: Reports: Breast Biopsy, Hysterectomy, Kidney stone extraction, Mastectomy, Salpingo-Oophorectomy, Ureteral Stent Other Female Surgeries/Procedures: right partial mastectomy with chemotherapy secondary to breast cancer in 2009, complete hysterectomy including bilateral salpingo-oophorectomy secondary to dysfunctional uterine bleeding, subsequent bladder suspension, excision of right sided nephrolithiasis in about 1999 Neurological Surgical History: Reports: Discectomy, Lumbar Spine, Spinal Fusion, Thoracic Spine, Other (See Below) Other Neurological Surgeries/Procedures: Microdiscectomy his x2 with additional spinal fusion between L3 and L5 on 06/20/09 Musculoskeletal Surgical History: Reports: Carpal Tunnel, Other (See Below) Other Musculoskeletal Surgeries/Procedures:: Right-sided carpal tunnel release in about 1988 Oncologic Surgical History: Reports: Bone Marrow Aspiration, Other (See Below) Other Oncologic Surgeries/Procedures: Breast surgery as above, bone marrow fine needle aspiration and biopsy in about 2011, excision of squamous cell carcinoma from the facial region as above Dermatological Surgical History: Reports: Other (See Below) - Past Imaging History Past Imaging History: Reports: Angiography (Heart catheterization in May 2016 and October 2001), Cardiac Echo (Last cardiac echocardiogram on 08/05/16 with results as above previous evaluation in March 2013), CAT Scan (CT of the head on 01/28/17. CTA of the chest with PE protocol last on 01/28/17 with previous evaluations on 08/05/16 and on 09/14/14, CT of the maxillofacial region on 12/18/[address] of the head on 01/12/16, 11/09/15, and 09/26/14, CTA of the renal system on 06/18/13), MRI (MRI of the brain on 02/12/16, MRI of the lumbar spine on 12/30/16 and the thoracic spine on 11/09/15, lumbar spine on 03/16/15 and 07/08/13), Swallow Study (09/25/17 with previous evaluation on 10/17/16), Venous Doppler (Right-sided venous Doppler study of the right leg on 07/30/17 with previous evaluation of the lower extremities bilaterally on 08/06/16 with previous evaluation of the right leg in October 2014) Social & Family History - Family History HEENT: Reports: None Cardiac: Reports: CAD, Heart Failure, MT, Stent, Other (See Below) Other Cardiac Family History: Sister with PTCA/stent x2 and an MT with fatal MT at age 83, another sister with fatal CHF at 64, another sister with fatal MT at age 75, mom with coronary artery disease, maternal aunts x2 with fatal MT one in her 80s the other at age 92 Respiratory: Reports: None GI: Reports: Inflammatory Bowel Disease, Other (See Below) Other GI Family History: Mother with Crohn's disease : Reports: Renal Calculus, Other (See Below) Other Family History: Son and 2 daughters with urolithiasis OBGYN: Reports: None Musculoskeletal: Reports: None Neurological: Reports: MS, Other (See Below) Other Neurological Family History: Daughter with MS Psychiatric: Reports: None Endocrine/Metabolic: Reports: None Hematologic: Reports: None Immunologic: Reports: None Dermatologic: Reports: None Oncologic: Reports: Breast, Colon, Metastatic, Renal, Other (See Below) Other Oncologic Family History: Sister with fatal breast cancer at age 60, paternal aunt with fatal breast cancer in her 60s, maternal aunt with breast cancer, mother with possible renal cancer, sister with fatal liver cancer versus metastases in her 60s, sister with colon cancer in her 80s - Caffeine Use Caffeine Use: Reports: Coffee Caffeine Use Comment: drinks weak coffee - Living Situation & Occupation Living situation: Reports: (2015, 4 children), Alone, Assisted Living ([facility] assisted living facility) 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[employer] , 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[employer]) ED ROS GENERAL - Review of Systems Review Of Systems: See Below Constitutional: Reports: No Symptoms HEENT: Reports: No Symptoms Respiratory: Reports: Shortness of Breath, Wheezing Cardiovascular: Reports: Edema GI/Abdominal: Reports: No Symptoms Neurological: Reports: No Symptoms Psychiatric: Reports: No Symptoms ED EXAM, GENERAL - Physical Exam Exam: See Below Exam Limited By: No Limitations General Appearance: Alert, WD/WN, Mild Distress Ears: Normal TMs Nose: Normal Inspection Throat/Mouth: Normal Oropharynx Neck: Supple Respiratory/Chest: Decreased Breath Sounds, Wheezing Cardiovascular: Regular Rate, Rhythm GI/Abdominal: Soft, Non-Tender Extremities: Pedal Edema Neurological: Alert, No Motor/Sensory Deficits Psychiatric: Normal Affect, Normal Mood Course - Vital Signs Last Recorded V/S: Last Vital Signs Temp 98.5 F 07/09/20 08:35 Pulse 85 07/09/20 08:35 Resp 27 H 07/09/20 08:35 BP 139/59 L 07/09/20 08:35 Pulse Ox 80 L 07/09/20 08:35 - Orders/Labs/Meds Orders: Active Orders 24 hr Category Date Time Status RT Aerosol Therapy [RC] ASDIRECTED Care 07/09/20 08:35 Active Chest 1V Frontal [CR] Stat Exams 07/09/20 08:34 Taken CULTURE BLOOD [BC] Stat Lab 07/09/20 09:19 Ordered CULTURE BLOOD [BC] Stat Lab 07/09/20 09:19 Ordered Sodium Chloride 0.9% [Saline Flush] Med 07/09/20 08:33 Active 10 ml FLUSH ASDIRECTED PRN cefTRIAXone [Rocephin] 1 gm Med 07/09/20 09:19 Active Sodium Chloride 0.9% [Normal Saline] 100 ml IV ONETIME Blood Culture x2 Reflex Set [OM.PC] Stat Oth 07/09/20 09:19 Ordered Saline Lock Insert [OM.PC] Routine Oth 07/09/20 08:33 Ordered Medication Orders Ceftriaxone Sodium 1 gm/ (Sodium Chloride) 100 mls @ 200 mls/hr IV ONETIME ONE Stop: 07/09/20 09:48 Sodium Chloride (Saline Flush) 10 ml FLUSH ASDIRECTED PRN PRN Reason: Keep Vein Open Labs: Laboratory Tests 07/09/20 07/09/20 07/09/20 Range/Units 08:40 08:40 08:40 WBC 12.1 H (4.0-10.2) K/uL RBC 3.98 (3.77-5.09) M/uL Hgb 11.4 L (11.7-15.5) g/dL Hct 34.8 (34.0-46.0) % MCV 87.4 (84.0-98.0) fL MCH 28.6 (28.2-33.3) pg MCHC 32.8 (31.7-36.0) g/dL RDW 17.6 H (11.2-14.1) % Plt Count 167 (150-350) K/uL Neut % (Auto) 84.3 H (45.0-80.0) % Lymph % (Auto) 4.5 L (10.0-50.0) % [place] % (Auto) 9.6 (2.0-14.0) % Eos % (Auto) 0.9 (0.0-5.0) % Baso % (Auto) 0.7 (0.0-2.0) % Neut # (Auto) 10.17 H (1.40-7.00) K/uL Lymph # (Auto) 0.54 (0.50-3.50) K/uL [place] # (Auto) 1.16 H (0.00-1.00) K/uL Eos # (Auto) 0.11 (0.00-0.50) K/uL Baso # (Auto) 0.09 (0.00-0.20) K/uL Sodium 135 L (136-145) mmol/L Potassium 4.3 (3.5-5.1) mmol/L Chloride 99 (98-107) mmol/L Carbon Dioxide 28.7 (21.0-32.0) mmol/L BUN 38 H (7-18) mg/dL Creatinine 1.14 (0.51-1.17) mg/dL Est Cr Clr Drug Dosing 25.91 mL/min Estimated GFR (MDRD) 45 mL/min Glucose 102 (74-106) mg/dL Lactic Acid 1.2 (0.4-2.0) mmol/L Calcium 9.1 (8.5-10.1) mg/dL Total Bilirubin 0.8 (0.2-1.0) mg/dL AST 39 H (15-37) U/L ALT 49 (12-78) U/L Alkaline Phosphatase 99 (46-116) IU/L Total Protein 7.1 (6.4-8.2) g/dL Albumin 3.2 L (3.4-5.0) g/dL Meds: Medications Generic Name Dose Route Start Last Admin Trade Name Freq PRN Reason Stop Dose Admin Ceftriaxone Sodium 1 gm/ 100 mls @ 200 mls/hr 07/09/20 09:19 Sodium Chloride IV 07/09/20 09:48 ONETIME ONE Sodium Chloride 10 ml 07/09/20 08:33 Saline Flush FLUSH ASDIRECTED PRN Keep Vein Open Discontinued Medications Generic Name Dose Route Start Last Admin Trade Name Latasha PRN Reason Stop Dose Admin Albuterol/Ipratropium 3 ml 07/09/20 08:35 07/09/20 08:45 Duoneb 3.0-0.5 Mg/3 Ml NEB 07/09/20 08:36 3 ml ONETIME ONE Administration Azithromycin 500 mg 07/09/20 09:20 Zithromax PO 07/09/20 09:21 ONETIME ONE - Re-Assessments/Exams Free Text/Narrative Re-Assessment/Exam: 07/09/20 09:48 See lab Pt given Duoneb HHN in ER with improved symptoms CXR per radiologist with bilateral patchy opacities Pt continues to require supplemental oxygen Pt given Rocephin and Zithromax in ER Will admit to acute 07/09/20 09:52 Departure - Departure Time of Disposition: 10:00 Disposition: Admitted As Inpatient 66 Clinical Impression: Pneumonia Qualifiers: Pneumonia type: due to unspecified organism Laterality: bilateral Lung location: unspecified part of lung Qualified Code(s): J18.9 - Pneumonia, unspecified organism - Discharge Information Sepsis Event Note (ED) - Evaluation Sepsis Screening Result: Possible Sepsis Risk - Focused Exam Vital Signs: Vital Signs Temp Pulse Resp BP Pulse Ox Pulse Ox 07/09/20 08:35 98.5 F 85 27 H 139/59 L 80 L 07/09/20 08:32 80 L - Problem List & Annotations (1) Pneumonia SNOMED Code(s): 528402568 Code(s): J18.9 - PNEUMONIA, UNSPECIFIED ORGANISM Status: Acute Current Visit: Yes Qualifiers: Pneumonia type: due to unspecified organism Laterality: bilateral Lung location: unspecified part of lung Qualified Code(s): J18.9 - Pneumonia, unspecified organism (2) Hypertension SNOMED Code(s): 22017020 Code(s): I10 - ESSENTIAL (PRIMARY) HYPERTENSION Status: Chronic Priority: Medium Current Visit: No Annotation/Comment:: Blood pressures have been stable despite her anemia and her heart disease. Qualifiers: Hypertension type: essential hypertension Qualified Code(s): I10 - Essential (primary) hypertension (3) CHF (congestive heart failure) SNOMED Code(s): 43567482 Code(s): I50.9 - HEART FAILURE, UNSPECIFIED Status: Acute Priority: High Current Visit: No Annotation/Comment:: Long history of recurrent CHF secondary to her grade 1 diastolic dysfunction, coronary artery disease, and valvular disease. No chest pain or anginal type symptoms. Continue to observe closely during swing bed care and also by her regular providers at time of discharge. (4) IDDM (insulin dependent diabetes mellitus) SNOMED Code(s): 06461636 Code(s): E11.9 - TYPE 2 DIABETES MELLITUS WITHOUT COMPLICATIONS; Z79.4 - SNF (CURRENT) USE OF INSULIN Status: Chronic Priority: Medium Current Visit: No Annotation/Comment:: Patient was continued on previous Levemir insulin therapy as well as sliding scale for short acting treatment of hyperglycemia. Nursing staff note that sliding scale was rarely required during stay. Will have patient continue previous regimen at home. She says she will continue to monitor her blood sugars closely and follow up with her primary provider. - My Orders Last 24 Hours: My Active Orders 07/09/20 08:33 Sodium Chloride 0.9% [Saline Flush] 10 ml FLUSH ASDIRECTED PRN Saline Lock Insert [OM.PC] Routine 07/09/20 08:34 Chest 1V Frontal [CR] Stat 07/09/20 08:35 RT Aerosol Therapy [RC] ASDIRECTED 07/09/20 09:19 CULTURE BLOOD [BC] Stat CULTURE BLOOD [BC] Stat cefTRIAXone [Rocephin] 1 gm Sodium Chloride 0.9% [Normal Saline] 100 ml IV ONETIME Blood Culture x2 Reflex Set [OM.PC] Stat - Assessment/Plan Last 24 Hours: My Active Orders 07/09/20 08:33 Sodium Chloride 0.9% [Saline Flush] 10 ml FLUSH ASDIRECTED PRN Saline Lock Insert [OM.PC] Routine 07/09/20 08:34 Chest 1V Frontal [CR] Stat 07/09/20 08:35 RT Aerosol Therapy [RC] ASDIRECTED 07/09/20 09:19 CULTURE BLOOD [BC] Stat CULTURE BLOOD [BC] Stat cefTRIAXone [Rocephin] 1 gm Sodium Chloride 0.9% [Normal Saline] 100 ml IV ONETIME Blood Culture x2 Reflex Set [OM.PC] Stat Assessment:: Imp: Bilateral pneumonia Plan: Admit to inpatient to continue Rocephin and Zithromax
[2020-07-09] MEDS ORDERED: Acetaminophen 325 MG Tab PO PRN (09:56)
[2020-07-09] MEDS ORDERED: LOPERAMIDE HCL PO PRN (10:00)
[2020-07-09] MEDS ORDERED: Fluticasone Propionate Nasal Spray 16 GM Bottle NASBOTH PRN (10:00)
[2020-07-09] MEDS ORDERED: Albuterol 6.7 GM Inhaler INH PRN (10:00)
[2020-07-09] MEDS ORDERED: Nitroglycerin 0.4 MG Tab.SL SL PRN (10:00)
[2020-07-09] MEDS ORDERED: Diclofenac Sodium 1% Gel 100 GM Tube TOP PRN (10:00)
[2020-07-09] MEDS: cefTRIAXone 1 GM in Sodium Chloride 0.9% 100 ML IV SCH (11:02)
[2020-07-09] MEDS ORDERED: Cetirizine 10 MG Tab PO PRN (11:16)
[2020-07-09] MEDS ORDERED: Loperamide 2 MG Tab PO PRN (11:25)
[2020-07-09] MEDS: Cholecalciferol (Vitamin D3) 25 MCG Tab PO SCH (11:53)
[2020-07-09] MEDS: Lactobacillus Rhamnosus GG (Probiotic) Cap PO SCH (11:54)
[2020-07-09] MEDS: Multivitamin Tab PO SCH (11:54)
[2020-07-09] MEDS: rOPINIRole 1 MG Tab PO SCH (11:55)
[2020-07-09] MEDS: Iron Polysaccharides Complex 150 MG Cap PO SCH ×2 (11:56→17:26)
[2020-07-09] MEDS: Furosemide 40 MG Tab PO SCH (11:56)
[2020-07-09] MEDS ORDERED: Non-Formulary Medication 1 Each (Ubidecarenone [Co Q-10] 50 MG) PO SCH (12:00)
[2020-07-09] MEDS: Albuterol/Ipratropium 3.0-0.5 MG/3 ML Neb Soln INH PRN ×2 (16:13→22:27)
[2020-07-09] MEDS: LORazepam 0.5 MG Tab PO PRN (16:31)
[2020-07-09] MEDS: Insulin Glarg,Human.Rec.Analog 100 Unit/ML SUBCUT SCH (17:17)
[2020-07-09] MEDS: Polyvinyl Alcohol 1.4% Ophth Soln 15 ML Bottle EYEBOTH SCH (17:18)
[2020-07-09] MEDS: Carvedilol 12.5 MG Tab PO SCH (17:25)
[2020-07-09] MEDS: Spironolactone 25 MG Tab PO SCH (17:26)
[2020-07-09] MEDS: Omeprazole 20 MG Cap.CR PO SCH (17:27)
[2020-07-09] MEDS: amLODIPine 5 MG Tab PO SCH (17:27)
[2020-07-09] MEDS ORDERED: Insulin Glarg,Human.Rec.Analog 100 Unit/ML SUBCUT SCH (18:00)
[2020-07-09] MEDS ORDERED: Isosorbide Mononitrate 30 MG Tab.ER PO SCH (20:00)
[2020-07-09] MEDS ORDERED: LORazepam 0.5 MG Tab PO SCH (20:00)
[2020-07-09] MEDS ORDERED: rOPINIRole 1 MG Tab PO SCH (20:00)
[2020-07-09] MEDS ORDERED: Allopurinol 100 MG Tab PO SCH (20:00)
[2020-07-09] MEDS ORDERED: Gabapentin 300 MG Cap PO SCH (20:00)
[2020-07-09] MEDS ORDERED: atorvaSTATin 40 MG Tab PO SCH (20:00)
[2020-07-09] MEDS ORDERED: Oxybutynin 5 MG Tab.ER PO SCH (20:00)
[2020-07-09] MEDS ORDERED: Levothyroxine 100 MCG Tab PO SCH (20:00)
[2020-07-09] MEDS: Gentamicin 0.1% Crm 15 GM Tube TOP SCH (20:49)
[2020-07-10] MEDS ORDERED: methylPREDNISolone Sodium Succinate 125 MG/2 ML SDV IVPUSH ONE (01:53)
[2020-07-10] MEDS ORDERED: Albuterol/Ipratropium 3.0-0.5 MG/3 ML Neb Soln NEB ONE (01:54)
[2020-07-10] MEDS: Sodium Chloride 0.9% 10 ML Syringe FLUSH PRN ×3 (02:06→12:38)
[2020-07-10] MEDS: LORazepam 0.5 MG Tab PO PRN (02:20)
[2020-07-10] MEDS: Gentamicin 0.1% Crm 15 GM Tube TOP SCH (07:17)
[2020-07-10] MEDS: rOPINIRole 1 MG Tab PO SCH ×2 (07:18→12:35)
[2020-07-10] MEDS: Polyvinyl Alcohol 1.4% Ophth Soln 15 ML Bottle EYEBOTH SCH (07:18)
[2020-07-10] MEDS: amLODIPine 5 MG Tab PO SCH (07:20)
[2020-07-10] MEDS: Spironolactone 25 MG Tab PO SCH (07:20)
[2020-07-10] MEDS: Furosemide 40 MG Tab PO SCH ×2 (07:20→12:37)
[2020-07-10] MEDS: Omeprazole 20 MG Cap.CR PO SCH (07:20)
[2020-07-10] MEDS: Carvedilol 12.5 MG Tab PO SCH (07:21)
[2020-07-10] MEDS: Insulin Glarg,Human.Rec.Analog 100 Unit/ML SUBCUT SCH (07:23)
[2020-07-10] MEDS ORDERED: Azithromycin 250 MG Tab PO SCH (08:00)
[2020-07-10] MEDS ORDERED: Gabapentin 100 MG Cap PO SCH (08:00)
[2020-07-10] MEDS ORDERED: DULoxetine 30 MG Cap PO SCH (08:00)
[2020-07-10] MEDS ORDERED: Aspirin 81 MG Tab.EC PO SCH (08:00)
[2020-07-10] MEDS: cefTRIAXone 1 GM in Sodium Chloride 0.9% 100 ML IV SCH (09:54)
[2020-07-10] MEDS ORDERED: methylPREDNISolone Sodium Succinate 40 MG/1 ML SDV IVPUSH ONE (11:55)
[2020-07-10] MEDS ORDERED: Cyanocobalamin (Vitamin B12) 1,000 MCG Tab PO SCH (12:00)
--- NOTE | 2020-07-10 12:04 | PCM.DCSUM1 ---
Discharge Summary - Hospital Course Brief History: Pt dmitted with pneumonia Started on IV Rocephin and PO Zithromax Was initially on 2 L oxygen Now with increased SOB, increased work of breathing, increased wheezing and now requiring 5 - 10 L oxygen to keep sats 92% CXR worse this AM D/W Dr Osborne On-call hospitalist [facility] Will accept in trnasfer Diagnosis: Stroke: No - Discharge Data Discharge Date: 07/10/20 Discharge Disposition: DC/Tfer to Acute Hospital 02 Condition: Good - Referral to Home Health Primary Care Physician: France Slaughter PA-C - Discharge Diagnosis/Problem(s) (1) Pneumonia SNOMED Code(s): 222655207 ICD Code: J18.9 - PNEUMONIA, UNSPECIFIED ORGANISM Status: Acute Current Visit: Yes Qualifiers: Pneumonia type: due to unspecified organism Laterality: bilateral Lung location: unspecified part of lung Qualified Code(s): J18.9 - Pneumonia, unspecified organism (2) Hypertension SNOMED Code(s): 86683132 ICD Code: I10 - ESSENTIAL (PRIMARY) HYPERTENSION Status: Chronic Priority: Medium Current Visit: No Problem Details: Blood pressures have been stable despite her anemia and her heart disease. 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 No chest pain or anginal type symptoms. Continue to observe closely during swing bed care and also by her regular providers at time of discharge. (4) IDDM (insulin dependent diabetes mellitus) SNOMED Code(s): 37105604 ICD Code: E11.9 - TYPE 2 DIABETES MELLITUS WITHOUT COMPLICATIONS; Z79.4 - USP (CURRENT) USE OF INSULIN Status: Chronic Priority: Medium Current Visit: No Problem Details: Patient was continued on previous Levemir insulin therapy as well as sliding scale for short acting treatment of hyperglycemia. Nursing staff note that sliding scale was rarely required during stay. Will have patient continue previous regimen at home. She says she will continue to monitor her blood sugars closely and follow up with her primary provider. - Discharge Plan Home Medications: Home Meds Nitroglycerin [Nitrostat] 0.4 mg SL ASDIRECTED PRN 10/08/13 [History] allopurinoL [Zyloprim] 150 mg PO BEDTIME 10/08/13 [History] Acetaminophen [Tylenol Extra Strength] 1 - 2 tab PO Q4H PRN 02/14/15 [History] Aspirin [Halfprin] 81 mg PO DAILY 09/29/15 [History] Multivitamin with Minerals [Multiple Vitamin] 1 tab PO DAILY@1200 09/29/15 [History] rOPINIRole [Requip] 2 mg PO BID@0800,1200 01/04/16 [History] Gabapentin [Neurontin] 200 mg PO QAM 08/05/16 [History] LORazepam 1 mg PO BEDTIME 08/05/16 [History] Insulin Detemir [Levemir] 26 units SUBCUT BID 12/15/16 [History] Iron Polysaccharides Complex [Ferrex 150] 150 mg PO BID@1200,1800 08/12/17 [History] carvediloL [Coreg] 12.5 mg PO BIDMEALS 08/22/17 [History] Albuterol [Ventolin HFA] 2 puff INH Q6H PRN 10/23/17 [History] L.acidoph,Paracasei, B.lactis [Probiotic] 1 cap PO DAILY@1200 10/23/17 [History] Oxybutynin [Oxybutynin ER] 5 mg PO BEDTIME 10/23/17 [History] amLODIPine Besylate [Norvasc] 5 mg PO BID 10/23/17 [History] Dextran 70/Hypromellose [Artificial Tears] 1 drop EYEBOTH BID 11/21/17 [History] Fluticasone Propionate [Flonase] 1 inhalation NASBOTH BID PRN 11/21/17 [History] Furosemide [Lasix] 40 mg PO BID@0800,1200 11/21/17 [History] Omeprazole 20 mg PO BIDAC 11/21/17 [History] Gabapentin [Neurontin] 300 mg PO BEDTIME 09/09/18 [History] Isosorbide Mononitrate [Imdur] 30 mg PO BEDTIME 09/09/18 [History] Levothyroxine [Synthroid] 100 mcg PO BEDTIME 09/09/18 [History] Spironolactone [Aldactone] 25 mg PO BID 09/09/18 [History] rOPINIRole [Requip] 3 mg PO BEDTIME 09/09/18 [History] Albuterol/Ipratropium [DuoNeb 3.0-0.5 MG/3 ML] 1 ampule INH Q6HR PRN 07/09/20 [History] Cholecalciferol (Vitamin D3) [Vitamin D3] 3,000 unit PO DAILY@1200 07/09/20 [History] Cyanocobalamin (Vitamin B12) [Vitamin B12] 1,000 mcg PO MO@1200 07/09/20 [History] DULoxetine HCl [Cymbalta] 30 mg PO DAILY 07/09/20 [History] Diclofenac Sodium [Voltaren 1% Gel] 1 applic TOP Q12HR PRN 07/09/20 [History] Gentamicin [Gentamicin 0.1%] 1 applic TOP Q12HR 07/09/20 [History] LORazepam [Ativan] 0.5 mg PO Q6HR PRN 07/09/20 [History] Loperamide HCl [Imodium A-D] 1 tab PO ASDIRECTED PRN 07/09/20 [History] Ubidecarenone [Co Q-10] 50 mg PO Q2D@1200 07/09/20 [History] atorvaSTATin Calcium [Atorvastatin Calcium] 40 mg PO BEDTIME 07/09/20 [History] Forms: ED Department Discharge Referrals: France Slaughter PA-C [Primary Care Provider] - - Discharge Summary/Plan Comment DC Time >30 min.: No Discharge Summary/Plan Comment: Pt with worsening respiratory status D/W Dr Osborne On-call hospitalist [facility] Will accept in transfer - General Info Date of Service: 07/10/20 Admission Dx/Problem (Free Text: Pt with much worse SOB and work of breathing per patient States she almost cannot breath - Review of Systems General: Reports: Weakness HEENT: Reports: No Symptoms Pulmonary: Reports: Shortness of Breath, Wheezing Cardiovascular: Reports: No Symptoms Gastrointestinal: Reports: No Symptoms Musculoskeletal: Reports: No Symptoms - Patient Data Vitals - Most Recent: Last Vital Signs Temp 97.0 F 07/10/20 07:26 Pulse 91 07/10/20 07:26 Resp 24 H 07/10/20 07:26 BP 153/62 H 07/10/20 07:26 Pulse Ox 92 L 07/10/20 07:26 Weight - Most Recent: 137 lb I&O - Last 24 hours: Intake & Output 07/10/20 07/10/20 07/10/20 02:59 10:59 18:59 Intake Total 420 Balance 420 Lab Results - Last 24 hrs: Laboratory Results - last 24 hr 07/09/20 07/10/20 07/10/20 Range/Units 16:51 01:05 06:47 WBC (4.0-10.2) K/uL RBC (3.77-5.09) M/uL Hgb (11.7-15.5) g/dL Hct (34.0-46.0) % MCV (84.0-98.0) fL MCH (28.2-33.3) pg MCHC (31.7-36.0) g/dL RDW (11.2-14.1) % Plt Count (150-350) K/uL MPV (7.00-11.50) fL ABG pH (7.35-7.45) ABG pCO2 (35-45) mmHG ABG pO2 (80-105) mmHG ABG HCO3 (22-26) mmol/L ABG Total CO2 (23-27) mmol/L ABG O2 Saturation (95-98) % ABG Base Excess (-2-3) mmol/L O2 Delivery Device Sodium (136-145) mmol/L Potassium (3.5-5.1) mmol/L Chloride (98-107) mmol/L Carbon Dioxide (21.0-32.0) mmol/L BUN (7-18) mg/dL Creatinine (0.51-1.17) mg/dL Est Cr Clr Drug Dosing mL/min Estimated GFR (MDRD) mL/min Glucose (74-106) mg/dL POC Glucose 173 H 124 H 172 H (65-110) mg/dl Calcium (8.5-10.1) mg/dL 07/10/20 07/10/20 07/10/20 Range/Units 07:35 07:35 10:55 WBC 11.4 H (4.0-10.2) K/uL RBC 4.00 (3.77-5.09) M/uL Hgb 11.5 L (11.7-15.5) g/dL Hct 35.3 (34.0-46.0) % MCV 88.3 (84.0-98.0) fL MCH 28.8 (28.2-33.3) pg MCHC 32.6 (31.7-36.0) g/dL RDW 17.6 H (11.2-14.1) % Plt Count 167 (150-350) K/uL MPV 10.40 (7.00-11.50) fL ABG pH 7.45 (7.35-7.45) ABG pCO2 36 (35-45) mmHG ABG pO2 78 L (80-105) mmHG ABG HCO3 24.8 (22-26) mmol/L ABG Total CO2 25 (23-27) mmol/L ABG O2 Saturation 96 (95-98) % ABG Base Excess 1 (-2-3) mmol/L O2 Delivery Device Nasal cannula Sodium 135 L (136-145) mmol/L Potassium 4.6 (3.5-5.1) mmol/L Chloride 98 (98-107) mmol/L Carbon Dioxide 26.4 (21.0-32.0) mmol/L BUN 40 H (7-18) mg/dL Creatinine 1.15 (0.51-1.17) mg/dL Est Cr Clr Drug Dosing 25.69 mL/min Estimated GFR (MDRD) 45 mL/min Glucose 174 H (74-106) mg/dL POC Glucose (65-110) mg/dl Calcium 9.2 (8.5-10.1) mg/dL BRIANNA Results - Last 24 hrs: Microbiology 07/09/20 09:55 Aerobic Blood Culture - Preliminary Blood - Venous - Lab Draw NO GROWTH AFTER 1 DAY Anaerobic Blood Culture - Preliminary NO GROWTH AFTER 1 DAY 07/09/20 09:35 Aerobic Blood Culture - Preliminary Blood - Venous NO GROWTH AFTER 1 DAY Anaerobic Blood Culture - Preliminary NO GROWTH AFTER 1 DAY Med Orders - Current: Current Medications Acetaminophen (Tylenol) 650 mg PO Q4H PRN PRN Reason: Pain (Mild 1-3)/fever Last Admin: 07/09/20 16:30 Dose: 650 mg Documented by: Albuterol (Proventil Hfa) 0 gm INH Q6H PRN PRN Reason: Shortness of Breath Last Admin: 07/09/20 20:48 Dose: 2 puff Documented by: Albuterol/Ipratropium (Duoneb 3.0-0.5 Mg/3 Ml) 3 ml INH Q6HR PRN PRN Reason: Dyspnea Last Admin: 07/09/20 22:27 Dose: 3 ml Documented by: Allopurinol (Zyloprim) 150 mg PO BEDTIME [facility] Last Admin: 07/09/20 19:42 Dose: 150 mg Documented by: Amlodipine Besylate (Norvasc) 5 mg PO BID [facility] Last Admin: 07/10/20 07:20 Dose: 5 mg Documented by: Artificial Tears (Liquitears 1.4% Ophth Soln) 0 ml EYEBOTH BID [facility] Last Admin: 07/10/20 07:18 Dose: 1 drop Documented by: Aspirin (Halfprin) 81 mg PO DAILY [facility] Last Admin: 07/10/20 07:19 Dose: 81 mg Documented by: Atorvastatin Calcium (Lipitor) 40 mg PO BEDTIME [facility] Last Admin: 07/09/20 19:41 Dose: 40 mg Documented by: Azithromycin (Zithromax) 250 mg PO DAILY [facility] Last Admin: 07/10/20 07:20 Dose: 250 mg Documented by: Carvedilol (Coreg) 12.5 mg PO BIDMEALS [facility] Last Admin: 07/10/20 07:21 Dose: 12.5 mg Documented by: Cetirizine HCl (Zyrtec) 5 mg PO DAILY PRN PRN Reason: Itching Cholecalciferol (Vitamin D3) 75 mcg PO DAILY@1200 [facility] Last Admin: 07/09/20 11:53 Dose: 75 mcg Documented by: Coenzyme Q10 (Coenzyme Q10) 100 mg PO Q2D [facility] Cyanocobalamin (Vitamin B12) 1,000 mcg PO MO@1200 [facility] Duloxetine HCl (Cymbalta) 30 mg PO DAILY [facility] Last Admin: 07/10/20 07:18 Dose: 30 mg Documented by: Fluticasone Propionate (Flonase) 0 gm NASBOTH BID PRN PRN Reason: Allergies Furosemide (Lasix) 40 mg PO BID@0800,1200 [facility] Last Admin: 07/10/20 07:20 Dose: 40 mg Documented by: Gabapentin (Neurontin) 200 mg PO QAM [facility] Last Admin: 07/10/20 07:21 Dose: 200 mg Documented by: Gabapentin (Neurontin) 300 mg PO BEDTIME [facility] Last Admin: 07/09/20 19:42 Dose: 300 mg Documented by: Gentamicin Sulfate (Gentamicin 0.1%) 0 gm TOP Q12HR [facility] Last Admin: 07/10/20 07:17 Dose: 1 applic Documented by: Ceftriaxone Sodium 1 gm/ (Sodium Chloride) 100 mls @ 200 mls/hr IV Q24H [facility] Last Admin: 07/10/20 09:54 Dose: 200 mls/hr Documented by: Insulin Glargine (Lantus) 26 unit SUBCUT BID [facility] Last Admin: 07/10/20 07:23 Dose: 26 unit Documented by: Isosorbide Mononitrate (Imdur) 30 mg PO BEDTIME [facility] Last Admin: 07/09/20 19:41 Dose: 30 mg Documented by: Lactobacillus Rhamnosus (Culturelle) 1 cap PO DAILY@1200 [facility] Last Admin: 07/09/20 11:54 Dose: 1 cap Documented by: Levothyroxine Sodium (Synthroid) 100 mcg PO BEDTIME [facility] Last Admin: 07/09/20 19:53 Dose: 100 mcg Documented by: Loperamide HCl (Imodium Ad) 2 mg PO ASDIRECTED PRN PRN Reason: Diarrhea Last Admin: 07/09/20 11:53 Dose: 2 mg Documented by: Lorazepam (Ativan) 0.5 mg PO Q6HR PRN PRN Reason: Anxiety Last Admin: 07/10/20 02:20 Dose: 0.5 mg Documented by: Lorazepam (Ativan) 1 mg PO BEDTIME [facility] Last Admin: 07/09/20 20:53 Dose: 1 mg Documented by: Methylprednisolone Sodium Succinate (Solu-Medrol) 40 mg IVPUSH ONETIME ONE Stop: 07/10/20 11:56 Multivitamins/Minerals/Vitamin C (Tab-A-Taina) 1 tab PO DAILY@1200 [facility] Last Admin: 07/09/20 11:54 Dose: 1 tab Documented by: Nitroglycerin (Nitrostat) 0.4 mg SL ASDIRECTED PRN PRN Reason: Chest Pain Omeprazole (Omeprazole) 20 mg PO BIDAC [facility] Last Admin: 07/10/20 07:20 Dose: 20 mg Documented by: Oxybutynin Chloride (Oxybutynin Er) 5 mg PO BEDTIME [facility] Last Admin: 07/09/20 19:42 Dose: 5 mg Documented by: Polysaccharide Iron Complex (Ferrex 150) 150 mg PO BID@1200,1800 [facility] Last Admin: 07/09/20 17:26 Dose: 150 mg Documented by: Ropinirole HCl (Requip) 2 mg PO BID@0800,1200 [facility] Last Admin: 07/10/20 07:18 Dose: 2 mg Documented by: Ropinirole HCl (Requip) 3 mg PO BEDTIME [facility] Last Admin: 07/09/20 19:41 Dose: 3 mg Documented by: Sodium Chloride (Saline Flush) 10 ml FLUSH ASDIRECTED PRN PRN Reason: Keep Vein Open Last Admin: 07/10/20 09:54 Dose: 10 ml Documented by: Spironolactone (Aldactone) 25 mg PO BID [facility] Last Admin: 07/10/20 07:20 Dose: 25 mg Documented by: Discontinued Medications Albuterol/Ipratropium (Duoneb 3.0-0.5 Mg/3 Ml) 3 ml NEB ONETIME ONE Stop: 07/09/20 08:36 Last Admin: 07/09/20 08:45 Dose: 3 ml Documented by: Albuterol/Ipratropium (Duoneb 3.0-0.5 Mg/3 Ml) 3 ml NEB ONETIME ONE Stop: 07/10/20 01:55 Last Admin: 07/10/20 02:06 Dose: 3 ml Documented by: Azithromycin (Zithromax) 500 mg PO ONETIME ONE Stop: 07/09/20 09:21 Last Admin: 07/09/20 09:52 Dose: 500 mg Documented by: Diclofenac Sodium (Voltaren 1% Gel) gm TOP Q12HR PRN PRN Reason: Pain Ceftriaxone Sodium 1 gm/ (Sodium Chloride) 100 mls @ 200 mls/hr IV ONETIME ONE Stop: 07/09/20 09:48 Last Admin: 07/09/20 09:53 Dose: 200 mls/hr Documented by: Insulin Glargine (Lantus) 36 unit SUBCUT BID [facility] Methylprednisolone Sodium Succinate (Solu-Medrol) 125 mg IVPUSH ONETIME ONE Stop: 07/10/20 01:54 Last Admin: 07/10/20 02:06 Dose: 125 mg Documented by: Non-Formulary Medication (Loperamide Hcl [Imodium A-D]) 1 tab PO ASDIRECTED PRN PRN Reason: Diarrhea Non-Formulary Medication (Ubidecarenone [Co Q-10]) 50 mg PO Q2D@1200 [facility] - Exam Quality Assessment: Reports: Supplemental Oxygen General: Reports: Alert, Oriented, Moderate Distress Neck: Reports: Supple Lungs: Reports: Decreased Breath Sounds, Wheezing Cardiovascular: Reports: Regular Rate GI/Abdominal Exam: Soft, Non-Tender
[2020-07-10] MEDS: Iron Polysaccharides Complex 150 MG Cap PO SCH (12:36)
[2020-07-10] MEDS: Multivitamin Tab PO SCH (12:36)
[2020-07-10] MEDS: Cholecalciferol (Vitamin D3) 25 MCG Tab PO SCH (12:36)
[2020-07-10] MEDS: Lactobacillus Rhamnosus GG (Probiotic) Cap PO SCH (12:37)
[2020-07-10 12:58] VITALS: BP 127/60; PULSE 82
[2020-07-10 14:27] LABS: PCO2 ARTERIAL,POC 36 mmHg (35-48)
== END 2020-07-10 13:25 | DRG 177 ==
LOC: LL.ED 08:32 → LL.MS 09:30
PROVIDERS: ADMIT Family Medicine; ATTEND Family Medicine
DX: U07.1 COVID-19 (principal); H91.92 Unspecified hearing loss, left ear; J18.9 Pneumonia, unspecified organism; I13.0 Hypertensive heart and chronic kidney disease with heart failure and stage 1 through stage 4 chronic kidney disease, or unspecified chronic kidney disease; I50.9 Heart failure, unspecified; H91.90 Unspecified hearing loss, unspecified ear; H54.7 Unspecified visual loss; I48.91 Unspecified atrial fibrillation; I42.9 Cardiomyopathy, unspecified; J30.9 Allergic rhinitis, unspecified; I25.10 Atherosclerotic heart disease of native coronary artery without angina pectoris; E78.00 Pure hypercholesterolemia, unspecified; I08.0 Rheumatic disorders of both mitral and aortic valves; J44.9 Chronic obstructive pulmonary disease, unspecified; I50.32 Chronic diastolic (congestive) heart failure; J44.0 Chronic obstructive pulmonary disease with (acute) lower respiratory infection; G47.30 Sleep apnea, unspecified; G47.00 Insomnia, unspecified; K59.09 Other constipation; E06.9 Thyroiditis, unspecified; K21.9 Gastro-esophageal reflux disease without esophagitis; E11.22 Type 2 diabetes mellitus with diabetic chronic kidney disease; I69.351 Hemiplegia and hemiparesis following cerebral infarction affecting right dominant side; I69.322 Dysarthria following cerebral infarction; N18.9 Chronic kidney disease, unspecified; E11.21 Type 2 diabetes mellitus with diabetic nephropathy; M19.90 Unspecified osteoarthritis, unspecified site; G89.29 Other chronic pain; M54.9 Dorsalgia, unspecified; M10.9 Gout, unspecified; M79.7 Fibromyalgia; Z86.16 Personal history of COVID-19; M54.2 Cervicalgia; M81.0 Age-related osteoporosis without current pathological fracture; M06.9 Rheumatoid arthritis, unspecified; E11.42 Type 2 diabetes mellitus with diabetic polyneuropathy; F41.9 Anxiety disorder, unspecified; F32.9 Major depressive disorder, single episode, unspecified; D64.9 Anemia, unspecified; E03.9 Hypothyroidism, unspecified; E53.8 Deficiency of other specified B group vitamins; Z79.4 Long term (current) use of insulin; Z79.890 Hormone replacement therapy; Z79.899 Other long term (current) drug therapy; Z79.82 Long term (current) use of aspirin; Z88.8 Allergy status to other drugs, medicaments and biological substances; Z95.1 Presence of aortocoronary bypass graft; I25.2 Old myocardial infarction; Z95.5 Presence of coronary angioplasty implant and graft; Z87.01 Personal history of pneumonia (recurrent); Z86.010 Personal history of colon polyps; Z87.442 Personal history of urinary calculi; Z86.73 Personal history of transient ischemic attack (TIA), and cerebral infarction without residual deficits; Z85.3 Personal history of malignant neoplasm of breast; E11.65 Type 2 diabetes mellitus with hyperglycemia
CPT/HCPCS: 36415; 36600; 71045; 80048; 80053; 82803; 82962; 83605; 85025; 85027; 87040; 94640; 99222; 99238; 99285-25; A9270-GY; J0696; J1815-GY; J2920; J2930; J7620-GY; U0002